=== PATIENT | female | born 1960 | race Hispanic/Latino ===

== ENCOUNTER 2016-08-04 07:20 | Emergency (ER) | payer MEDICARE ==
--- NOTE | 2016-08-04 11:33 | Emergency Department Report ---
HPI - General Chief Complaint: Skin/Abscess/Foreign Body Time Seen by Provider: 08/04/16 10:52 - HPI HPI: 56-year-old female presents today with multiple abscesses of her abdomen x1 week. Patient denies history of similar symptoms. Positive for purulent drainage without bleeding. Rates her pain as a 6 out of 10 constant pain. Denies fever, chills, nausea, vomiting, chest pain, shortness of breath, abdominal pain. ED Past Medical Hx - Past Medical History Previous Medical History?: Yes Hx Hypertension: Yes Hx Liver Disease: Yes (cirrhosis) Hx Arthritis: Yes Hx Seizures: Yes Hx Psychiatric Treatment: No Hx COPD: Yes Additional medical history: TBI 1985. OBESITY - Surgical History Past Surgical History?: Yes Additional Surgical History: left knee and left wrist surgery; brain 1985 - Social History Smoking Status: Never Smoker Substance Use Type: Prescribed, Other - Medications Home Medications: Home Medications Medication Instructions Recorded Confirmed Last Taken Type ALPRAZolam [Xanax TAB] 1 mg PO TID PRN 10/22/15 10/22/15 10/19/15 History Acetaminophen [Tylenol] 500 mg PO Q6HR PRN #20 tablet 10/22/15 Unknown Rx Aspirin [Aspirin BABY CHEW TAB] 81 mg PO QDAY 10/22/15 10/22/15 10/22/15 History Atenolol [Tenormin] 25 mg PO DAILY 10/22/15 10/22/15 10/22/15 History Bumetanide [Bumex] 1 mg PO DAILY 10/22/15 10/22/15 10/22/15 History Divalproex ER [DepaKOTE ER] 500 mg PO TID 10/22/15 10/22/15 10/22/15 History Famotidine [Pepcid] 20 mg PO BID #28 tablet 10/22/15 Unknown Rx Oxycodone HCl/Acetaminophen 1 each PO Q6HR PRN 10/22/15 10/22/15 10/20/15 History [Percocet 10/325 mg] carBAMazepine [TEGretol] 200 mg PO QAM 10/22/15 10/22/15 10/22/15 History Ibuprofen [Motrin] 800 mg PO Q8HR PRN #30 tablet 10/27/15 Unknown Rx Cephalexin [Keflex] 500 mg PO QID #20 cap 08/04/16 Unknown Rx Sulfamethoxazole/Trimethoprim 1 each PO BID #10 tablet 08/04/16 Unknown Rx [Bactrim DS TAB] traMADol [Ultram 50 MG tab] 50 mg PO Q6HR PRN #14 tablet 08/04/16 Unknown Rx ED Review of Systems ROS: Stated complaint: ABCESS ON ABD Other details as noted in HPI Constitutional: denies: chills, fever, malaise Eyes: denies: eye pain ENT: denies: ear pain, throat pain, congestion Respiratory: denies: cough, shortness of breath, wheezing Cardiovascular: denies: chest pain, palpitations Endocrine: no symptoms reported Gastrointestinal: denies: abdominal pain, nausea, vomiting Skin: lesions Neurological: denies: headache, weakness Physical Exam - Physical Exam Vital Signs: Vital Signs 08/04/16 07:25 Temperature 98 F Pulse Rate 82 Respiratory 20 Rate Blood Pressure 190/99 O2 Sat by Pulse 99 Oximetry Physical Exam: GENERAL: The patient is well-developed and well-nourished. Morbidly obese. Patient is in NAD. HEAD: Normocephalic. Atraumatic. CHEST/LUNGS: Clear to auscultation throughout. HEART/CARDIOVASCULAR: Regular rate and rhythm. No murmurs, rubs or gallops. ABDOMEN: Abdomen is soft, nontender. No guarding or rebound tenderness. EXTREMITIES: Peripheral pulses intact. Capillary refill less than 2 seconds. SKIN: Multiple abscesses noted of abdominal skin fold. 1. 1.5 cm in diameter indurated, nonfluctant abscess noted over the right abdomen 2. 3.5 cm in diameter, open, draining abscess noted over the mid abdomen 3. 1 cm in diameter, indurated, nonfluctuant abscess noted over the left abdomen ED Course Vital Signs 08/04/16 07:25 Temperature 98 F Pulse Rate 82 Respiratory 20 Rate Blood Pressure 190/99 O2 Sat by Pulse 99 Oximetry ED Medical Decision Making - Lab Data Vital Signs 08/04/16 08/04/16 08/04/16 07:25 11:47 12:22 Temperature 98 F Pulse Rate 82 66 82 Respiratory 20 18 Rate Blood Pressure 190/99 179/111 Blood Pressure 179/111 [Right] O2 Sat by Pulse 99 Oximetry 08/04/16 12:56 Temperature Pulse Rate 65 Respiratory 18 Rate Blood Pressure Blood Pressure 181/93 [Right] O2 Sat by Pulse Oximetry - Medical Decision Making 56-year-old female presents today with multiple abscesses of her abdominal fold. Her draining abscesses were cleaned with Betadine and dressed. Patient was given clonidine to lower her blood pressure and is recommended to follow up with her primary care provider for reconsideration of blood pressure medication. Explained to patient that uncontrolled hypertension may lead to heart attack, stroke and . Patient expressed understanding. Patient is in no acute distress at this time. She will be discharged home and is encouraged to follow up with a primary care provider. She will be sent home on Tramadol, Keflex and Bactrim and is encouraged to return to the emergency room for any worsening symptoms. Critical care attestation.: If time is entered above; I have spent that time in minutes in the direct care of this critically ill patient, excluding procedure time. ED Disposition Clinical Impression: Abscess Disposition: DISCHARGED TO HOME OR SELFCARE Is pt being admited?: No Does the pt Need Aspirin: No Condition: Stable Instructions: Abscess (ED) Additional Instructions: Follow-up with primary care provider. Return to the emergency department if symptoms worsen. Prescriptions: Sulfamethoxazole/Trimethoprim [Bactrim DS TAB] 1 each PO BID #10 tablet Cephalexin [Keflex] 500 mg PO QID #20 cap traMADol [Ultram 50 MG tab] 50 mg PO Q6HR PRN #14 tablet PRN Reason: Pain Referrals: AYLA WHARTON MD [Primary Care Provider] - 3-5 Days [facility] [Outside] - 3-5 Days Forms: Work/School Release Form(ED) Time of Disposition: 12:56
[2016-08-04] MEDS ORDERED: CATAPRES PO ONE (12:15)
[2016-08-04 12:56] VITALS: BP 181/93
== END 2016-08-04 13:04 | disposition home or self-care (01) ==
LOC: ED 07:20
DX: L02.211 Cutaneous abscess of abdominal wall (principal); Z79.82 Long term (current) use of aspirin; I10 Essential (primary) hypertension; M19.90 Unspecified osteoarthritis, unspecified site; R56.9 Unspecified convulsions; J44.9 Chronic obstructive pulmonary disease, unspecified; E66.9 Obesity, unspecified; K74.60 Unspecified cirrhosis of liver
CPT/HCPCS: 99283

== ENCOUNTER 2017-04-09 13:20 | Emergency (ER) | payer MEDICARE ==
[2017-04-09 15:06] LABS: Anion Gap 20 mmol/L; BUN/Creatinine Ratio 33.33; Blood Urea Nitrogen 20 mg/dL (7-17); Calcium 8.6 mg/dL (8.4-10.2); Carbon Dioxide 27 mmol/L (22-30); Chloride 101.9 mmol/L (98-107); Glucose 113 mg/dL (65-100); Sodium 145 mmol/L (137-145)
[2017-04-09 15:52] LABS: Basophils % (Auto) 0.6 % (0.0-1.8); Eosinophils % (Auto) 1.8 % (0.0-4.3); Hematocrit 34.7 % (30.3-42.9); Hemoglobin 11.3 gm/dl (10.1-14.3); Mean Corpuscular HGB Conc 33 % (30-34); Mean Corpuscular Hemoglobin 29 pg (28-32); Mean Corpuscular Volume 90 fl (79-97); Platelet Count 207 K/mm3 (140-440); Red Blood Count 3.86 M/mm3 (3.65-5.03); Red Cell Distribution Width 12.9 % (13.2-15.2); White Blood Count 4.3 K/mm3 (4.5-11.0)
[2017-04-09] MEDS ORDERED: MORPHINE IV ONE (17:46)
[2017-04-09] MEDS ORDERED: VANCOMYCIN/NS 1 GM/250 ML 1 GM/250 ML BAG IV ONE (17:46)
--- NOTE | 2017-04-09 17:55 | Emergency Department Report ---
HPI - General Chief Complaint: Extremity Injury, Lower Time Seen by Provider: 04/09/17 17:01 - HPI HPI: This is a 56-year-old female presents to the emergency department with complaint of bilateral foot and lower leg pain, swelling and redness that has been going on for the past 5-6 days. She has a history of arthritis, COPD, hypertension, liver cirrhosis. She has not taken anything for her symptoms prior to presentation other than her normal dose of Bumex for the swelling which she says did not provide any relief. She says that her primary care physician is Dr. Joy. No recent travel or sick contacts at home. She is able to ambulate. She denies any chest pain, shortness of breath, fever. ED Past Medical Hx - Past Medical History Hx Hypertension: Yes Hx Liver Disease: Yes (cirrhosis) Hx Arthritis: Yes Hx Seizures: Yes Hx Psychiatric Treatment: No Hx COPD: Yes Additional medical history: TBI 1985. OBESITY - Surgical History Additional Surgical History: left knee and left wrist surgery; brain 1985 - Social History Smoking Status: Never Smoker Substance Use Type: None - Medications Home Medications: Home Medications Medication Instructions Recorded Confirmed Last Taken Type ALPRAZolam [Xanax TAB] 1 mg PO TID PRN 10/22/15 10/22/15 10/19/15 History Acetaminophen [Tylenol] 500 mg PO Q6HR PRN #20 tablet 10/22/15 Unknown Rx Aspirin [Aspirin BABY CHEW TAB] 81 mg PO QDAY 10/22/15 10/22/15 10/22/15 History Atenolol [Tenormin] 25 mg PO DAILY 10/22/15 10/22/15 10/22/15 History Bumetanide [Bumex] 1 mg PO DAILY 10/22/15 10/22/15 10/22/15 History Divalproex ER [DepaKOTE ER] 500 mg PO TID 10/22/15 10/22/15 10/22/15 History Famotidine [Pepcid] 20 mg PO BID #28 tablet 10/22/15 Unknown Rx Oxycodone HCl/Acetaminophen 1 each PO Q6HR PRN 10/22/15 10/22/15 10/20/15 History [Percocet 10/325 mg] carBAMazepine [TEGretol] 200 mg PO QAM 10/22/15 10/22/1516 History Ibuprofen [Motrin] 800 mg PO Q8HR PRN #30 tablet 10/27/15 Unknown Rx Cephalexin [Keflex] 500 mg PO QID #20 cap 08/04/16 Unknown Rx Sulfamethoxazole/Trimethoprim 1 each PO BID #14 tablet 04/09/17 Unknown Rx [Bactrim DS TAB] traMADol [Ultram 50 MG tab] 50 mg PO Q6HR PRN #10 tablet 04/09/17 Unknown Rx ED Review of Systems ROS: Stated complaint: FEET PAINS Other details as noted in HPI Comment: All other systems reviewed and negative Constitutional: denies: chills, fever Eyes: denies: eye pain, eye discharge, vision change ENT: denies: ear pain, throat pain Respiratory: denies: cough, shortness of breath, wheezing Cardiovascular: denies: chest pain, palpitations Gastrointestinal: denies: abdominal pain, nausea, diarrhea Genitourinary: denies: urgency, dysuria, discharge Musculoskeletal: arthralgia, myalgia Skin: change in color. denies: pruritus Neurological: denies: headache, weakness, paresthesias Physical Exam - Physical Exam Vital Signs: Vital Signs 04/09/17 04/09/17 04/09/17 14:19 15:55 16:01 Temperature 97.6 F Pulse Rate 89 76 Respiratory 18 11 L Rate Blood Pressure 173/93 146/74 O2 Sat by Pulse 100 86 89 Oximetry 04/09/17 04/09/17 04/09/17 16:15 16:30 16:47 Temperature Pulse Rate 73 72 Respiratory 11 L 14 Rate Blood Pressure 146/74 146/74 146/74 O2 Sat by Pulse 70 L Oximetry Physical Exam: GENERAL: The patient is well-developed well-nourished. HENT: Normocephalic. Atraumatic. Patient has moist mucous membranes. EYES: Extraocular motions are intact. Pupils equal reactive to light bilaterally. NECK: Supple. Trachea is midline. CHEST/LUNGS: Clear to auscultation. There is no respiratory distress noted. HEART/CARDIOVASCULAR: Regular. There is no tachycardia. There is no gallop rub or murmur. ABDOMEN: Abdomen is soft, nontender. Patient has normal bowel sounds. There is no abdominal distention. SKIN: There is some erythema and warmth to the bilateral lower extremities around the distal tib-fib and the dorsum of the feet, but worse on the right than left. There is no fluctuance, bleeding, weeping or drainage. NEURO: The patient is awake, alert, and oriented. The patient is cooperative. The patient has no focal neurologic deficits. The patient has normal speech and gait. MUSCULOSKELETAL: Mild tenderness to palpation to the feet and ankles. No obvious deformities other than a probable cellulitis. There is no limitation range of motion. Cap refill less than 2 seconds. Pedal pulses intact. ED Course Vital Signs 04/09/17 04/09/17 04/09/17 14:19 15:55 16:01 Temperature 97.6 F Pulse Rate 89 76 Respiratory 18 11 L Rate Blood Pressure 173/93 146/74 O2 Sat by Pulse 100 86 89 Oximetry 04/09/17 04/09/17 04/09/17 16:15 16:30 16:47 Temperature Pulse Rate 73 72 Respiratory 11 L 14 Rate Blood Pressure 146/74 146/74 146/74 O2 Sat by Pulse 70 L Oximetry ED Medical Decision Making - Lab Data Result diagrams: 04/09/17 15:20 04/09/17 14:36 - Radiology Data Radiology results: image reviewed interpreted by me: X-ray of the bilateral feet does not show any fracture, dislocation or signs of osteomyelitis. - Medical Decision Making 56-year-old female presents with a few days of some pain towards the lower legs and feet as well as some redness. Vital signs stable including being afebrile. Labs are unremarkable including no leukocytosis. X-rays were done of the feet that did not show any signs of osteomyelitis. She was given some pain medication and antibiotics. She was seen ambulatory and bearing weight on these extremities multiple times throughout her ED stay. Since the cellulitis is not circumferential, she is not a diabetic, she does not have a fever or leukocytosis or any abnormal labs or vitals, we will attempt to treat her in the outpatient setting with antibiotics. I spoke to her in detail about any worsening of the cellulitis or signs of lymphangitis, development of fever, that she would need to return to the emergency department immediately for IV antibiotics and possible admission. In the meantime, she was set up to return tomorrow for a outpatient venous Doppler to make sure that the pain and swelling is not due to DVT. - Differential Diagnosis cellulitis, venous stasis, DVT Critical Care Time: No Critical care attestation.: If time is entered above; I have spent that time in minutes in the direct care of this critically ill patient, excluding procedure time. ED Disposition Clinical Impression: Leg pain, bilateral, Bilateral cellulitis of lower leg Disposition: DC- TO HOME OR SELFCARE Is pt being admited?: No Condition: Stable Instructions: Cellulitis (ED) Additional Instructions: Please follow up with a primary care physician in the next few days. Return to the emergency Department with any worsening of your symptoms or any acute distress. Take the antibiotics as prescribed. You have been prescribed a medication that is sedating and therefore should not be taken prior to driving, working, and responsible for children and in no way should be mixed with alcohol of any quantity. I have given you in order so that you can return tomorrow for an outpatient ultrasound/venous Doppler of the legs to make sure that there is no blood clot as the source of her discomfort and/or swelling. If positive, U will be redirected to the emergency department. Prescriptions: Sulfamethoxazole/Trimethoprim [Bactrim DS TAB] 1 each PO BID #14 tablet traMADol [Ultram 50 MG tab] 50 mg PO Q6HR PRN #10 tablet PRN Reason: Pain Referrals: PRIMARY CAREMD [Primary Care Provider] - 3-5 Days FARHAT HATCH MD [Staff Physician] - 3-5 Days [facility] [Outside] - 3-5 Days [facility] [Outside] - 3-5 Days [facility] [Outside] - 3-5 Days Time of Disposition: 20:41
[2017-04-09 20:51] VITALS: BP 132/68
--- NOTE | 2017-04-10 09:31 | XRay Report ---
Right and left foot: History: Pain infection. Findings: No fracture periosteal reaction or lytic lesion. Arthritic changes at first tarsometatarsal joint metatarsophalangeal joint and interphalangeal joint great toe right and left foot. More pronounced in the right foot. Mild arthritic changes at the interphalangeal joint second third fourth and fifth toes. Unfused bilateral accessory navicular bone or sesamoid in posterior tibial tendon. Impression: No acute changes. Findings as detailed above.
== END 2017-04-09 21:28 | disposition home or self-care (01) ==
LOC: ED 13:20
DX: L03.116 Cellulitis of left lower limb (principal); L03.115 Cellulitis of right lower limb; J44.9 Chronic obstructive pulmonary disease, unspecified
CPT/HCPCS: 36415; 73630; 80048; 82140; 82550; 83880; 84484; 85025; 96365; 96375; 99284; J2270

== ENCOUNTER 2017-04-11 13:47 | Emergency (ER) | payer MEDICARE ==
[2017-04-11] MEDS ORDERED: D50W (25GM) Syringe IV ONE (14:21)
== END 2017-04-11 15:09 | disposition home or self-care (01) ==
LOC: ED 13:47
DX: M79.606 Pain in leg, unspecified (principal); Z53.21 Procedure and treatment not carried out due to patient leaving prior to being seen by health care provider

== ENCOUNTER 2017-04-11 14:00 | Outpatient (CLI) | payer MEDICARE | END 2017-04-11 14:01 | disposition home or self-care (01) | LOC: VAS 14:00 | PROVIDERS: ATTEND Emergency Medicine | DX: M79.661 Pain in right lower leg (principal); M79.662 Pain in left lower leg; M79.89 Other specified soft tissue disorders; Z79.899 Other long term (current) drug therapy | CPT/HCPCS: 82962; 93970 ==

== ENCOUNTER 2017-05-03 13:59 | Emergency (ER) | payer MEDICARE ==
[2017-05-03 14:36] VITALS: BP 151/74
--- NOTE | 2017-05-03 15:06 | Emergency Department Report ---
Chief Complaint: Extremity Injury, Lower Stated Complaint: BILATERAL KNEE PAIN Time Seen by Provider: 05/03/17 15:06 - HPI History of Present Illness: Patient reports that she has bilateral lower leg pain 2 months. She says she was seen here in March and they did an ultrasound and rule out that she had blood clots in her leg. She says she fell 5 days ago and she is having pain she states she has chronic swelling to her legs and she is on a water pill but they're not helping. She says she got checked 1-2 months ago for blood clots but did not have any. She denies any shortness of breath or chest pain. She has a history of arthritis, COPD, hypertension, cirrhosis of the liver, seizure disorder and total brain injury in 1985, morbid obesity. She had surgery to her left knee and left wrist in the past she had brain surgery in 1985. Patient said her pain is 10 on the 10 to her legs. Patient had Doppler ultrasound bilateral lower extremity 04/11/2017 at this hospital and she had no DVT. She had left foot x-ray and 04/09/2017 and no acute findings. - ROS Review of Systems: All systems are negative unless stated in HPI above - Exam Vital Signs: Vital Signs 05/03/17 14:32 Temperature 97.6 F Pulse Rate 66 Respiratory 18 Rate Blood Pressure 151/74 O2 Sat by Pulse 100 Oximetry Physical Exam: Gen.: This is a 56-year-old female that looks disheveled but nontoxic in appearance. Extremity: 2 pulses in all extremities, no clubbing or cyanosis but she has bilateral lower extremity swelling. Both legs are tender to palpate without any erythema. MSE screening note: Focused history and physical exam performed. Due to findings the following was ordered: ED Medical Decision Making - Medical Decision Making MDM: Patient screened by provider in triage area. Appropriate protocol initiated and patient to be seen in main ED by ED Disposition for MSE Condition: Stable Referrals: PRIMARY CARE, [Primary Care Provider] - 3-5 Days
[2017-05-03 16:08] LABS: Basophils % (Auto) 0.3 % (0.0-1.8); Eosinophils % (Auto) 2.5 % (0.0-4.3); Hematocrit 37.1 % (30.3-42.9); Hemoglobin 12.6 gm/dl (10.1-14.3); Mean Corpuscular HGB Conc 34 % (30-34); Mean Corpuscular Hemoglobin 31 pg (28-32); Mean Corpuscular Volume 90 fl (79-97); Platelet Count 235 K/mm3 (140-440); Red Blood Count 4.13 M/mm3 (3.65-5.03); Red Cell Distribution Width 12.9 % (13.2-15.2); White Blood Count 5.8 K/mm3 (4.5-11.0)
[2017-05-03 16:15] LABS: Alanine Aminotransferase 15 units/L (7-56); Albumin 4.1 g/dL (3.9-5); Albumin/Globulin Ratio 1.3 %; Alkaline Phosphatase 76 units/L (35-129); Anion Gap 19 mmol/L; BUN/Creatinine Ratio 31; Blood Urea Nitrogen 22 mg/dL (7-17); Calcium 8.8 mg/dL (8.4-10.2); Carbon Dioxide 29 mmol/L (22-30); Chloride 98.8 mmol/L (98-107); Glucose 108 mg/dL (65-100); Sodium 143 mmol/L (137-145); Total Protein 7.2 g/dL (6.3-8.2)
--- NOTE | 2017-05-04 09:02 | XRay Report ---
BILATERAL FEET, 3 VIEWS History: Bilateral foot pain after fall. Findings: There is normal bone mineralization. Mild degenerative changes are noted bilaterally. No fracture, malalignment, bony erosions or soft tissue abnormalities appreciated. Bilateral accessory navicular bones measuring up to 1 cm are noted. Impression: No acute injury identified. Degenerative changes.
--- NOTE | 2017-05-04 09:05 | XRay Report ---
Right tibia-fibula 2 views. History: Trauma with pain. Findings: There are no fractures or other acute findings. There is evidence of osteoarthritis of the knee joint. Impression: No acute findings.
== END 2017-05-04 02:38 | disposition left against medical advice (07) ==
LOC: ED 13:59
DX: M25.561 Pain in right knee (principal); M25.562 Pain in left knee; Z53.21 Procedure and treatment not carried out due to patient leaving prior to being seen by health care provider
CPT/HCPCS: 36415; 80053; 83880; 85025

== ENCOUNTER 2018-04-03 19:25 | Inpatient (IN) | payer MEDICARE ==
[2018-04-03 20:57] LABS: Hematocrit 36.7 % (30.3-42.9); Hemoglobin 12.6 gm/dl (10.1-14.3); Mean Corpuscular HGB Conc 34 % (30-34); Mean Corpuscular Hemoglobin 31 pg (28-32); Mean Corpuscular Volume 90 fl (79-97); Platelet Count 240 K/mm3 (140-440); Red Blood Count 4.09 M/mm3 (3.65-5.03); Red Cell Distribution Width 12.9 % (13.2-15.2)
[2018-04-03 21:11] LABS: BUN/Creatinine Ratio 20; Blood Urea Nitrogen 14 mg/dL (7-17); Calcium 8.6 mg/dL (8.4-10.2); Hemolysis Index 1
[2018-04-04] MEDS ORDERED: CLEOCIN 600 MG/50 mL 600 MG/50 ML BAG IV ONE (01:08)
[2018-04-04] MEDS ORDERED: NORCO 5/325 PO ONE (01:08)
[2018-04-04] MEDS ORDERED: DIFLUCAN PO ONE (01:08)
[2018-04-04 01:30] LABS: Alanine Aminotransferase 17 units/L (7-56); Albumin 3.9 g/dL (3.9-5)
[2018-04-04 01:31] LABS: Bilirubin,Direct < 0.2 mg/dL (0-0.2)
--- NOTE | 2018-04-04 02:11 | Emergency Department Report ---
- General Chief complaint: Wound/Laceration Stated complaint: SKIN INFECTION Time Seen by Provider: 04/04/18 00:58 Source: patient Mode of arrival: Ambulatory Limitations: No Limitations - History of Present Illness Initial comments: 57 yo female with a past medical history traumatic brain injury, COPD, arthritis , hypertension, cirrhosis, and seizures presents to the hospital complaining of a scattered infection for several weeks. Symptoms are progressive worsened. She has not seen a physician for treatment of this. Patient is a very poor historian apparently took Xanax prior to my evaluation. She also complains of sore throat. - Related Data Home Medications Medication Instructions Recorded Confirmed Last Taken ALPRAZolam [Xanax TAB] 1 mg PO TID PRN 10/22/15 10/22/15 10/19/15 Aspirin [Aspirin BABY CHEW TAB] 81 mg PO QDAY 10/22/15 10/22/15 10/22/15 Atenolol [Tenormin] 25 mg PO DAILY 10/22/15 10/22/15 10/22/15 Bumetanide [Bumex] 1 mg PO DAILY 10/22/15 10/22/15 10/22/15 Divalproex ER [DepaKOTE ER] 500 mg PO TID 10/22/15 10/22/15 10/22/15 Oxycodone HCl/Acetaminophen 1 each PO Q6HR PRN 10/22/15 10/22/15 10/20/15 [Percocet 10/325 mg] carBAMazepine [TEGretol] 200 mg PO QAM 10/22/15 10/22/15 10/22/15 Previous Rx's Medication Instructions Recorded Last Taken Type Acetaminophen [Tylenol] 500 mg PO Q6HR PRN #20 tablet 10/22/15 Unknown Rx Famotidine [Pepcid] 20 mg PO BID #28 tablet 10/22/15 Unknown Rx Ibuprofen [Motrin] 800 mg PO Q8HR PRN #30 tablet 10/27/15 Unknown Rx cephALEXin [Keflex] 500 mg PO QID #20 cap 08/04/16 Unknown Rx Sulfamethoxazole/Trimethoprim 1 each PO BID #14 tablet 04/09/17 Unknown Rx [Bactrim DS TAB] traMADol [Ultram 50 MG tab] 50 mg PO Q6HR PRN #10 tablet 04/09/17 Unknown Rx Allergies Allergy/AdvReac Type Severity Reaction Status Date / Time No Known Allergies Allergy Verified 11/01/15 11:59 Abscess Boil HPI - HPI Chief Complaint: Wound/Laceration Stated Complaint: SKIN INFECTION Time Seen by Provider: 04/04/18 00:58 Home Medications: Home Medications Medication Instructions Recorded Confirmed Last Taken ALPRAZolam [Xanax TAB] 1 mg PO TID PRN 10/22/15 10/22/15 10/19/15 Aspirin [Aspirin BABY CHEW TAB] 81 mg PO QDAY 10/22/15 10/22/15 10/22/15 Atenolol [Tenormin] 25 mg PO DAILY 10/22/15 10/22/15 10/22/15 Bumetanide [Bumex] 1 mg PO DAILY 10/22/15 10/22/15 10/22/15 Divalproex ER [DepaKOTE ER] 500 mg PO TID 10/22/15 10/22/15 10/22/15 Oxycodone HCl/Acetaminophen 1 each PO Q6HR PRN 10/22/15 10/22/15 10/20/15 [Percocet 10/325 mg] carBAMazepine [TEGretol] 200 mg PO QAM 10/22/15 10/22/15 10/22/15 Previous Rx's Medication Instructions Recorded Last Taken Type Acetaminophen [Tylenol] 500 mg PO Q6HR PRN #20 tablet 10/22/15 Unknown Rx Famotidine [Pepcid] 20 mg PO BID #28 tablet 10/22/15 Unknown Rx Ibuprofen [Motrin] 800 mg PO Q8HR PRN #30 tablet 10/27/15 Unknown Rx cephALEXin [Keflex] 500 mg PO QID #20 cap 08/04/16 Unknown Rx Sulfamethoxazole/Trimethoprim 1 each PO BID #14 tablet 04/09/17 Unknown Rx [Bactrim DS TAB] traMADol [Ultram 50 MG tab] 50 mg PO Q6HR PRN #10 tablet 04/09/17 Unknown Rx Allergies/Adverse Reactions: Allergies Allergy/AdvReac Type Severity Reaction Status Date / Time No Known Allergies Allergy Verified 11/01/15 11:59 ED Review of Systems ROS: Stated complaint: SKIN INFECTION Other details as noted in HPI Comment: All other systems reviewed and negative ED Past Medical Hx - Past Medical History Hx Hypertension: Yes Hx Liver Disease: Yes (cirrhosis) Hx Arthritis: Yes Hx Seizures: Yes Hx Psychiatric Treatment: No Hx COPD: Yes Additional medical history: TBI 1985. OBESITY - Surgical History Additional Surgical History: left knee and left wrist surgery; brain 1985 - Social History Smoking Status: Never Smoker Substance Use Type: None - Medications Home Medications: Home Medications Medication Instructions Recorded Confirmed Last Taken Type ALPRAZolam [Xanax TAB] 1 mg PO TID PRN 10/22/15 10/22/15 10/19/15 History Acetaminophen [Tylenol] 500 mg PO Q6HR PRN #20 tablet 10/22/15 Unknown Rx Aspirin [Aspirin BABY CHEW TAB] 81 mg PO QDAY 10/22/15 10/22/15 10/22/15 History Atenolol [Tenormin] 25 mg PO DAILY 10/22/15 10/22/15 10/22/15 History Bumetanide [Bumex] 1 mg PO DAILY 10/22/15 10/22/15 10/22/15 History Divalproex ER [DepaKOTE ER] 500 mg PO TID 10/22/15 10/22/15 10/22/15 History Famotidine [Pepcid] 20 mg PO BID #28 tablet 10/22/15 Unknown Rx Oxycodone HCl/Acetaminophen 1 each PO Q6HR PRN 10/22/15 10/22/15 10/20/15 History [Percocet 10/325 mg] carBAMazepine [TEGretol] 200 mg PO QAM 10/22/15 10/22/15 10/22/15 History Ibuprofen [Motrin] 800 mg PO Q8HR PRN #30 tablet 10/27/15 Unknown Rx cephALEXin [Keflex] 500 mg PO QID #20 cap 08/04/16 Unknown Rx Sulfamethoxazole/Trimethoprim 1 each PO BID #14 tablet 04/09/17 Unknown Rx [Bactrim DS TAB] traMADol [Ultram 50 MG tab] 50 mg PO Q6HR PRN #10 tablet 04/09/17 Unknown Rx ED Physical Exam - General Limitations: No Limitations - Other Other exam information: General: No limitations, patient is alert in no acute distress Head exam: Atraumatic, normocephalic Eyes exam: Normal appearance ENT: Moist mucous membrane, normal oropharynx Neck exam: Normal inspection, full range of motion, no meningismus nontender Respiratory exam: Clear to auscultation bilateral, no wheezes, rales, crackles Cardiovascular: Normal rate and rhythm, normal heart sounds Abdomen: Soft, nondistended, and nontender, with normal bowel sounds, no rebound, or guarding, lower abd erythema Extremity: Full range of motion normal inspection no deformity Back: Normal Inspection, full range of motion, no tenderness Neurologic:drowsy, oriented x3, cranial nerves intact, no motor or sensory deficit Psychiatric: normal affect, normal mood Skin: Significant erythema and malodorous discharge to be lower abdomen, inguinal, and vaginal area ED Course Vital Signs 04/03/18 04/03/18 04/04/18 19:36 20:04 00:39 Temperature 99.3 F 99.3 F 98.9 F Pulse Rate 108 H 107 H 102 H Respiratory 18 18 22 Rate Blood Pressure 156/108 156/108 Blood Pressure 154/89 [Left] O2 Sat by Pulse 97 97 96 Oximetry ED Medical Decision Making - Lab Data Result diagrams: 04/03/18 20:38 04/03/18 20:38 Lab Results 04/03/18 04/03/18 Range/Units 20:38 20:38 WBC 8.0 (4.5-11.0) K/mm3 RBC 4.09 (3.65-5.03) M/mm3 Hgb 12.6 (10.1-14.3) gm/dl Hct 36.7 (30.3-42.9) % MCV 90 (79-97) fl MCH 31 (28-32) pg MCHC 34 (30-34) % RDW 12.9 L (13.2-15.2) % Plt Count 240 (140-440) K/mm3 Sodium 139 (137-145) mmol/L Potassium 3.8 (3.6-5.0) mmol/L Chloride 99.4 (98-107) mmol/L Carbon Dioxide 26 (22-30) mmol/L Anion Gap 17 mmol/L BUN 14 (7-17) mg/dL Creatinine 0.7 (0.7-1.2) mg/dL Estimated GFR > 60 ml/min BUN/Creatinine Ratio 20 % Glucose 117 H (65-100) mg/dL Calcium 8.6 (8.4-10.2) mg/dL Total Bilirubin 0.40 (0.1-1.2) mg/dL Direct Bilirubin < 0.2 (0-0.2) mg/dL Indirect Bilirubin 0.2 mg/dL AST 15 (5-40) units/L ALT 17 (7-56) units/L Alkaline Phosphatase 68 (35-129) units/L Total Protein 7.3 (6.3-8.2) g/dL Albumin 3.9 (3.9-5) g/dL Albumin/Globulin Ratio 1.1 % - Medical Decision Making Patient has a significant cellulitis and likely fungal infection. Patient treated with clindamycin and by mouth Diflucan. Patient is not a diabetic. No signs of sepsis or septic shock. Will be admitted to the hospital for further treatment - Differential Diagnosis cellulitis, tinea infection, fungal infection Critical Care Time: No Critical care attestation.: If time is entered above; I have spent that time in minutes in the direct care of this critically ill patient, excluding procedure time. ED Disposition Clinical Impression: Cellulitis, Tinea cruris Disposition: 09 OP ADMIT IP TO THIS HOSP Is pt being admited?: Yes Condition: Stable Time of Disposition: 02:15 (Dr Toro/hospitalist)
[2018-04-04] MEDS ORDERED: ZOFRAN IV PRN (02:59)
[2018-04-04] MEDS ORDERED: MOTRIN PO PRN (03:00)
[2018-04-04] MEDS ORDERED: ZOSYN/NS 3.375GM/50ML 3.375 GM/50 ML BAG IV SCH (06:00)
[2018-04-04] MEDS: ZOSYN/NS 4.5GM/100ML 4.5 GM/100 ML VIAL IV SCH ×2 (06:53→14:51)
--- NOTE | 2018-04-04 08:25 | Progress Note ---
Assessment and Plan Assessment and plan: Admitted this morning by Dr. Toro Patient is a 57 yo woman with a history of morbid obesity, bmi 51.1, traumatic brain injury, COPD, arthritis, hypertension, cirrhosis, and seizures disorder who presented with many complaints including sore throat (Oral pharynx clear), abdominal cellulits and purple right toes -Complicated skin infection with Panniculitis with sepsis, poa (extensive): treat with IV abx, consult ID -PVD, right foot suspected, foot warm but reduced dorsal pedis arterial pulse: consult Vascular and get arterial doppler, treat with asa/statin, she doesn't want heparin, she will re-consider if Vascular says so. -?mental disorder vs sequelae of TBI: consulted Mental health -DVT prophylaxis: she is refusing sq heparin, advise given and she will re- consider History Interval history: Patient was seen and examined. Follow-up on current diagnosis of skin cellulitis. Overnight uneventful. Patient denies any chest pain, shortness breath, nausea/vomiting or severe headaches. Imaging, nursing note, chart, labs and old chart reviewed. Discussed with patient. Hospitalist Physical - Physical exam Narrative exam: GEN: WDWN, NAD, Awake, Alert, Orientated, extreme obesity bmi 51 HEENT: NCAT, EOMI, PERRL, Oral pharynx clear, no erythema, edema or pus seen NECK: supple, no adenopathy, no thyromegaly, no JVD CVS/HEART: RRR, normal S1S2, pulses present bilaterally, dorsal pulses present bilateral but less on the right CHEST/LUNGS: CTA B, Symmetrical chest expansion, good air entry bilaterally GI/Abdomen: soft, NTND, good bowel sounds, no guarding or rebound /Bladder: no suprapubic tenderness, no CVA or paraspinal tenderness EXT/Skin: lower abd skin cellulitis under pannus, cross midline into bilateral groin area MSK: FROM x 4 Neuro: CN 2-12 grossly intact, no new focal deficits Psych: anxious - Constitutional Vitals: Temp Pulse Resp BP Pulse Ox 98.0 F 101 H 20 154/88 96 04/04/18 05:16 04/04/18 06:58 04/04/18 06:58 04/04/18 06:58 04/04/18 06:58 Results - Labs CBC & Chem 7: 04/03/18 20:38 04/03/18 20:38 Labs: Laboratory Last Values WBC 8.0 K/mm3 (4.5-11.0) 04/03/18 20:38 RBC 4.09 M/mm3 (3.65-5.03) 04/03/18 20:38 Hgb 12.6 gm/dl (10.1-14.3) 04/03/18 20:38 Hct 36.7 % (30.3-42.9) 04/03/18 20:38 MCV 90 fl (79-97) 04/03/18 20:38 MCH 31 pg (28-32) 04/03/18 20:38 MCHC 34 % (30-34) 04/03/18 20:38 RDW 12.9 % (13.2-15.2) L 04/03/18 20:38 Plt Count 240 K/mm3 (140-440) 04/03/18 20:38 Sodium 139 mmol/L (137-145) 04/03/18 20:38 Potassium 3.8 mmol/L (3.6-5.0) 04/03/18 20:38 Chloride 99.4 mmol/L (98-107) 04/03/18 20:38 Carbon Dioxide 26 mmol/L (22-30) 04/03/18 20:38 Anion Gap 17 mmol/L 04/03/18 20:38 BUN 14 mg/dL (7-17) 04/03/18 20:38 Creatinine 0.7 mg/dL (0.7-1.2) 04/03/18 20:38 Estimated GFR > 60 ml/min 04/03/18 20:38 BUN/Creatinine Ratio 20 % 04/03/18 20:38 Glucose 117 mg/dL (65-100) H 04/03/18 20:38 Calcium 8.6 mg/dL (8.4-10.2) 04/03/18 20:38 Total Bilirubin 0.40 mg/dL (0.1-1.2) 04/03/18 20:38 Direct Bilirubin < 0.2 mg/dL (0-0.2) 04/03/18 20:38 Indirect Bilirubin 0.2 mg/dL 04/03/18 20:38 AST 15 units/L (5-40) 04/03/18 20:38 ALT 17 units/L (7-56) 04/03/18 20:38 Alkaline Phosphatase 68 units/L (35-129) 04/03/18 20:38 Total Protein 7.3 g/dL (6.3-8.2) 04/03/18 20:38 Albumin 3.9 g/dL (3.9-5) 04/03/18 20:38 Albumin/Globulin Ratio 1.1 % 04/03/18 20:38
--- NOTE | 2018-04-04 09:05 | History and Physical Report ---
CHIEF COMPLAINT: Skin excoriation and bruising. HISTORY OF PRESENT ILLNESS: The patient is a 57-year-old female who complains of possible skin infection with rashes in the groin area and lower abdominal area extending to the vaginal area. The patient is a poor historian and cannot remember when the skin lesion started and so, it has been there for some time and causing some pain. There is no history of fever or chills. No history of nausea or vomiting, and the patient presented to the Emergency Room. PAST MEDICAL HISTORY: Pertinent for traumatic brain injury, COPD, arthritis, hypertension, cirrhosis of the liver, seizure disorder, the patient has past history of obesity. PAST SURGICAL HISTORY: Pertinent for left knee surgery, left wrist surgery, and brain surgery. FAMILY HISTORY: Noncontributory. SOCIAL HISTORY: The patient does not smoke, does not drink alcohol, and does not use illicit drugs. MEDICATIONS: The patient is on Xanax 1 mg by mouth 3 times daily, aspirin 81 mg by mouth daily, Tenormin 25 mg by mouth daily, Bumex 1 mg by mouth daily, Depakote 500 mg by mouth 3 times daily, Percocet 10/325 mg 1 by mouth every 6 hours as needed for pain, Tegretol 200 mg by mouth every morning. ALLERGIES: There are no known drug allergies. REVIEW OF SYSTEMS: CONSTITUTIONAL: There is no fever, no chills, no diaphoresis. HEENT: There is no headache or sore throat. CARDIOVASCULAR SYSTEM: There is no chest pain or orthopnea. RESPIRATORY SYSTEM: There is no shortness of breath or cough. GASTROINTESTINAL SYSTEM: There is no nausea, vomiting, abdominal pain, diarrhea or constipation. NEUROLOGICAL SYSTEM: There is no numbness, no dizziness, no altered mental status. MUSCULOSKELETAL SYSTEM: There is no joint pain or swelling. DERMATOLOGICAL SYSTEM: Skin lesion noted. No itching. GENITOURINARY SYSTEM: There is no dysuria, hematuria, or flank pain. Rest of system review is normal. PHYSICAL EXAMINATION: GENERAL: At the time of exam, the patient was found to be alert, oriented to person, with some light confusion, but not in acute distress. VITAL SIGNS: Shows temperature of 99.3 degrees Fahrenheit, pulse of 108, respiration 18, blood pressure 156/108, which later came down to 154/89, O2 sat of 97% on room air. HEENT: Showed pupils to be equal, round, reactive to light and accommodation. Extraocular muscles are intact. NECK: Supple with no JVD or carotid bruit. CARDIOVASCULAR SYSTEM: Showed normal first and second heart sounds with no gallops or murmurs. RESPIRATORY SYSTEM: Showed good air entry on both sides of the lung, with no abnormal breath sounds. GASTROINTESTINAL SYSTEM: Show abdomen to be full, soft, and nontender with no organomegaly or rigidity. NEUROLOGIC: Shows no focal deficits. MUSCULOSKELETAL SYSTEM: Show no joint swelling or tenderness. DERMATOLOGICAL SYSTEM: Show extensive macular rash in the lower abdominal area and groin area extending to the vaginal area with some skin excoriation. GENITOURINARY SYSTEM: Show no costovertebral angle tenderness. PERTINENT LABORATORY AND IMAGING STUDIES: Patient's lab test shows unremarkable CBC and unremarkable chemistry. DIAGNOSIS: 1. Cellulitis in the groin area. 2. Fungal infection in the groin area. PLAN OF ACTION: 1. This patient will be admitted to medical/surgical floor. 2. The patient will have wound care nurse consult. 3. The patient will be on intravenous Zosyn 3.375 g every 8 hours and will also be on fluconazole 150 mg by mouth daily. 4. The patient will be on Tylenol 650 mg by mouth every 4 hours for fever and headache and will be on intravenous Zofran 4 mg every 8 hours for nausea and vomiting. 5. The patient will be on her home medication as shown in the medication reconciliation session and will be on fluconazole 150 mg by mouth daily. JOB# [id number] OCN/NTS MTDD
[2018-04-04] MEDS: TENORMIN PO SCH (09:22)
[2018-04-04] MEDS: BACTRIM DS PO SCH (09:22)
[2018-04-04] MEDS: PEPCID PO SCH ×2 (09:22→23:57)
[2018-04-04] MEDS: BUMEX PO SCH (09:22)
[2018-04-04] MEDS: BABY ASPIRIN PO SCH (09:23)
[2018-04-04] MEDS: HEPARIN SUB-Q SCH ×2 (09:23→23:57)
[2018-04-04] MEDS: XANAX PO PRN ×2 (11:24→23:57)
[2018-04-04] MEDS: ULTRAM PO PRN (11:24)
[2018-04-04] MEDS: MORPHINE IV PRN ×2 (15:15→23:57)
--- NOTE | 2018-04-04 18:12 | Consultation ---
History of Present Illness - Reason for Consult Consult date: 04/04/18 Evaluate for PVD Requesting physician: ALEC DAVIS - History of Present Illness This pt is a 57 yo WF that was admitted on 03/04/18 via the [facility] due to a groin fungal infection with cellulitis. She was noted to have skin color changes and decreased temp to her feet. With concerns of possible underlying PAD , an arterial duplex was ordered and a vascular surgery consult has been placed. Past History Past Medical History: arthritis, COPD, hypertension, seizures, other (traumatic brain injury, obesity, cirrhosis) Past Surgical History: Other (left knee surgery, left wrist surgery, brain surgery) Social history: denies: smoking, alcohol abuse, prescription drug abuse Family history: no significant family history (none listed) Medications and Allergies Allergies Allergy/AdvReac Type Severity Reaction Status Date / Time No Known Allergies Allergy Verified 11/01/15 11:59 Home Medications Medication Instructions Recorded Confirmed Last Taken Type ALPRAZolam [Xanax TAB] 1 mg PO TID PRN 10/22/15 10/22/15 10/19/15 History Acetaminophen [Tylenol] 500 mg PO Q6HR PRN #20 tablet 10/22/15 Unknown Rx Aspirin [Aspirin BABY CHEW TAB] 81 mg PO QDAY 10/22/15 10/22/15 10/22/15 History Atenolol [Tenormin] 25 mg PO DAILY 10/22/15 10/22/15 10/22/15 History Bumetanide [Bumex] 1 mg PO DAILY 10/22/15 10/22/15 10/22/15 History Divalproex ER [DepaKOTE ER] 500 mg PO TID 10/22/15 10/22/15 10/22/15 History Famotidine [Pepcid] 20 mg PO BID #28 tablet 10/22/15 Unknown Rx Oxycodone HCl/Acetaminophen 1 each PO Q6HR PRN 10/22/15 10/22/15 10/20/15 History [Percocet 10/325 mg] carBAMazepine [TEGretol] 200 mg PO QAM 10/22/15 10/22/15 10/22/15 History Ibuprofen [Motrin] 800 mg PO Q8HR PRN #30 tablet 10/27/15 Unknown Rx cephALEXin [Keflex] 500 mg PO QID #20 cap 08/04/16 Unknown Rx Sulfamethoxazole/Trimethoprim 1 each PO BID #14 tablet 04/09/17 Unknown Rx [Bactrim DS TAB] traMADol [Ultram 50 MG tab] 50 mg PO Q6HR PRN #10 tablet 04/09/17 Unknown Rx Active Meds: Active Medications Alprazolam (Xanax) 1 mg PO TID PRN PRN Reason: Anxiety Last Admin: 04/04/18 11:24 Dose: 1 mg Aspirin (Baby Aspirin) 81 mg PO QDAY [facility] Last Admin: 04/04/18 09:23 Dose: 81 mg Atenolol (Tenormin) 25 mg PO DAILY [facility] Last Admin: 04/04/18 09:22 Dose: 25 mg Bumetanide (Bumex) 1 mg PO DAILY [facility] Last Admin: 04/04/18 09:22 Dose: 1 mg Carbamazepine (Tegretol) 200 mg PO QAM [facility] Last Admin: 04/04/18 09:23 Dose: 200 mg Divalproex Sodium (Depakote Er) 500 mg PO TID [facility] Last Admin: 04/04/18 15:42 Dose: 500 mg Famotidine (Pepcid) 20 mg PO BID [facility] Last Admin: 04/04/18 09:22 Dose: 20 mg Fluconazole (Diflucan) 150 mg PO DAILY [facility] Heparin Sodium (Porcine) (Heparin) 5,000 unit SUB-Q Q12HR [facility] Last Admin: 04/04/18 09:23 Dose: Not Given Piperacillin Sod/Tazobactam Sod (Zosyn/Ns 4.5gm/100ml) 4.5 gm in 100 mls @ 200 mls/hr IV Q8HR [facility]; Protocol Last Admin: 04/04/18 14:51 Dose: 200 mls/hr Morphine Sulfate (Morphine) 2 mg IV Q4H PRN PRN Reason: Pain, Moderate (4-6) Last Admin: 04/04/18 15:15 Dose: 2 mg Ondansetron HCl (Zofran) 4 mg IV Q8H PRN PRN Reason: Nausea And Vomiting Tramadol HCl (Ultram) 50 mg PO Q6HR PRN PRN Reason: Pain Last Admin: 04/04/18 11:24 Dose: 50 mg Trimethoprim/Sulfamethoxazole (Bactrim Ds) 1 each PO BID [facility] Last Admin: 04/04/18 09:22 Dose: 1 each Review of Systems All systems: negative Exam - Constitutional Vitals: Temp Pulse Resp BP Pulse Ox 99.2 F 86 20 132/67 96 04/04/18 08:47 04/04/18 08:47 04/04/18 08:47 04/04/18 08:47 04/04/18 08:47 General appearance: Present: obese - EENT Eyes: Present: EOM intact ENT: hearing intact - Respiratory Respiratory effort: normal - Extremities Extremities: pulses intact (easily palpable DP bilat), abnormal (appearence of groin fungal infections with surrounding erythema, her feet were slightly cool and milldly pale) - Psychiatric Psychiatric: no appropriate mood/affect, no intact judgment & insight, cooperative - Neurologic Neurologic: moves all extremities Results - Labs CBC & Chem 7: 04/05/18 04:51 04/05/18 04:51 Labs: Abnormal lab results 04/03/18 04/03/18 Range/Units 20:38 20:38 RDW 12.9 L (13.2-15.2) % Glucose 117 H (65-100) mg/dL Assessment and Plan Pt examined and arterial duplex reviewed. Pt appears to have adequate arterial supply to lower extremities. No arterial intervention required at this time. - Patient Problems (1) Cellulitis Current Visit: Yes Status: Acute (2) Tinea cruris Current Visit: Yes Status: Acute (3) H/O traumatic brain injury Current Visit: Yes Status: Acute
--- NOTE | 2018-04-04 23:07 | Event Note ---
Date: 04/04/18 Received consultation. Pt to be fully seen tomorrow. Extensive abdominal wall cellulitis. Add vanco, continue zosyn and fluconazole for now. Check CRP.
[2018-04-04] MEDS ORDERED: VANCOMYCIN VIAL 1,000 MG in NACL 0.9% 100 ML IV SCH (23:45)
[2018-04-05] MEDS: VANCOMYCIN 2,000 MG in NACL 0.9% 500 ML 500 ML IV SCH ×2 (00:30→12:46)
[2018-04-05] MEDS: ZOSYN/NS 4.5GM/100ML 4.5 GM/100 ML VIAL IV SCH ×2 (00:30→06:09)
[2018-04-05] MEDS: ULTRAM PO PRN (01:22)
[2018-04-05] MEDS ORDERED: ATIVAN IV ONE ×2 (02:56→05:45)
[2018-04-05] MEDS: MORPHINE IV PRN ×3 (03:15→16:24)
[2018-04-05 05:42] LABS: Hematocrit 32.7 % (30.3-42.9); Hemoglobin 11.1 gm/dl (10.1-14.3); Mean Corpuscular HGB Conc 34 % (30-34); Mean Corpuscular Hemoglobin 31 pg (28-32); Mean Corpuscular Volume 90 fl (79-97); Platelet Count 216 K/mm3 (140-440); Red Blood Count 3.63 M/mm3 (3.65-5.03); Red Cell Distribution Width 12.7 % (13.2-15.2)
[2018-04-05 05:58] LABS: BUN/Creatinine Ratio 14; Blood Urea Nitrogen 11 mg/dL (7-17); Calcium 7.7 mg/dL (8.4-10.2); Hemolysis Index 2
--- NOTE | 2018-04-05 08:38 | Vascular Lab Report ---
LOWER EXTREMITY ARTERIAL DUPLEX: REASON FOR EXAM: Peripheral arterial disease. COMMENTS ON THE RIGHT: Triphasic waveforms are seen proximally. Triphasic waveforms are seen distally. No significant velocity gradients are identified. No significant plaque is identified. Findings are consistent with normal perfusion. Findings are consistent with the ability to heal distal wounds. COMMENTS ON THE LEFT: Triphasic waveforms are seen proximally. Triphasic waveforms are seen distally. No significant velocity gradients are identified. No significant plaque is identified. Findings are consistent with normal perfusion. Findings are consistent with the ability to heal distal wounds. IMPRESSION: RIGHT: Essentially normal arterial flow. LEFT:Essentially normal arterial flow.
[2018-04-05] MEDS: BABY ASPIRIN PO SCH (09:52)
[2018-04-05] MEDS: BUMEX PO SCH (09:57)
[2018-04-05] MEDS: HEPARIN SUB-Q SCH (09:57)
[2018-04-05] MEDS: PEPCID PO SCH (09:58)
[2018-04-05] MEDS: TENORMIN PO SCH (09:58)
[2018-04-05] MEDS ORDERED: DIFLUCAN PO SCH (10:00)
[2018-04-05] MEDS: XANAX PO PRN ×2 (12:00→18:51)
[2018-04-05] MEDS: BACTRIM DS PO SCH (12:01)
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
--- NOTE | 2018-04-05 13:13 | Consultation ---
History of Present Illness - Reason for Consult Consult date: 04/05/18 severe panniculitis Requesting physician: ALEC DAVIS - History of Present Illness 57 y/o female with history of cocaine/marihuana abuse, COPD, hypertension, cirrhosis of the liver, seizure disorder, total brain injury in 1985, morbid obesity, seizures; admitted on 04/03/2019 due to a week history of worsening lower abdominal wall erythema, edema and tenderness. Patient reports that she was putting some powder without improvement. History is limited that patient is very sleepy and confused at times. Denies fevers or chills. She also was complaining of discoloration of her toes. In the ED, initial temperature 99.3, heart rate 108, respiration 18, O2 sat 97, blood pressure 156/108. White cell count 8. Hemoglobin 12.6. Platelets 240. Creatinine 0.7. Microbiology: none Current Antimicrobials: clinda Previous Antimicrobials: Medications and Allergies Allergies Allergy/AdvReac Type Severity Reaction Status Date / Time No Known Allergies Allergy Verified 11/01/15 11:59 Home Medications Medication Instructions Recorded Confirmed Last Taken Type ALPRAZolam [Xanax TAB] 1 mg PO TID PRN 10/22/15 10/22/15 10/19/15 History Acetaminophen [Tylenol] 500 mg PO Q6HR PRN #20 tablet 10/22/15 Unknown Rx Aspirin [Aspirin BABY CHEW TAB] 81 mg PO QDAY 10/22/15 10/22/15 10/22/15 History Atenolol [Tenormin] 25 mg PO DAILY 10/22/15 10/22/15 10/22/15 History Bumetanide [Bumex] 1 mg PO DAILY 10/22/15 10/22/15 10/22/15 History Divalproex ER [DepaKOTE ER] 500 mg PO TID 10/22/15 10/22/15 10/22/15 History Famotidine [Pepcid] 20 mg PO BID #28 tablet 10/22/15 Unknown Rx Oxycodone HCl/Acetaminophen 1 each PO Q6HR PRN 10/22/15 10/22/15 10/20/15 History [Percocet 10/325 mg] carBAMazepine [TEGretol] 200 mg PO QAM 10/22/15 10/22/15 10/22/15 History Ibuprofen [Motrin] 800 mg PO Q8HR PRN #30 tablet 10/27/15 Unknown Rx cephALEXin [Keflex] 500 mg PO QID #20 cap 08/04/16 Unknown Rx Sulfamethoxazole/Trimethoprim 1 each PO BID #14 tablet 04/09/17 Unknown Rx [Bactrim DS TAB] traMADol [Ultram 50 MG tab] 50 mg PO Q6HR PRN #10 tablet 04/09/17 Unknown Rx Active Meds: Active Medications Alprazolam (Xanax) 1 mg PO TID PRN PRN Reason: Anxiety Last Admin: 04/05/18 12:00 Dose: 1 mg Aspirin (Baby Aspirin) 81 mg PO QDAY [facility] Last Admin: 04/05/18 09:52 Dose: 81 mg Atenolol (Tenormin) 25 mg PO DAILY [facility] Last Admin: 04/05/18 09:58 Dose: 25 mg Bumetanide (Bumex) 1 mg PO DAILY [facility] Last Admin: 04/05/18 09:57 Dose: 1 mg Carbamazepine (Tegretol) 200 mg PO QAM [facility] Last Admin: 04/05/18 09:58 Dose: 200 mg Divalproex Sodium (Depakote Er) 500 mg PO TID [facility] Last Admin: 04/05/18 09:52 Dose: 500 mg Famotidine (Pepcid) 20 mg PO BID [facility] Last Admin: 04/05/18 09:58 Dose: 20 mg Fluconazole (Diflucan) 150 mg PO DAILY [facility] Last Admin: 04/05/18 09:57 Dose: 150 mg Heparin Sodium (Porcine) (Heparin) 5,000 unit SUB-Q Q12HR [facility] Last Admin: 04/05/18 09:57 Dose: 5,000 unit Piperacillin Sod/Tazobactam Sod (Zosyn/Ns 4.5gm/100ml) 4.5 gm in 100 mls @ 200 mls/hr IV Q8HR [facility]; Protocol Last Admin: 04/05/18 06:09 Dose: 200 mls/hr Vancomycin HCl 2,000 mg/ (Sodium Chloride) 540 mls @ 250 mls/hr IV Q12H [facility] Last Admin: 04/05/18 12:46 Dose: 250 mls/hr Morphine Sulfate (Morphine) 2 mg IV Q4H PRN PRN Reason: Pain, Moderate (4-6) Last Admin: 04/05/18 09:52 Dose: 2 mg Ondansetron HCl (Zofran) 4 mg IV Q8H PRN PRN Reason: Nausea And Vomiting Tramadol HCl (Ultram) 50 mg PO Q6HR PRN PRN Reason: Pain Last Admin: 04/05/18 01:22 Dose: 50 mg Review of Systems All systems: negative (Limited due to altered mental status) Physical Examination - Physical Exam Narrative exam: General appearance: Somnolent in NAD, conversant Eyes: anicteric sclerae, moist conjunctivae; no lid-lag; PERRLA HENT: Atraumatic; oropharynx limited Neck: Trachea midline; supple, no thyromegaly or lymphadenopathy Lungs: CTA, with normal respiratory effort and no intercostal retractions CV: RRR Abdomen: Soft, non-tender; bilateral lower abdominal wall, pubic, groin and upper thighs with marked erythema, edema, some areas of the skin sloughing and bilateral groin Extremities: Bilateral ankle edema Skin: As above Psych: Appropriate affect, alert and oriented to person, place and time. Neuro: alert and oriented x 3. Moving all extermities Lines: No CVL / PICC - Constitutional Vitals: Vital Signs Temp Pulse Resp BP Pulse Ox 98.4 F 68 20 108/75 96 04/05/18 06:04 04/05/18 06:04 04/05/18 06:04 04/05/18 06:04 04/05/18 06:04 Temperature -Last 24 Hours Temperature 98.4 F Temperature 98.2 F Results - Labs CBC & Chem 7: 04/05/18 04:51 04/05/18 04:51 Labs: Abnormal lab results 04/05/18 04/05/18 04/05/18 Range/Units 00:33 04:51 04:51 WBC 4.4 L (4.5-11.0) K/mm3 RBC 3.63 L (3.65-5.03) M/mm3 RDW 12.7 L (13.2-15.2) % Glucose 123 H (65-100) mg/dL Calcium 7.7 L (8.4-10.2) mg/dL C-Reactive Protein 11.90 H (0.00-1.30) mg/dL Assessment and Plan Assessment: 1) Extensive cellulitis of the bilateral lower abdominal wall, mons, growing, upper thighs: Likely due to Strep on top of Candidal intertrigo. CRP=11.5 2) Acute encephalopthy: ? 3) History of cocaine/marihuana abuse 4) COPD 5) Hypertension 6) Cirrhosis of the liver 7) Seizure disorder 8) History of total brain injury in 1985 9) Morbid obesity 10) toes discoloration: art US normal flow Plan: -clindamycin stopped -stop zosyn -start unasyn -started on vanco -urine drug screen -consider neuro / psych eval -appreciate wound care Thank you for your consultation, will follow up with you. Rosetta Ovalles MD Infectious Diseases Specialist [facility] M [phone] O [phone]
[2018-04-05] MEDS ORDERED: UNASYN/NS 3 GM/100 ML 3 GM/100 ML BAG IV SCH (14:00)
[2018-04-05 14:15] LABS: Lipase 18 units/L (13-60)
[2018-04-05 14:28] LABS: Hepatitis B Core IgM Non-Reactive (NonReactive); Hepatitis B Surface Antigen Non-Reactive (Negative); Hepatitis C Virus Antibody Non-Reactive (NonReactive)
[2018-04-05] MEDS: UNASYN/NS 3 GM/100 ML 3 GM/100 ML BAG IV SCH (16:16)
--- NOTE | 2018-04-05 16:43 | Progress Note ---
Assessment and Plan Assessment and plan: Patient is a 57 yo woman with a history of morbid obesity, bmi 51.1, traumatic brain injury, COPD, arthritis, hypertension, cirrhosis, and seizures disorder who presented with many complaints including sore throat (Oral pharynx clear), abdominal cellulits and purple right toes lower extremity arterial duplex; essentially normal arterial flow -Complicated skin infection with Panniculitis with sepsis, poa (extensive): treat with IV abx, ID input appreciated -PVD, right foot suspected, foot warm but reduced dorsal pedis arterial pulse: Vascular consult pending, though arterial duplex showed normally essential arterial flow -Expressive aphasia, decreased cognitive skills, sequelae of TBI: Case discussed with her [id number], she is at her baseline -DVT prophylaxis: she is refusing sq heparin, advise given and she will re- consider History Interval history: Continues to have erythema and warmth of her lower abdomen Review of systems Constitutional: No fevers, no malaise, no joint pains CVS: No chest pain, no orthopnea, no dyspnea on exertion, no pedal edema GI: No abdominal pain, no diarrhea, no vomiting, no constipation Respiratory: No shortness of breath, no wheezing, no coughing Hospitalist Physical - Physical exam Narrative exam: General.: Appears well, no distress, nontoxic HEENT: Moist mucous membranes, extraocular muscles intact, no lymphadenopathy Neck: supple Cardiac: S1-S2 heard Lungs: clear to auscultation bilaterally Abdomen: soft , nontender, nondistended, bowel sounds positive Extremities: no edema clubbing or cyanosis Skin: Erythema, warmth or edema of pannus Neurologic: Expressive aphasia Psych: appropriate behavior, appropriate mood, corporative, judgment intact - Constitutional Vitals: Temp Pulse Resp BP Pulse Ox 97.7 F 60 15 103/59 97 04/05/18 13:31 04/05/18 13:31 04/05/18 13:31 04/05/18 13:31 04/05/18 13:31 Results - Labs CBC & Chem 7: 04/05/18 04:51 04/05/18 04:51 Labs: Laboratory Last Values WBC 4.4 K/mm3 (4.5-11.0) L 04/05/18 04:51 RBC 3.63 M/mm3 (3.65-5.03) L 04/05/18 04:51 Hgb 11.1 gm/dl (10.1-14.3) 04/05/18 04:51 Hct 32.7 % (30.3-42.9) 04/05/18 04:51 MCV 90 fl (79-97) 04/05/18 04:51 MCH 31 pg (28-32) 04/05/18 04:51 MCHC 34 % (30-34) 04/05/18 04:51 RDW 12.7 % (13.2-15.2) L 04/05/18 04:51 Plt Count 216 K/mm3 (140-440) 04/05/18 04:51 Sodium 141 mmol/L (137-145) 04/05/18 04:51 Potassium 3.6 mmol/L (3.6-5.0) 04/05/18 04:51 Chloride 101.4 mmol/L (98-107) 04/05/18 04:51 Carbon Dioxide 27 mmol/L (22-30) 04/05/18 04:51 Anion Gap 16 mmol/L 04/05/18 04:51 BUN 11 mg/dL (7-17) 04/05/18 04:51 Creatinine 0.8 mg/dL (0.7-1.2) 04/05/18 04:51 Estimated GFR > 60 ml/min 04/05/18 04:51 BUN/Creatinine Ratio 14 % 04/05/18 04:51 Glucose 123 mg/dL (65-100) H 04/05/18 04:51 Calcium 7.7 mg/dL (8.4-10.2) L 04/05/18 04:51 Total Bilirubin 0.40 mg/dL (0.1-1.2) 04/03/18 20:38 Direct Bilirubin < 0.2 mg/dL (0-0.2) 04/03/18 20:38 Indirect Bilirubin 0.2 mg/dL 04/03/18 20:38 AST 15 units/L (5-40) 04/03/18 20:38 ALT 17 units/L (7-56) 04/03/18 20:38 Alkaline Phosphatase 68 units/L (35-129) 04/03/18 20:38 C-Reactive Protein 11.90 mg/dL (0.00-1.30) H 04/05/18 00:33 Total Protein 7.3 g/dL (6.3-8.2) 04/03/18 20:38 Albumin 3.9 g/dL (3.9-5) 04/03/18 20:38 Albumin/Globulin Ratio 1.1 % 04/03/18 20:38 Amylase 31 units/L (27-131) 04/05/18 10:48 Lipase 18 units/L (13-60) 04/05/18 10:48 Hep Bs Antigen Non-reactive (Negative) 04/05/18 13:39 Hep B Core IgM Ab Non-reactive (NonReactive) 04/05/18 13:39 Hepatitis C Antibody Non-reactive (NonReactive) 04/05/18 13:39
[2018-04-06] MEDS: MORPHINE IV PRN ×4 (00:24→22:44)
[2018-04-06] MEDS: XANAX PO PRN ×4 (00:24→22:37)
[2018-04-06] MEDS: HEPARIN SUB-Q SCH ×3 (00:24→21:04)
[2018-04-06] MEDS: PEPCID PO SCH ×3 (00:24→21:04)
[2018-04-06] MEDS: ULTRAM PO PRN ×2 (00:25→13:35)
[2018-04-06] MEDS: VANCOMYCIN 2,000 MG in NACL 0.9% 500 ML 500 ML IV SCH ×3 (00:46→23:05)
[2018-04-06] MEDS: UNASYN/NS 3 GM/100 ML 3 GM/100 ML BAG IV SCH ×5 (00:46→23:05)
[2018-04-06 10:32] LABS: Amphetamine Screen,Urine PRESUMPTIVE NEGATIVE; Cannabinoid Screen,Urine PRESUMPTIVE NEGATIVE; Methadone Screen,Urine PRESUMPTIVE NEGATIVE; Opiate Screen,Urine PRESUMPTIVE NEGATIVE
[2018-04-06 10:55] LABS: Benzodiazepines Screen,Urine PRESUMPTIVE POSITIVE; Cocaine Screen,Urine PRESUMPTIVE POSITIVE
[2018-04-06] MEDS: DIFLUCAN PO SCH (11:04)
[2018-04-06] MEDS: BABY ASPIRIN PO SCH (11:04)
[2018-04-06] MEDS: BUMEX PO SCH (11:04)
[2018-04-06] MEDS: TENORMIN PO SCH (11:04)
--- NOTE | 2018-04-06 11:19 | Progress Note ---
Assessment and Plan Assessment: 1) Extensive cellulitis of the bilateral lower abdominal wall, mons, growing, upper thighs: Likely due to Strep on top of Candidal intertrigo. CRP=11.5 2) Acute encephalopthy - Psychiatric consult today- patient stated that she has a history of Bipolar/Anxiety. 3) History of cocaine/marihuana abuse - UDS positive for Cocaine 4) COPD 5) Hypertension 6) Cirrhosis of the liver 7) Seizure disorder 8) History of total brain injury in 1985 9) Morbid obesity 10) toes discoloration: art US normal flow Plan: -continue unasyn D2 -continue vanco, D2 -contnue flucanazole , D3 Please Call Dr. Rivera with questions, we will be rounding on patients on 04/08. [facility] M: [phone] O:[phone] Subjective Interval history: patient was saitting up in bed. Patient stated that she was in pain, but she had difficulty telling me where. Microbiology: none Current Antimicrobials: clinda Previous Antimicrobials: Objective - Exam Narrative Exam: General appearance: Alert in NAD, conversant Eyes: anicteric sclerae, moist conjunctivae; no lid-lag; PERRLA HENT: Atraumatic; oropharynx limited Neck: Trachea midline; supple, no thyromegaly or lymphadenopathy Lungs: CTA, with normal respiratory effort and no intercostal retractions CV: RRR Abdomen: Soft, non-tender; bilateral lower abdominal wall, pubic, groin and upper thighs with marked erythema, edema, some areas of the skin sloughing and bilateral groin Extremities: Bilateral ankle edema Skin: As above Psych: affect inappropriate, rambling sentences.. Neuro: alert and oriented x 3. Moving all extermities Lines: No CVL / PICC - Constitutional Vitals: Vital Signs Temp Pulse Resp BP Pulse Ox 98.8 F 77 20 170/89 96 04/06/18 06:15 04/06/18 06:15 04/06/18 06:17 04/06/18 06:15 04/06/18 06:15 Temperature -Last 24 Hours Temperature 98.8 F Temperature 98.7 F Temperature 98.6 F Temperature 97.7 F - Labs CBC & Chem 7: 04/05/18 04:51 04/05/18 04:51
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
--- NOTE | 2018-04-06 21:58 | Progress Note ---
Assessment and Plan Assessment and plan: Patient is a 57 yo woman with a history of morbid obesity, bmi 51.1, traumatic brain injury, COPD, arthritis, hypertension, cirrhosis, and seizures disorder who presented with many complaints including sore throat (Oral pharynx clear), abdominal cellulits and purple right toes lower extremity arterial duplex; essentially normal arterial flow -Complicated skin infection with Panniculitis with sepsis, poa (extensive): treat with IV abx, ID input appreciated -PVD, right foot suspected, foot warm but reduced dorsal pedis arterial pulse: Vascular consult pending, though arterial duplex showed normally essential arterial flow -Expressive aphasia, decreased cognitive skills, sequelae of TBI: Case discussed with her [id number], she is at her baseline -DVT prophylaxis: she is refusing sq heparin, advise given and she will re- consider History Interval history: Continues to have erythema and warmth of her lower abdomen Review of systems Constitutional: No fevers, no malaise, no joint pains CVS: No chest pain, no orthopnea, no dyspnea on exertion, no pedal edema GI: No abdominal pain, no diarrhea, no vomiting, no constipation Respiratory: No shortness of breath, no wheezing, no coughing Hospitalist Physical - Physical exam Narrative exam: General.: Appears well, no distress, nontoxic HEENT: Moist mucous membranes, extraocular muscles intact, no lymphadenopathy Neck: supple Cardiac: S1-S2 heard Lungs: clear to auscultation bilaterally Abdomen: soft , nontender, nondistended, bowel sounds positive Extremities: no edema clubbing or cyanosis Skin: Erythema, warmth or edema of pannus Neurologic: Expressive aphasia Psych: appropriate behavior, appropriate mood, corporative, judgment intact - Constitutional Vitals: Temp Pulse Resp BP Pulse Ox 97.5 F L 67 22 147/93 99 04/06/18 16:22 04/06/18 16:22 04/06/18 16:22 04/06/18 16:22 04/06/18 16:22 General appearance: Present: obese Results - Labs CBC & Chem 7: 04/05/18 04:51 04/05/18 04:51 Labs: Laboratory Last Values WBC 4.4 K/mm3 (4.5-11.0) L 04/05/18 04:51 RBC 3.63 M/mm3 (3.65-5.03) L 04/05/18 04:51 Hgb 11.1 gm/dl (10.1-14.3) 04/05/18 04:51 Hct 32.7 % (30.3-42.9) 04/05/18 04:51 MCV 90 fl (79-97) 04/05/18 04:51 MCH 31 pg (28-32) 04/05/18 04:51 MCHC 34 % (30-34) 04/05/18 04:51 RDW 12.7 % (13.2-15.2) L 04/05/18 04:51 Plt Count 216 K/mm3 (140-440) 04/05/18 04:51 Sodium 141 mmol/L (137-145) 04/05/18 04:51 Potassium 3.6 mmol/L (3.6-5.0) 04/05/18 04:51 Chloride 101.4 mmol/L (98-107) 04/05/18 04:51 Carbon Dioxide 27 mmol/L (22-30) 04/05/18 04:51 Anion Gap 16 mmol/L 04/05/18 04:51 BUN 11 mg/dL (7-17) 04/05/18 04:51 Creatinine 0.8 mg/dL (0.7-1.2) 04/05/18 04:51 Estimated GFR > 60 ml/min 04/05/18 04:51 BUN/Creatinine Ratio 14 % 04/05/18 04:51 Glucose 123 mg/dL (65-100) H 04/05/18 04:51 Calcium 7.7 mg/dL (8.4-10.2) L 04/05/18 04:51 Total Bilirubin 0.40 mg/dL (0.1-1.2) 04/03/18 20:38 Direct Bilirubin < 0.2 mg/dL (0-0.2) 04/03/18 20:38 Indirect Bilirubin 0.2 mg/dL 04/03/18 20:38 AST 15 units/L (5-40) 04/03/18 20:38 ALT 17 units/L (7-56) 04/03/18 20:38 Alkaline Phosphatase 68 units/L (35-129) 04/03/18 20:38 C-Reactive Protein 11.90 mg/dL (0.00-1.30) H 04/05/18 00:33 Total Protein 7.3 g/dL (6.3-8.2) 04/03/18 20:38 Albumin 3.9 g/dL (3.9-5) 04/03/18 20:38 Albumin/Globulin Ratio 1.1 % 04/03/18 20:38 Amylase 31 units/L (27-131) 04/05/18 10:48 Lipase 18 units/L (13-60) 04/05/18 10:48 Vancomycin Trough 18.9 ug/mL (5.0-20.0) 04/06/18 14:03 Urine Opiates Screen Presumptive negative 04/05/18 10:33 Urine Methadone Screen Presumptive negative 04/05/18 10:33 Ur Barbiturates Screen Presumptive negative 04/05/18 10:33 Valproic Acid 72.5 ug/mL (50-100) 04/06/18 06:46 Carbamazepine 4.0 ug/mL (4-12) 04/06/18 06:46 Ur Phencyclidine Scrn Presumptive negative 04/05/18 10:33 Ur Amphetamines Screen Presumptive negative 04/05/18 10:33 U Benzodiazepines Scrn Presumptive positive 04/05/18 10:33 Urine Cocaine Screen Presumptive positive 04/05/18 10:33 U Marijuana (THC) Screen Presumptive negative 04/05/18 10:33 Drugs of Abuse Note Disclamer 04/05/18 10:33 Hep Bs Antigen Non-reactive (Negative) 04/05/18 13:39 Hep B Core IgM Ab Non-reactive (NonReactive) 04/05/18 13:39 Hepatitis C Antibody Non-reactive (NonReactive) 04/05/18 13:39
[2018-04-07] MEDS: ULTRAM PO PRN (00:37)
[2018-04-07] MEDS: MORPHINE IV PRN ×3 (03:41→18:13)
[2018-04-07] MEDS ORDERED: HALDOL IM ONE (03:52)
[2018-04-07] MEDS: UNASYN/NS 3 GM/100 ML 3 GM/100 ML BAG IV SCH ×4 (05:08→23:33)
[2018-04-07] MEDS: XANAX PO PRN ×2 (08:45→18:15)
[2018-04-07] MEDS: BABY ASPIRIN PO SCH (10:09)
[2018-04-07] MEDS: BUMEX PO SCH (10:09)
[2018-04-07] MEDS: PEPCID PO SCH ×2 (10:09→22:55)
[2018-04-07] MEDS: DIFLUCAN PO SCH (10:10)
[2018-04-07] MEDS: HEPARIN SUB-Q SCH ×2 (10:10→22:58)
[2018-04-07] MEDS: TENORMIN PO SCH (10:10)
--- NOTE | 2018-04-07 11:52 | Progress Note ---
Subjective - Reason for Consult Consult date: 04/07/18 Reason for consult: Psychiatry Follow-up - Chief Complaint Chief complaint: "How are doing" Patient is a 57 yo female with a past medical history traumatic brain injury, COPD, arthritis, hypertension, cirrhosis, and seizures presents to the hospital complaining of a scattered infection for several weeks. Today the patient is calm and cooperative during the assessment. She acknowledged having seizures in the past. She stated that she would like a referral for a psychiatrist. She denies SI/HI's and AVH's. She denies any side effects of her medications. Mental Status Exam - Vital signs Last Vital Signs Temp 97.7 F 04/07/18 06:33 Pulse 66 04/07/18 06:33 Resp 20 04/07/18 06:33 BP 157/81 04/07/18 10:10 Pulse Ox 97 04/07/18 06:33 - Exam Narrative exam: MSE: Appearance: calm, cooperative Behavior: regular eye contact Speech: regular rate and tone Mood: "okay" Affect: congruent to mood Thought Process: circumstantial Thought Content: denies SI/HI's and AVH's Motor Activity: ambulatory Cognition: A/O x 3 Insight: fair Judgment: fair Assessment and Plan Impression: Hx of Bipolar/Anxiety DO per the patient. Today the patient is calm and cooperative during the assessment. Recommendation/Plan: Continue home medications Depakote 500 mg PO TID, Tegretol 200 mg PO daily, and Xanax 1 mg PO TID. The patient can follow up with her neurologist who manage her medications. Also, the patient can follow up with [facility] for outpatient psy services. Psy sign off.
[2018-04-07] MEDS: VANCOMYCIN 2,000 MG in NACL 0.9% 500 ML 500 ML IV SCH (12:26)
--- NOTE | 2018-04-07 17:25 | Progress Note ---
Assessment and Plan Assessment and plan: Patient is a 57 yo woman with a history of morbid obesity, bmi 51.1, traumatic brain injury, COPD, arthritis, hypertension, cirrhosis, and seizures disorder who presented with many complaints including sore throat (Oral pharynx clear), abdominal cellulits and purple right toes lower extremity arterial duplex; essentially normal arterial flow -Complicated skin infection with Panniculitis with sepsis, poa (extensive): treat with IV abx, ID input appreciated -PVD, right foot suspected, foot warm but reduced dorsal pedis arterial pulse: Vascular consult pending, though arterial duplex showed normally essential arterial flow -Expressive aphasia, decreased cognitive skills, sequelae of TBI: Case discussed with her [id number], she is at her baseline -DVT prophylaxis: she is refusing sq heparin, advise given and she will re- consider History Interval history: Continues to have erythema and warmth of her lower abdomen Review of systems Constitutional: No fevers, no malaise, no joint pains CVS: No chest pain, no orthopnea, no dyspnea on exertion, no pedal edema GI: No abdominal pain, no diarrhea, no vomiting, no constipation Respiratory: No shortness of breath, no wheezing, no coughing Hospitalist Physical - Physical exam Narrative exam: General.: Appears well, no distress, nontoxic HEENT: Moist mucous membranes, extraocular muscles intact, no lymphadenopathy Neck: supple Cardiac: S1-S2 heard Lungs: clear to auscultation bilaterally Abdomen: soft , nontender, nondistended, bowel sounds positive Extremities: no edema clubbing or cyanosis Skin: Erythema, warmth or edema of pannus Neurologic: Expressive aphasia Psych: appropriate behavior, appropriate mood, corporative, judgment intact - Constitutional Vitals: Temp Pulse Resp BP Pulse Ox 97.7 F 66 20 157/81 97 04/07/18 06:33 04/07/18 06:33 04/07/18 06:33 04/07/18 10:10 04/07/18 06:33 General appearance: Present: obese Results - Labs CBC & Chem 7: 04/05/18 04:51 04/08/18 09:35 Labs: Laboratory Last Values WBC 4.4 K/mm3 (4.5-11.0) L 04/05/18 04:51 RBC 3.63 M/mm3 (3.65-5.03) L 04/05/18 04:51 Hgb 11.1 gm/dl (10.1-14.3) 04/05/18 04:51 Hct 32.7 % (30.3-42.9) 04/05/18 04:51 MCV 90 fl (79-97) 04/05/18 04:51 MCH 31 pg (28-32) 04/05/18 04:51 MCHC 34 % (30-34) 04/05/18 04:51 RDW 12.7 % (13.2-15.2) L 04/05/18 04:51 Plt Count 216 K/mm3 (140-440) 04/05/18 04:51 Sodium 141 mmol/L (137-145) 04/05/18 04:51 Potassium 3.6 mmol/L (3.6-5.0) 04/05/18 04:51 Chloride 101.4 mmol/L (98-107) 04/05/18 04:51 Carbon Dioxide 27 mmol/L (22-30) 04/05/18 04:51 Anion Gap 16 mmol/L 04/05/18 04:51 BUN 11 mg/dL (7-17) 04/05/18 04:51 Creatinine 0.8 mg/dL (0.7-1.2) 04/05/18 04:51 Estimated GFR > 60 ml/min 04/05/18 04:51 BUN/Creatinine Ratio 14 % 04/05/18 04:51 Glucose 123 mg/dL (65-100) H 04/05/18 04:51 Calcium 7.7 mg/dL (8.4-10.2) L 04/05/18 04:51 Total Bilirubin 0.40 mg/dL (0.1-1.2) 04/03/18 20:38 Direct Bilirubin < 0.2 mg/dL (0-0.2) 04/03/18 20:38 Indirect Bilirubin 0.2 mg/dL 04/03/18 20:38 AST 15 units/L (5-40) 04/03/18 20:38 ALT 17 units/L (7-56) 04/03/18 20:38 Alkaline Phosphatase 68 units/L (35-129) 04/03/18 20:38 C-Reactive Protein 11.90 mg/dL (0.00-1.30) H 04/05/18 00:33 Total Protein 7.3 g/dL (6.3-8.2) 04/03/18 20:38 Albumin 3.9 g/dL (3.9-5) 04/03/18 20:38 Albumin/Globulin Ratio 1.1 % 04/03/18 20:38 Amylase 31 units/L (27-131) 04/05/18 10:48 Lipase 18 units/L (13-60) 04/05/18 10:48 Vancomycin Trough 18.9 ug/mL (5.0-20.0) 04/06/18 14:03 Urine Opiates Screen Presumptive negative 04/05/18 10:33 Urine Methadone Screen Presumptive negative 04/05/18 10:33 Ur Barbiturates Screen Presumptive negative 04/05/18 10:33 Valproic Acid 72.5 ug/mL (50-100) 04/06/18 06:46 Carbamazepine 4.0 ug/mL (4-12) 04/06/18 06:46 Ur Phencyclidine Scrn Presumptive negative 04/05/18 10:33 Ur Amphetamines Screen Presumptive negative 04/05/18 10:33 U Benzodiazepines Scrn Presumptive positive 04/05/18 10:33 Urine Cocaine Screen Presumptive positive 04/05/18 10:33 U Marijuana (THC) Screen Presumptive negative 04/05/18 10:33 Drugs of Abuse Note Disclamer 04/05/18 10:33 Hep Bs Antigen Non-reactive (Negative) 04/05/18 13:39 Hep B Core IgM Ab Non-reactive (NonReactive) 04/05/18 13:39 Hepatitis C Antibody Non-reactive (NonReactive) 04/05/18 13:39
[2018-04-08] MEDS: VANCOMYCIN 2,000 MG in NACL 0.9% 500 ML 500 ML IV SCH ×2 (00:20→13:58)
[2018-04-08] MEDS: MORPHINE IV PRN ×2 (02:34→11:10)
[2018-04-08] MEDS: XANAX PO PRN ×2 (06:30→13:57)
[2018-04-08] MEDS: UNASYN/NS 3 GM/100 ML 3 GM/100 ML BAG IV SCH ×2 (06:30→13:58)
[2018-04-08 07:44] LABS: Hepatitis A Antibody IgM NonReactive (NonReactive)
[2018-04-08] MEDS: BABY ASPIRIN PO SCH (10:30)
[2018-04-08] MEDS: TENORMIN PO SCH (10:30)
[2018-04-08] MEDS: PEPCID PO SCH (10:30)
[2018-04-08] MEDS: HEPARIN SUB-Q SCH (10:30)
[2018-04-08] MEDS: BUMEX PO SCH (10:30)
[2018-04-08] MEDS: DIFLUCAN PO SCH (10:30)
--- NOTE | 2018-04-08 10:53 | Progress Note ---
Assessment and Plan Assessment: 1) Extensive cellulitis of the bilateral lower abdominal wall, mons, growing, upper thighs: Likely due to Strep on top of Candidal intertrigo. CRP=11.5 2) Acute encephalopthy - Psychiatric consult today- patient stated that she has a history of Bipolar/Anxiety. 3) History of cocaine/marihuana abuse - UDS positive for Cocaine 4) COPD 5) Hypertension 6) Cirrhosis of the liver 7) Seizure disorder 8) History of total brain injury in 1985 9) Morbid obesity 10) toes discoloration: art US normal flow Plan: -continue unasyn D2 -continue vanco, D2 -contnue flucanazole , D3 - upon discharge, doxycycline 100 mg by mouth twice a day and Keflex 500 mg by mouth 3 times a day total 10 days, ending 04/18/19. Nystatin cream to groin bilaterally. ID clinic follow-up on April 28, 2019. ID is signing off. [facility] [employer] [facility] M: [id number] O:[phone] Subjective Date of service: 04/08/18 Interval history: Patient was sitting up in bed screaming. I entered the room with her primary nurse and she became pleasant. She sated that she wnated to go home. Microbiology: none Current Antimicrobials: clinda Previous Antimicrobials: Objective - Exam Narrative Exam: General appearance: Alert in NAD, conversant Eyes: anicteric sclerae, moist conjunctivae; no lid-lag; PERRLA HENT: Atraumatic; oropharynx limited Neck: Trachea midline; supple, no thyromegaly or lymphadenopathy Lungs: CTA, with normal respiratory effort and no intercostal retractions CV: RRR Abdomen: Soft, non-tender; bilateral lower abdominal wall, pubic, groin and upper thighs with marked erythema, edema, some areas of the skin sloughing and bilateral groin Extremities: Bilateral ankle edema Skin: As above Psych: affect inappropriate, rambling sentences.. Neuro: alert and oriented x 3. Moving all extermities Lines: No CVL / PICC - Constitutional Vitals: Vital Signs Temp Pulse Resp BP Pulse Ox 98.0 F 82 18 116/50 94 04/08/18 04:35 04/08/18 04:35 04/08/18 04:35 04/08/18 04:35 04/08/18 04:35 Temperature -Last 24 Hours Temperature 98.0 F Temperature 97.3 F Temperature 98.7 F - Labs CBC & Chem 7: 04/05/18 04:51 04/08/18 09:35
[2018-04-08 11:17] VITALS: BP 126/74
--- NOTE | 2018-04-08 12:49 | Discharge Summary ---
Providers - Providers Date of Admission: 04/04/18 03:50 Attending physician: LY SNELL MD 04/04/18 06:00 Consult to Wound/ET Nurse [CONS] Routine Reason For Exam: wound eval 04/04/18 11:03 Consult to Mental Health [CONS] Urgent Reason For Exam: psych Place consult to:: airport maintenance chief provider relations consultant Notified:: awaiting call back Comment:: fax to [phone] Consult to Physician [CONS] Routine Comment: Consulting Provider: SEAN OSBORNE Physician Instructions: Reason For Exam: Evaluate for right PVD 04/04/18 11:05 Consult to Physician [CONS] Routine Comment: Consulting Provider: ELIU PEREZ Physician Instructions: Reason For Exam: severe panniculitis Primary care physician: [employer]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 She received IV antibiotics, along with ID consultation. She is being discharged in a course of oral antibiotics. The patient at baseline has expressive aphasia and decreased cognitive skills which is sequela of traumatic brain injury. She remained at her cognitive baseline. Diagnoses -Complicated skin infection with Panniculitis with sepsis, poa (extensive): -PVD, right foot suspected -Expressive aphasia, decreased cognitive skills, sequelae of TBI: -DVT prophylaxis Disposition: [id number]/TX-06 HOME UNDER HOME [facility] Time spent for discharge: 33 minutes Core Measure Documentation - Palliative Care Palliative Care/ Comfort Measures: Not Applicable - Core Measures Any of the following diagnoses?: none Exam - Physical Exam Narrative exam: General.: Appears well, no distress, nontoxic HEENT: Moist mucous membranes, extraocular muscles intact, no lymphadenopathy Neck: supple Cardiac: S1-S2 heard Lungs: clear to auscultation bilaterally Abdomen: soft , nontender, nondistended, bowel sounds positive Extremities: no edema clubbing or cyanosis Skin: Erythema of pannus Neurologic: Expressive aphasia Psych: calm and cooperative - Constitutional Vitals: Temp Pulse Resp BP Pulse Ox 98.0 F 90 16 126/74 94 04/08/18 04:35 04/08/18 10:30 04/08/18 11:10 04/08/18 10:30 04/08/18 04:35 Plan Follow up with: PRIMARY CARE, [Primary Care Provider] - 3-5 Days Prescriptions: Cephalexin [Keflex] 500 mg PO 3XW 10 Days #30 capsule Doxycycline [Vibramycin CAP] 100 mg PO Q12HR 10 Days #20 capsule Nystatin Cream [Mycostatin Cream] 1 applic TP BID #1 tube Oxycodone HCl/Acetaminophen [Percocet 10/325 mg] 1 each PO Q6HR PRN #14 tablet PRN Reason: Pain
--- NOTE | 2018-04-08 22:57 | Consultation ---
HISTORY OF PRESENT ILLNESS: This is a 57-year-old white female who I ordinarily take care of on an outpatient basis, although I have seen her for multiple admissions to [facility]. I received a call fromJayna RN who consulted me to provide recommendations regarding the patient's medical management with her medications. 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 As a result of this, she has an expressive aphasia, although she does understand words very well. She simply cannot form syllables or pronounce nouns, but has reasonable understanding of what she is told. She has had a prior medical history of having seizures, a prior medical history of having frequent wound infections due to MRSA and problems with obesity and complications related to such as osteoarthritis and periodic attacks of falls. She presents to the Emergency Room at [facility] sometimes under very confusing circumstances, since she is aphasic and cannot actually communicate very well what is going on to make complicated situation more extreme. 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 In the past, she has had swelling in her legs related to peripheral venous thrombosis, also infections. This admission is probably precipitated by recurrent MRSA infection of her right upper thigh, right lower inguinal area. The lady that lives with her is actually in the room and I spoke with her. The patient lives with her and she provides most of the patient's care. She states that the patient has not been active in about very much, does not maintain very good care of her skin, probably got some degree of pressure of her upper leg and lower abdomen due to lack of proper skin care. PHYSICAL EXAMINATION: At this point that she is alert. Her aphasia has not changed. She has equal polisher sand. She is able to stand and walk about. very superficial infection of the right lower extremity along the mid thigh area. She has several excoriations, evidence of a slight cellulitis also over the lower abdominal area. This is more of friction dermatitis related to skin/integument pressure. The patient does not have any tremors or asterixis. She has no seizure activity. Motor tone is symmetrical in the upper extremities. Aphasia is not changed from before, which is a pure expressive aphasia, but not receptive. She follows all commands well understand who I am. She can pronounce my name relatively well, but she has trouble with great many forms of communication based on the severe degree of aphasia. IMPRESSION: 1. Cellulitis with skin infection, likely from MRSA, which is a recurrent problem. 2. Seizure disorder. 3. Obesity. 4. Prior history of thrombophlebitis, right and left legs. 5. Severe osteoarthritis of legs. 6. Seizure disorder. PLAN: I went over the medications with Jayna. I did explain to the patient that she needs to cooperate with the hospitalist as far as taking the heparin and this was explained to her and she seemed to feel somewhat better after that point of discussion. JOB# [id number] JUANITO/MORIAH
== END 2018-04-08 15:20 | disposition home health service (06) | DRG 871 ==
LOC: ED 19:25 → 2B-ACE 04-04 03:50 → 3A 04-04 04:37
PROVIDERS: ADMIT Internal Medicine; ATTEND Internal Medicine
DX: A41.9 Sepsis, unspecified organism (principal); G93.40 Encephalopathy, unspecified; Z68.43 Body mass index [BMI] 50.0-59.9, adult; L03.314 Cellulitis of groin; R47.01 Aphasia; I73.9 Peripheral vascular disease, unspecified; E66.01 Morbid (severe) obesity due to excess calories; G40.909 Epilepsy, unspecified, not intractable, without status epilepticus; F31.9 Bipolar disorder, unspecified; F41.9 Anxiety disorder, unspecified; M79.3 Panniculitis, unspecified; F14.10 Cocaine abuse, uncomplicated; K74.60 Unspecified cirrhosis of liver; B35.6 Tinea cruris; X58.XXXS Exposure to other specified factors, sequela; J44.9 Chronic obstructive pulmonary disease, unspecified; Z79.899 Other long term (current) drug therapy; Z79.82 Long term (current) use of aspirin; Z79.84 Long term (current) use of oral hypoglycemic drugs; Z71.3 Dietary counseling and surveillance; S06.890S Other specified intracranial injury without loss of consciousness, sequela
CPT/HCPCS: 36415; 80048; 80074; 80156; 80164; 80202; 80307; 82150; 82565; 83690; 85027; 86140; 93925; 96365; J0295; J1630; J1644; J2060; J2270; J2405; J2543; J3370; J7040

== ENCOUNTER 2018-04-14 03:20 | Emergency (ER) | payer SELFPAY ==
--- NOTE | 2018-04-11 22:47 | Emergency Department Report ---
HPI - General Chief Complaint: Wound/Laceration Time Seen by Provider: 04/11/18 22:34 - HPI HPI: Room 2 The patient is a 57-year-old female presenting with a chief complaint right groin rash. The patient is a poor historian and appears to be under the influence of multiple substances. Eventually the patient admits to a rash along the right lower abdomen. The patient has several prescribed medications including Ultram, Percocet and Xanax. There is some question as to whether a bystander in the waiting room witnessed the patient taking multiple pills prior to coming back to a room. Patient denies this. Location: Abdomen Duration: Unknown Quality: [See above] Severity: [See above] Modifying factors: [see above] Context: [see above] Mode of transportation: [not driving] ED Past Medical Hx - Past Medical History Hx Hypertension: Yes Hx Liver Disease: Yes (cirrhosis) Hx Arthritis: Yes Hx Seizures: Yes Hx Psychiatric Treatment: Yes (drug abuse) Hx COPD: Yes Additional medical history: TBI 1985. OBESITY - Surgical History Additional Surgical History: left knee and left wrist surgery; brain 1985 - Family History Family history: no significant - Social History Smoking Status: Unknown if ever smoked Substance Use Type: None - Medications Home Medications: Home Medications Medication Instructions Recorded Confirmed Last Taken Type ALPRAZolam [Xanax TAB] 1 mg PO TID PRN 10/22/15 04/15/18 04/02/18 History Aspirin [Aspirin BABY CHEW TAB] 81 mg PO QDAY 10/22/15 04/15/18 04/02/18 History Atenolol [Tenormin] 25 mg PO DAILY 10/22/15 04/15/18 04/02/18 History Divalproex ER [Depakote ER] 500 mg PO TID 10/22/15 04/15/18 04/02/18 History carBAMazepine [TEGretol] 200 mg PO QAM 10/22/15 04/15/18 04/02/18 History traMADol [Ultram 50 MG tab] 50 mg PO Q6HR PRN #10 tablet 04/09/17 04/15/1804/02 Rx Nystatin Cream [Mycostatin Cream] 1 applic TP BID #1 tube 04/08/18 04/15/18 Unknown Rx Nystatin Oint [Mycostatin Oint] 1 applicatio TP BID #1 tube 04/12/18 Unknown Rx Bumetanide [Bumex 1 mg tab] 1 mg PO DAILY 04/15/18 04/15/18 Unknown History Zolpidem [Ambien] 10 mg PO QHS 04/15/18 04/15/18 Unknown History ED Review of Systems ROS: Stated complaint: BLOOD CLOTS Other details as noted in HPI Comment: Unobtainable due to pts medical conditions Physical Exam - Physical Exam Vital Signs: Vital Signs 04/11/18 04/11/18 04/11/18 13:45 21:46 22:00 Temperature 97.9 F Pulse Rate 103 H 101 H 75 Respiratory 18 14 17 Rate Blood Pressure 152/110 123/59 O2 Sat by Pulse 97 84 Oximetry 04/11/18 22:15 Temperature Pulse Rate 73 Respiratory 16 Rate Blood Pressure 93/47 O2 Sat by Pulse 83 L Oximetry Physical Exam: GENERAL: The patient is well-developed well-nourished female sitting on stretcher appearing slow to respond and intoxicated. [] HEENT: Normocephalic. Atraumatic. Extraocular motions are intact. Patient has moist mucous membranes. NECK: Supple. Trachea midline CHEST/LUNGS: Clear to auscultation. There is no respiratory distress noted. HEART/CARDIOVASCULAR: Regular. There is no tachycardia. There is no gallop rub or murmur. ABDOMEN: Abdomen is soft, nontender. Patient has normal bowel sounds. There is no abdominal distention. SKIN: There is a rash in the right groin consistent with intertriginous candidiasis. Patient will not allow further examination of the remainder of the abdomen. There is no edema. There is no diaphoresis. NEURO: The patient is lethargic and appears to be under the influence of sedating substances. The patient is not cooperative with exam. The patient has normal speech MUSCULOSKELETAL: There is no evidence of acute injury. ED Course Vital Signs 04/11/18 04/11/18 04/11/18 13:45 21:46 22:00 Temperature 97.9 F Pulse Rate 103 H 101 H 75 Respiratory 18 14 17 Rate Blood Pressure 152/110 123/59 O2 Sat by Pulse 97 84 Oximetry 04/11/18 22:15 Temperature Pulse Rate 73 Respiratory 16 Rate Blood Pressure 93/47 O2 Sat by Pulse 83 L Oximetry - Reevaluation(s) Reevaluation #1: 04/12/18 05:59 Patient more alert at this time. Patient seems to perseverate on how someone stole her medications. I informed the patient that I will treat her intertriginous candidiasis will have mental health customer sales consultant, to evaluate her for her substance abuse and behavior ED Medical Decision Making - Lab Data Result diagrams: 04/11/18 22:51 04/11/18 22:51 Laboratory Tests 04/11/18 04/11/18 04/11/18 22:51 22:51 22:51 WBC 5.1 RBC 3.76 Hgb 11.3 Hct 34.1 MCV 91 MCH 30 MCHC 33 RDW 13.1 L Plt Count 248 Lymph % (Auto) Not Reportable [place] % (Auto) Not Reportable Eos % (Auto) Not Reportable Baso % (Auto) Not Reportable Lymph # Not Reportable [place] # Not Reportable Eos # Not Reportable Baso # Not Reportable Add Manual Diff Complete Total Counted 100 Seg Neuts % (Manual) 56.0 Band Neutrophils % 0 Lymphocytes % (Manual) 30.0 Reactive Lymphs % (Man) 0 Monocytes % (Manual) 12.0 H Eosinophils % (Manual) 2.0 Basophils % (Manual) 0 Metamyelocytes % 0 Myelocytes % 0 Promyelocytes % 0 Blast Cells % 0 Nucleated RBC % Not Reportable Seg Neutrophils # Not Reportable Seg Neutrophils # Man 2.9 Band Neutrophils # 0.0 Lymphocytes # (Manual) 1.5 Abs React Lymphs (Man) 0.0 Monocytes # (Manual) 0.6 Eosinophils # (Manual) 0.1 Basophils # (Manual) 0.0 Metamyelocytes # 0.0 Myelocytes # 0.0 Promyelocytes # 0.0 Blast Cells # 0.0 WBC Morphology Not Reportable Hypersegmented Neuts Not Reportable Hyposegmented Neuts Not Reportable Hypogranular Neuts Not Reportable Smudge Cells Not Reportable Toxic Granulation Not Reportable Toxic Vacuolation Not Reportable Dohle Bodies Not Reportable Pelger-Huet Anomaly Not Reportable Rebecca Rods Not Reportable Platelet Estimate Consistent w auto Clumped Platelets Not Reportable Plt Clumps, EDTA Not Reportable Large Platelets Not Reportable Giant Platelets Not Reportable Platelet Satelliting Not Reportable Plt Morphology Comment Not Reportable RBC Morphology Normal Dimorphic RBCs Not Reportable Polychromasia Not Reportable Hypochromasia Not Reportable Poikilocytosis Not Reportable Anisocytosis Not Reportable Microcytosis Not Reportable Macrocytosis Not Reportable Spherocytes Not Reportable Pappenheimer Bodies Not Reportable Sickle Cells Not Reportable Target Cells Not Reportable Tear Drop Cells Not Reportable Ovalocytes Not Reportable Helmet Cells Not Reportable [place] Bodies Not Reportable Beatty Rings Not Reportable [place] Cells Not Reportable Bite Cells Not Reportable Crenated Cell Not Reportable Elliptocytes Not Reportable Acanthocytes (Spur) Not Reportable Rouleaux Not Reportable Hemoglobin C Crystals Not Reportable Schistocytes Not Reportable Malaria parasites Not Reportable Kamlesh Bodies Not Reportable Hem Pathologist Commnt No Sodium 136 L Potassium 3.4 L Chloride 96.9 L Carbon Dioxide 25 Anion Gap 18 BUN 17 Creatinine 0.9 Estimated GFR > 60 BUN/Creatinine Ratio 19 Glucose 93 Calcium 8.6 Total Bilirubin 0.40 AST 19 ALT 17 Alkaline Phosphatase 62 Total Protein 7.1 Albumin 3.7 L Albumin/Globulin Ratio 1.1 Salicylates < 0.3 L Urine Opiates Screen Urine Methadone Screen Acetaminophen Ur Barbiturates Screen Ur Phencyclidine Scrn Ur Amphetamines Screen U Benzodiazepines Scrn Urine Cocaine Screen U Marijuana (THC) Screen Drugs of Abuse Note Plasma/Serum Alcohol 04/11/18 04/11/18 04/12/18 22:51 22:51 02:17 WBC RBC Hgb Hct MCV MCH MCHC RDW Plt Count Lymph % (Auto) [place] % (Auto) Eos % (Auto) Baso % (Auto) Lymph # [place] # Eos # Baso # Add Manual Diff Total Counted Seg Neuts % (Manual) Band Neutrophils % Lymphocytes % (Manual) Reactive Lymphs % (Man) Monocytes % (Manual) Eosinophils % (Manual) Basophils % (Manual) Metamyelocytes % Myelocytes % Promyelocytes % Blast Cells % Nucleated RBC % Seg Neutrophils # Seg Neutrophils # Man Band Neutrophils # Lymphocytes # (Manual) Abs React Lymphs (Man) Monocytes # (Manual) Eosinophils # (Manual) Basophils # (Manual) Metamyelocytes # Myelocytes # Promyelocytes # Blast Cells # WBC Morphology Hypersegmented Neuts Hyposegmented Neuts Hypogranular Neuts Smudge Cells Toxic Granulation Toxic Vacuolation Dohle Bodies Pelger-Huet Anomaly Rebecca Rods Platelet Estimate Clumped Platelets Plt Clumps, EDTA Large Platelets Giant Platelets Platelet Satelliting Plt Morphology Comment RBC Morphology Dimorphic RBCs Polychromasia Hypochromasia Poikilocytosis Anisocytosis Microcytosis Macrocytosis Spherocytes Pappenheimer Bodies Sickle Cells Target Cells Tear Drop Cells Ovalocytes Helmet Cells [place] Bodies Beatty Rings Lucinda Cells Bite Cells Crenated Cell Elliptocytes Acanthocytes (Spur) Rouleaux Hemoglobin C Crystals Schistocytes Malaria parasites Kamlesh Bodies Hem Pathologist Commnt Sodium Potassium Chloride Carbon Dioxide Anion Gap BUN Creatinine Estimated GFR BUN/Creatinine Ratio Glucose Calcium Total Bilirubin AST ALT Alkaline Phosphatase Total Protein Albumin Albumin/Globulin Ratio Salicylates Urine Opiates Screen Presumptive negative Urine Methadone Screen Presumptive negative Acetaminophen < 5.0 L Ur Barbiturates Screen Presumptive negative Ur Phencyclidine Scrn Presumptive negative Ur Amphetamines Screen Presumptive negative U Benzodiazepines Scrn Presumptive positive Urine Cocaine Screen Presumptive positive U Marijuana (THC) Screen Presumptive negative Drugs of Abuse Note Disclamer Plasma/Serum Alcohol < 0.01 04/12/18 04:17 WBC RBC Hgb Hct MCV MCH MCHC RDW Plt Count Lymph % (Auto) [place] % (Auto) Eos % (Auto) Baso % (Auto) Lymph # [place] # Eos # Baso # Add Manual Diff Total Counted Seg Neuts % (Manual) Band Neutrophils % Lymphocytes % (Manual) Reactive Lymphs % (Man) Monocytes % (Manual) Eosinophils % (Manual) Basophils % (Manual) Metamyelocytes % Myelocytes % Promyelocytes % Blast Cells % Nucleated RBC % Seg Neutrophils # Seg Neutrophils # Man Band Neutrophils # Lymphocytes # (Manual) Abs React Lymphs (Man) Monocytes # (Manual) Eosinophils # (Manual) Basophils # (Manual) Metamyelocytes # Myelocytes # Promyelocytes # Blast Cells # WBC Morphology Hypersegmented Neuts Hyposegmented Neuts Hypogranular Neuts Smudge Cells Toxic Granulation Toxic Vacuolation Dohle Bodies Pelger-Huet Anomaly Rebecca Rods Platelet Estimate Clumped Platelets Plt Clumps, EDTA Large Platelets Giant Platelets Platelet Satelliting Plt Morphology Comment RBC Morphology Dimorphic RBCs Polychromasia Hypochromasia Poikilocytosis Anisocytosis Microcytosis Macrocytosis Spherocytes Pappenheimer Bodies Sickle Cells Target Cells Tear Drop Cells Ovalocytes Helmet Cells [place] Bodies Beatty Rings Lucinda Cells Bite Cells Crenated Cell Elliptocytes Acanthocytes (Spur) Rouleaux Hemoglobin C Crystals Schistocytes Malaria parasites Kamlesh Bodies Hem Pathologist Commnt Sodium Potassium Chloride Carbon Dioxide Anion Gap BUN Creatinine Estimated GFR BUN/Creatinine Ratio Glucose Calcium Total Bilirubin AST ALT Alkaline Phosphatase Total Protein Albumin Albumin/Globulin Ratio Salicylates Urine Opiates Screen Urine Methadone Screen Acetaminophen < 5.0 L Ur Barbiturates Screen Ur Phencyclidine Scrn Ur Amphetamines Screen U Benzodiazepines Scrn Urine Cocaine Screen U Marijuana (THC) Screen Drugs of Abuse Note Plasma/Serum Alcohol - EKG Data -: EKG Interpreted by Me EKG shows normal: sinus rhythm Rate: normal - EKG Data When compared to previous EKG there are: previous EKG unavailable Interpretation: other (no ischemic changes seen) - Differential Diagnosis substance abuse, intertriginous candidiasis Critical care attestation.: If time is entered above; I have spent that time in minutes in the direct care of this critically ill patient, excluding procedure time. ED Disposition Clinical Impression: Intertriginous candidiasis, Cocaine abuse, Polysubstance abuse Disposition: [id number]/TX-65 PSY HOSP/PSY UNIT Is pt being admited?: No Does the pt Need Aspirin: No Condition: Fair Additional Instructions: Return to the emergency department immediately should you develop worsening symptoms, fever, inability to tolerate food or liquid or any other concerns. Prescriptions: Nystatin Oint [Mycostatin Oint] 1 applicatio TP BID #1 tube Referrals: PRIMARY CARE, [Referring] - 3-5 Days Time of Disposition: 06:04 (awaiting darling)
[2018-04-11 23:12] LABS: Hematocrit 34.1 % (30.3-42.9); Hemoglobin 11.3 gm/dl (10.1-14.3); Mean Corpuscular HGB Conc 33 % (30-34); Mean Corpuscular Hemoglobin 30 pg (28-32); Mean Corpuscular Volume 91 fl (79-97); Platelet Count 248 K/mm3 (140-440); Red Blood Count 3.76 M/mm3 (3.65-5.03); Red Cell Distribution Width 13.1 % (13.2-15.2)
[2018-04-11 23:37] LABS: Alanine Aminotransferase 17 units/L (7-56); Albumin 3.7 g/dL (3.9-5); BUN/Creatinine Ratio 19; Blood Urea Nitrogen 17 mg/dL (7-17); Calcium 8.6 mg/dL (8.4-10.2); Hemolysis Index 9
--- NOTE | 2018-04-12 00:33 | Cat Scan Report ---
FINAL REPORT EXAM: CT HEAD/BRAIN WO CON HISTORY: altered mental status COMPARISON: CT of the head from October 2015. TECHNIQUE: Contiguous axial images were obtained. FINDINGS: No acute intracranial hemorrhage or midline shift. Remote surgical changes of left frontal, parietal and temporal craniectomy. Volume loss involving the posterior margin left frontal lobe, majority left temporal lobe and anterior margin of the left parietal lobe which may relate to sequelae of prior trauma or ischemia. Mild ex vacuo dilatation of the left lateral ventricle. Basal cisterns are patent. Remainder of queen-white differentiation maintained. Mild hyperostosis frontalis. Ocular globes are unremarkable. Mild mucosal thickening the right maxillary sinus. Mastoid air cells are clear. IMPRESSION: No gross acute intracranial abnormality. Remote surgical changes of left frontal, parietal and temporal craniectomy. Large area of volume loss involving the left cerebral hemisphere likely relating to sequelae of prior left MCA infarct.
[2018-04-12 00:34] LABS: Basophils % (Manual) 0 % (0.0-1.8); Platelet Estimate Consistent w Auto; RBC Morphology Normal; Total Cells Counted 100
[2018-04-12 02:35] LABS: Amphetamine Screen,Urine PRESUMPTIVE NEGATIVE; Cannabinoid Screen,Urine PRESUMPTIVE NEGATIVE; Methadone Screen,Urine PRESUMPTIVE NEGATIVE; Opiate Screen,Urine PRESUMPTIVE NEGATIVE
[2018-04-12 03:00] LABS: Benzodiazepines Screen,Urine PRESUMPTIVE POSITIVE; Cocaine Screen,Urine PRESUMPTIVE POSITIVE
--- NOTE | 2018-04-12 15:06 | Consultation ---
History of Present Illness - Reason for Consult Consult date: 04/12/18 Reason for consult: Mental Health Evaluation Requesting physician: RONDA DELACRUZ - Chief Complaint Chief complaint: "I need to go" - History of Present Psychiatric Illness 57-year-old female presenting with a chief complaint right groin rash. This patient is known to me. Today the patient is cooperative, but disorganized during the assessment. She could not answer question logically. She had to be redirected several times to keep her on topic. She rambles about why she came to the ER. The patient is positive for cocaine. The patient isn't a good historian at this time. The patient is seen by Dr. Zuniga a neurologist. No gestures of SI/HI's. Medications and Allergies Allergies Allergy/AdvReac Type Severity Reaction Status Date / Time No Known Allergies Allergy Verified 11/01/15 11:59 Home Medications Medication Instructions Recorded Confirmed Last Taken Type ALPRAZolam [Xanax TAB] 1 mg PO TID PRN 10/22/15 04/06/18 04/02/18 History Acetaminophen [Acetaminophen TAB] 500 mg PO Q6HR PRN #20 tablet 10/22/1504/02/18 Rx Aspirin [Aspirin BABY CHEW TAB] 81 mg PO QDAY 10/22/15 04/06/18 04/02/18 History Atenolol [Tenormin] 25 mg PO DAILY 10/22/15 04/06/18 04/02/18 History Bumetanide [Bumex 1 mg tab] 1 mg PO DAILY 10/22/15 04/06/18 04/02/18 History Divalproex ER [Depakote ER] 500 mg PO TID 10/22/15 04/06/18 04/02/18 History Famotidine [Pepcid] 20 mg PO BID #28 tablet 10/22/15 04/06/18 04/02/18 Rx carBAMazepine [TEGretol] 200 mg PO QAM 10/22/15 04/06/18 04/02/18 History Ibuprofen [Motrin 800 MG tab] 800 mg PO Q8HR PRN #30 tablet 10/27/15 04/06/18 Rx cephALEXin [Keflex] 500 mg PO QID #20 cap 08/04/16 04/06/18 04/02/18 Rx traMADol [Ultram 50 MG tab] 50 mg PO Q6HR PRN #10 tablet 04/09/17 04/06/1804/02 Rx Cephalexin [Keflex] 500 mg PO 3XW 10 Days #30 capsule 04/08/18 Unknown Rx Doxycycline [Vibramycin CAP] 100 mg PO Q12HR 10 Days #20 capsule 04/08/18 Unknown Rx Nystatin Cream [Mycostatin Cream] 1 applic TP BID #1 tube 04/08/18 Unknown Rx Oxycodone HCl/Acetaminophen 1 each PO Q6HR PRN #14 tablet 04/08/18 Unknown Rx [Percocet 10/325 mg] Nystatin Oint [Mycostatin Oint] 1 applicatio TP BID #1 tube 04/12/18 Unknown Rx Active Meds: Active Medications Alprazolam (Xanax) 1 mg PO TID [place] Carbamazepine (Tegretol) 200 mg PO DAILY [place] Past psychiatric history - Past Medical History Past Medical History: hypertension, seizures, other (Hx of TBI) Past Surgical History: No surgical history - past Psychiatric treatment and history psychiatric treatment history: The patient is seen outpatient for psy services. Denies a fam psy hx. - Social History Social history: other (Reside with friends) Mental Status Exam - Vital signs Last Vital Signs Temp 98.6 F 04/12/18 11:10 Pulse 97 H 04/12/18 13:22 Resp 16 04/12/18 13:22 BP 147/88 04/12/18 13:22 Pulse Ox 96 04/12/18 13:22 - Exam Narrative exam: MSE: Appearance: cooperative Behavior: poor eye contact Speech: regular rate and tone, rambles intermittently Mood: dysphoric Affect: congruent to mood Thought Process: disorganized Thought Content: no gestures of SI/HI's Motor Activity: ambulatory Cognition: A/O x 3 Insight: poor Judgment: poor Results Result Diagrams: 04/11/18 22:51 04/11/18 22:51 Abnormal lab results 04/11/18 04/11/18 04/11/18 Range/Units 22:51 22:51 22:51 RDW 13.1 L (13.2-15.2) % Monocytes % (Manual) 12.0 H (0.0-7.3) % Sodium 136 L (137-145) mmol/L Potassium 3.4 L (3.6-5.0) mmol/L Chloride 96.9 L (98-107) mmol/L Albumin 3.7 L (3.9-5) g/dL Salicylates < 0.3 L (2.8-20.0) mg/dL Acetaminophen (10.0-30.0) ug/mL 04/11/18 04/12/18 Range/Units 22:51 04:17 RDW (13.2-15.2) % Monocytes % (Manual) (0.0-7.3) % Sodium (137-145) mmol/L Potassium (3.6-5.0) mmol/L Chloride (98-107) mmol/L Albumin (3.9-5) g/dL Salicylates (2.8-20.0) mg/dL Acetaminophen < 5.0 L < 5.0 L (10.0-30.0) ug/mL All other labs normal. Assessment and Plan Assessment and plan: Impression: Unspecified Psychosis. Hx of Bipolar/Anxiety DO per the patient. Substance Use DO (cocaine). Today the patient is cooperative, but disorganized during the assessment. The patient isn't at her baseline. DDx: R/O Substance Induced Psychosis Recommendation/Plan: Initiate 2013 and reassess the patient in 24 hours. Start home medications Tegretol 200 mg PO daily, Depakote 500 mg PO TID, and Xanax 1 mg PO TID. Will reassess patient in 24 hours to determine if an antipsychotic is indicated.
[2018-04-12] MEDS: XANAX PO SCH ×2 (16:00→22:37)
[2018-04-12 16:41] LABS: Lipase 13 units/L (13-60)
[2018-04-13 03:33] LABS: Bilirubin,Urine NEG (Negative); Blood,Urine SM (Negative); Color,Urine Yellow (Yellow); Mucus,Urine FEW /HPF; Protein,Urine <15 mg/dL mg/dL (Negative); Urobilinogen,Urine < 2.0 mg/dL (<2.0)
[2018-04-13 03:35] LABS: HCG Qualitative,Urine Negative (Negative)
[2018-04-13] MEDS: XANAX PO SCH ×3 (08:30→21:00)
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
--- NOTE | 2018-04-13 16:12 | Cat Scan Report ---
FINAL REPORT EXAM: CT CERVICAL SPINE WO CON HISTORY: fall injury TECHNIQUE: Spiral CT scanning of the cervical spine, with axial images and multiplanar reformations. PRIORS: None. FINDINGS: Mild rightward rotation of C1 relative to C2 may be positional versus rotatory subluxation. Multilevel degenerative disc disease and spondylosis, most pronounced in the lower cervical spine. No acute compression deformity or gross malalignment of cervical vertebral bodies. No acute fracture identified. No acute, osseous central spinal canal encroachment. Paraspinal soft tissues grossly unremarkable. IMPRESSION: 1. No acute compression deformity or apparent fracture in the cervical spine. 2. Degenerative spondylosis.
--- NOTE | 2018-04-13 16:15 | Cat Scan Report ---
FINAL REPORT EXAM: CT LUMBAR SPINE WO CON HISTORY: fall injury TECHNIQUE: Spiral CT scanning of the lumbar spine, with axial and multiplanar reformations. PRIORS: None. FINDINGS: Mild dextroconvex curvature may be positional versus soft tissue spasm. Multilevel degenerative disc disease and spondylosis. Degenerative change also in the SI joints, left greater than right. No acute compression deformity or gross malalignment of lumbar vertebral bodies. No acute fracture identified. No acute, osseous central spinal canal encroachment. Paraspinal soft tissues grossly unremarkable. IMPRESSION: 1. No acute compression deformity or apparent fracture in the lumbar spine. 2. Degenerative spondylosis.
--- NOTE | 2018-04-13 16:20 | Cat Scan Report ---
FINAL REPORT EXAM: CT THORACIC SPINE WO CON HISTORY: fall injury TECHNIQUE: Spiral CT scanning of the thoracic spine with multiplanar reformations. PRIORS: None. FINDINGS: Multilevel degenerative disc disease and spondylosis. No acute compression deformity or gross malalignment of thoracic vertebral bodies. No acute fracture identified. No acute, osseous central spinal canal encroachment. Paraspinal soft tissues grossly unremarkable. IMPRESSION: 1. No acute compression deformity or apparent fracture in the thoracic spine. 2. Degenerative spondylosis.
[~2018-04-14 03:20] MED LIST: GEODON IM ONE; NACL 0.9% 1000 ML 1,000 ML IV ONE; TORADOL IM ONE; TYLENOL PO ONE
--- NOTE | 2018-04-14 14:07 | Progress Note ---
Subjective - Reason for Consult Consult date: 04/14/18 Reason for consult: Psychiatry Follow-up - Chief Complaint Chief complaint: "I don't know what's going on" Patient is a 57-year-old female presenting with a chief complaint right groin rash. This patient is known to me. Today the patient is calm, but still disorganized during the assessment. Her answers to questions isn't logical. She had to redirected several times to keep her on topic. She denies SI/HI's and AVH 's. No indications of side effects of her medications. Mental Status Exam - Vital signs Last Vital Signs Temp 97.7 F 04/13/18 20:36 Pulse 94 H 04/13/18 20:36 Resp 17 04/14/18 08:48 BP 123/77 04/13/18 20:36 Pulse Ox 98 04/13/18 20:36 - Exam Narrative exam: MSE: Appearance: calm Behavior: regular eye contact Speech: regular rate and tone Mood: "okay" Affect: congruent to mood Thought Process: disorganized Thought Content: denies SI/HI's and AVH's Motor Activity: ambulatory Cognition: A/O x 3 Insight: poor Judgment: poor Assessment and Plan Impression: Unspecified Psychosis. Hx of Bipolar/Anxiety DO per the patient. Substance Use DO (cocaine). Today the patient is cooperative, but disorganized during the assessment. The patient isn't at her baseline. DDx: R/O Substance Induced Psychosis Recommendation/Plan: Continue 2012. Continue home medications Tegretol 200 mg PO daily, Depakote 500 mg PO TID, Xanax 1 mg PO TID, and start Zyprexa 2.5 mg PO HS for psychosis. Discussed possible metabolic side effects of Zyprexa with the patient.
[2018-04-14] MEDS ORDERED: GEODON IM ONE (17:09)
[2018-04-14] MEDS ORDERED: WATER FOR INJ (PF) ONE (17:09)
[2018-04-15] MEDS ORDERED: GEODON IM ONE ×2 (04:29→04:30)
[2018-04-15] MEDS: XANAX PO PRN ×2 (11:10→19:03)
[2018-04-15] MEDS: BABY ASPIRIN PO SCH (11:10)
[2018-04-15] MEDS: BUMEX PO SCH (12:35)
--- NOTE | 2018-04-15 13:06 | Progress Note ---
Subjective - Reason for Consult Consult date: 04/15/18 Reason for consult: Psychiatry Follow-up - Chief Complaint Chief complaint: "Smith" Patient is a 57-year-old female presenting with a chief complaint right groin rash. This patient is known to me. Today the patient is calm and cooperative during the assessment. She stated that she is feeling better and would like to be discharged soon. She stated that she may need assistance with housing. She is more lucid today than previous interviews. She denies SI/HI's and AVH's. She denies any side effects of her medications. Mental Status Exam - Vital signs Last Vital Signs Temp 98 F 04/15/18 09:02 Pulse 93 H 04/15/18 09:02 Resp 20 04/15/18 09:02 BP 139/61 04/15/18 09:02 Pulse Ox 99 04/15/18 09:02 - Exam Narrative exam: MSE: Appearance: calm, cooperative Behavior: regular eye contact Speech: regular rate and tone Mood: "okay" Affect: congruent to mood Thought Process: circumstantial Thought Content: denies SI/HI's and AVH's Motor Activity: ambulatory Cognition: A/O x 3 Insight: variable Judgment: variable Assessment and Plan Impression: Unspecified Psychosis. Hx of Bipolar/Anxiety DO per the patient. Substance Use DO (cocaine). Today the patient is calm and cooperative during the assessment. DDx: R/O Substance Induced Psychosis Recommendation/Plan: Reevaluate 2013 in 24 hours to determine proper dispo. Continue home medications Tegretol 200 mg PO daily, Depakote 500 mg PO TID, Xanax 1 mg PO TID, and start Zyprexa 2.5 mg PO HS for psychosis. Discussed possible metabolic side effects of Zyprexa with the patient.
[2018-04-15] MEDS ORDERED: TYLENOL ONE (22:06)
[2018-04-15] MEDS ORDERED: TYLENOL PO ONE (22:12)
[2018-04-16] MEDS: XANAX PO PRN ×3 (03:53→19:55)
[2018-04-16] MEDS: BABY ASPIRIN PO SCH (09:58)
[2018-04-16] MEDS: BUMEX PO SCH (10:15)
--- NOTE | 2018-04-16 16:53 | Progress Note ---
Subjective - Reason for Consult Consult date: 04/16/18 Reason for consult: Psychiatric Follow-up Evaluation - Chief Complaint Chief complaint: "I'm alright" Patient is a 57-year-old female presenting with a chief complaint right groin rash. This patient is known to me. Today the patient is calm and cooperative during the assessment. Answers to questions are appropriate. She reports improvement with mood and thought process. She reports good sleep and appetite. She denies SI/HI's, A/VH's, and delusions. Mental Status Exam - Vital signs Last Vital Signs Temp 98.3 F 04/16/18 09:00 Pulse 95 H 04/16/18 09:00 Resp 18 04/16/18 09:00 BP 154/80 04/16/18 09:00 Pulse Ox 99 04/15/18 21:07 - Exam Narrative exam: Mental Status Exam: Appearance: Hospital gown Attitude/Behavior: Cooperative Eye Contact: Intermittent Sensorium: Distracted Orientation: Alert and oriented x 3 ( person, place, time) Speech: Regular rate and tone Mood: "alright" Affect: Congruent to mood Thought Process: Circumstantial Thought Content: Impoverished; patient denies delusions Motor Activity: Ambulatory Perception: Patient denies A/V/T hallucinations Suicidal Ideations: Patient denies. "No" Homicidal Ideations: Patient denies. " No" Insight: Variable Judgment: Variable Assessment and Plan Impression: Unspecified Psychosis. Hx of Bipolar/Anxiety DO per the patient. Substance Use DO (cocaine). Today the patient is calm and cooperative during the assessment. She denies SI/HI's, A/VH's, and delusions. DDx: R/O Substance Induced Psychosis Recommendation/Plan: 1. Continue 2012. Patient has been accepted to [facility] by Dr. Spence. 2. Continue home medications Tegretol 200 mg PO daily, Depakote 500 mg PO TID, Xanax 1 mg PO TID, and start Zyprexa 2.5 mg PO HS for psychosis. Discussed possible metabolic side effects of Zyprexa with the patient.
[2018-04-16 20:53] VITALS: BP 153/107
== END 2018-04-16 20:53 ==
LOC: ED 03:20
DX: B37.2 Candidiasis of skin and nail (principal); F14.10 Cocaine abuse, uncomplicated; F23 Brief psychotic disorder; F31.9 Bipolar disorder, unspecified; F41.9 Anxiety disorder, unspecified; I10 Essential (primary) hypertension; M19.90 Unspecified osteoarthritis, unspecified site; J44.9 Chronic obstructive pulmonary disease, unspecified; Z79.899 Other long term (current) drug therapy
CPT/HCPCS: 36415; 70450; 80053; 80156; 80164; 80307; 81001; 81025; 82150; 83690; 85007; 85025; 87086; 93005; 93010; 96372; 99285; G0480; J3486; J7030; 80320

== ENCOUNTER 2018-05-02 19:45 | Emergency (ER) | payer SELFPAY ==
--- NOTE | 2018-05-03 01:43 | XRay Report ---
FINAL REPORT PROCEDURE: XR FOOT 2V RT TECHNIQUE: RIGHT foot radiographs, AP, lateral, and oblique views. CPT 96601 HISTORY: fall COMPARISON: No prior studies are available for comparison. FINDINGS: Fracture (s) and/or Dislocation(s): There is a questionable fracture of the base of the 2nd proximal phalanx. Evaluation is limited due to positioning. Clinical correlation suggested. Additional views may be helpful. Remainder of the bony structures are unremarkable.. Alignment: Normal . Joint space(s): Normal . Soft tissues: There is soft tissue swelling of the forefoot.. Bone mineralization: Normal . Foreign bodies: None . Calcaneal spurring: None . IMPRESSION: There is a questionable fracture of the base of the 2nd proximal phalanx. Evaluation is limited due to positioning. Clinical correlation suggested. Additional views may be helpful. Remainder of the bony structures are unremarkable.. There is no joint dislocation. There is soft tissue swelling of the forefoot.. .
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
[2018-05-03 02:54] VITALS: BP 171/75
== END 2018-05-03 02:53 | disposition home or self-care (01) ==
LOC: ED 19:45
DX: M79.671 Pain in right foot (principal); I10 Essential (primary) hypertension; K74.60 Unspecified cirrhosis of liver; M19.90 Unspecified osteoarthritis, unspecified site; J44.9 Chronic obstructive pulmonary disease, unspecified; E66.9 Obesity, unspecified
CPT/HCPCS: 99283

== ENCOUNTER 2019-03-06 17:02 | Emergency (ER) | payer MEDICAID, MEDICARE ==
--- NOTE | 2019-03-06 17:36 | Event Note ---
ED Screening Note Date of service: 03/06/19 Time: 17:36 ED Screening Note: 58 y/o female c/o rash. This initial assessment/diagnostic orders/clinical plan/treatment(s) is/are subject to change based on patients health status, clinical progression and re- assessment by fellow clinical providers in the ED. Further treatment and workup at subsequent clinical providers discretion. Patient/guardian urged not to elope from the ED as their condition may be serious if not clinically assessed and m anaged. Initial orders include:
[2019-03-06] MEDS ORDERED: ULTRAM PO ONE (19:25)
[2019-03-06] MEDS ORDERED: DIFLUCAN PO ONE (19:25)
--- NOTE | 2019-03-06 19:33 | Emergency Department Report ---
ED Rash HPI - HPI Chief Complaint: Skin Rash Stated Complaint: RASH Time Seen by Provider: 03/06/19 17:35 Duration: 5 Days Location: Chest, Abdomen Suspected Cause: Unknown (yeast ) Rash Symptoms: Yes Itching, No Facial Swelling, No Tongue/Oral Swelling, No Breathing Difficulties, No Choking Sensation, No Wheezing/Dyspnea, No Peeling, No Blistering, No Fever, No Lightheaded, No Malaise, No Myalgias Severity: moderate Other History: itching burning erythema no weeping no drainage no fever dx with emiliano by pcp not take nystatin powder. ED Review of Systems ROS: Stated complaint: RASH Other details as noted in HPI Constitutional: denies: chills, fever Eyes: denies: eye pain, eye discharge, vision change ENT: denies: ear pain, throat pain Respiratory: denies: cough, shortness of breath, wheezing Cardiovascular: denies: chest pain, palpitations Endocrine: no symptoms reported Gastrointestinal: as per HPI Genitourinary: denies: urgency, dysuria, discharge Musculoskeletal: denies: back pain, joint swelling, arthralgia Skin: rash, pruritus, other (emiliano chest wall abd perineal area ) Neurological: denies: headache, weakness, paresthesias Psychiatric: denies: anxiety, depression Hematological/Lymphatic: as per HPI ED Past Medical Hx - Past Medical History Hx Hypertension: Yes Hx Liver Disease: Yes (cirrhosis) Hx Arthritis: Yes Hx Seizures: Yes Hx Psychiatric Treatment: Yes (drug abuse) Hx COPD: Yes Additional medical history: TBI 1985. OBESITY - Surgical History Additional Surgical History: left knee and left wrist surgery; brain 1985 - Social History Smoking Status: Unknown if ever smoked Substance Use Type: None - Medications Home Medications: Home Medications Medication Instructions Recorded Confirmed Last Taken Type ALPRAZolam [Xanax TAB] 1 mg PO TID PRN 10/22/15 04/15/18 04/02/18 History Aspirin [Aspirin BABY CHEW TAB] 81 mg PO QDAY 10/22/15 04/15/18 04/02/18 History Atenolol [Tenormin] 25 mg PO DAILY 10/22/15 04/15/18 04/02/18 History Divalproex ER [Depakote ER] 500 mg PO TID 10/22/15 04/15/18 04/02/18 History carBAMazepine [TEGretol] 200 mg PO QAM 10/22/15 04/15/18 04/02/18 History traMADol [Ultram 50 MG tab] 50 mg PO Q6HR PRN #10 tablet 04/09/17 04/15/18 04/02/18 Rx Nystatin Cream [Mycostatin Cream] 1 applic TP BID #1 tube 04/08/18 04/15/18 Unknown Rx Nystatin Oint [Mycostatin Oint] 1 applicatio TP BID #1 tube 04/12/18 Unknown Rx Bumetanide [Bumex 1 mg tab] 1 mg PO DAILY 04/15/18 04/15/18 Unknown History Zolpidem [Ambien] 10 mg PO QHS 04/15/18 04/15/18 Unknown History Meloxicam 15 mg PO DAILY #7 tablet 05/03/18 Unknown Rx Acetaminophen [Acetaminophen TAB] 1,000 mg PO Q6HR PRN #30 tablet 03/06/19 Unknown Rx Ketoconazole [Xolegel 2%] 1 applicatio TP TID #1 tube 03/06/19 Unknown Rx diphenhydrAMINE [Benadryl CAP] 25 mg PO Q6HR PRN #30 capsule 03/06/19 Unknown Rx Rash Exam - Exam General: Vital signs noted. No distress. Alert and acting appropriately. HEENT: No Periorbital Edema, No Conjuctival Injection, No Chemosis, No Perioral Edema, No Tongue Edema, No Uvular Edema, No Compromised Airway, No Drooling Lungs: Yes Good Air Exchange (Normal Breath Sounds), No Wheezes, No Ronchi, No Stridor, No Cough, No Labored Respirations, No Retractions, No Use of Accessory Muscles, No Other Abnormal Lung Sounds Heart: Yes Regular, No Murmur Skin: Yes Urticarial Rash, Yes Erythema, No Maculopapular Rash, No Morbilliform rash, No Bulla(e), No Excoriations, No Weeping, No Tenderness, No Edema, No Encrustations Other: Positive: Abdomen Normal, Neurologic Normal, Musculoskeletal Normal ED Course Vital Signs 03/06/19 17:26 Temperature 98.4 F Pulse Rate 87 Respiratory 16 Rate Blood Pressure 127/80 O2 Sat by Pulse 99 Oximetry ED Medical Decision Making - Medical Decision Making this is cadidal dermatitis, plan ketoconazole oint, benadyl, tyelnol follow up with pcp in 2-3 days. Critical care attestation.: If time is entered above; I have spent that time in minutes in the direct care of this critically ill patient, excluding procedure time. ED Disposition Clinical Impression: Candidal dermatitis Disposition: TO HOME OR SELFCARE Is pt being admited?: No Does the pt Need Aspirin: No Condition: Stable Instructions: Contact Dermatitis (ED) Prescriptions: Acetaminophen [Acetaminophen TAB] 1,000 mg PO Q6HR PRN #30 tablet PRN Reason: Pain , Severe (7-10) diphenhydrAMINE [Benadryl CAP] 25 mg PO Q6HR PRN #30 capsule PRN Reason: Itching Ketoconazole [Xolegel 2%] 1 applicatio TP TID #1 tube Referrals: AYLA WHARTON MD [Primary Care Provider] - 3-5 Days Forms: Work/School Release Form(ED) Time of Disposition: 19:33
[2019-03-06 20:00] VITALS: BP 152/85
== END 2019-03-06 20:39 | disposition home or self-care (01) ==
LOC: ED 17:02
DX: B37.2 Candidiasis of skin and nail (principal); I10 Essential (primary) hypertension; M19.90 Unspecified osteoarthritis, unspecified site; J44.9 Chronic obstructive pulmonary disease, unspecified; E66.9 Obesity, unspecified; Z98.890 Other specified postprocedural states; Z79.899 Other long term (current) drug therapy; Z87.19 Personal history of other diseases of the digestive system

== ENCOUNTER 2019-03-06 22:10 | Emergency (ER) | payer MEDICARE, MEDICAID ==
[2019-03-06 23:49] VITALS: BP 152/83
--- NOTE | 2019-03-07 02:26 | Emergency Department Report ---
ED General Adult HPI - General Chief complaint: Seizure Stated complaint: PAIN Time Seen by Provider: 03/07/19 02:04 Source: patient Mode of arrival: Ambulatory Limitations: No Limitations - History of Present Illness Initial comments: 58-year-old female with a past medical history of cirrhosis, arthritis, COPD and hypertension as well as prior history of drug abuse presents after re-presenting to the ER with the complaint that she is going to have a seizure. Patient was discharged earlier today with the diagnosis of dermatitis that is present under her right breast. Patient does not have a ride home and reread of sustaining that she is going to have a seizure as well as a stroke. is able to ambulate with her cane has no evidence of focal weakness. Patient while here in the ER is speaking clearly but then when discussing her stroke begins to adjust her speech. Patient has had no recent falls. Severity scale (0 -10): 10 - Related Data Home Medications Medication Instructions Recorded Confirmed Last Taken ALPRAZolam [Xanax TAB] 1 mg PO TID PRN 10/22/15 04/15/18 04/02/18 Aspirin [Aspirin BABY CHEW TAB] 81 mg PO QDAY 10/22/15 04/15/18 04/02/18 Atenolol [Tenormin] 25 mg PO DAILY 10/22/15 04/15/18 04/02/18 Divalproex ER [Depakote ER] 500 mg PO TID 10/22/15 04/15/18 04/02/18 carBAMazepine [TEGretol] 200 mg PO QAM 10/22/15 04/15/18 04/02/18 Bumetanide [Bumex 1 mg tab] 1 mg PO DAILY 04/15/18 04/15/18 Unknown Zolpidem [Ambien] 10 mg PO QHS 04/15/18 04/15/18 Unknown Previous Rx's Medication Instructions Recorded Last Taken Type traMADol [Ultram 50 MG tab] 50 mg PO Q6HR PRN #10 tablet 04/09/17 04/02/18 Rx Nystatin Cream [Mycostatin Cream] 1 applic TP BID #1 tube 04/08/18 Unknown Rx Nystatin Oint [Mycostatin Oint] 1 applicatio TP BID #1 tube 04/12/18 Unknown Rx Meloxicam 15 mg PO DAILY #7 tablet 05/03/18 Unknown Rx Acetaminophen [Acetaminophen TAB] 1,000 mg PO Q6HR PRN #30 tablet 03/06/19 Unknown Rx Ketoconazole [Xolegel 2%] 1 applicatio TP TID #1 tube 03/06/19 Unknown Rx diphenhydrAMINE [Benadryl CAP] 25 mg PO Q6HR PRN #30 capsule 03/06/19 Unknown Rx Allergies Allergy/AdvReac Type Severity Reaction Status Date / Time No Known Allergies Allergy Verified 11/01/15 11:59 ED Review of Systems ROS: Stated complaint: PAIN Other details as noted in HPI Constitutional: denies: chills, fever Eyes: denies: eye pain, eye discharge, vision change ENT: denies: ear pain, throat pain Respiratory: denies: cough, shortness of breath, wheezing Cardiovascular: denies: chest pain, palpitations Endocrine: no symptoms reported Gastrointestinal: denies: abdominal pain, nausea, diarrhea Genitourinary: denies: urgency, dysuria, discharge Musculoskeletal: denies: back pain, joint swelling, arthralgia Skin: denies: rash, lesions Neurological: denies: headache, weakness, paresthesias Psychiatric: denies: anxiety, depression Hematological/Lymphatic: denies: easy bleeding, easy bruising ED Past Medical Hx - Past Medical History Hx Hypertension: Yes Hx Liver Disease: Yes (cirrhosis) Hx Arthritis: Yes Hx Seizures: Yes Hx Psychiatric Treatment: Yes (drug abuse) Hx COPD: Yes Additional medical history: TBI 1985. OBESITY - Surgical History Additional Surgical History: left knee and left wrist surgery; brain 1985 - Social History Smoking Status: Current Every Day Smoker - Medications Home Medications: Home Medications Medication Instructions Recorded Confirmed Last Taken Type ALPRAZolam [Xanax TAB] 1 mg PO TID PRN 10/22/15 04/15/18 04/02/18 History Aspirin [Aspirin BABY CHEW TAB] 81 mg PO QDAY 10/22/15 04/15/18 04/02/18 History Atenolol [Tenormin] 25 mg PO DAILY 10/22/15 04/15/18 04/02/18 History Divalproex ER [Depakote ER] 500 mg PO TID 10/22/15 04/15/18 04/02/18 History carBAMazepine [TEGretol] 200 mg PO QAM 10/22/15 04/15/18 04/02/18 History traMADol [Ultram 50 MG tab] 50 mg PO Q6HR PRN #10 tablet 04/09/17 04/15/18 04/02/18 Rx Nystatin Cream [Mycostatin Cream] 1 applic TP BID #1 tube 04/08/18 04/15/18 Unknown Rx Nystatin Oint [Mycostatin Oint] 1 applicatio TP BID #1 tube 04/12/18 Unknown Rx Bumetanide [Bumex 1 mg tab] 1 mg PO DAILY 04/15/18 04/15/18 Unknown History Zolpidem [Ambien] 10 mg PO QHS 04/15/18 04/15/18 Unknown History Meloxicam 15 mg PO DAILY #7 tablet 05/03/18 Unknown Rx Acetaminophen [Acetaminophen TAB] 1,000 mg PO Q6HR PRN #30 tablet 03/06/19 Unknown Rx Ketoconazole [Xolegel 2%] 1 applicatio TP TID #1 tube 03/06/19 Unknown Rx diphenhydrAMINE [Benadryl CAP] 25 mg PO Q6HR PRN #30 capsule 03/06/19 Unknown Rx ED Physical Exam - General Limitations: No Limitations General appearance: alert, in no apparent distress, other (disheveled;) - Head Head exam: Present: atraumatic, normocephalic - Eye Eye exam: Present: normal appearance - ENT ENT exam: Present: mucous membranes moist - Neck Neck exam: Present: normal inspection - Respiratory Respiratory exam: Present: normal lung sounds bilaterally. Absent: respiratory distress - Cardiovascular Cardiovascular Exam: Present: regular rate, normal rhythm. Absent: systolic murmur, diastolic murmur, rubs, gallop - GI/Abdominal GI/Abdominal exam: Present: soft, normal bowel sounds - Extremities Exam Extremities exam: Present: normal inspection - Back Exam Back exam: Present: normal inspection - Neurological Exam Neurological exam: Present: alert, oriented X3 - Psychiatric Psychiatric exam: Present: normal affect, normal mood - Skin Skin exam: Present: warm, dry, intact, erythema (present under right breast ). Absent: rash ED Course Vital Signs 03/06/19 23:27 Temperature 97.7 F Pulse Rate 86 Respiratory 18 Rate Blood Pressure 152/83 [Right] O2 Sat by Pulse 98 Oximetry ED Medical Decision Making - Medical Decision Making Khang has a normal neurologic exam and is moving her upper and lower extremities without difficulty and is yelling clearly in the emergency department. Patient to be discharged as it appears to be a component of malingering here. Critical care attestation.: If time is entered above; I have spent that time in minutes in the direct care of this critically ill patient, excluding procedure time. ED Disposition Clinical Impression: Dermatitis, Malingering Disposition: DC-01 TO HOME OR SELFCARE Is pt being admited?: No Condition: Stable Instructions: Contact Dermatitis (ED) Referrals: MICAH MEYERS MD [Staff Physician] - 3-5 Days Time of Disposition: 02:28 Print Language: ROMANSH
== END 2019-03-07 03:19 | disposition home or self-care (01) ==
LOC: ED 22:10
DX: L30.9 Dermatitis, unspecified (principal); R56.9 Unspecified convulsions; I10 Essential (primary) hypertension; M19.90 Unspecified osteoarthritis, unspecified site; J44.9 Chronic obstructive pulmonary disease, unspecified; F17.200 Nicotine dependence, unspecified, uncomplicated; Z76.5 Malingerer [conscious simulation]; Z79.899 Other long term (current) drug therapy; Z98.890 Other specified postprocedural states; Z87.19 Personal history of other diseases of the digestive system
CPT/HCPCS: 99281

== ENCOUNTER 2021-03-08 23:48 | Inpatient (IN) | payer MEDICARE ==
[2021-03-08] MEDS ORDERED: dexAMETHasone 20 MG/5 ML VIAL IV ONE (23:59)
[2021-03-09] MEDS ORDERED: ALBUTEROL 2.5 MG/3 ML NEBU IH ONE
--- NOTE | 2021-03-09 00:08 | Emergency Department Report ---
HPI - General Time Seen by Provider: 03/08/21 23:57 - HPI HPI: Room 1 The patient is a 60-year-old female present with chief complaint of possible sepsis. History is obtained from EMS as the patient appears confused and when asked what made her come to the emergency department patient replies "I do not know." Per EMS the patient reportedly had URI symptoms for the past "few days" and today began complaining of shortness of breath. EMS arrived on scene to find the patient hypoxic to approximately 50% on room air. Patient was placed on nonrebreather by EMS and upon arrival was satting approximately 88%. Upon arrival to the ED the patient was placed on BiPAP with inline nebs. ED Past Medical Hx - Past Medical History Hx Hypertension: Yes Hx Liver Disease: Yes (cirrhosis) Hx Arthritis: Yes Hx Seizures: Yes Hx Psychiatric Treatment: Yes (drug abuse) Hx COPD: Yes Additional medical history: TBI 1985. OBESITY - Surgical History Additional Surgical History: left knee and left wrist surgery; brain 1985 - Family History Family history: no significant - Social History Smoking Status: Unknown if ever smoked Substance Use Type: None - Medications Home Medications: Home Medications Medication Instructions Recorded Confirmed Last Taken Type ALPRAZolam [Xanax TAB] 1 mg PO TID PRN 10/22/15 04/15/18 04/02/18 History Aspirin [Aspirin BABY CHEW TAB] 81 mg PO QDAY 10/22/15 04/15/18 04/02/18 History Divalproex ER [Depakote ER] 500 mg PO TID 10/22/15 04/15/18 04/02/18 History atenoloL [Tenormin] 25 mg PO DAILY 10/22/15 04/15/18 04/02/18 History carBAMazepine [TEGretol] 200 mg PO QAM 10/22/15 04/15/18 04/02/18 History traMADoL [Ultram 50 MG tab] 50 mg PO Q6HR PRN #10 tablet 04/09/17 04/15/18 04/02/18 Rx Nystatin Cream [Mycostatin Cream] 1 applic TP BID #1 tube 04/08/18 04/15/18 Unknown Rx Nystatin Oint [Mycostatin Oint] 1 applicatio TP BID #1 tube 04/12/18 Unknown Rx Bumetanide [Bumex 1 mg tab] 1 mg PO DAILY 04/15/18 04/15/18 Unknown History Zolpidem (Nf) [Ambien] 10 mg PO QHS 04/15/18 04/15/18 Unknown History Meloxicam 15 mg PO DAILY #7 tablet 05/03/18 Unknown Rx Acetaminophen [Acetaminophen TAB] 1,000 mg PO Q6HR PRN #30 tablet 03/06/19 Unknown Rx Ketoconazole [Xolegel 2%] 1 applicatio TP TID #1 tube 03/06/19 Unknown Rx diphenhydrAMINE [Benadryl CAP] 25 mg PO Q6HR PRN #30 capsule 03/06/19 Unknown Rx ED Review of Systems ROS: Stated complaint: MARYSOL Other details as noted in HPI Comment: Unobtainable due to pts medical conditions (Confused) Physical Exam - Physical Exam Physical Exam: GENERAL: The patient is well-developed well-nourished female lying on stretcher not appearing to be in acute distress. [] HEENT: Normocephalic. Atraumatic. Extraocular motions are intact. Patient has moist mucous membranes. NECK: Supple. Trachea midline CHEST/LUNGS: Rhonchi and diffuse wheezing HEART/CARDIOVASCULAR: Regular. There is no tachycardia. There is no gallop rub or murmur. ABDOMEN: Abdomen is soft, nontender. Patient has normal bowel sounds. There is no abdominal distention. SKIN: There is no rash. There is no edema. There is no diaphoresis. NEURO: The patient is awake and alert but appears slightly confused. The patient is cooperative. The patient has no focal neurologic deficits. The patient has normal speech. Moves all extremities MUSCULOSKELETAL: There is no evidence of acute injury. ED Medical Decision Making - Lab Data Result diagrams: 03/09/21 00:26 03/09/21 00:26 Laboratory Tests 03/09/21 03/09/21 03/09/21 00:26 00:26 00:26 WBC 2.9 L RBC 3.84 Hgb 12.2 Hct 35.9 MCV 94 MCH 32 MCHC 34 RDW 13.3 Plt Count 151 Lymph % (Auto) 15.9 [place] % (Auto) 9.5 H Eos % (Auto) 0.0 Baso % (Auto) 0.1 Lymph # (Auto) 0.5 L [place] # (Auto) 0.3 Eos # (Auto) 0.0 Baso # (Auto) 0.0 Seg Neutrophils % 74.5 H Seg Neutrophils # 2.2 Sodium 142 Potassium 4.1 Chloride 101.6 Carbon Dioxide 27 Anion Gap 18 BUN 13 Creatinine 0.6 Estimated GFR > 60 BUN/Creatinine Ratio 22 Glucose 135 H Lactic Acid 1.60 Calcium 7.3 L Total Bilirubin 0.40 AST 79 H ALT 62 H Alkaline Phosphatase 79 Total Protein 6.6 Albumin 3.4 L Albumin/Globulin Ratio 1.1 Valproic Acid 03/09/21 00:26 WBC RBC Hgb Hct MCV MCH MCHC RDW Plt Count Lymph % (Auto) [place] % (Auto) Eos % (Auto) Baso % (Auto) Lymph # (Auto) [place] # (Auto) Eos # (Auto) Baso # (Auto) Seg Neutrophils % Seg Neutrophils # Sodium Potassium Chloride Carbon Dioxide Anion Gap BUN Creatinine Estimated GFR BUN/Creatinine Ratio Glucose Lactic Acid Calcium Total Bilirubin AST ALT Alkaline Phosphatase Total Protein Albumin Albumin/Globulin Ratio Valproic Acid 9.7 L - EKG Data -: EKG Interpreted by Me EKG shows normal: sinus rhythm Rate: tachycardia (136 bpm) - EKG Data When compared to previous EKG there are: previous EKG unavailable Interpretation: other (No ischemic changes seen) - Radiology Data Radiology results: report reviewed (Chest x-ray), image reviewed (Chest x-ray) interpreted by me: Chest [id number] patchy infiltrates concerning for Covid pneumonia [facility] [address] [place] [address] XRay Report Signed Patient: YULIANA ELLIS MR#: [id number] : 1960 Acct:[id number] Age/Sex: 60 / F ADM Date: 03/08/21 Loc: ED Attending Dr: Ordering Physician: RONDA DELACRUZ MD Date of Service: 03/08/21 Procedure(s): XR chest 1V ap Accession Number(s): [id number] cc: RONDA DELACRUZ MD Fluoro Time In Minutes: CHEST 1 VIEW INDICATION / CLINICAL INFORMATION: Hypoxia, fever. FINDINGS: SUPPORT DEVICES: None. HEART / MEDIASTINUM: No significant abnormality. LUNGS / PLEURA: Severe bilateral airspace pneumonia. Signer Name: Gus Miller MD Signed: 03/09/2021 12:50 AM Workstation Name: [id number] Transcribed By: BC Dictated By: Gus Miller MD Electronically Authenticated By: Gus Miller MD Signed Date/Time: 03/09/2149 DD/ TD/TT: Print Cancel - Differential Diagnosis COVID-19, COPD exacerbation, pneumonia, bronchitis Critical care attestation.: If time is entered above; I have spent that time in minutes in the direct care of this critically ill patient, excluding procedure time. ED Disposition Clinical Impression: Suspected COVID-19 virus infection, Bilateral pneumonia, Hypoxia Disposition: ADMITTED INPATIENT Is pt being admited?: Yes Does the pt Need Aspirin: Yes Condition: Fair Time of Disposition: 01:19 (Hospitalist paged (Dr Jo))
[2021-03-09] MEDS ORDERED: cefTRIAXone/NS 1 GM/50 ML 1 GM/50 ML BAG IV ONE (00:41)
[2021-03-09] MEDS ORDERED: AZITHROMYCIN/NS 500 MG/250 ML 500 MG/250 ML BAG IV ONE (00:41)
[2021-03-09 00:47] LABS: Basophils % (Auto) 0.1 % (0.0-1.8); Hematocrit 35.9 % (30.3-42.9); Hemoglobin 12.2 gm/dl (10.1-14.3); Lymphocytes # (Auto) 0.5 K/mm3 (1.2-5.4); Lymphocytes % (Auto) 15.9 % (13.4-35.0); Mean Corpuscular HGB Conc 34 % (30-34); Mean Corpuscular Volume 94 fl (79-97); Monocytes # (Auto) 0.3 K/mm3 (0.0-0.8); Monocytes % (Auto) 9.5 % (0.0-7.3); Platelet Count 151 K/mm3 (140-440); Red Blood Count 3.84 M/mm3 (3.65-5.03); Red Cell Distribution Width 13.3 % (13.2-15.2)
--- NOTE | 2021-03-09 00:54 | XRay Report ---
CHEST 1 VIEW INDICATION / CLINICAL INFORMATION: Hypoxia, fever. FINDINGS: SUPPORT DEVICES: None. HEART / MEDIASTINUM: No significant abnormality. LUNGS / PLEURA: Severe bilateral airspace pneumonia. Signer Name: Gus Miller MD Signed: 03/09/2021 12:50 AM Workstation Name: [id number]
[2021-03-09] MEDS ORDERED: ACETAMINOPHEN 500 MG TAB PO ONE (01:07)
[2021-03-09] MEDS ORDERED: SODIUM CHLORIDE 0.9% 1000 ML 1,000 ML IV ONE ×3 (01:07)
[2021-03-09 01:09] LABS: Alanine Aminotransferase 62 units/L (7-56); Albumin 3.4 g/dL (3.9-5); Blood Urea Nitrogen 13 mg/dL (7-17); Calcium 7.3 mg/dL (8.4-10.2); Hemolysis Index 8
[2021-03-09 01:16] LABS: BUN/Creatinine Ratio 22
[2021-03-09] MEDS ORDERED: ONDANSETRON 4 MG/2 ML INJ IV PRN (02:28)
[2021-03-09] MEDS ORDERED: ALBUTEROL 2.5 MG/3 ML NEBU IH PRN (02:28)
[2021-03-09] MEDS ORDERED: MAGNESIUM HYDROXIDE (MOM) ORAL LIQD UDC PO PRN (02:28)
[2021-03-09] MEDS ORDERED: ACETAMINOPHEN 325 MG TAB PO PRN (02:28)
--- NOTE | 2021-03-09 02:47 | History and Physical Report ---
History of Present Illness Date of examination: 03/09/21 Date of admission: 03/09/21 01:30 Chief complaint: Altered Mental Status History of present illness: 60-year-old female brought into the emergency room by EMS for evaluation of shortness of breath. Symptoms were said to have been ongoing for the past few days. Oxygen saturation was about 50% on room air upon arrival of EMS. She was subsequently placed on nonrebreather with improvement of oxygen saturation to about 88%. She was subsequently placed on BiPAP upon arrival in the emergency room. She was initially confused upon arrival in the emergency room but became more responsive upon placement on BiPAP. Work-up in the emergency room today, labs were significant for elevated liver enzymes with AST of 79 ALT 62. Chest x-ray reveals severe bilateral airspace pneumonia. Past History Past Medical History: arthritis, COPD, hypertension, liver disease, seizures, other (TBI 1985, obesity, drug abuse) Past Surgical History: Other (left knee and left wrist surgery; brain 1985) Social history: no significant social history Family history: no significant family history Medications and Allergies Allergies Allergy/AdvReac Type Severity Reaction Status Date / Time No Known Allergies Allergy Verified 11/01/15 11:59 Home Medications Medication Instructions Recorded Confirmed Last Taken Type ALPRAZolam [Xanax TAB] 1 mg PO TID PRN 10/22/15 04/15/18 04/02/18 History Aspirin [Aspirin BABY CHEW TAB] 81 mg PO QDAY 10/22/15 04/15/18 04/02/18 History Divalproex ER [Depakote ER] 500 mg PO TID 10/22/15 04/15/18 04/02/18 History atenoloL [Tenormin] 25 mg PO DAILY 10/22/15 04/15/18 04/02/18 History carBAMazepine [TEGretol] 200 mg PO QAM 10/22/15 04/15/18 04/02/18 History traMADoL [Ultram 50 MG tab] 50 mg PO Q6HR PRN #10 tablet 04/09/17 04/15/18 04/02/18 Rx Nystatin Cream [Mycostatin Cream] 1 applic TP BID #1 tube 04/08/18 04/15/18 Unknown Rx Nystatin Oint [Mycostatin Oint] 1 applicatio TP BID #1 tube 09/25/18 Unknown Rx Bumetanide [Bumex 1 mg tab] 1 mg PO DAILY 04/15/18 04/15/18 Unknown History Zolpidem (Nf) [Ambien] 10 mg PO QHS 04/15/18 04/15/18 Unknown History Meloxicam 15 mg PO DAILY #7 tablet 05/03/18 Unknown Rx Acetaminophen [Acetaminophen TAB] 1,000 mg PO Q6HR PRN #30 tablet 03/06/19 Unknown Rx Ketoconazole [Xolegel 2%] 1 applicatio TP TID #1 tube 03/06/19 Unknown Rx diphenhydrAMINE [Benadryl CAP] 25 mg PO Q6HR PRN #30 capsule 03/06/19 Unknown Rx Active Meds: Active Medications Acetaminophen (Acetaminophen 325 Mg Tab) 650 mg PO Q4H PRN PRN Reason: Pain MILD(1-3)/Fever >100.5/DOMINGUEZ Albuterol (Albuterol 2.5 Mg/3 Ml Nebu) 2.5 mg IH Q4HRT PRN PRN Reason: Shortness Of Breath Dexamethasone (Dexamethasone 4 Mg/Ml Vial) 6 mg IV Q24HR CAMERON Enoxaparin Sodium (Enoxaparin 40 Mg/0.4 Ml Inj) 40 mg SUB-Q QDAY@2200 CAMERON; Protocol Sodium Chloride (Nacl 0.9% 1000 Ml) 1,000 mls @ 75 mls/hr IV DIRECT CAMERON Ceftriaxone Sodium (Rocephin/Ns 2 Gm/100 Ml) 2 gm in 100 mls @ 200 mls/hr IV Q24H CAMERON; Protocol Azithromycin (Zithromax/Ns) 500 mg in 250 mls @ 250 mls/hr IV Q24H CAMERON; Protocol Magnesium Hydroxide (Magnesium Hydroxide (Mom) Oral Liqd Udc) 30 ml PO Q4H PRN PRN Reason: Constipation Morphine Sulfate (Morphine 2 Mg/1 Ml Inj) 2 mg IV Q4H PRN PRN Reason: Pain, Moderate (4-6) Morphine Sulfate (Morphine 4 Mg/1 Ml Inj) 4 mg IV Q4H PRN PRN Reason: Pain , Severe (7-10) Ondansetron HCl (Ondansetron 4 Mg/2 Ml Inj) 4 mg IV Q8H PRN PRN Reason: Nausea And Vomiting Sodium Chloride (Sodium Chloride 0.9% 10 Ml Flush Syringe) 10 ml IV BID CAMERON Sodium Chloride (Sodium Chloride 0.9% 10 Ml Flush Syringe) 10 ml IV PRN PRN PRN Reason: LINE FLUSH Review of Systems ROS unobtainable: due to mental status Exam - Constitutional Vitals: Temp Pulse Resp BP Pulse Ox 101.3 F H 107 H 24 120/52 92 03/09/21 00:10 03/09/21 02:00 03/09/21 02:00 03/09/21 02:00 03/09/21 02:00 General appearance: Present: mild distress, well-nourished, obese, other (On BiPAP) - EENT Eyes: Present: PERRL, EOM intact. Absent: scleral icterus ENT: hearing intact, clear oral mucosa, dentition normal - Neck Neck: Present: supple, normal ROM - Respiratory Respiratory effort: labored Respiratory: bilateral: rales - Cardiovascular Rhythm: regular Heart Sounds: Present: S1 & S2. Absent: gallop, systolic murmur, diastolic murmur, rub, click - Extremities Extremities: no ischemia, pulses intact, pulses symmetrical, No edema, normal temperature, normal color, Full ROM Peripheral Pulses: within normal limits - Abdominal General gastrointestinal: Present: soft, non-tender, non-distended, normal bowel sounds. Absent: mass - Integumentary Integumentary: Present: clear, warm, dry. Absent: rash - Musculoskeletal Musculoskeletal: strength equal bilaterally - Psychiatric Psychiatric: cooperative - Neurologic Neurologic: CNII-XII intact, no focal deficits, moves all extremities, other (Appears mildly confused) Results - Labs CBC & Chem 7: 03/09/21 00:26 03/09/21 00:26 Labs: Abnormal lab results 03/09/21 03/09/21 03/09/21 Range/Units 00:26 00:26 00:26 WBC 2.9 L (4.5-11.0) K/mm3 [place] % (Auto) 9.5 H (0.0-7.3) % Lymph # (Auto) 0.5 L (1.2-5.4) K/mm3 Seg Neutrophils % 74.5 H (40.0-70.0) % Glucose 135 H (65-100) mg/dL Calcium 7.3 L (8.4-10.2) mg/dL AST 79 H (5-40) units/L ALT 62 H (7-56) units/L Albumin 3.4 L (3.9-5) g/dL Valproic Acid 9.7 L (50-100) ug/mL Assessment and Plan - Patient Problems (1) Bilateral pneumonia Current Visit: Yes Status: Acute Plan to address problem: Patient placed on empiric IV antibiotics. We will await culture results. (2) Hypoxia Current Visit: Yes Status: Acute Plan to address problem: Possibly secondary to the underlying pneumonia. We will keep O2 saturation greater or equal to 94%. Patient currently on BiPAP. Consult placed to contestant coordinator for evaluation. (3) Suspected COVID-19 virus infection Current Visit: Yes Status: Acute Plan to address problem: We will await COVID-19 testing. Patient placed on IV steroid. We will request infectious disease evaluation and recommendation. (4) DVT prophylaxis Current Visit: Yes Status: Acute Plan to address problem: Patient placed on subcutaneous Lovenox. (5) Full code status Current Visit: Yes Status: Acute Plan to address problem: Patient is full code.
[2021-03-09] MEDS ORDERED: IPRATROPIUM 0.02% NEBU 2.5 ML IH ONE ×2 (03:06)
[2021-03-09 05:19] LABS: Bacteria,Urine 2+ /HPF (Negative); Bilirubin,Urine NEG (Negative); Blood,Urine NEG (Negative); Color,Urine Amber (Yellow); Mucus,Urine FEW /HPF
[2021-03-09] MEDS: SODIUM CHLORIDE 0.9% 1000 ML 1,000 ML IV SCH (06:03)
[2021-03-09] MEDS ORDERED: dexAMETHasone 4 MG/ML VIAL IV SCH (10:00)
[2021-03-09] MEDS: cefTRIAXone/NS 2 GM/100 ML 2 GM/100 ML BAG IV SCH (10:59)
[2021-03-09] MEDS: AZITHROMYCIN/NS 500 MG/250 ML 500 MG/250 ML BAG IV SCH (11:00)
[2021-03-09] MEDS ORDERED: ALPRAZolam 1 MG TAB PO PRN (14:05)
--- NOTE | 2021-03-09 14:08 | Consultation ---
History of Present Illness Consult date: 03/09/21 Requesting physician: BOB CAT Reason for consult: pneumonia, other (COVID-19 infection) History of present illness: PULMONARY/CCM CONSULT NOTE (Full dictation # [id number]) Please see dictated notes for full details Past History Past Medical History: arthritis, COPD, hypertension, liver disease, seizures, other (TBI 1985, obesity, drug abuse) Past Surgical History: Other (left knee and left wrist surgery; brain 1985) Social history: no significant social history Family history: no significant family history Medications and Allergies Allergies Allergy/AdvReac Type Severity Reaction Status Date / Time No Known Allergies Allergy Verified 11/01/15 11:59 Home Medications Medication Instructions Recorded Confirmed Last Taken Type ALPRAZolam [Xanax TAB] 1 mg PO TID PRN 10/22/15 04/15/18 04/02/18 History Aspirin [Aspirin BABY CHEW TAB] 81 mg PO QDAY 10/22/15 04/15/18 04/02/18 History Divalproex ER [Depakote ER] 500 mg PO TID 10/22/15 03/09/21 04/02/18 History atenoloL [Tenormin] 25 mg PO DAILY 10/22/15 04/15/18 04/02/18 History carBAMazepine [TEGretol] 200 mg PO QAM 10/22/15 03/09/21 04/02/18 History traMADoL [Ultram 50 MG tab] 50 mg PO Q6HR PRN #10 tablet 04/09/17 04/15/18 04/02/18 Rx Nystatin Cream [Mycostatin Cream] 1 applic TP BID #1 tube 04/08/18 04/15/18 U nknown Rx Nystatin Oint [Mycostatin Oint] 1 applicatio TP BID #1 tube 04/12/18 Unknown Rx Bumetanide [Bumex 1 mg tab] 1 mg PO DAILY 04/15/18 04/15/18 Unknown History Zolpidem (Nf) [Ambien] 10 mg PO QHS 04/15/18 04/15/18 Unknown History Meloxicam 15 mg PO DAILY #7 tablet 05/03/18 Unknown Rx Acetaminophen [Acetaminophen TAB] 1,000 mg PO Q6HR PRN #30 tablet 03/06/19 Unknown Rx Ketoconazole [Xolegel 2%] 1 applicatio TP TID #1 tube 03/06/19 Unknown Rx diphenhydrAMINE [Benadryl CAP] 25 mg PO Q6HR PRN #30 capsule 03/06/19 Unknown Rx Active Meds: Active Medications Acetaminophen (Acetaminophen 325 Mg Tab) 650 mg PO Q4H PRN PRN Reason: Pain MILD(1-3)/Fever >100.5/DOMINGUEZ Albuterol (Albuterol 2.5 Mg/3 Ml Nebu) 2.5 mg IH Q4HRT PRN PRN Reason: Shortness Of Breath Carbamazepine (Carbamazepine 200 Mg Tab) 200 mg PO BID CAMERNO Dexamethasone (Dexamethasone 4 Mg/Ml Vial) 6 mg IV Q24HR CAMERON Last Admin: 03/09/21 10:59 Dose: 6 mg Documented by: Enoxaparin Sodium (Enoxaparin 40 Mg/0.4 Ml Inj) 40 mg SUB-Q QDAY@2200 CAMERON; Protocol Sodium Chloride (Nacl 0.9% 1000 Ml) 1,000 mls @ 75 mls/hr IV DIRECT CAMERON Last Admin: 03/09/21 06:03 Dose: 75 mls/hr Documented by: Ceftriaxone Sodium (Rocephin/Ns 2 Gm/100 Ml) 2 gm in 100 mls @ 200 mls/hr IV Q24HR CAMERON; Protocol Last Admin: 03/09/21 10:59 Dose: 200 mls/hr Documented by: Azithromycin (Zithromax/Ns) 500 mg in 250 mls @ 250 mls/hr IV Q24HR CAMERON; Protocol Last Admin: 03/09/21 11:00 Dose: 250 mls/hr Documented by: Levetiracetam 1,000 mg/ (Dextrose) 110 mls @ 400 mls/hr IV Q12HR CAMERON Magnesium Hydroxide (Magnesium Hydroxide (Mom) Oral Liqd Udc) 30 ml PO Q4H PRN PRN Reason: Constipation Morphine Sulfate (Morphine 2 Mg/1 Ml Inj) 2 mg IV Q4H PRN PRN Reason: Pain, Moderate (4-6) Morphine Sulfate (Morphine 4 Mg/1 Ml Inj) 4 mg IV Q4H PRN PRN Reason: Pain , Severe (7-10) Ondansetron HCl (Ondansetron 4 Mg/2 Ml Inj) 4 mg IV Q8H PRN PRN Reason: Nausea And Vomiting Sodium Chloride (Sodium Chloride 0.9% 10 Ml Flush Syringe) 10 ml IV BID CAMERON Last Admin: 03/09/21 11:00 Dose: 10 ml Documented by: Sodium Chloride (Sodium Chloride 0.9% 10 Ml Flush Syringe) 10 ml IV PRN PRN PRN Reason: LINE FLUSH Physical Examination Vital signs: Vital Signs Temp Pulse Resp BP Pulse Ox 101.3 F H 125 H 35 H 145/85 98 03/09/21 00:10 03/09/21 00:10 03/09/21 00:10 03/09/21 00:10 03/09/21 00:10 Results - Laboratory Findings CBC and BMP: 03/09/21 00:26 03/09/21 00:26 Abnormal lab findings: Abnormal Labs 03/09/21 03/09/21 03/09/21 00:26 00:26 00:26 WBC 2.9 L [place] % (Auto) 9.5 H Lymph # (Auto) 0.5 L Seg Neutrophils % 74.5 H Glucose 135 H Calcium 7.3 L AST 79 H ALT 62 H Albumin 3.4 L Valproic Acid 9.7 L Coronavirus (PCR) 03/09/21 Unknown WBC [place] % (Auto) Lymph # (Auto) Seg Neutrophils % Glucose Calcium AST ALT Albumin Valproic Acid Coronavirus (PCR) Positive A
--- NOTE | 2021-03-09 14:13 | Event Note ---
Date: 03/09/21 Patient seen around 8 AM and reevaluated Patient seizure medication changed to Keppra and Tegretol Depakote discontinued Patient on BiPAP Patient very anxious IV Ativan as needed x1 followed by Sandrita which is her home medication Labs in a.m. Floor Polisher consult appreciated Neurology consult to be requested
--- NOTE | 2021-03-09 14:23 | Consultation ---
History of Present Illness Consult date: 03/09/21 Reason for Consult: change in seizure medications History of present illness: Altered Mental Status History of present illness: 60-year-old female brought into the emergency room by EMS for evaluation of shortness of breath. Symptoms were said to have been ongoing for the past few days. Oxygen saturation was about 50% on room air upon arrival of EMS. She was subsequently placed on nonrebreather with improvement of oxygen saturation to about 88%. She was subsequently placed on BiPAP upon arrival in the emergency room. She was initially confused upon arrival in the emergency room but became more responsive upon placement on BiPAP. Work-up in the emergency room today, labs were significant for elevated liver enzymes with AST of 79 ALT 62. Chest x-ray reveals severe bilateral airspace pneumonia. for some reason ? elevated LVT pt. depakote been stopped and she is placed on Keppra !!!! according to pt. she is with hx of seizure but her last seizure been > 20 ys ago she sees her neurologist take tegretol 200 mg Qd and depakote 500 mg bid In ER her WBCS is 2.9 Past History Past Medical History: arthritis, COPD, hypertension, liver disease, seizures, other (TBI 1985, obesity, drug abuse) Past Surgical History: Other (left knee and left wrist surgery; brain 1985) Social history: no significant social history Family history: no significant family history Medications and Allergies Allergies Allergy/AdvReac Type Severity Reaction Status Date / Time No Known Allergies Allergy Verified 11/01/15 11:59 Home Medications Medication Instructions Recorded Confirmed Last Taken Type ALPRAZolam [Xanax TAB] 1 mg PO TID PRN 10/22/15 04/15/18 04/02/18 History Aspirin [Aspirin BABY CHEW TAB] 81 mg PO QDAY 10/22/15 04/15/18 04/02/18 History Divalproex ER [Depakote ER] 500 mg PO TID 10/22/15 04/15/18 04/02/18 History atenoloL [Tenormin] 25 mg PO DAILY 10/22/15 04/15/18 04/02/18 History carBAMazepine [TEGretol] 200 mg PO QAM 10/22/15 04/15/18 04/02/18 History traMADoL [Ultram 50 MG tab] 50 mg PO Q6HR PRN #10 tablet 04/09/17 04/15/18 04/02/18 Rx Nystatin Cream [Mycostatin Cream] 1 applic TP BID #1 tube 04/08/18 04/15/18 Unknown Rx Nystatin Oint [Mycostatin Oint] 1 applicatio TP BID #1 tube 04/12/18 Unknown Rx Bumetanide [Bumex 1 mg tab] 1 mg PO DAILY 04/15/18 04/15/18 Unknown History Zolpidem (Nf) [Ambien] 10 mg PO QHS 04/15/18 04/15/18 Unknown History Meloxicam 15 mg PO DAILY #7 tablet 05/03/18 Unknown Rx Acetaminophen [Acetaminophen TAB] 1,000 mg PO Q6HR PRN #30 tablet 03/06/19 Unknown Rx Ketoconazole [Xolegel 2%] 1 applicatio TP TID #1 tube 03/06/19 Unknown Rx diphenhydrAMINE [Benadryl CAP] 25 mg PO Q6HR PRN #30 capsule 03/06/19 Unknown Rx Active Meds: Active Medications Acetaminophen (Acetaminophen 325 Mg Tab) 650 mg PO Q4H PRN PRN Reason: Pain MILD(1-3)/Fever >100.5/DOMINGUEZ Albuterol (Albuterol 2.5 Mg/3 Ml Nebu) 2.5 mg IH Q4HRT PRN PRN Reason: Shortness Of Breath Dexamethasone (Dexamethasone 4 Mg/Ml Vial) 6 mg IV Q24HR [facility] Enoxaparin Sodium (Enoxaparin 40 Mg/0.4 Ml Inj) 40 mg SUB-Q QDAY@2200 [facility]; Protocol Sodium Chloride (Nacl 0.9% 1000 Ml) 1,000 mls @ 75 mls/hr IV DIRECT [facility] Ceftriaxone Sodium (Rocephin/Ns 2 Gm/100 Ml) 2 gm in 100 mls @ 200 mls/hr IV Q24H [facility]; Protocol Azithromycin (Zithromax/Ns) 500 mg in 250 mls @ 250 mls/hr IV Q24H [facility]; Protocol Magnesium Hydroxide (Magnesium Hydroxide (Mom) Oral Liqd Udc) 30 ml PO Q4H PRN PRN Reason: Constipation Morphine Sulfate (Morphine 2 Mg/1 Ml Inj) 2 mg IV Q4H PRN PRN Reason: Pain, Moderate (4-6) Morphine Sulfate (Morphine 4 Mg/1 Ml Inj) 4 mg IV Q4H PRN PRN Reason: Pain , Severe (7-10) Ondansetron HCl (Ondansetron 4 Mg/2 Ml Inj) 4 mg IV Q8H PRN PRN Reason: Nausea And Vomiting Sodium Chloride (Sodium Chloride 0.9% 10 Ml Flush Syringe) 10 ml IV BID [facility] Sodium Chloride (Sodium Chloride 0.9% 10 Ml Flush Syringe) 10 ml IV PRN PRN PRN Reason: LINE FLUSH Review of Systems ROS unobtainable: due to mental status Past History Past Medical History: arthritis, COPD, hypertension, liver disease, seizures, other (TBI 1985, obesity, drug abuse) Past Surgical History: Other (left knee and left wrist surgery; brain 1985) Social history: no significant social history Family history: no significant family history Medications and Allergies Allergies Allergy/AdvReac Type Severity Reaction Status Date / Time No Known Allergies Allergy Verified 11/01/15 11:59 Home Medications Medication Instructions Recorded Confirmed Last Taken Type ALPRAZolam [Xanax TAB] 1 mg PO TID PRN 10/22/15 04/15/18 04/02/18 History Aspirin [Aspirin BABY CHEW TAB] 81 mg PO QDAY 10/22/15 04/15/18 04/02/18 History Divalproex ER [Depakote ER] 500 mg PO TID 10/22/15 03/09/21 04/02/18 History atenoloL [Tenormin] 25 mg PO DAILY 10/22/15 04/15/18 04/02/18 History carBAMazepine [TEGretol] 200 mg PO QAM 10/22/15 03/09/21 04/02/18 History traMADoL [Ultram 50 MG tab] 50 mg PO Q6HR PRN #10 tablet 04/09/17 04/15/18 Rx Nystatin Cream [Mycostatin Cream] 1 applic TP BID #1 tube 04/08/18 04/15/18 Unknown Rx Nystatin Oint [Mycostatin Oint] 1 applicatio TP BID #1 tube 04/12/18 Unknown Rx Bumetanide [Bumex 1 mg tab] 1 mg PO DAILY 04/15/18 04/15/18 Unknown History Zolpidem (Nf) [Ambien] 10 mg PO QHS 04/15/18 04/15/18 Unknown History Meloxicam 15 mg PO DAILY #7 tablet 05/03/18 Unknown Rx Acetaminophen [Acetaminophen TAB] 1,000 mg PO Q6HR PRN #30 tablet 03/06/19 Unknown Rx Ketoconazole [Xolegel 2%] 1 applicatio TP TID #1 tube 03/06/19 Unknown Rx diphenhydrAMINE [Benadryl CAP] 25 mg PO Q6HR PRN #30 capsule 03/06/19 Unknown Rx Active Meds: Active Medications Acetaminophen (Acetaminophen 500 Mg Tab) 1,000 mg PO Q6HR PRN PRN Reason: Pain , Severe (7-10) Albuterol (Albuterol 2.5 Mg/3 Ml Nebu) 2.5 mg IH Q4HRT PRN PRN Reason: Shortness Of Breath Alprazolam (Alprazolam 1 Mg Tab) 1 mg PO TID PRN PRN Reason: Anxiety Aspirin (Aspirin 81 Mg Tab Chew) 81 mg PO QDAY [facility] Atenolol (Atenolol 25 Mg Tab) 25 mg PO DAILY [facility] Bumetanide (Bumetanide 1 Mg Tab) 1 mg PO DAILY [facility] Carbamazepine (Carbamazepine 200 Mg Tab) 200 mg PO BID [facility] Dexamethasone (Dexamethasone 4 Mg/Ml Vial) 6 mg IV Q24HR [facility] Last Admin: 03/09/21 10:59 Dose: 6 mg Documented by: Diphenhydramine HCl (Diphenhydramine 25 Mg Cap) 25 mg PO Q6HR PRN PRN Reason: Itching Enoxaparin Sodium (Enoxaparin 40 Mg/0.4 Ml Inj) 40 mg SUB-Q QDAY@2200 CAMERON; Protocol Sodium Chloride (Nacl 0.9% 1000 Ml) 1,000 mls @ 75 mls/hr IV DIRECT CAMER[facility] Last Admin: 03/09/21 06:03 Dose: 75 mls/hr Documented by: Ceftriaxone Sodium (Rocephin/Ns 2 Gm/100 Ml) 2 gm in 100 mls @ 200 mls/hr IV Q24HR [facility]; Protocol Last Admin: 03/09/21 10:59 Dose: 200 mls/hr Documented by: Azithromycin (Zithromax/Ns) 500 mg in 250 mls @ 250 mls/hr IV Q24HR [facility]; Protocol Last Admin: 03/09/21 11:00 Dose: 250 mls/hr Documented by: Levetiracetam 1,000 mg/ (Dextrose) 110 mls @ 400 mls/hr IV Q12HR [facility] Magnesium Hydroxide (Magnesium Hydroxide (Mom) Oral Liqd Udc) 30 ml PO Q4H PRN PRN Reason: Constipation Morphine Sulfate (Morphine 2 Mg/1 Ml Inj) 2 mg IV Q4H PRN PRN Reason: Pain, Moderate (4-6) Morphine Sulfate (Morphine 4 Mg/1 Ml Inj) 4 mg IV Q4H PRN PRN Reason: Pain , Severe (7-10) Nystatin (Nystatin Oint 15 Gm) 1 applic TP BID [facility] Ondansetron HCl (Ondansetron 4 Mg/2 Ml Inj) 4 mg IV Q8H PRN PRN Reason: Nausea And Vomiting Sodium Chloride (Sodium Chloride 0.9% 10 Ml Flush Syringe) 10 ml IV BID [facility] Last Admin: 03/09/21 11:00 Dose: 10 ml Documented by: Sodium Chloride (Sodium Chloride 0.9% 10 Ml Flush Syringe) 10 ml IV PRN PRN PRN Reason: LINE FLUSH Physical Examination - Vital Signs Vital Signs: Vital Signs Temp Pulse Resp BP Pulse Ox 101.3 F H 125 H 35 H 145/85 98 03/09/21 00:10 03/09/21 00:10 03/09/21 00:10 03/09/21 00:10 03/09/21 00:10 - Constitutional General appearance: uncomfortable, other (on CPAP) - EENT EENT: Present: PERRL, mucous membranes moist - Respiratory Respiratory: Present: chest non-tender, lungs clear, crackles, rhonchi - Cardiovascular Cardiovascular: Present: regular rate, normal S1, normal S2 Extremities: Present: no peripheral edema bilatateraly - Gastrointestinal Gastrointestinal: Present: normoactive bowel sounds - Integumentary Integumentary: Present: normal - Neurologic Cranial nerve examination: PERRL, EOMI Speech examination: intact Sensorimotor examination: intact Detailed motor examination: grossly full strength in Results - Laboratory Findings CBC and BMP: 03/09/21 00:26 03/09/21 00:26 Abnormal Lab Findings: Abnormal Labs 03/09/21 03/09/21 03/09/21 00:26 00:26 00:26 WBC 2.9 L Cowley % (Auto) 9.5 H Lymph # (Auto) 0.5 L Seg Neutrophils % 74.5 H Glucose 135 H Calcium 7.3 L AST 79 H ALT 62 H Albumin 3.4 L Valproic Acid 9.7 L Coronavirus (PCR) 03/09/21 Unknown WBC Cowley % (Auto) Lymph # (Auto) Seg Neutrophils % Glucose Calcium AST ALT Albumin Valproic Acid Coronavirus (PCR) Positive A Assessment and Plan Assessment and Plan 60-year-old female brought into the emergency room by EMS for evaluation of shortness of breath. Symptoms were said to have been ongoing for the past few days. - Oxygen saturation was about 50% on room air upon arrival of EMS. She was subsequently placed on nonrebreather with improvement of oxygen saturation to about 88%. - She was subsequently placed on BiPAP upon arrival in the emergency room. -She was initially confused upon arrival in the emergency room but became more responsive upon placement on BiPAP. for some reason ? elevated LVT pt. depakote been stopped and she is placed on Keppra !!!! according to pt. she is with hx of seizure but her last seizure been > 20 ys ago she sees her neurologist take tegretol 200 mg Qd and depakote 500 mg bid In ER her WBCS is 2.9 # Hx of seizure -last seizure is >20 ys ago as per pt. -it is limited hx due to confusion and been on CPAP -she is followed by her neurologist -low wbs and elevated liver enzymes is mild # Bilateral pneumonia # Hx of seizure -Patient placed on empiric IV antibiotics. We will await culture results. # Hypoxia -Possibly secondary to the underlying pneumonia. We will keep O2 saturation greater or equal to 94%. Patient currently on BiPAP. Consult placed to book canvasser for evaluation. # Suspected COVID-19 virus infection -We will await COVID-19 testing.-- is positive Patient placed on IV steroid. We will request infectious disease evaluation and recommendation. # DVT prophylaxis -Patient placed on subcutaneous Lovenox. # Full code status -Patient is full code. PLAN 1- Go back to depakote 500 mg tid if needed can be reduced to bid-- valp. level is 9.7 2- Stop tegretol due to side effect of low wbs and she is taking only one tablet daily 3- No indication for adding keppra in pt. with no seizure for over 20 ys 4- Seizure precaution 5- EEG am 6- MRI brain with gd if possible 7- maintain Xanax as per her home rx due to underlying anxiety +++ follow up with her neurologist on D/C will follow PRN
[2021-03-09] MEDS ORDERED: carBAMazepine 200 MG TAB PO SCH (15:00)
[2021-03-09] MEDS ORDERED: ACETAMINOPHEN 500 MG TAB PO PRN (15:00)
[2021-03-09] MEDS ORDERED: diphenhydrAMINE 25 MG CAP PO PRN (15:00)
[2021-03-09] MEDS ORDERED: levETIRAcetam 1,000 MG in DEXTROSE 5% IN WATER 100 ML IV SCH (15:00)
[2021-03-09] MEDS: NYSTATIN OINT 15 GM TP SCH ×2 (15:32→23:05)
[2021-03-09] MEDS: BUMETANIDE 1 MG TAB PO SCH (15:32)
[2021-03-09] MEDS: atenoloL 25 MG TAB PO SCH (15:32)
[2021-03-09] MEDS: ASPIRIN 81 MG TAB CHEW PO SCH (15:32)
[2021-03-09] MEDS ORDERED: LORazepam 2 MG/ML VIAL IV PRN (16:09)
[2021-03-09 17:17] LABS: Alanine Aminotransferase 54 units/L (7-56); Albumin 3.2 g/dL (3.9-5); Blood Urea Nitrogen 13 mg/dL (7-17); Calcium 7.5 mg/dL (8.4-10.2); Hemolysis Index 33
[2021-03-09 17:20] LABS: BUN/Creatinine Ratio 22
--- NOTE | 2021-03-09 17:22 | Event Note ---
Date: 03/09/21 Patient found with mask pulled off and desaturating appears somewhat delirious / confused O2 sat's in mid 90's with patient calm and mask on A&P: - explained she ia at risk of if she pulls mask off - discontinue Ativan re: respiratory depression and paradoxical delirium issues - begin Precedex drip - continue to watch closely hemodynamically
--- NOTE | 2021-03-09 17:23 | Electrocardiograph Report ---
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
[2021-03-09] MEDS ORDERED: REMDESIVIR 200 MG in SODIUM CHLORIDE 0.9% 250ML 250 ML IV ONE (18:00)
[2021-03-09] MEDS: VALPROATE SODIUM 500 MG in SODIUM CHLORIDE 0.9% 100 ML IV SCH (19:12)
[2021-03-09] MEDS: ZINC SULFATE 220 MG CAP PO SCH (21:16)
[2021-03-09] MEDS: ASCORBIC ACID 500 MG TAB PO SCH (21:16)
[2021-03-09] MEDS: ENOXAPARIN 40 MG/0.4 ML INJ SUB-Q SCH (21:18)
[2021-03-09] MEDS: methylPREDNISolone Sod Succinate 125 MG/2 ML INJ IV SCH (21:18)
[2021-03-09] MEDS: SODIUM CHLORIDE 0.9% 50 ML IVPB IV SCH (23:04)
--- NOTE | 2021-03-09 23:18 | Consultation ---
DATE OF CONSULTATION: 03/09/2021 PULMONARY CRITICAL CARE CONSULTATION NOTE DATE OF CONSULTATION: 03/09/2021 CONSULTING PHYSICIAN: Dr. Dmitri Jo. REASON FOR CONSULTATION: Acute hypoxemic respiratory failure, pneumonia, person under investigation for COVID-19 infection. CHIEF COMPLAINT AND HISTORY OF PRESENT ILLNESS: As follows: The patient is a now 60-year-old morbidly obese female brought into the emergency room due to shortness of breath, has been going on for the past few days according to the patient. EMS found her with O2 sats of 50%. She was placed on a nonrebreather. O2 sats came up to 88%. Upon arrival in the emergency room, she was initially unresponsive, then more alert with bilevel positive airway ventilation therapy. X-ray revealed bilateral airspace disease. She essentially was with an acute respiratory distress syndrome. We were asked to assist with management. When I stopped by to see her, she was resting in bed, more alert, admitted a history of seizures. When asked about a history of tobacco use or abuse, she denies. She also denies new-onset leg pain or swelling either unilaterally or bilaterally or any suggestion of pulmonary emboli. This really is as much of the history of presentation as I have. PAST MEDICAL HISTORY: Arthritis, chronic obstructive lung disease, hypertension, liver disease, history of seizures, history of a traumatic brain injury in 1985, she is morbidly obese, and a history of drug abuse. PAST SURGICAL HISTORY: She has had left knee and left wrist surgery and she had brain surgery in 1985. MEDICATIONS: She was on at the time I stopped by to see her according to the medication administration record included the following: Tylenol 1 gram p.o. q. 6 hours p.r.n. severe pain, albuterol 2.5 mg inhaled q. 4 hours p.r.n. shortness of breath, Xanax 1 mg p.o. t.i.d. p.r.n. anxiety, aspirin 81 mg p.o. daily, atenolol 25 mg p.o. daily, Zithromax 500 mg IV daily, Bumex 1 mg p.o. daily, Rocephin 2 grams IV daily, Decadron 6 mg IV q. 24 hours, Benadryl 25 mg p.o. q. 6 hours p.r.n. itching, Lovenox 40 mg subq daily, Ativan 2 mg IV q. 8 hours p.r.n. agitation, morphine sulfate 2 mg IV q. 4 hours p.r.n. moderate pain and 4 mg IV q. 4 hours p.r.n. severe pain, Mycostatin topical cream apply to affected area b.i.d. scheduled, Zofran 4 mg IV q. 4 hours p.r.n. nausea and vomiting, and Depakote 500 mg IV q. 8 hours. She also had Keppra hanging when I saw her, she had received an 1 gram IV dose. ALLERGIES: No known drug allergies. DIET: Morbidly obese. She denies acute weight loss or gain in the preceding few weeks to months. FAMILY AND SOCIAL HISTORY: Lives in the community. Denies alcohol, tobacco, or illicit drug use or abuse despite her history. Family history is otherwise, noncontributory. REVIEW OF SYSTEMS: Difficult to obtain secondary to her medical and mental condition; however, since she has been here, no gross hematochezia or melena, no gross hematuria or dysuria, no hematemesis, no hemoptysis, no witnessed seizures. She denies heat or cold intolerance. Denies any history of diabetes. Denies polydipsia or polyuria. Complete 13-system review of systems was obtained as best as I could. The patient being on a continuous noninvasive ventilation during my evaluation. Pertinent positives and/or negatives as in body of history above, otherwise they are noncontributory. PHYSICAL EXAMINATION: VITAL SIGNS: At presentation, she was febrile, temperature 101.3 degrees Fahrenheit, pulse of 125, respiratory rate of 35, blood pressure of 145/85, O2 sats were 98%, inspired oxygen concentration was not recorded. When I stopped by to see her, O2 sats were barely 95% that was on noninvasive ventilation, BiPAP full face mask, IPAP 20, EPAP 12, 100% FiO2, and I think the backup rate was about 15. GENERAL: She is a morbidly obese female. Normocephalic, atraumatic with mild to moderately increased respiratory effort at rest at the time of my evaluation. HEAD, EYES, EARS, NOSE, AND THROAT: Anicteric. No conjunctival erythema. Oropharynx was moist. She had the BiPAP full face mask on. No gross jugular venous distention. No thyromegaly. She does have a large neck circumference. Grossly, there were no palpable lymph nodes in the supraclavicular or submandibular lymph node chains. LUNGS: Auscultation of the lung shah revealed diminished bilateral breath sounds, bibasilar inspiratory rales. No wheezing. HEART: Sounds 1 and 2 are heard at the time of my evaluation, regular rate and rhythm without overt rubs or murmurs. ABDOMEN: Soft, full, protuberant. Bowel sounds are positive, nontender, no palpable hepatosplenomegaly. EXTREMITIES: Without overt digital clubbing or cyanosis, no pedal edema. Pedal pulses are 2+ bilaterally. NEUROLOGIC: Pupils are equal, round, about 4 mm, reactive to light. Extraocular muscle movements are intact. She moves all 4 extremities spontaneously. SKIN: Normal turgor in the areas I examined without overt cellulitis or rash. Please see the wound care nurses' and registered nurses' notes for full description of her skin. PSYCHIATRIC: Mood was normal. She appeared a little confused. Affect was somewhat anxious. It is unclear if she has an intact judgment and insight or if she is giving me history that is not accurate. LABORATORY DATA: From my review are as follows: White cell count 2900, hemoglobin 12.2, hematocrit 35.9, platelet count 151. Serum sodium 142, potassium 4.1, chloride 102, bicarbonate 27, BUN 13, creatinine 0.6, glucose was 135. Lactic acid level within normal limits. AST 79, ALT 62, albumin was 3.4. Urinalysis showed small leukocyte esterase, negative nitrites, 6 white cells per high power field, 2+ bacteria. Depakote level was low at 9.7. Coronavirus PCR has come back positive. Two sets of blood cultures are no growth to date. Chest x-ray shows borderline cardiomegaly, some elevation of the right hemidiaphragm, bilateral pulmonary infiltrates with some perihilar predominance. I cannot rule out small bilateral pleural effusions. No pneumothorax. Compared with a chest x-ray from 2016, the infiltrates are new. ASSESSMENT: 1. Acute hypoxemic respiratory failure. 2. Acute respiratory distress syndrome. 3. COVID-19 infection. 4. Bilateral pneumonia. 5. Morbid obesity. 6. History of chronic obstructive pulmonary disease. 7. Hypertension. 8. Chronic liver disease. 9. History of seizures. 10. Arthritis. 11. Leukopenia. PLAN: I do agree with current interventions, empiric community-acquired pneumonia therapy, and I agree with systemic steroids. We will increase it to weight-based dosing with Solu-Medrol considering her significant hypoxemia and some new data that is coming out, suggesting some improved outcomes with weight-based Solu-Medrol. Oxygen will be weaned to keep sats greater than or equal to about 92%. Aspiration precautions will be maintained. I have increased the rate to about 20 to try and match spontaneous rate. Bilateral lower extremity Dopplers will be ordered as a screen for venous thromboembolic disease. I will also be ordering D-dimer levels, ferritin, and other labs for COVID evaluation. I will be ordering a procalcitonin and a CRP level also to guide clinical decision making. Serum creatinine is appropriate. The liver disease is still within range of beginning remdesivir therapy and that will be started. Infectious disease consultation will be of benefit. She will be placed on GI prophylaxis. She is on DVT prophylaxis. Flu and pneumonia vaccination will be addressed per protocol. Hopefully, she shows improvement. Thank you very much for the consult. We will follow along and make further recommendations as picture progresses/becomes clearer. Of note, she is receiving her anti-seizure medications. She is critically ill on life-sustaining interventions including the continuous noninvasive ventilation at very high risk of from cardiopulmonary system decompensation. At this time, we spent about 35-40 minutes of critical care time without overlap and excluding any procedural time that may be necessary. TID: [id number] RECEIPT: [id number] JAYSON/LANNY
[2021-03-10] MEDS: VALPROATE SODIUM 500 MG in SODIUM CHLORIDE 0.9% 100 ML IV SCH ×3 (00:36→15:43)
[2021-03-10] MEDS: SODIUM CHLORIDE 0.9% 1000 ML 1,000 ML IV SCH (01:08)
[2021-03-10 05:38] LABS: Basophils % (Auto) 0.1 % (0.0-1.8); Hematocrit 36.3 % (30.3-42.9); Hemoglobin 12.2 gm/dl (10.1-14.3); Lymphocytes # (Auto) 0.5 K/mm3 (1.2-5.4); Lymphocytes % (Auto) 15.7 % (13.4-35.0); Mean Corpuscular HGB Conc 34 % (30-34); Mean Corpuscular Volume 94 fl (79-97); Monocytes # (Auto) 0.2 K/mm3 (0.0-0.8); Monocytes % (Auto) 5.2 % (0.0-7.3); Platelet Count 147 K/mm3 (140-440); Red Blood Count 3.85 M/mm3 (3.65-5.03); Red Cell Distribution Width 13.2 % (13.2-15.2)
[2021-03-10 05:55] LABS: INR 1.01 (0.87-1.13)
[2021-03-10 05:56] LABS: Alanine Aminotransferase 50 units/L (7-56); Albumin 3.3 g/dL (3.9-5); Blood Urea Nitrogen 14 mg/dL (7-17); Calcium 7.5 mg/dL (8.4-10.2); Hemolysis Index 7
[2021-03-10 06:20] LABS: BUN/Creatinine Ratio 28
[2021-03-10] MEDS: methylPREDNISolone Sod Succinate 125 MG/2 ML INJ IV SCH ×3 (06:24→21:01)
[2021-03-10] MEDS: cefTRIAXone/NS 2 GM/100 ML 2 GM/100 ML BAG IV SCH (09:07)
[2021-03-10] MEDS: BUMETANIDE 1 MG TAB PO SCH (09:07)
[2021-03-10] MEDS: ASPIRIN 81 MG TAB CHEW PO SCH (09:07)
[2021-03-10] MEDS: ZINC SULFATE 220 MG CAP PO SCH ×2 (09:08→21:01)
[2021-03-10] MEDS: atenoloL 25 MG TAB PO SCH (09:08)
[2021-03-10] MEDS: ASCORBIC ACID 500 MG TAB PO SCH ×2 (09:08→21:01)
[2021-03-10] MEDS: AZITHROMYCIN/NS 500 MG/250 ML 500 MG/250 ML BAG IV SCH (09:08)
[2021-03-10] MEDS: NYSTATIN OINT 15 GM TP SCH ×2 (09:10→21:02)
--- NOTE | 2021-03-10 10:59 | Consultation ---
History of Present Illness - Reason for Consult Consult date: 03/10/21 COVID-19 Requesting physician: NIA ESPINOSA - History of Present Illness The patient is a 60-year-old female with COPD, hypertension, seizure disorder, arthritis was admitted to the hospital with shortness of breath and change in mental status. Upon evaluation by EMS, she was noted to be saturating 50% on room air and was placed on BiPAP. Additional evaluation here revealed a fever of 101.3 F on admission, labs showed leukopenia, mild transaminitis. She also tested positive for COVID-19. Chest x-ray revealed severe bilateral airspace pneumonia. Review of Systems: reviewed in the chart, unable to obtain, minimize risk of transmission Past History Past Medical History: arthritis, COPD, hypertension, liver disease, seizures, other (TBI 1985, obesity, drug abuse) Past Surgical History: Other (left knee and left wrist surgery; brain 1985) Social history: no significant social history Family history: no significant family history Medications and Allergies Allergies Allergy/AdvReac Type Severity Reaction Status Date / Time No Known Allergies Allergy Verified 11/01/15 11:59 Home Medications Medication Instructions Recorded Confirmed Last Taken Type ALPRAZolam [Xanax TAB] 1 mg PO TID PRN 10/22/15 04/15/18 04/02/18 History Aspirin [Aspirin BABY CHEW TAB] 81 mg PO QDAY 10/22/15 04/15/18 04/02/18 History Divalproex ER [Depakote ER] 500 mg PO TID 10/22/15 03/09/21 04/02/18 History atenoloL [Tenormin] 25 mg PO DAILY 10/22/15 04/15/18 04/02/18 History carBAMazepine [TEGretol] 200 mg PO QAM 10/22/15 03/09/21 04/02/18 History traMADoL [Ultram 50 MG tab] 50 mg PO Q6HR PRN #10 tablet 04/09/17 04/15/18 04/02/18 Rx Nystatin Cream [Mycostatin Cream] 1 applic TP BID #1 tube 04/08/18 04/15/18 Unknown Rx Nystatin Oint [Mycostatin Oint] 1 applicatio TP BID #1 tube 04/12/18 Unknown Rx Bumetanide [Bumex 1 mg tab] 1 mg PO DAILY 04/15/18 04/15/18 Unknown History Zolpidem (Nf) [Ambien] 10 mg PO QHS 04/15/18 04/15/18 Unknown History Meloxicam 15 mg PO DAILY #7 tablet 05/03/18 Unknown Rx Acetaminophen [Acetaminophen TAB] 1,000 mg PO Q6HR PRN #30 tablet 03/06/19 Unknown Rx Ketoconazole [Xolegel 2%] 1 applicatio TP TID #1 tube 03/06/19 Unknown Rx diphenhydrAMINE [Benadryl CAP] 25 mg PO Q6HR PRN #30 capsule 03/06/19 Unknown Rx Active Meds: Active Medications Acetaminophen (Acetaminophen 500 Mg Tab) 1,000 mg PO Q6HR PRN PRN Reason: Pain , Severe (7-10) Albuterol (Albuterol 2.5 Mg/3 Ml Nebu) 2.5 mg IH Q4HRT PRN PRN Reason: Shortness Of Breath Alprazolam (Alprazolam 1 Mg Tab) 1 mg PO TID PRN PRN Reason: Anxiety Ascorbic Acid (Ascorbic Acid 500 Mg Tab) 500 mg PO BID [facility] Last Admin: 03/10/21 09:08 Dose: Not Given Documented by: Aspirin (Aspirin 81 Mg Tab Chew) 81 mg PO QDAY [facility] Last Admin: 03/10/21 09:07 Dose: Not Given Documented by: Atenolol (Atenolol 25 Mg Tab) 25 mg PO DAILY [facility] Last Admin: 03/10/21 09:08 Dose: Not Given Documented by: Bumetanide (Bumetanide 1 Mg Tab) 1 mg PO DAILY [facility] Last Admin: 03/10/21 09:07 Dose: Not Given Documented by: Diphenhydramine HCl (Diphenhydramine 25 Mg Cap) 25 mg PO Q6HR PRN PRN Reason: Itching Enoxaparin Sodium (Enoxaparin 40 Mg/0.4 Ml Inj) 40 mg SUB-Q QDAY@2200 [facility]; Protocol Last Admin: 03/09/21 21:18 Dose: 40 mg Documented by: Sodium Chloride (Nacl 0.9% 1000 Ml) 1,000 mls @ 75 mls/hr IV DIRECT [facility] Last Admin: 03/10/21 01:08 Dose: 75 mls/hr Documented by: Ceftriaxone Sodium (Rocephin/Ns 2 Gm/100 Ml) 2 gm in 100 mls @ 200 mls/hr IV Q24HR [facility]; Protocol Last Admin: 03/10/21 09:07 Dose: 200 mls/hr Documented by: Azithromycin (Zithromax/Ns) 500 mg in 250 mls @ 250 mls/hr IV Q24HR [facility]; Protocol Last Admin: 03/10/21 09:08 Dose: 250 mls/hr Documented by: Valproate Sodium 500 mg/ (Sodium Chloride) 105 mls @ 100 mls/hr IV Q8H [facility] Last Admin: 03/10/21 09:07 Dose: 100 mls/hr Documented by: REMDESIVIR 100 mg/ Sodium (Chloride) 250 mls @ 500 mls/hr IV Q24HR@2100 [facility] Stop: 03/13/21 21:29 Dexmedetomidine HCl 400 mcg/ (Sodium Chloride) 100 mls @ 8.373 mls/hr IV TITRATE [facility]; Protocol Last Admin: 03/10/21 10:01 Dose: 0.7 mcg/kg/hr, 29.307 mls/hr Documented by: Magnesium Hydroxide (Magnesium Hydroxide (Mom) Oral Liqd Udc) 30 ml PO Q4H PRN PRN Reason: Constipation Methylprednisolone Sodium Succinate (Methylprednisolone Sod Succinate 125 Mg/2 Ml Inj) 110 mg IV Q8HR [facility] Last Admin: 03/10/21 06:24 Dose: 110 mg Documented by: Morphine Sulfate (Morphine 2 Mg/1 Ml Inj) 2 mg IV Q4H PRN PRN Reason: Pain, Moderate (4-6) Morphine Sulfate (Morphine 4 Mg/1 Ml Inj) 4 mg IV Q4H PRN PRN Reason: Pain , Severe (7-10) Nystatin (Nystatin Oint 15 Gm) 1 applic TP BID [facility] Last Admin: 03/10/21 09:10 Dose: 1 applic Documented by: Ondansetron HCl (Ondansetron 4 Mg/2 Ml Inj) 4 mg IV Q8H PRN PRN Reason: Nausea And Vomiting Sodium Chloride (Sodium Chloride 0.9% 10 Ml Flush Syringe) 10 ml IV BID [facility] Last Admin: 03/10/21 09:08 Dose: 10 ml Documented by: Sodium Chloride (Sodium Chloride 0.9% 10 Ml Flush Syringe) 10 ml IV PRN PRN PRN Reason: LINE FLUSH Sodium Chloride (Sodium Chloride 0.9% 50 Ml Ivpb) 50 ml IV Q24HR@2100 [facility] Stop: 03/13/21 21:01 Last Admin: 03/09/21 23:04 Dose: 50 ml Documented by: Zinc Sulfate (Zinc Sulfate 220 Mg Cap) 220 mg PO BID [facility] Last Admin: 03/10/21 09:08 Dose: Not Given Documented by: Physical Examination - Physical Exam Narrative exam: Physical Exam (reviewed in chart to minimize risk of transmission) Constitutional: deferred Head, Ears, Nose: deferred Eyes: deferred Neck: deferred Oral: deferred Cardiovascular: deferred Respiratory: deferred GI: deferred Musculoskeletal: deferred Skin: deferred Hem/Lymphatic: deferred Psych: deferred Neurological: deferred - Constitutional Vitals: Vital Signs Temp Pulse Resp BP Pulse Ox 98.2 F 73 42 H 178/93 86 03/10/21 07:39 03/10/21 08:50 03/10/21 08:50 03/10/21 08:50 03/10/21 08:50 Temperature -Last 24 Hours Temperature 98.2 F Temperature 99.8 F Temperature 99.1 F Temperature 99.1 F Results - Labs CBC & Chem 7: 03/10/21 05:02 03/10/21 05:02 Labs: Abnormal lab results 03/09/21 03/09/21 03/10/21 Range/Units 16:44 Unknown 05:02 WBC 3.5 L (4.5-11.0) K/mm3 Lymph # (Auto) 0.5 L (1.2-5.4) K/mm3 Seg Neutrophils % 79.0 H (40.0-70.0) % POC ABG pO2 (83-108) mmHg ABG Oxyhemoglobin (94-98) ABG Chloride (98-107) mmol/L ABG Glucose (65-95) mg/dL Carboxyhemoglobin (0.5-1.5) Sodium (137-145) mmol/L Creatinine (0.6-1.2) mg/dL Glucose 127 H (65-100) mg/dL POC Glucose (70-105) mg/dL Calcium 7.5 L (8.4-10.2) mg/dL AST 87 H (5-40) units/L Total Protein (6.3-8.2) g/dL Albumin 3.2 L (3.9-5) g/dL Arterial Blood Glucose (65-95) mg/dL Arterial Blood Ionized Calcium (4.6-5.3) mg/dL Coronavirus (PCR) Positive A (Negative) 03/10/21 03/10/21 03/10/21 Range/Units 05:02 05:29 08:57 WBC (4.5-11.0) K/mm3 Lymph # (Auto) (1.2-5.4) K/mm3 Seg Neutrophils % (40.0-70.0) % POC ABG pO2 52.1 L (83-108) mmHg ABG Oxyhemoglobin 84.3 L (94-98) ABG Chloride 110.0 H (98-107) mmol/L ABG Glucose 176 H (65-95) mg/dL Carboxyhemoglobin 0.3 L (0.5-1.5) Sodium 146 H (137-145) mmol/L Creatinine 0.5 L (0.6-1.2) mg/dL Glucose 170 H (65-100) mg/dL POC Glucose 171 H (70-105) mg/dL Calcium 7.5 L (8.4-10.2) mg/dL AST 81 H (5-40) units/L Total Protein 5.7 L (6.3-8.2) g/dL Albumin 3.3 L (3.9-5) g/dL Arterial Blood Glucose 176 H (65-95) mg/dL Arterial Blood Ionized Calcium 4.0 L (4.6-5.3) mg/dL Coronavirus (PCR) (Negative) - Imaging and Cardiology Chest x-ray: report reviewed, image reviewed (severe b/l pneumonia) Assessment and Plan Cultures: SARS CoV2 PCR: Positive 03/09/2021 blood culture: No growth A/P: 60-year-old female with COPD, hypertension, seizure disorder, arthritis: #Bilateral pneumonia: Secondary to COVID-19. Severe disease #Acute hypoxic respiratory failure: Secondary to above. On BiPAP. #Transaminitis: Likely secondary to COVID-19 #Leukopenia: Likely related to viral illness Recs: -Continue steroids -Continue remdesivir -Stat labs ordered, if CRP is greater than 7.5, order Actemra -Procalcitonin ordered, continue empiric antibiotics for now -Prophylactic anticoagulation based on d-dimer per hospital protocol -trend ferritin, LDH, d-dimer, CRP every 2-3 days for risk stratification and to assess disease progression Evonne Montoya MD, FACP [facility] ([facility] O: [phone] F: [phone]
[2021-03-10] MEDS ORDERED: DEXTROSE 50% IN WATER (25GM) 50 ML SYRINGE IV PRN (11:29)
--- NOTE | 2021-03-10 12:19 | Progress Note ---
Assessment and Plan Acute hypoxemic respiratory failure ARDS COVID-19 infection Pneumonia Morbid obesity COPD HTN Chronic liver disease Seizure disorder ArthritisLeukopenia - encouraged awake proning or laying on side if unable to prone and O2 sats up to 89% - continue accuchecks with glycemic control per SSI (While critically ill target blood glucose of 140-180 mg/dL; avoid hypoglycemia) - continue to wean supplemental oxygen for target O2 sat's > 92% acutely - aspiration precautions - continue bronchodilators with pulmonary hygiene per RT - avoid nephrotoxins, renally dose all medications - Avoid benzodiazepine's, reduce the possibility of delirium - complete AB's per ID rec's - prn analgesia per pain score - Maintenance of sleep-wake cycle, avoid delirium - G.I. & VTE prophylaxis - PT/OT/ROM exercises - continue mobility protocols for pressure ulcer prophylaxis - Monitor hemodynamics closely - continue other care per attending / other consultants - discharge planning ongoing concurrently COVID SPECIFIC INTERVENTIONS - Remdesivir as per ID/Pulmonary developed protocols (ordered) - continue systemic steroids for severe COVID-19 infection (Solumedrol) - follow repeat COVID tests results - zinc and vitamin C supplementation - Monitor inflammatory markers per facility protocol - ferritin, Ddimer, CRP - therapeutic anticoagulation per system Protocol based on d-dimer and clinical considerations (VTE prophylaxis) - Continue contact and airborne isolation .... Re-evaluate in am & prn CONDITION: CRITICAL PROGNOSIS: GUARDED CODE STATUS: FULL CODE The high probability of a clinically significant, sudden or life-threatening deterioration of the [respiratory, cardiovascular & neurologic] system(s) required my full and direct attention, intervention and personal management. The aggregate critical care time was [33] minutes without overlap. Time includes spent on; [x] Data Review and interpretation [x] Patient assessment and monitoring of vital signs [x] Documentation [x] Medication orders and management Subjective Date of service: 03/10/21 Principal diagnosis: Ac hypoxemic resp failure; COVID-19 infxn; PNA; Morbid obesity; Seizures Interval history: Patient is seen today for: Acute hypoxemic respiratory failure; ARDS; COVID-19 infection; Pneumonia; Morbid obesity; Seizure disorder Seen and examined at bedside; 24hour events reviewed; nursing and respiratory care staff consulted; no adverse overnight events reported to me; resting peacefully in bed; remains on continuous BIPAP at 100% FiO2 and with O2 sat's only in the 80's; no N/V/F/C; tolerating a little better on Precedex drip; afebrile Objective Vital Signs - 12hr 03/10/21 03/10/21 03/10/21 00:54 01:00 01:38 Temperature Pulse Rate 73 74 Pulse Rate [ From Monitor] Pulse Rate [ 89 None] Respiratory 40 H 31 H 36 H Rate Blood Pressure 159/93 159/93 O2 Sat by Pulse 95 89 87 Oximetry 03/10/21 03/10/21 03/10/21 02:00 03:00 04:00 Temperature 99.8 F H Pulse Rate 90 90 77 Pulse Rate [ From Monitor] Pulse Rate [ 89 None] Respiratory 30 H 39 H 36 H Rate Blood Pressure 172/92 168/93 179/95 O2 Sat by Pulse 78 L 87 88 Oximetry 03/10/21 03/10/21 03/10/21 04:27 05:00 06:00 Temperature Pulse Rate 77 91 H 82 Pulse Rate [ From Monitor] Pulse Rate [ None] Respiratory 41 H 26 H 40 H Rate Blood Pressure 145/91 164/89 171/91 O2 Sat by Pulse 90 82 L 84 Oximetry 03/10/21 03/10/21 03/10/21 07:00 07:39 08:00 Temperature 98.2 F Pulse Rate 86 78 Pulse Rate [ 87 From Monitor] Pulse Rate [ None] Respiratory 41 H 44 H Rate Blood Pressure 179/93 176/92 O2 Sat by Pulse 85 85 Oximetry 03/10/21 03/10/21 03/10/21 08:50 09:00 10:00 Temperature Pulse Rate 73 88 87 Pulse Rate [ From Monitor] Pulse Rate [ None] Respiratory 42 H 43 H 45 H Rate Blood Pressure 178/93 176/95 162/99 O2 Sat by Pulse 86 84 81 L Oximetry 03/10/21 03/10/21 11:00 12:08 Temperature 97.9 F Pulse Rate 63 Pulse Rate [ From Monitor] Pulse Rate [ None] Respiratory 41 H Rate Blood Pressure 134/98 O2 Sat by Pulse 79 L Oximetry Constitutional: appears uncomfortable, other (middle aged morbidly obese female with mildly increased respiratory effort at rest) Eyes: non-icteric ENT: oropharynx moist Neck: supple, no lymphadenopathy, no JVD, other (large circumference) Effort: mildly labored Ascultation: Bilateral: diminished breath sounds, rhonchi Percussion: Bilateral: not dull Cardiovascular: regular rate and rhythm Gastrointestinal: normoactive bowel sounds, soft, non-tender, non-distended (significantly protuberant) Integumentary: normal Extremities: no cyanosis, no edema, pink and warm, pulses normal Neurologic: normal mental status, non-focal exam, pupils equal and round, motor strength normal and Psychiatric: mood appropriate, other (inappropriately flat affect) CBC and BMP: 03/10/21 05:02 03/11/21 06:56 ABG, PT/INR, D-dimer: ABG ABG pH 7.393 (7.320-7.450) 03/10/21 08:57 POC ABG pCO2 46.0 mmHg (32.0-48.0) 03/10/21 08:57 POC ABG pO2 52.1 mmHg (83-108) L 03/10/21 08:57 POC ABG HCO3 27.4 03/10/21 08:57 ABG O2 Saturation 84.8 (0-100) 03/10/21 08:57 PT/INR, D-dimer PT 13.8 Sec. (12.2-14.9) 03/10/21 05:02 INR 1.01 (0.87-1.13) 03/10/21 05:02 D-Dimer 451.32 ng/mlDDU (0-234) H 03/10/21 10:19 Abnormal lab findings: Abnormal Labs 03/09/21 03/09/21 03/09/21 00:26 00:26 00:26 WBC 2.9 L Weber % (Auto) 9.5 H Lymph # (Auto) 0.5 L Seg Neutrophils % 74.5 H D-Dimer POC ABG pO2 ABG Oxyhemoglobin ABG Chloride ABG Glucose Carboxyhemoglobin Sodium Creatinine Glucose 135 H POC Glucose Calcium 7.3 L Ferritin AST 79 H ALT 62 H Lactate Dehydrogenase C-Reactive Protein Total Protein Albumin 3.4 L Arterial Blood Glucose Arterial Blood Ionized Calcium Valproic Acid 9.7 L Coronavirus (PCR) 03/09/21 03/09/21 03/10/21 16:44 Unknown 05:02 WBC 3.5 L Weber % (Auto) Lymph # (Auto) 0.5 L Seg Neutrophils % 79.0 H D-Dimer POC ABG pO2 ABG Oxyhemoglobin ABG Chloride ABG Glucose Carboxyhemoglobin Sodium Creatinine Glucose 127 H POC Glucose Calcium 7.5 L Ferritin AST 87 H ALT Lactate Dehydrogenase C-Reactive Protein Total Protein Albumin 3.2 L Arterial Blood Glucose Arterial Blood Ionized Calcium Valproic Acid Coronavirus (PCR) Positive A 03/10/21 03/10/21 03/10/21 05:02 05:29 08:57 WBC Weber % (Auto) Lymph # (Auto) Seg Neutrophils % D-Dimer POC ABG pO2 52.1 L ABG Oxyhemoglobin 84.3 L ABG Chloride 110.0 H ABG Glucose 176 H Carboxyhemoglobin 0.3 L Sodium 146 H Creatinine 0.5 L Glucose 170 H POC Glucose 171 H Calcium 7.5 L Ferritin AST 81 H ALT Lactate Dehydrogenase C-Reactive Protein Total Protein 5.7 L Albumin 3.3 L Arterial Blood Glucose 176 H Arterial Blood Ionized Calcium 4.0 L Valproic Acid Coronavirus (PCR) 03/10/21 03/10/21 03/10/21 10:19 10:19 10:19 WBC Weber % (Auto) Lymph # (Auto) Seg Neutrophils % D-Dimer 451.32 H POC ABG pO2 ABG Oxyhemoglobin ABG Chloride ABG Glucose Carboxyhemoglobin Sodium Creatinine Glucose POC Glucose Calcium Ferritin 1795.0 H AST ALT Lactate Dehydrogenase 1033 H C-Reactive Protein Total Protein Albumin Arterial Blood Glucose Arterial Blood Ionized Calcium Valproic Acid Coronavirus (PCR) 03/10/21 03/10/21 10:19 11:31 WBC Weber % (Auto) Lymph # (Auto) Seg Neutrophils % D-Dimer POC ABG pO2 ABG Oxyhemoglobin ABG Chloride ABG Glucose Carboxyhemoglobin Sodium Creatinine Glucose POC Glucose 163 H Calcium Ferritin AST ALT Lactate Dehydrogenase C-Reactive Protein 8.10 H Total Protein Albumin Arterial Blood Glucose Arterial Blood Ionized Calcium Valproic Acid Coronavirus (PCR) Chest x-ray: other (none today) Allied health notes reviewed: nursing
[2021-03-10] MEDS: INSULIN REGULAR, HUMAN 100 UNITS/1 ML SUB-Q SCH ×2 (12:22→18:04)
[2021-03-10] MEDS ORDERED: TOCILIZUMAB 810 MG in SODIUM CHLORIDE 0.9% 100 ML IV ONE (14:00)
[2021-03-10 19:14] LABS: C-Reactive Protein 8.4 mg/dL (0.00-1.30)
[2021-03-10] MEDS: ENOXAPARIN 40 MG/0.4 ML INJ SUB-Q SCH (21:01)
[2021-03-10] MEDS: REMDESIVIR 100 MG in SODIUM CHLORIDE 0.9% 250ML 250 ML IV SCH (22:55)
--- NOTE | 2021-03-10 23:48 | Progress Note ---
Assessment and Plan Assessment and Plan - Patient Problems (1) Bilateral pneumonia Current Visit: Yes Status: Acute Plan to address problem: Patient placed on empiric IV antibiotics. We will await culture results. Patient is Covid positive Continue IV antibiotics for now (2) Acute respiratory failure with hypoxia Current Visit: Yes Status: Acute Plan to address problem: Possibly secondary to the underlying pneumonia. We will keep O2 saturation greater or equal to 94%. Patient currently on BiPAP. Consult placed to water resource consultant for evaluation. Patient may need intubation if she cannot continue on BiPAP (3) Suspected COVID-19 virus infection Current Visit: Yes Status: Acute Plan to address problem: COVID-19 positive IV steroids (4) seizure disorder Neurology consult and input appreciated Continue seizure medications in the form of Depakote Last seizure was 20 years ago Continue Depakote but discontinue Tegretol and IV Keppra Depakote may be reduced to twice a day (5) DVT prophylaxis Current Visit: Yes Status: Acute Plan to address problem: Patient placed on subcutaneous Lovenox. Critical care statement The high probability OF a clinically significant sudden or life-threatening deterioration of the cardiorespiratory system and endocrine system required my full and direct attention, intervention and postoperative management. The aggregate critical care time was 30 minutes. The time is in addition to time spent performing reported procedures but includes the followin: Data review and interpretation 2: Patient assessment and monitoring of vital signs 3: Documentation 4:: Medication orders and management Subjective Date of service: 03/10/21 Principal diagnosis: Ac hypoxemic resp failure; COVID-19 infxn; PNA; Morbid obesity; Seizures Interval history: 60-year-old female brought into the emergency room by EMS for evaluation of shortness of breath. Symptoms were said to have been ongoing for the past few days. Oxygen saturation was about 50% on room air upon arrival of EMS. She was subsequently placed on nonrebreather with improvement of oxygen saturation to about 88%. She was subsequently placed on BiPAP upon arrival in the emergency room. She was initially confused upon arrival in the emergency room but became more responsive upon placement on BiPAP. Work-up in the emergency room today, labs were significant for elevated liver enzymes with AST of 79 ALT 62. Chest x-ray reveals severe bilateral airspace pneumonia. 03/10/2021 Patient is Covid positive And acute respiratory failure with hypoxia Neurology and cap maker consult appreciated ID consult appreciated mainly Seizure medication changed Objective - Constitutional Vitals: Vital Signs - 12hr 03/10/21 03/10/21 03/10/21 12:00 12:08 13:00 Temperature 97.9 F Pulse Rate 69 87 Pulse Rate [ 65 From Monitor] Respiratory 47 H 41 H Rate Blood Pressure 171/94 172/90 O2 Sat by Pulse 84 82 L Oximetry 03/10/21 03/10/21 03/10/21 14:00 15:00 16:00 Temperature Pulse Rate 68 76 94 H Pulse Rate [ 60 From Monitor] Respiratory 35 H 36 H 34 H Rate Blood Pressure 169/100 146/77 159/93 O2 Sat by Pulse 86 87 85 Oximetry 03/10/21 03/10/21 03/10/21 17:00 18:00 19:00 Temperature 97.9 F Pulse Rate 57 L 89 75 Pulse Rate [ From Monitor] Respiratory 39 H 24 37 H Rate Blood Pressure 161/79 171/97 170/107 O2 Sat by Pulse 95 76 L 88 Oximetry 03/10/21 03/10/21 03/10/21 19:47 20:00 21:00 Temperature 97.4 F L Pulse Rate 88 80 Pulse Rate [ 111 H From Monitor] Respiratory 42 H 40 H Rate Blood Pressure 181/107 183/94 O2 Sat by Pulse 92 92 Oximetry General appearance: Present: no acute distress, well-nourished - EENT Eyes: PERRL, EOM intact ENT: hearing intact, clear oral mucosa Ears: bilateral: normal - Neck Neck: supple, normal ROM - Respiratory Respiratory effort: normal Respiratory: bilateral: CTA - Breasts Breasts: normal - Cardiovascular Heart rate: 78 Rhythm: regular Heart Sounds: Present: S1 & S2. Absent: gallop, rub Extremities: pulses intact, No edema, normal color, Full ROM - Gastrointestinal General gastrointestinal: Present: soft, non-tender, non-distended, normal bowel sounds - Genitourinary Female genitourinary: normal - Integumentary Integumentary: clear, warm, dry - Musculoskeletal Musculoskeletal: 1, strength equal bilaterally - Neurologic Neurologic: moves all extremities - Psychiatric Psychiatric: memory intact, appropriate mood/affect, intact judgment & insight - Labs CBC & Chem 7: 03/10/21 05:02 03/10/21 05:02 Labs: Abnormal lab results 03/10/21 03/10/21 03/10/21 Range/Units 05:02 05:02 05:29 WBC 3.5 L (4.5-11.0) K/mm3 Lymph # (Auto) 0.5 L (1.2-5.4) K/mm3 Seg Neutrophils % 79.0 H (40.0-70.0) % D-Dimer (0-234) ng/mlDDU POC ABG pO2 (83-108) mmHg ABG Oxyhemoglobin (94-98) ABG Chloride (98-107) mmol/L ABG Glucose (65-95) mg/dL Carboxyhemoglobin (0.5-1.5) Sodium 146 H (137-145) mmol/L Creatinine 0.5 L (0.6-1.2) mg/dL Glucose 170 H (65-100) mg/dL POC Glucose 171 H (70-105) mg/dL Calcium 7.5 L (8.4-10.2) mg/dL Ferritin (10.0-200.0) ng/mL AST 81 H (5-40) units/L Lactate Dehydrogenase (91-180) units/L C-Reactive Protein (0.00-1.30) mg/dL Total Protein 5.7 L (6.3-8.2) g/dL Albumin 3.3 L (3.9-5) g/dL Arterial Blood Glucose (65-95) mg/dL Arterial Blood Ionized Calcium (4.6-5.3) mg/dL 03/10/21 03/10/21 03/10/21 Range/Units 08:57 10:19 10:19 WBC (4.5-11.0) K/mm3 Lymph # (Auto) (1.2-5.4) K/mm3 Seg Neutrophils % (40.0-70.0) % D-Dimer 451.32 H (0-234) ng/mlDDU POC ABG pO2 52.1 L (83-108) mmHg ABG Oxyhemoglobin 84.3 L (94-98) ABG Chloride 110.0 H (98-107) mmol/L ABG Glucose 176 H (65-95) mg/dL Carboxyhemoglobin 0.3 L (0.5-1.5) Sodium (137-145) mmol/L Creatinine (0.6-1.2) mg/dL Glucose (65-100) mg/dL POC Glucose (70-105) mg/dL Calcium (8.4-10.2) mg/dL Ferritin 1795.0 H (10.0-200.0) ng/mL AST (5-40) units/L Lactate Dehydrogenase (91-180) units/L C-Reactive Protein (0.00-1.30) mg/dL Total Protein (6.3-8.2) g/dL Albumin (3.9-5) g/dL Arterial Blood Glucose 176 H (65-95) mg/dL Arterial Blood Ionized Calcium 4.0 L (4.6-5.3) mg/dL 03/10/21 03/10/21 03/10/21 Range/Units 10:19 10:19 11:31 WBC (4.5-11.0) K/mm3 Lymph # (Auto) (1.2-5.4) K/mm3 Seg Neutrophils % (40.0-70.0) % D-Dimer (0-234) ng/mlDDU POC ABG pO2 (83-108) mmHg ABG Oxyhemoglobin (94-98) ABG Chloride (98-107) mmol/L ABG Glucose (65-95) mg/dL Carboxyhemoglobin (0.5-1.5) Sodium (137-145) mmol/L Creatinine (0.6-1.2) mg/dL Glucose (65-100) mg/dL POC Glucose 163 H (70-105) mg/dL Calcium (8.4-10.2) mg/dL Ferritin (10.0-200.0) ng/mL AST (5-40) units/L Lactate Dehydrogenase 1033 H (91-180) units/L C-Reactive Protein 8.10 H (0.00-1.30) mg/dL Total Protein (6.3-8.2) g/dL Albumin (3.9-5) g/dL Arterial Blood Glucose (65-95) mg/dL Arterial Blood Ionized Calcium (4.6-5.3) mg/dL 03/10/21 03/10/21 03/10/21 Range/Units 13:48 17:58 18:13 WBC (4.5-11.0) K/mm3 Lymph # (Auto) (1.2-5.4) K/mm3 Seg Neutrophils % (40.0-70.0) % D-Dimer 1054.48 H (0-234) ng/mlDDU POC ABG pO2 43.6 L (83-108) mmHg ABG Oxyhemoglobin 77.3 L (94-98) ABG Chloride 110.0 H (98-107) mmol/L ABG Glucose 174 H (65-95) mg/dL Carboxyhemoglobin 0.2 L (0.5-1.5) Sodium (137-145) mmol/L Creatinine (0.6-1.2) mg/dL Glucose (65-100) mg/dL POC Glucose 152 H (70-105) mg/dL Calcium (8.4-10.2) mg/dL Ferritin (10.0-200.0) ng/mL AST (5-40) units/L Lactate Dehydrogenase (91-180) units/L C-Reactive Protein (0.00-1.30) mg/dL Total Protein (6.3-8.2) g/dL Albumin (3.9-5) g/dL Arterial Blood Glucose 174 H (65-95) mg/dL Arterial Blood Ionized Calcium 4.1 L (4.6-5.3) mg/dL 03/10/21 03/10/21 03/10/21 Range/Units 18:13 18:13 23:15 WBC (4.5-11.0) K/mm3 Lymph # (Auto) (1.2-5.4) K/mm3 Seg Neutrophils % (40.0-70.0) % D-Dimer (0-234) ng/mlDDU POC ABG pO2 (83-108) mmHg ABG Oxyhemoglobin (94-98) ABG Chloride (98-107) mmol/L ABG Glucose (65-95) mg/dL Carboxyhemoglobin (0.5-1.5) Sodium (137-145) mmol/L Creatinine (0.6-1.2) mg/dL Glucose (65-100) mg/dL POC Glucose 152 H (70-105) mg/dL Calcium (8.4-10.2) mg/dL Ferritin 1717.0 H (10.0-200.0) ng/mL AST (5-40) units/L Lactate Dehydrogenase 1242 H (91-180) units/L C-Reactive Protein 8.40 H (0.00-1.30) mg/dL Total Protein (6.3-8.2) g/dL Albumin (3.9-5) g/dL Arterial Blood Glucose (65-95) mg/dL Arterial Blood Ionized Calcium (4.6-5.3) mg/dL
[2021-03-11] MEDS ORDERED: cloNIDine 0.1 MG TAB PO PRN (04:56)
[2021-03-11 08:30] LABS: Alanine Aminotransferase 39 units/L (7-56); Albumin 3.5 g/dL (3.9-5); Blood Urea Nitrogen 27 mg/dL (7-17); Calcium 7.8 mg/dL (8.4-10.2); Hemolysis Index 12
[2021-03-11 08:31] LABS: BUN/Creatinine Ratio 45
[2021-03-11] MEDS: NYSTATIN OINT 15 GM TP SCH ×2 (10:06→22:15)
[2021-03-11] MEDS: ASPIRIN 81 MG TAB CHEW PO SCH (10:23)
[2021-03-11] MEDS: ZINC SULFATE 220 MG CAP PO SCH ×2 (10:24→22:10)
[2021-03-11] MEDS: ASCORBIC ACID 500 MG TAB PO SCH ×2 (10:24→22:10)
[2021-03-11] MEDS: atenoloL 25 MG TAB PO SCH (10:24)
[2021-03-11] MEDS: INSULIN REGULAR, HUMAN 100 UNITS/1 ML SUB-Q SCH ×3 (12:03→23:25)
[2021-03-11] MEDS: cefTRIAXone/NS 2 GM/100 ML 2 GM/100 ML BAG IV SCH (12:14)
[2021-03-11] MEDS: AZITHROMYCIN/NS 500 MG/250 ML 500 MG/250 ML BAG IV SCH (12:15)
--- NOTE | 2021-03-11 12:16 | Progress Note ---
Assessment and Plan Acute hypoxemic respiratory failure ARDS COVID-19 infection Pneumonia Morbid obesity COPD HTN Chronic liver disease Seizure disorder ArthritisLeukopenia - repeat CXR in am - FiO2 reduced to 90% - again encouraged awake proning or laying on side if unable to prone and O2 sats up to 89% - continue to wean supplemental oxygen for target O2 sat's > 92% acutely - continue care as below otherwise; - continue accuchecks with glycemic control per SSI (While critically ill target blood glucose of 140-180 mg/dL; avoid hypoglycemia) - aspiration precautions - continue bronchodilators with pulmonary hygiene per RT - avoid nephrotoxins, renally dose all medications - Avoid benzodiazepine's, reduce the possibility of delirium - complete AB's per ID rec's - prn analgesia per pain score - Maintenance of sleep-wake cycle, avoid delirium - G.I. & VTE prophylaxis - PT/OT/ROM exercises - continue mobility protocols for pressure ulcer prophylaxis - Monitor hemodynamics closely - continue other care per attending / other consultants - discharge planning ongoing concurrently COVID SPECIFIC INTERVENTIONS - Remdesivir as per ID/Pulmonary developed protocols (ordered) - continue systemic steroids for severe COVID-19 infection (Solumedrol) - follow repeat COVID tests results - zinc and vitamin C supplementation - Monitor inflammatory markers per facility protocol - ferritin, Ddimer, CRP - therapeutic anticoagulation per system Protocol based on d-dimer and clinical considerations (VTE prophylaxis) - Continue contact and airborne isolation .... Re-evaluate in am & prn CONDITION: CRITICAL PROGNOSIS: GUARDED CODE STATUS: FULL CODE The high probability of a clinically significant, sudden or life-threatening deterioration of the [respiratory, cardiovascular & neurologic] system(s) required my full and direct attention, intervention and personal management. The aggregate critical care time was [35] minutes without overlap. Time includes spent on; [x] Data Review and interpretation [x] Patient assessment and monitoring of vital signs [x] Documentation [x] Medication orders and management Subjective Date of service: 03/11/21 Principal diagnosis: Ac hypoxemic resp failure; COVID-19 infxn; PNA; Morbid obesity; Seizures Interval history: Patient is seen today for: Acute hypoxemic respiratory failure; ARDS; COVID-19 infection; Pneumonia; Morbid obesity; Seizure disorder Seen and examined at bedside; 24hour events reviewed; nursing and respiratory care staff consulted; no adverse overnight events reported to me; resting peacefully in bed; remains on continuous BIPAP at 100% FiO2 but room to wean; denies acute chest pains or palpitations; no emesis or overt aspiration; no high grade fevers Objective Vital Signs - 12hr 03/11/21 03/11/21 03/11/21 01:00 02:00 03:00 Temperature Pulse Rate 68 64 Pulse Rate [ From Monitor] Respiratory 38 H 40 H Rate Blood Pressure 185/95 165/102 183/96 O2 Sat by Pulse 93 95 96 Oximetry 03/11/21 03/11/21 03/11/21 03:33 04:00 04:47 Temperature 98.4 F Pulse Rate 88 73 Pulse Rate [ 111 H From Monitor] Respiratory 34 H 28 H Rate Blood Pressure 183/107 183/124 O2 Sat by Pulse 96 98 Oximetry 03/11/21 03/11/21 03/11/21 05:00 06:00 07:00 Temperature Pulse Rate 73 91 H 91 H Pulse Rate [ From Monitor] Respiratory 28 H 30 H 26 H Rate Blood Pressure 186/101 178/108 190/108 O2 Sat by Pulse 99 77 L Oximetry 03/11/21 03/11/21 03/11/21 08:00 09:00 10:00 Temperature 98.4 F Pulse Rate 91 H 92 H 85 Pulse Rate [ From Monitor] Respiratory 25 H 22 34 H Rate Blood Pressure 191/100 178/107 182/93 O2 Sat by Pulse 100 100 Oximetry 03/11/21 11:00 Temperature Pulse Rate 91 H Pulse Rate [ From Monitor] Respiratory 25 H Rate Blood Pressure 166/86 O2 Sat by Pulse 100 Oximetry Constitutional: appears uncomfortable (less so), other (middle aged morbidly obese female with mildly increased respiratory effort at rest) Eyes: non-icteric ENT: oropharynx moist Neck: supple, no lymphadenopathy, no JVD, other (large circumference) Effort: mildly labored Ascultation: Bilateral: diminished breath sounds, rhonchi Percussion: Bilateral: not dull Cardiovascular: regular rate and rhythm Gastrointestinal: normoactive bowel sounds, soft, non-tender, non-distended (significantly protuberant) Integumentary: normal Extremities: no cyanosis, no edema, pink and warm, pulses normal Neurologic: normal mental status, non-focal exam, pupils equal and round, motor strength normal and Psychiatric: mood appropriate, affect normal, other (inappropriately flat affect) CBC and BMP: 03/12/21 04:46 03/12/21 04:46 ABG, PT/INR, D-dimer: ABG ABG pH 7.389 (7.320-7.450) 03/10/21 13:48 POC ABG pCO2 44.0 mmHg (32.0-48.0) 03/10/21 13:48 POC ABG pO2 43.6 mmHg (83-108) L 03/10/21 13:48 POC ABG HCO3 26.0 03/10/21 13:48 ABG O2 Saturation 77.7 (0-100) 03/10/21 13:48 PT/INR, D-dimer PT 13.8 Sec. (12.2-14.9) 03/10/21 05:02 INR 1.01 (0.87-1.13) 03/10/21 05:02 D-Dimer 1054.48 ng/mlDDU (0-234) H 03/10/21 18:13 Abnormal lab findings: Abnormal Labs 03/09/21 03/09/21 03/09/21 00:26 00:26 00:26 WBC 2.9 L Oliver % (Auto) 9.5 H Lymph # (Auto) 0.5 L Seg Neutrophils % 74.5 H D-Dimer POC ABG pO2 ABG Oxyhemoglobin ABG Chloride ABG Glucose Carboxyhemoglobin Sodium Chloride BUN Creatinine Glucose 135 H POC Glucose Calcium 7.3 L Ferritin AST 79 H ALT 62 H Lactate Dehydrogenase C-Reactive Protein Total Protein Albumin 3.4 L Arterial Blood Glucose Arterial Blood Ionized Calcium Valproic Acid 9.7 L Coronavirus (PCR) 03/09/21 03/09/21 03/10/21 16:44 Unknown 05:02 WBC 3.5 L Oliver % (Auto) Lymph # (Auto) 0.5 L Seg Neutrophils % 79.0 H D-Dimer POC ABG pO2 ABG Oxyhemoglobin ABG Chloride ABG Glucose Carboxyhemoglobin Sodium Chloride BUN Creatinine Glucose 127 H POC Glucose Calcium 7.5 L Ferritin AST 87 H ALT Lactate Dehydrogenase C-Reactive Protein Total Protein Albumin 3.2 L Arterial Blood Glucose Arterial Blood Ionized Calcium Valproic Acid Coronavirus (PCR) Positive A 03/10/21 03/10/21 03/10/21 05:02 05:29 08:57 WBC Oliver % (Auto) Lymph # (Auto) Seg Neutrophils % D-Dimer POC ABG pO2 52.1 L ABG Oxyhemoglobin 84.3 L ABG Chloride 110.0 H ABG Glucose 176 H Carboxyhemoglobin 0.3 L Sodium 146 H Chloride BUN Creatinine 0.5 L Glucose 170 H POC Glucose 171 H Calcium 7.5 L Ferritin AST 81 H ALT Lactate Dehydrogenase C-Reactive Protein Total Protein 5.7 L Albumin 3.3 L Arterial Blood Glucose 176 H Arterial Blood Ionized Calcium 4.0 L Valproic Acid Coronavirus (PCR) 03/10/21 03/10/21 03/10/21 10:19 10:19 10:19 WBC Oliver % (Auto) Lymph # (Auto) Seg Neutrophils % D-Dimer 451.32 H POC ABG pO2 ABG Oxyhemoglobin ABG Chloride ABG Glucose Carboxyhemoglobin Sodium Chloride BUN Creatinine Glucose POC Glucose Calcium Ferritin 1795.0 H AST ALT Lactate Dehydrogenase 1033 H C-Reactive Protein Total Protein Albumin Arterial Blood Glucose Arterial Blood Ionized Calcium Valproic Acid Coronavirus (PCR) 03/10/21 03/10/21 03/10/21 10:19 11:31 13:48 WBC Oliver % (Auto) Lymph # (Auto) Seg Neutrophils % D-Dimer POC ABG pO2 43.6 L ABG Oxyhemoglobin 77.3 L ABG Chloride 110.0 H ABG Glucose 174 H Carboxyhemoglobin 0.2 L Sodium Chloride BUN Creatinine Glucose POC Glucose 163 H Calcium Ferritin AST ALT Lactate Dehydrogenase C-Reactive Protein 8.10 H Total Protein Albumin Arterial Blood Glucose 174 H Arterial Blood Ionized Calcium 4.1 L Valproic Acid Coronavirus (PCR) 03/10/21 03/10/21 03/10/21 17:58 18:13 18:13 WBC Oliver % (Auto) Lymph # (Auto) Seg Neutrophils % D-Dimer 1054.48 H POC ABG pO2 ABG Oxyhemoglobin ABG Chloride ABG Glucose Carboxyhemoglobin Sodium Chloride BUN Creatinine Glucose POC Glucose 152 H Calcium Ferritin 1717.0 H AST ALT Lactate Dehydrogenase C-Reactive Protein Total Protein Albumin Arterial Blood Glucose Arterial Blood Ionized Calcium Valproic Acid Coronavirus (PCR) 03/10/21 03/10/21 03/11/21 18:13 23:15 05:35 WBC Oliver % (Auto) Lymph # (Auto) Seg Neutrophils % D-Dimer POC ABG pO2 ABG Oxyhemoglobin ABG Chloride ABG Glucose Carboxyhemoglobin Sodium Chloride BUN Creatinine Glucose POC Glucose 152 H 134 H Calcium Ferritin AST ALT Lactate Dehydrogenase 1242 H C-Reactive Protein 8.40 H Total Protein Albumin Arterial Blood Glucose Arterial Blood Ionized Calcium Valproic Acid Coronavirus (PCR) 03/11/21 03/11/21 06:56 11:41 WBC Oliver % (Auto) Lymph # (Auto) Seg Neutrophils % D-Dimer POC ABG pO2 ABG Oxyhemoglobin ABG Chloride ABG Glucose Carboxyhemoglobin Sodium 151 H Chloride 110.7 H BUN 27 H Creatinine Glucose 153 H POC Glucose 115 H Calcium 7.8 L Ferritin AST 53 H ALT Lactate Dehydrogenase C-Reactive Protein 6.60 H Total Protein 6.2 L Albumin 3.5 L Arterial Blood Glucose Arterial Blood Ionized Calcium Valproic Acid Coronavirus (PCR) Chest x-ray: other (none today) Allied health notes reviewed: nursing
--- NOTE | 2021-03-11 13:59 | Progress Note ---
Assessment and Plan Cultures: SARS CoV2 PCR: Positive 03/09/2021 blood culture: No growth A/P: 60-year-old female with COPD, hypertension, seizure disorder, arthritis: #Bilateral pneumonia: Secondary to COVID-19. Severe disease #Acute hypoxic respiratory failure: Secondary to above. On BiPAP. #Transaminitis: Likely secondary to COVID-19 #Leukopenia: Likely related to viral illness Recs: -Continue steroids, dosing per pulmonary -Continue remdesivir -Status post Actemra 03/10/2021 -Procalcitonin low, antibiotics discontinued -Prophylactic anticoagulation based on d-dimer per hospital protocol -trend ferritin, LDH, d-dimer, CRP every 2-3 days for risk stratification and to assess disease progression -guarded prognosis Evonne Montoya MD, FACP [facility] O: [phone] F: [phone] Subjective Date of service: 03/11/21 Principal diagnosis: Ac hypoxemic resp failure; COVID-19 infxn; PNA; Morbid obesity; Seizures Interval history: Afebrile. Remains on BiPAP. Received Actemra. Objective - Exam Narrative Exam: Physical Exam (reviewed in chart to minimize risk of transmission) Constitutional: deferred Head, Ears, Nose: deferred Eyes: deferred Neck: deferred Oral: deferred Cardiovascular: deferred Respiratory: deferred GI: deferred Musculoskeletal: deferred Skin: deferred Hem/Lymphatic: deferred Psych: deferred Neurological: deferred - Constitutional Vitals: Vital Signs Temp Pulse Resp BP Pulse Ox 98.4 F 91 H 25 H 166/86 100 03/11/21 08:00 03/11/21 11:00 03/11/21 11:00 03/11/21 11:00 03/11/21 11:00 Temperature -Last 24 Hours Temperature 98.4 F Temperature 98.4 F Temperature 97.8 F Temperature 97.4 F Temperature 97.9 F - Labs CBC & Chem 7: 03/10/21 05:02 03/11/21 06:56 Labs: Abnormal lab results 03/10/21 03/10/21 03/10/21 Range/Units 17:58 18:13 18:13 D-Dimer 1054.48 H (0-234) ng/mlDDU Sodium (137-145) mmol/L Chloride (98-107) mmol/L BUN (7-17) mg/dL Glucose (65-100) mg/dL POC Glucose 152 H (70-105) mg/dL Calcium (8.4-10.2) mg/dL Ferritin 1717.0 H (10.0-200.0) ng/mL AST (5-40) units/L Lactate Dehydrogenase (91-180) units/L C-Reactive Protein (0.00-1.30) mg/dL Total Protein (6.3-8.2) g/dL Albumin (3.9-5) g/dL 03/10/21 03/10/21 03/11/21 Range/Units 18:13 23:15 05:35 D-Dimer (0-234) ng/mlDDU Sodium (137-145) mmol/L Chloride (98-107) mmol/L BUN (7-17) mg/dL Glucose (65-100) mg/dL POC Glucose 152 H 134 H (70-105) mg/dL Calcium (8.4-10.2) mg/dL Ferritin (10.0-200.0) ng/mL AST (5-40) units/L Lactate Dehydrogenase 1242 H (91-180) units/L C-Reactive Protein 8.40 H (0.00-1.30) mg/dL Total Protein (6.3-8.2) g/dL Albumin (3.9-5) g/dL 03/11/21 03/11/21 Range/Units 06:56 11:41 D-Dimer (0-234) ng/mlDDU Sodium 151 H (137-145) mmol/L Chloride 110.7 H (98-107) mmol/L BUN 27 H (7-17) mg/dL Glucose 153 H (65-100) mg/dL POC Glucose 115 H (70-105) mg/dL Calcium 7.8 L (8.4-10.2) mg/dL Ferritin (10.0-200.0) ng/mL AST 53 H (5-40) units/L Lactate Dehydrogenase (91-180) units/L C-Reactive Protein 6.60 H (0.00-1.30) mg/dL Total Protein 6.2 L (6.3-8.2) g/dL Albumin 3.5 L (3.9-5) g/dL
[2021-03-11] MEDS: methylPREDNISolone Sod Succinate 125 MG/2 ML INJ IV SCH ×2 (14:58→22:11)
[2021-03-11] MEDS ORDERED: fentaNYL 100 MCG/2 ML INJ IV ONE (15:00)
--- NOTE | 2021-03-11 15:53 | Progress Note ---
<CORY MARTINEZ Cheko - Last Filed: 03/11/21 19:26> Assessment and Plan Assessment and plan: 60-year-old female brought into the emergency room by EMS for evaluation of shortness of breath. Symptoms were said to have been ongoing for the past few days. Oxygen saturation was about 50% on room air upon arrival of EMS. She was subsequently placed on nonrebreather with improvement of oxygen saturation to about 88%. She was subsequently placed on BiPAP upon arrival in the emergency room. She was initially confused upon arrival in the emergency room but became more responsive upon placement on BiPAP. Work-up in the emergency room today, labs were significant for elevated liver enzymes with AST of 79 ALT 62. Chest x-ray reveals severe bilateral airspace pneumonia. (1) Bilateral pneumonia Current Visit: Yes Status: Acute Plan to address problem: Patient placed on empiric IV antibiotics. We will await culture results. Patient is Covid positive Continue IV antibiotics for now (2) Acute respiratory failure with hypoxia Current Visit: Yes Status: Acute Plan to address problem: Possibly secondary to the underlying pneumonia. We will keep O2 saturation greater or equal to 94%. Patient currently on BiPAP. Consult placed to powder core tester for evaluation. Patient may need intubation if she cannot continue on BiPAP (3) Suspected COVID-19 virus infection Current Visit: Yes Status: Acute Plan to address problem: COVID-19 positive IV steroids (4) seizure disorder Neurology consult and input appreciated Continue seizure medications in the form of Depakote Last seizure was 20 years ago Continue Depakote but discontinue Tegretol and IV Keppra Depakote may be reduced to twice a day (5) DVT prophylaxis Current Visit: Yes Status: Acute Plan to address problem: Patient placed on subcutaneous Lovenox. Systems review NEURO sz disorder CV hx htn RESP acute hypoxic resp failure with covid pna ARDS COVID19 pna COPD GI #Transaminitis: Likely secondary to COVID-19 strict I/O follow electrolytes trend cr HEME- VTE ID-covid19 pneumonia #Bilateral pneumonia: Secondary to COVID-19. Severe disease #Acute hypoxic respiratory failure: Secondary to above. On BiPAP. #Leukopenia: Likely related to viral illness ID following -Continue steroids, dosing per pulmonary -Continue remdesivir -Status post Actemra 03/10/2021 -trend ferritin, LDH, d-dimer, CRP every 2-3 days for risk stratification and to assess disease progression ENDO - obesity HPI 03/10/2021 Patient is Covid positive And acute respiratory failure with hypoxia Neurology and area field person consult appreciated ID consult appreciated mainly Seizure medication changed 03-11 no acute events overnight The high probability of a clinically significant, sudden or life threatening deterioration of the [all] system(s) required my full and direct attention, intervention and personal management. The aggregate critical care time was [60] minutes. This time is in addition to time spent performing reported procedures but includes the following: [x] Data Review and interpretation [x] Patient assessment and monitoring of vital signs [x] Documentation [x] Medication orders and management Disposition Plan: icu Total Time Spent with Patient (Minutes): 60 History Interval history: no acute events overnight Hospitalist Physical - Constitutional Vitals: Temp Pulse Resp BP Pulse Ox 98.4 F 98 H 29 H 179/89 100 03/11/21 08:00 03/11/21 15:13 03/11/21 15:03 03/11/21 15:13 03/11/21 15:03 General appearance: Present: no acute distress, well-nourished - EENT Eyes: Present: PERRL ENT: clear oral mucosa - Neck Neck: Present: supple, normal ROM - Respiratory Respiratory effort: normal - Cardiovascular Rhythm: regular Heart Sounds: Present: S1 & S2 - Abdominal General gastrointestinal: soft - Integumentary Integumentary: Present: clear, warm - Psychiatric Psychiatric: appropriate mood/affect, other - Allied Health Allied health notes reviewed: nursing, RT, case management Results - Labs CBC & Chem 7: 03/10/21 05:02 03/11/21 06:56 Labs: Laboratory Last Values WBC 3.5 K/mm3 (4.5-11.0) L 03/10/21 05:02 RBC 3.85 M/mm3 (3.65-5.03) 03/10/21 05:02 Hgb 12.2 gm/dl (10.1-14.3) 03/10/21 05:02 Hct 36.3 % (30.3-42.9) 03/10/21 05:02 MCV 94 fl (79-97) 03/10/21 05:02 MCH 32 pg (28-32) 03/10/21 05:02 MCHC 34 % (30-34) 03/10/21 05:02 RDW 13.2 % (13.2-15.2) 03/10/21 05:02 Plt Count 147 K/mm3 (140-440) 03/10/21 05:02 Lymph % (Auto) 15.7 % (13.4-35.0) 03/10/21 05:02 [place] % (Auto) 5.2 % (0.0-7.3) 03/10/21 05:02 Eos % (Auto) 0.0 % (0.0-4.3) 03/10/21 05:02 Baso % (Auto) 0.1 % (0.0-1.8) 03/10/21 05:02 Lymph # (Auto) 0.5 K/mm3 (1.2-5.4) L 03/10/21 05:02 [place] # (Auto) 0.2 K/mm3 (0.0-0.8) 03/10/21 05:02 Eos # (Auto) 0.0 K/mm3 (0.0-0.4) 03/10/21 05:02 Baso # (Auto) 0.0 K/mm3 (0.0-0.1) 03/10/21 05:02 Seg Neutrophils % 79.0 % (40.0-70.0) H 03/10/21 05:02 Seg Neutrophils # 2.8 K/mm3 (1.8-7.7) 03/10/21 05:02 PT 13.8 Sec. (12.2-14.9) 03/10/21 05:02 INR 1.01 (0.87-1.13) 03/10/21 05:02 D-Dimer 1054.48 ng/mlDDU (0-234) H 03/10/21 18:13 ABG pH 7.389 (7.320-7.450) 03/10/21 13:48 POC ABG pCO2 44.0 mmHg (32.0-48.0) 03/10/21 13:48 POC ABG pO2 43.6 mmHg (83-108) L 03/10/21 13:48 POC ABG HCO3 26.0 03/10/21 13:48 ABG O2 Saturation 77.7 (0-100) 03/10/21 13:48 POC ABG Base Excess 0.7 03/10/21 13:48 ABG Hemoglobin 12.6 (12.0-17.5) 03/10/21 13:48 ABG Oxyhemoglobin 77.3 (94-98) L 03/10/21 13:48 ABG Methemoglobin 0.3 (0.0-1.5) 03/10/21 13:48 ABG Sodium 144.1 mmol/L (136.0-145.0) 03/10/21 13:48 ABG Potassium 3.6 mmol/L (3.40-4.50) 03/10/21 13:48 ABG Chloride 110.0 mmol/L (98-107) H 03/10/21 13:48 ABG Glucose 174 mg/dL (65-95) H 03/10/21 13:48 Carboxyhemoglobin 0.2 (0.5-1.5) L 03/10/21 13:48 FiO2 % 100.0 03/10/21 13:48 Sodium 151 mmol/L (137-145) H 03/11/21 06:56 Potassium 4.6 mmol/L (3.6-5.0) 03/11/21 06:56 Chloride 110.7 mmol/L (98-107) H 03/11/21 06:56 Carbon Dioxide 29 mmol/L (22-30) 03/11/21 06:56 Anion Gap 16 mmol/L 03/11/21 06:56 BUN 27 mg/dL (7-17) H 03/11/21 06:56 Creatinine 0.6 mg/dL (0.6-1.2) 03/11/21 06:56 Estimated GFR > 60 ml/min 03/11/21 06:56 BUN/Creatinine Ratio 45 % 03/11/21 06:56 Glucose 153 mg/dL (65-100) H 03/11/21 06:56 POC Glucose 115 mg/dL (70-105) H 03/11/21 11:41 Lactic Acid 1.30 mmol/L (0.7-2.0) 03/10/21 10:19 Calcium 7.8 mg/dL (8.4-10.2) L 03/11/21 06:56 Ferritin 1717.0 ng/mL (10.0-200.0) H 03/10/21 18:13 Total Bilirubin 0.30 mg/dL (0.1-1.2) 03/11/21 06:56 AST 53 units/L (5-40) H 03/11/21 06:56 ALT 39 units/L (7-56) 03/11/21 06:56 Alkaline Phosphatase 112 units/L (35-129) 03/11/21 06:56 Lactate Dehydrogenase 1242 units/L (91-180) H 03/10/21 18:13 C-Reactive Protein 6.60 mg/dL (0.00-1.30) H 03/11/21 06:56 Total Protein 6.2 g/dL (6.3-8.2) L 03/11/21 06:56 Albumin 3.5 g/dL (3.9-5) L 03/11/21 06:56 Albumin/Globulin Ratio 1.3 % 03/11/21 06:56 Procalcitonin < 0.05 ng/mL (<0.15) 03/10/21 10:19 Arterial Blood Glucose 174 mg/dL (65-95) H 03/10/21 13:48 Arterial Blood Ionized Calcium 4.1 mg/dL (4.6-5.3) L 03/10/21 13:48 Urine Color Cherelle (Yellow) 03/09/21 04:48 Urine Turbidity Clear (Clear) 03/09/21 04:48 Urine pH 5.0 (5.0-7.0) 03/09/21 04:48 Ur Specific [place] 1.020 (1.003-1.030) 03/09/21 04:48 Urine Protein 100 mg/dl mg/dL (Negative) 03/09/21 04:48 Urine Glucose (UA) Neg mg/dL (Negative) 03/09/21 04:48 Urine Ketones Tr mg/dL (Negative) 03/09/21 04:48 Urine Blood Neg (Negative) 03/09/21 04:48 Urine Nitrite Neg (Negative) 03/09/21 04:48 Urine Bilirubin Neg (Negative) 03/09/21 04:48 Urine Urobilinogen 4.0 mg/dL (<2.0) 03/09/21 04:48 Ur Leukocyte Esterase Sm (Negative) 03/09/21 04:48 Urine WBC (Auto) 6.0 /HPF (0.0-6.0) 03/09/21 04:48 Urine RBC (Auto) 5.0 /HPF (0.0-6.0) 03/09/21 04:48 U Epithel Cells (Auto) 2.0 /HPF (0-13.0) 03/09/21 04:48 Urine Bacteria (Auto) 2+ /HPF (Negative) 03/09/21 04:48 Urine Mucus Few /HPF 03/09/21 04:48 Valproic Acid 9.7 ug/mL (50-100) L 03/09/21 00:26 Coronavirus (PCR) Positive (Negative) A 03/09/21 Unknown Microbiology: Microbiology 03/09/21 00:26 Peripheral/Venous Blood Culture - Preliminary NO GROWTH AFTER 48 HOURS 03/09/21 00:20 Peripheral/Venous Blood Culture - Preliminary NO GROWTH AFTER 48 HOURS Thacker/IV: Voiding Method External Female Catheter Active Medications - Current Medications Current Medications: Generic Name Dose Route Start Last Admin Trade Name Freq PRN Reason Stop Dose Admin Acetaminophen 1,000 mg 03/09/21 15:00 Acetaminophen 500 Mg Tab PO Q6HR PRN Pain , Severe (7-10) Albuterol 2.5 mg 03/09/21 02:28 Albuterol 2.5 Mg/3 Ml Nebu IH Q4HRT PRN Shortness Of Breath Alprazolam 1 mg 03/09/21 14:05 Alprazolam 1 Mg Tab PO TID PRN Anxiety Ascorbic Acid 500 mg 03/09/21 22:00 03/11/21 10:24 Ascorbic Acid 500 Mg Tab PO Not Given BID [facility] Aspirin 81 mg 03/09/21 15:00 03/11/21 10:23 Aspirin 81 Mg Tab Chew PO Not Given QDAY [facility] Atenolol 25 mg 03/09/21 15:00 03/11/21 10:24 Atenolol 25 Mg Tab PO Not Given DAILY [facility] Clonidine HCl 0.1 mg 03/11/21 04:56 Clonidine 0.1 Mg Tab PO Q4H PRN systolic bp greater than 160 Dextrose 50 ml 03/10/21 11:29 Dextrose 50% In Water (25gm) 50 Ml Syringe IV Q30MIN PRN Hypoglycemia Protocol Diphenhydramine HCl 25 mg 03/09/21 15:00 Diphenhydramine 25 Mg Cap PO Q6HR PRN Itching Enoxaparin Sodium 40 mg 03/09/21 22:00 03/10/21 21:01 Enoxaparin 40 Mg/0.4 Ml Inj SUB-Q 40 mg QDAY@2200 [facility] Administration Protocol Hydralazine HCl 10 mg 03/11/21 08:32 Hydralazine 20 Mg/1 Ml Inj IV Q4HR PRN Hypertension Valproate Sodium 500 mg/ 105 mls @ 100 mls/hr 03/09/21 16:00 03/10/21 15:43 Sodium Chloride IV 100 mls/hr Q8H [facility] Administration REMDESIVIR 100 mg/ Sodium 250 mls @ 500 mls/hr 03/10/21 21:00 03/10/21 22:55 Chloride IV 03/13/21 21:29 500 mls/hr Q24HR@2100 [facility] Administration Dexmedetomidine HCl 400 mcg/ 104 mls @ 8.46 mls/hr 03/11/21 14:00 Sodium Chloride IV TITRATE [facility] Protocol 0.2 MCG/KG/HR Propofol 1,000 mg in 100 mls @ 4.881 mls/hr 03/11/21 15:00 Diprivan 10 Mg/Ml IV TITR [facility] Protocol 5 MCG/KG/MIN Insulin Human Regular 0 units 03/10/21 12:00 03/11/21 12:03 Insulin Regular, Human 100 Units/1 Ml SUB-Q Not Given Q6H [facility] Protocol Labetalol HCl 10 mg 03/11/21 08:32 03/11/21 15:13 Labetalol 20 Mg/4 Ml Inj IV 10 mg Q6HR PRN Administration Hypertension Magnesium Hydroxide 30 ml 03/09/21 02:28 Magnesium Hydroxide (Mom) Oral Liqd Udc PO Q4H PRN Constipation Methylprednisolone Sodium Succinate 110 mg 03/09/21 22:00 03/11/21 14:58 Methylprednisolone Sod Succinate 125 Mg/2 Ml Inj IV 110 mg Q8HR [facility] Administration Morphine Sulfate 2 mg 03/09/21 02:28 Morphine 2 Mg/1 Ml Inj IV Q4H PRN Pain, Moderate (4-6) Morphine Sulfate 4 mg 03/09/21 02:28 Morphine 4 Mg/1 Ml Inj IV Q4H PRN Pain , Severe (7-10) Nystatin 1 applic 03/09/21 15:00 03/11/21 10:06 Nystatin Oint 15 Gm TP 1 applic BID [facility] Administration Ondansetron HCl 4 mg 03/09/21 02:28 Ondansetron 4 Mg/2 Ml Inj IV Q8H PRN Nausea And Vomiting Sodium Chloride 10 ml 03/09/21 10:00 03/11/21 10:05 Sodium Chloride 0.9% 10 Ml Flush Syringe IV 10 ml BID [facility] Administration Sodium Chloride 10 ml 03/09/21 02:28 Sodium Chloride 0.9% 10 Ml Flush Syringe IV PRN PRN LINE FLUSH Sodium Chloride 50 ml 03/09/21 21:00 03/09/21 23:04 Sodium Chloride 0.9% 50 Ml Ivpb IV 03/13/21 21:01 50 ml Q24HR@2100 [facility] Administration Zinc Sulfate 220 mg 03/09/21 22:00 03/11/21 10:24 Zinc Sulfate 220 Mg Cap PO Not Given BID [facility] Nutrition/Malnutrition Assess - Attestation Statement I have reviewed and agreed w/ Malnutrition eval & tx plan: Yes <TETO HATCH - Last Filed: 03/12/21 07:41> Assessment and Plan Assessment and plan: I saw and evaluated the patient. Discussed with the nurse practitioner and agree with their findings and plan as documented in this note. Hospitalist Physical - Constitutional Vitals: Temp Pulse Resp BP Pulse Ox 98.1 F 97 H 25 H 168/86 99 03/12/21 03:46 03/12/21 06:00 03/12/21 06:00 03/12/21 06:00 03/12/21 06:00 Results - Labs CBC & Chem 7: 03/12/21 04:46 03/12/21 04:46 Labs: Laboratory Last Values WBC 6.6 K/mm3 (4.5-11.0) 03/12/21 04:46 RBC 4.15 M/mm3 (3.65-5.03) 03/12/21 04:46 Hgb 12.9 gm/dl (10.1-14.3) 03/12/21 04:46 Hct 39.2 % (30.3-42.9) 03/12/21 04:46 MCV 95 fl (79-97) 03/12/21 04:46 MCH 31 pg (28-32) 03/12/21 04:46 MCHC 33 % (30-34) 03/12/21 04:46 RDW 13.4 % (13.2-15.2) 03/12/21 04:46 Plt Count 147 K/mm3 (140-440) 03/10/21 05:02 Lymph % (Auto) 15.7 % (13.4-35.0) 03/10/21 05:02 [place] % (Auto) 5.2 % (0.0-7.3) 03/10/21 05:02 Eos % (Auto) 0.0 % (0.0-4.3) 03/10/21 05:02 Baso % (Auto) 0.1 % (0.0-1.8) 03/10/21 05:02 Lymph # (Auto) 0.5 K/mm3 (1.2-5.4) L 03/10/21 05:02 [place] # (Auto) 0.2 K/mm3 (0.0-0.8) 03/10/21 05:02 Eos # (Auto) 0.0 K/mm3 (0.0-0.4) 03/10/21 05:02 Baso # (Auto) 0.0 K/mm3 (0.0-0.1) 03/10/21 05:02 Seg Neutrophils % 79.0 % (40.0-70.0) H 03/10/21 05:02 Seg Neutrophils # 2.8 K/mm3 (1.8-7.7) 03/10/21 05:02 PT 13.8 Sec. (12.2-14.9) 03/10/21 05:02 INR 1.01 (0.87-1.13) 03/10/21 05:02 D-Dimer 1054.48 ng/mlDDU (0-234) H 03/10/21 18:13 ABG pH 7.389 (7.320-7.450) 03/10/21 13:48 POC ABG pCO2 44.0 mmHg (32.0-48.0) 03/10/21 13:48 POC ABG pO2 43.6 mmHg (83-108) L 03/10/21 13:48 POC ABG HCO3 26.0 03/10/21 13:48 ABG O2 Saturation 77.7 (0-100) 03/10/21 13:48 POC ABG Base Excess 0.7 03/10/21 13:48 ABG Hemoglobin 12.6 (12.0-17.5) 03/10/21 13:48 ABG Oxyhemoglobin 77.3 (94-98) L 03/10/21 13:48 ABG Methemoglobin 0.3 (0.0-1.5) 03/10/21 13:48 ABG Sodium 144.1 mmol/L (136.0-145.0) 03/10/21 13:48 ABG Potassium 3.6 mmol/L (3.40-4.50) 03/10/21 13:48 ABG Chloride 110.0 mmol/L (98-107) H 03/10/21 13:48 ABG Glucose 174 mg/dL (65-95) H 03/10/21 13:48 Carboxyhemoglobin 0.2 (0.5-1.5) L 03/10/21 13:48 FiO2 % 100.0 03/10/21 13:48 Sodium 147 mmol/L (137-145) H 03/12/21 04:46 Potassium 5.6 mmol/L (3.6-5.0) H D 03/12/21 04:46 Chloride 114.3 mmol/L (98-107) H 03/12/21 04:46 Carbon Dioxide 20 mmol/L (22-30) L D 03/12/21 04:46 Anion Gap 18 mmol/L 03/12/21 04:46 BUN 33 mg/dL (7-17) H 03/12/21 04:46 Creatinine 0.9 mg/dL (0.6-1.2) 03/12/21 04:46 Estimated GFR > 60 ml/min 03/12/21 04:46 BUN/Creatinine Ratio 37 % 03/12/21 04:46 Glucose 166 mg/dL (65-100) H 03/12/21 04:46 POC Glucose 161 mg/dL (70-105) H 03/12/21 05:03 Lactic Acid 1.30 mmol/L (0.7-2.0) 03/10/21 10:19 Calcium 7.9 mg/dL (8.4-10.2) L 03/12/21 04:46 Ferritin 1717.0 ng/mL (10.0-200.0) H 03/10/21 18:13 Total Bilirubin 0.40 mg/dL (0.1-1.2) 03/12/21 04:46 AST 66 units/L (5-40) H 03/12/21 04:46 ALT 31 units/L (7-56) 03/12/21 04:46 Alkaline Phosphatase 104 units/L (35-129) 03/12/21 04:46 Lactate Dehydrogenase 1242 units/L (91-180) H 03/10/21 18:13 C-Reactive Protein 6.60 mg/dL (0.00-1.30) H 03/11/21 06:56 Total Protein 5.8 g/dL (6.3-8.2) L 03/12/21 04:46 Albumin 2.5 g/dL (3.9-5) L 03/12/21 04:46 Albumin/Globulin Ratio 0.8 % 03/12/21 04:46 Procalcitonin < 0.05 ng/mL (<0.15) 03/10/21 10:19 Arterial Blood Glucose 174 mg/dL (65-95) H 03/10/21 13:48 Arterial Blood Ionized Calcium 4.1 mg/dL (4.6-5.3) L 03/10/21 13:48 Urine Color [place]here[place] (Yellow) 03/09/21 04:48 Urine Turbidity Clear (Clear) 03/09/21 04:48 Urine pH 5.0 (5.0-7.0) 03/09/21 04:48 Ur Specific [place] 1.020 (1.003-1.030) 03/09/21 04:48 Urine Protein 100 mg/dl mg/dL (Negative) 03/09/21 04:48 Urine Glucose (UA) Neg mg/dL (Negative) 03/09/21 04:48 Urine Ketones Tr mg/dL (Negative) 03/09/21 04:48 Urine Blood Neg (Negative) 03/09/21 04:48 Urine Nitrite Neg (Negative) 03/09/21 04:48 Urine Bilirubin Neg (Negative) 03/09/21 04:48 Urine Urobilinogen 4.0 mg/dL (<2.0) 03/09/21 04:48 Ur Leukocyte Esterase Sm (Negative) 03/09/21 04:48 Urine WBC (Auto) 6.0 /HPF (0.0-6.0) 03/09/21 04:48 Urine RBC (Auto) 5.0 /HPF (0.0-6.0) 03/09/21 04:48 U Epithel Cells (Auto) 2.0 /HPF (0-13.0) 03/09/21 04:48 Urine Bacteria (Auto) 2+ /HPF (Negative) 03/09/21 04:48 Urine Mucus Few /HPF 03/09/21 04:48 Valproic Acid 9.7 ug/mL (50-100) L 03/09/21 00:26 Coronavirus (PCR) Positive (Negative) A 03/09/21 Unknown Microbiology: Microbiology 03/09/21 00:20 Peripheral/Venous Blood Culture - Preliminary NO GROWTH AFTER 72 HOURS 03/09/21 00:26 Peripheral/Venous Blood Culture - Preliminary NO GROWTH AFTER 72 HOURS Thacker/IV: Voiding Method External Female Catheter Active Medications - Current Medications Current Medications: Generic Name Dose Route Start Last Admin Trade Name Freq PRN Reason Stop Dose Admin Acetaminophen 1,000 mg 03/09/21 15:00 Acetaminophen 500 Mg Tab PO Q6HR PRN Pain , Severe (7-10) Albuterol 2.5 mg 03/09/21 02:28 Albuterol 2.5 Mg/3 Ml Nebu IH Q4HRT PRN Shortness Of Breath Alprazolam 1 mg 03/09/21 14:05 Alprazolam 1 Mg Tab PO TID PRN Anxiety Ascorbic Acid 500 mg 03/09/21 22:00 03/11/21 22:10 Ascorbic Acid 500 Mg Tab PO 500 mg BID [facility] Administration Aspirin 81 mg 03/09/21 15:00 03/11/21 10:23 Aspirin 81 Mg Tab Chew PO Not Given QDAY [facility] Atenolol 25 mg 03/09/21 15:00 03/11/21 10:24 Atenolol 25 Mg Tab PO Not Given DAILY [facility] Clonidine HCl 0.1 mg 03/11/21 04:56 Clonidine 0.1 Mg Tab PO Q4H PRN systolic bp greater than 160 Dextrose 50 ml 03/10/21 11:29 Dextrose 50% In Water (25gm) 50 Ml Syringe IV Q30MIN PRN Hypoglycemia Protocol Diphenhydramine HCl 25 mg 03/09/21 15:00 Diphenhydramine 25 Mg Cap PO Q6HR PRN Itching Enoxaparin Sodium 40 mg 03/09/21 22:00 03/11/21 22:14 Enoxaparin 40 Mg/0.4 Ml Inj SUB-Q 40 mg QDAY@2200 [facility] Administration Protocol Hydralazine HCl 10 mg 03/11/21 08:32 03/12/21 05:53 Hydralazine 20 Mg/1 Ml Inj IV 10 mg Q4HR PRN Administration Hypertension Valproate Sodium 500 mg/ 105 mls @ 100 mls/hr 03/09/21 16:00 03/12/21 00:41 Sodium Chloride IV 100 mls/hr Q8H [facility] Administration REMDESIVIR 100 mg/ Sodium 250 mls @ 500 mls/hr 03/10/21 21:00 03/11/21 22:13 Chloride IV 03/13/21 21:29 500 mls/hr Q24HR@2100 [facility] Administration Dexmedetomidine HCl 400 mcg/ 104 mls @ 8.46 mls/hr 03/11/21 14:00 03/12/21 04:19 Sodium Chloride IV 0.4 mcg/kg/hr TITRATE [facility] 16.921 mls/hr Administration Protocol 0.2 MCG/KG/HR Propofol 1,000 mg in 100 mls @ 4.881 mls/hr 03/11/21 15:00 Diprivan 10 Mg/Ml IV TITR [facility] Protocol 5 MCG/KG/MIN Insulin Human Regular 0 units 03/10/21 12:00 03/12/21 05:43 Insulin Regular, Human 100 Units/1 Ml SUB-Q Not Given Q6H [facility] Protocol Labetalol HCl 10 mg 03/11/21 08:32 03/12/21 04:16 Labetalol 20 Mg/4 Ml Inj IV 10 mg Q6HR PRN Administration Hypertension Magnesium Hydroxide 30 ml 03/09/21 02:28 Magnesium Hydroxide (Mom) Oral Liqd Udc PO Q4H PRN Constipation Methylprednisolone Sodium Succinate 110 mg 03/09/21 22:00 03/12/21 05:53 Methylprednisolone Sod Succinate 125 Mg/2 Ml Inj IV 110 mg Q8HR [facility] Administration Morphine Sulfate 2 mg 03/09/21 02:28 Morphine 2 Mg/1 Ml Inj IV Q4H PRN Pain, Moderate (4-6) Morphine Sulfate 4 mg 03/09/21 02:28 03/12/21 04:15 Morphine 4 Mg/1 Ml Inj IV 4 mg Q4H PRN Administration Pain , Severe (7-10) Nystatin 1 applic 03/09/21 15:00 03/11/21 22:15 Nystatin Oint 15 Gm TP 1 applic BID [facility] Administration Ondansetron HCl 4 mg 03/09/21 02:28 Ondansetron 4 Mg/2 Ml Inj IV Q8H PRN Nausea And Vomiting Sodium Chloride 10 ml 03/09/21 10:00 03/11/21 22:15 Sodium Chloride 0.9% 10 Ml Flush Syringe IV 10 ml BID [facility] Administration Sodium Chloride 10 ml 03/09/21 02:28 Sodium Chloride 0.9% 10 Ml Flush Syringe IV PRN PRN LINE FLUSH Sodium Chloride 50 ml 03/09/21 21:00 03/11/21 22:14 Sodium Chloride 0.9% 50 Ml Ivpb IV 03/13/21 21:01 50 ml Q24HR@2100 [facility] Administration Zinc Sulfate 220 mg 03/09/21 22:00 03/11/21 22:10 Zinc Sulfate 220 Mg Cap PO 220 mg BID [facility] Administration
[2021-03-11] MEDS: VALPROATE SODIUM 500 MG in SODIUM CHLORIDE 0.9% 100 ML IV SCH (18:13)
[2021-03-11] MEDS: MORPHINE 4 MG/1 ML INJ IV PRN (22:12)
[2021-03-11] MEDS: REMDESIVIR 100 MG in SODIUM CHLORIDE 0.9% 250ML 250 ML IV SCH (22:13)
[2021-03-11] MEDS: SODIUM CHLORIDE 0.9% 50 ML IVPB IV SCH (22:14)
[2021-03-11] MEDS: ENOXAPARIN 40 MG/0.4 ML INJ SUB-Q SCH (22:14)
[2021-03-11] MEDS: hydrALAZINE 20 MG/1 ML INJ IV PRN (22:14)
[2021-03-12] MEDS: VALPROATE SODIUM 500 MG in SODIUM CHLORIDE 0.9% 100 ML IV SCH ×5 (00:39→16:12)
[2021-03-12] MEDS: MORPHINE 4 MG/1 ML INJ IV PRN (04:15)
[2021-03-12] MEDS: INSULIN REGULAR, HUMAN 100 UNITS/1 ML SUB-Q SCH ×3 (05:43→18:46)
[2021-03-12 05:48] LABS: Hematocrit 39.2 % (30.3-42.9); Hemoglobin 12.9 gm/dl (10.1-14.3); Mean Corpuscular HGB Conc 33 % (30-34); Mean Corpuscular Volume 95 fl (79-97); Red Blood Count 4.15 M/mm3 (3.65-5.03); Red Cell Distribution Width 13.4 % (13.2-15.2)
[2021-03-12] MEDS: methylPREDNISolone Sod Succinate 125 MG/2 ML INJ IV SCH ×2 (05:53→16:09)
[2021-03-12] MEDS: hydrALAZINE 20 MG/1 ML INJ IV PRN ×2 (05:53→12:47)
[2021-03-12 06:19] LABS: Alanine Aminotransferase 31 units/L (7-56); Albumin 2.5 g/dL (3.9-5); BUN/Creatinine Ratio 37; Blood Urea Nitrogen 33 mg/dL (7-17); Calcium 7.9 mg/dL (8.4-10.2); Hemolysis Index 305
--- NOTE | 2021-03-12 06:41 | XRay Report ---
CHEST 1 VIEW INDICATION / CLINICAL INFORMATION: sob. Dyspnea FINDINGS: SUPPORT DEVICES: None. HEART / MEDIASTINUM: No significant abnormality. LUNGS / PLEURA: Severe bilateral airspace pneumonia which is minimally improved from 03/09/2021 Signer Name: Gus Miller MD Signed: 03/12/2021 6:37 AM Workstation Name: [id number]
[2021-03-12] MEDS ORDERED: SODIUM POLYSTYRENE 15 GM/60 ML ORAL LIQD PO ONE (09:06)
[2021-03-12] MEDS ORDERED: CALCIUM GLUCONATE 2,000 MG in SODIUM CHLORIDE 0.9% 100 ML IV ONE (09:30)
[2021-03-12] MEDS: ASPIRIN 81 MG TAB CHEW PO SCH (09:32)
[2021-03-12] MEDS: ZINC SULFATE 220 MG CAP PO SCH (09:32)
[2021-03-12] MEDS: ASCORBIC ACID 500 MG TAB PO SCH (09:33)
[2021-03-12] MEDS: atenoloL 25 MG TAB PO SCH (09:33)
[2021-03-12] MEDS: NYSTATIN OINT 15 GM TP SCH (09:40)
--- NOTE | 2021-03-12 11:54 | Progress Note ---
Assessment and Plan Acute hypoxemic respiratory failure ARDS COVID-19 infection Pneumonia Morbid obesity COPD HTN Chronic liver disease Seizure disorder ArthritisLeukopenia - FiO2 reduced to 70% - attempt to give breaks on vapotherm during the day - again encouraged awake proning or laying on side if unable to prone and O2 sats up to 89% - continue to wean supplemental oxygen for target O2 sat's > 92% acutely - continue care as below otherwise; - continue accuchecks with glycemic control per SSI (While critically ill target blood glucose of 140-180 mg/dL; avoid hypoglycemia) - aspiration precautions - continue bronchodilators with pulmonary hygiene per RT - avoid nephrotoxins, renally dose all medications - Avoid benzodiazepine's, reduce the possibility of delirium - complete AB's per ID rec's - continue AED's for sizure disorder - prn analgesia per pain score - Maintenance of sleep-wake cycle, avoid delirium - G.I. & VTE prophylaxis - PT/OT/ROM exercises - continue mobility protocols for pressure ulcer prophylaxis - Monitor hemodynamics closely - continue other care per attending / other consultants - discharge planning ongoing concurrently COVID SPECIFIC INTERVENTIONS - Remdesivir as per ID/Pulmonary developed protocols (ordered) - continue systemic steroids for severe COVID-19 infection (Solumedrol) - follow repeat COVID tests results - zinc and vitamin C supplementation - Monitor inflammatory markers per facility protocol - ferritin, Ddimer, CRP - therapeutic anticoagulation per system Protocol based on d-dimer and clinical considerations (VTE prophylaxis) - Continue contact and airborne isolation .... Re-evaluate in am & prn CONDITION: CRITICAL PROGNOSIS: GUARDED CODE STATUS: FULL CODE The high probability of a clinically significant, sudden or life-threatening deterioration of the [respiratory, cardiovascular & neurologic] system(s) required my full and direct attention, intervention and personal management. The aggregate critical care time was [33] minutes without overlap. Time includes spent on; [x] Data Review and interpretation [x] Patient assessment and monitoring of vital signs [x] Documentation [x] Medication orders and management Subjective Date of service: 03/12/21 Principal diagnosis: Ac hypoxemic resp failure; COVID-19 infxn; PNA; Morbid obesity; Seizures Interval history: Patient is seen today for: Acute hypoxemic respiratory failure; ARDS; COVID-19 infection; Pneumonia; Morbid obesity; Seizure disorder Seen and examined at bedside; 24hour events reviewed; nursing and respiratory care staff consulted; no adverse overnight events reported to me; resting peacefully in bed; remains on continuous BIPAP with FiO2 at 80% but room to wean; calm; No N/V/F/C; denies chest pains Objective Vital Signs - 12hr 03/12/21 03/12/21 03/12/21 00:00 00:25 00:52 Temperature 99.0 F Pulse Rate 93 H 98 H Pulse Rate [ 92 H From Monitor] Respiratory 25 H 34 H 26 H Rate Blood Pressure 177/85 177/85 O2 Sat by Pulse 97 96 98 Oximetry 03/12/21 03/12/21 03/12/21 01:00 02:00 02:25 Temperature Pulse Rate 93 H 96 H 93 H Pulse Rate [ From Monitor] Respiratory 26 H 26 H 34 H Rate Blood Pressure 175/95 150/88 O2 Sat by Pulse 98 97 96 Oximetry 03/12/21 03/12/21 03/12/21 03:00 03:46 03:51 Temperature 98.1 F Pulse Rate 97 H 93 H Pulse Rate [ From Monitor] Respiratory 22 Rate Blood Pressure 165/94 O2 Sat by Pulse 97 Oximetry 03/12/21 03/12/21 03/12/21 04:00 04:15 04:16 Temperature Pulse Rate 95 H 96 H Pulse Rate [ From Monitor] Respiratory 22 24 Rate Blood Pressure 165/92 165/78 O2 Sat by Pulse 96 Oximetry 03/12/21 03/12/21 03/12/21 04:45 05:00 05:30 Temperature Pulse Rate 97 H 97 H Pulse Rate [ From Monitor] Respiratory 22 27 H Rate Blood Pressure 178/97 O2 Sat by Pulse 97 Oximetry 03/12/21 03/12/21 03/12/21 05:33 05:53 06:00 Temperature Pulse Rate 96 H 97 H 97 H Pulse Rate [ From Monitor] Respiratory 21 25 H Rate Blood Pressure 178/72 175/91 168/86 O2 Sat by Pulse 96 99 Oximetry 03/12/21 03/12/21 07:52 09:33 Temperature Pulse Rate 72 96 H Pulse Rate [ From Monitor] Respiratory 21 Rate Blood Pressure 148/82 160/91 O2 Sat by Pulse 99 Oximetry Constitutional: no acute distress, other (middle aged morbidly obese female with mildly increased respiratory effort at rest) Eyes: non-icteric ENT: oropharynx moist Neck: supple, no lymphadenopathy, no JVD, other (large circumference) Effort: mildly labored Ascultation: Bilateral: diminished breath sounds, rhonchi Percussion: Bilateral: not dull Cardiovascular: regular rate and rhythm Gastrointestinal: normoactive bowel sounds, soft, non-tender, non-distended (significantly protuberant) Integumentary: normal Extremities: no cyanosis, no edema, pink and warm, pulses normal Neurologic: normal mental status, non-focal exam, pupils equal and round, motor strength normal and Psychiatric: mood appropriate, affect normal, other (inappropriately flat affect) CBC and BMP: 03/12/21 04:46 03/12/21 04:46 ABG, PT/INR, D-dimer: ABG ABG pH 7.389 (7.320-7.450) 03/10/21 13:48 POC ABG pCO2 44.0 mmHg (32.0-48.0) 03/10/21 13:48 POC ABG pO2 43.6 mmHg (83-108) L 03/10/21 13:48 POC ABG HCO3 26.0 03/10/21 13:48 ABG O2 Saturation 77.7 (0-100) 03/10/21 13:48 PT/INR, D-dimer PT 13.8 Sec. (12.2-14.9) 03/10/21 05:02 INR 1.01 (0.87-1.13) 03/10/21 05:02 D-Dimer 1054.48 ng/mlDDU (0-234) H 03/10/21 18:13 Abnormal lab findings: Abnormal Labs 03/09/21 03/09/21 03/09/21 00:26 00:26 00:26 WBC 2.9 L [place] % (Auto) 9.5 H Lymph # (Auto) 0.5 L Seg Neutrophils % 74.5 H D-Dimer POC ABG pO2 ABG Oxyhemoglobin ABG Chloride ABG Glucose Carboxyhemoglobin Sodium Potassium Chloride Carbon Dioxide BUN Creatinine Glucose 135 H POC Glucose Calcium 7.3 L Ferritin AST 79 H ALT 62 H Lactate Dehydrogenase C-Reactive Protein Total Protein Albumin 3.4 L Arterial Blood Glucose Arterial Blood Ionized Calcium Valproic Acid 9.7 L Coronavirus (PCR) 03/09/21 03/09/21 03/10/21 16:44 Unknown 05:02 WBC 3.5 L [place] % (Auto) Lymph # (Auto) 0.5 L Seg Neutrophils % 79.0 H D-Dimer POC ABG pO2 ABG Oxyhemoglobin ABG Chloride ABG Glucose Carboxyhemoglobin Sodium Potassium Chloride Carbon Dioxide BUN Creatinine Glucose 127 H POC Glucose Calcium 7.5 L Ferritin AST 87 H ALT Lactate Dehydrogenase C-Reactive Protein Total Protein Albumin 3.2 L Arterial Blood Glucose Arterial Blood Ionized Calcium Valproic Acid Coronavirus (PCR) Positive A 03/10/21 03/10/21 03/10/21 05:02 05:29 08:57 WBC [place] % (Auto) Lymph # (Auto) Seg Neutrophils % D-Dimer POC ABG pO2 52.1 L ABG Oxyhemoglobin 84.3 L ABG Chloride 110.0 H ABG Glucose 176 H Carboxyhemoglobin 0.3 L Sodium 146 H Potassium Chloride Carbon Dioxide BUN Creatinine 0.5 L Glucose 170 H POC Glucose 171 H Calcium 7.5 L Ferritin AST 81 H ALT Lactate Dehydrogenase C-Reactive Protein Total Protein 5.7 L Albumin 3.3 L Arterial Blood Glucose 176 H Arterial Blood Ionized Calcium 4.0 L Valproic Acid Coronavirus (PCR) 03/10/21 03/10/21 03/10/21 10:19 10:19 10:19 WBC [place] % (Auto) Lymph # (Auto) Seg Neutrophils % D-Dimer 451.32 H POC ABG pO2 ABG Oxyhemoglobin ABG Chloride ABG Glucose Carboxyhemoglobin Sodium Potassium Chloride Carbon Dioxide BUN Creatinine Glucose POC Glucose Calcium Ferritin 1795.0 H AST ALT Lactate Dehydrogenase 1033 H C-Reactive Protein Total Protein Albumin Arterial Blood Glucose Arterial Blood Ionized Calcium Valproic Acid Coronavirus (PCR) 03/10/21 03/10/21 03/10/21 10:19 11:31 13:48 WBC [place] % (Auto) Lymph # (Auto) Seg Neutrophils % D-Dimer POC ABG pO2 43.6 L ABG Oxyhemoglobin 77.3 L ABG Chloride 110.0 H ABG Glucose 174 H Carboxyhemoglobin 0.2 L Sodium Potassium Chloride Carbon Dioxide BUN Creatinine Glucose POC Glucose 163 H Calcium Ferritin AST ALT Lactate Dehydrogenase C-Reactive Protein 8.10 H Total Protein Albumin Arterial Blood Glucose 174 H Arterial Blood Ionized Calcium 4.1 L Valproic Acid Coronavirus (PCR) 03/10/21 03/10/21 03/10/21 17:58 18:13 18:13 WBC [place] % (Auto) Lymph # (Auto) Seg Neutrophils % D-Dimer 1054.48 H POC ABG pO2 ABG Oxyhemoglobin ABG Chloride ABG Glucose Carboxyhemoglobin Sodium Potassium Chloride Carbon Dioxide BUN Creatinine Glucose POC Glucose 152 H Calcium Ferritin 1717.0 H AST ALT Lactate Dehydrogenase C-Reactive Protein Total Protein Albumin Arterial Blood Glucose Arterial Blood Ionized Calcium Valproic Acid Coronavirus (PCR) 03/10/21 03/10/21 03/11/21 18:13 23:15 05:35 WBC [place] % (Auto) Lymph # (Auto) Seg Neutrophils % D-Dimer POC ABG pO2 ABG Oxyhemoglobin ABG Chloride ABG Glucose Carboxyhemoglobin Sodium Potassium Chloride Carbon Dioxide BUN Creatinine Glucose POC Glucose 152 H 134 H Calcium Ferritin AST ALT Lactate Dehydrogenase 1242 H C-Reactive Protein 8.40 H Total Protein Albumin Arterial Blood Glucose Arterial Blood Ionized Calcium Valproic Acid Coronavirus (PCR) 03/11/21 03/11/21 03/11/21 06:56 11:41 23:24 WBC [place] % (Auto) Lymph # (Auto) Seg Neutrophils % D-Dimer POC ABG pO2 ABG Oxyhemoglobin ABG Chloride ABG Glucose Carboxyhemoglobin Sodium 151 H Potassium Chloride 110.7 H Carbon Dioxide BUN 27 H Creatinine Glucose 153 H POC Glucose 115 H 141 H Calcium 7.8 L Ferritin AST 53 H ALT Lactate Dehydrogenase C-Reactive Protein 6.60 H Total Protein 6.2 L Albumin 3.5 L Arterial Blood Glucose Arterial Blood Ionized Calcium Valproic Acid Coronavirus (PCR) 03/12/21 03/12/21 04:46 05:03 WBC [place] % (Auto) Lymph # (Auto) Seg Neutrophils % D-Dimer POC ABG pO2 ABG Oxyhemoglobin ABG Chloride ABG Glucose Carboxyhemoglobin Sodium 147 H Potassium 5.6 H D Chloride 114.3 H Carbon Dioxide 20 L D BUN 33 H Creatinine Glucose 166 H POC Glucose 161 H Calcium 7.9 L Ferritin AST 66 H ALT Lactate Dehydrogenase C-Reactive Protein Total Protein 5.8 L Albumin 2.5 L Arterial Blood Glucose Arterial Blood Ionized Calcium Valproic Acid Coronavirus (PCR) Chest x-ray: image reviewed (slightly improved infiltrates) Allied health notes reviewed: nursing
--- NOTE | 2021-03-12 12:50 | Progress Note ---
Assessment and Plan Cultures: SARS CoV2 PCR: Positive 03/09/2021 blood culture: No growth A/P: 60-year-old female with COPD, hypertension, seizure disorder, arthritis: #Bilateral pneumonia: Secondary to COVID-19. Severe disease #Acute hypoxic respiratory failure: Secondary to above. On BiPAP. #Transaminitis: Likely secondary to COVID-19 #Leukopenia: Likely related to viral illness #morbid obesity Recs: -Continue steroids, dosing per pulmonary -Continue remdesivir x 5 days -Status post Actemra 03/10/2021 -Prophylactic anticoagulation based on d-dimer per hospital protocol -trend ferritin, LDH, d-dimer, CRP every 2-3 days for risk stratification and to assess disease progression -poor prognosis Evonne Montoya MD, FACP [facility], [place], [facility] O: [phone] F: [phone] Subjective Date of service: 03/12/21 Principal diagnosis: Ac hypoxemic resp failure; COVID-19 infxn; PNA; Morbid obesity; Seizures Interval history: Afebrile. Remains on BiPAP Objective - Exam Narrative Exam: Physical Exam (reviewed in chart to minimize risk of transmission) Constitutional: deferred Head, Ears, Nose: deferred Eyes: deferred Neck: deferred Oral: deferred Cardiovascular: deferred Respiratory: deferred GI: deferred Musculoskeletal: deferred Skin: deferred Hem/Lymphatic: deferred Psych: deferred Neurological: deferred - Constitutional Vitals: Vital Signs Temp Pulse Resp BP Pulse Ox 98.1 F 94 H 23 180/83 98 03/12/21 03:46 03/12/21 12:47 03/12/21 12:29 03/12/21 12:47 03/12/21 12:29 Temperature -Last 24 Hours Temperature 98.1 F Temperature 99.0 F Temperature 99.1 F Temperature 98.3 F - Labs CBC & Chem 7: 03/12/21 04:46 03/12/21 04:46 Labs: Abnormal lab results 03/11/21 03/12/21 03/12/21 Range/Units 23:24 04:46 05:03 Sodium 147 H (137-145) mmol/L Potassium 5.6 H D (3.6-5.0) mmol/L Chloride 114.3 H (98-107) mmol/L Carbon Dioxide 20 L D (22-30) mmol/L BUN 33 H (7-17) mg/dL Glucose 166 H (65-100) mg/dL POC Glucose 141 H 161 H (70-105) mg/dL Calcium 7.9 L (8.4-10.2) mg/dL AST 66 H (5-40) units/L Total Protein 5.8 L (6.3-8.2) g/dL Albumin 2.5 L (3.9-5) g/dL 03/12/21 Range/Units 12:10 Sodium (137-145) mmol/L Potassium (3.6-5.0) mmol/L Chloride (98-107) mmol/L Carbon Dioxide (22-30) mmol/L BUN (7-17) mg/dL Glucose (65-100) mg/dL POC Glucose 166 H (70-105) mg/dL Calcium (8.4-10.2) mg/dL AST (5-40) units/L Total Protein (6.3-8.2) g/dL Albumin (3.9-5) g/dL
[2021-03-12] MEDS ORDERED: SODIUM POLYSTYRENE 15 GM/60 ML ORAL LIQD PR ONE (14:00)
[2021-03-12 14:03] LABS: Platelet Count 31 K/mm3 (140-440)
[2021-03-12] MEDS ORDERED: SODIUM CHLORIDE 0.9% 1000 ML 1,000 ML ONE (15:02)
--- NOTE | 2021-03-12 15:44 | Procedure Note ---
Date of procedure: 03/12/21 Pre-op diagnosis: acute hypoxic resp distress, covid pna Post-op diagnosis: same Procedure: [place] left radial janeen inserted using sterile technique. Ulnar pulse palpable. Johnathan test completed. Area prepped with chlorhexidine and the site was infiltrated with 1ml 1% lidocaine. Arterial line was placed using ultrasound; catheter advanced without difficulty. Line was sutured, biopatch placed and tegaderm dressing applied. Arm board placed. Arterial waveform observed on bedside monitor. Line flushed and zeroed. RN at bedside. Pt tolerated procedure well. critical care time 60min critical care time not included in daily CCT Anesthesia: local Surgeon: NIA ESPINOSA [employer] Foreman: CORY MARTINEZ Estimated blood loss: minimal Condition: critical Disposition: ICU
--- NOTE | 2021-03-12 15:51 | Procedure Note ---
Date of procedure: 03/12/21 Pre-op diagnosis: covid pna, acute hypoxic respiratory distress Post-op diagnosis: same Procedure: 2 MD consent for central venous catheter - pt in acute respiratory failure and needs vascular access Dr De La Torre and Dr Forte aware. Unable to place PICC and midline placed yesterday is infiltrated L IJ central venous catheter placed, over the wire without difficulty. Sterile technique utilized. Area prepped with chlorhexidine/ full body drape utilized. Line was sutured, biopatch placed and tegaderm dressing applied. Chest xray to confirm placement. No pneumothorax. RN called to bedside. Pt tolerated procedure well. VS remained stable throughout procedure. critical care time: 60 minutes (time spent placing line not included in daily critical care time) Surgeon: NIA ESPINOSA Escort Vehicle Driver: CORY MARTINEZ Estimated blood loss: minimal Condition: critical Disposition: ICU
--- NOTE | 2021-03-12 16:13 | XRay Report ---
CHEST - 1 VIEW INDICATION: line placement COMPARISON: Earlier today FINDINGS: SUPPORT DEVICES: New left IJ CVL with tip in the SVC. HEART: Stable cardiomediastinal silhouette. LUNGS/PLEURA: Persistent mild patchy multifocal airspace disease with no pneumothorax or pleural eff usion. ADDITIONAL FINDINGS: None. IMPRESSION: New left IJ CVL in satisfactory position. No complication. Unchanged pulmonary findings. Signer Name: Scott Gonsalves MD Signed: 03/12/2021 4:09 PM Workstation Name: [id number]
--- NOTE | 2021-03-12 19:25 | Progress Note ---
<NIA ESPINOSAAna María - Last Filed: 03/12/21 19:29> Assessment and Plan Assessment and plan: 60-year-old female with seizure disorder, COPD, HTN and TBI admitted for covid 19 pui with acute hypoxic resp failure. Neuro: Seizure disorder, h/x TBI -Last seizure was 20 years ago -Continue Depakote but discontinue Tegretol and IV Keppra -Depakote may be reduced to twice a day -Neurology following CV: HTN -Prn IV hydral and labatalol -SR on monitor -BP monitoring via janeen placed today -May need clonidine patch Resp: Acute respiratory failure with hypoxia, ARDs, COVID PNA, COPD -on continuous bipap -SPo2 monitoring -Pulm hygenie -Prone as tolerated GI: NPO, MO, Transaminitis -D5 IVF -lifestyle and dietary changes needed on dc -BR; sennakot -24 hours +517 -PPI -Trend LFTS : Hyperkalemia -strict I/O -follow electrolytes -trend cr -hyperkalemia treated medically Endo: Hyperglycemia -SSI -BG q4 while npo Heme: elevated d-dimer -Eliquis -SCDs to BLE while in bed -BLE Doppler US pending ID-Covid19 pneumonia, leukopenia (resolved) -ID following -Continue steroids, dosing per pulmonary -Continue remdesivir -Status post Actemra 03/10/2021 -trend ferritin, LDH, d-dimer, CRP every 2-3 days for risk stratification and to assess disease progression -droplet/isolation precautions -Prone as tolerated The high probability of a clinically significant, sudden or life threatening deterioration of the [all] system(s) required my full and direct attention, intervention and personal management. The aggregate critical care time was [60] minutes. This time is in addition to time spent performing reported procedures but includes the following: [x] Data Review and interpretation [x] Patient assessment and monitoring of vital signs [x] Documentation [x] Medication orders and management Disposition Plan: icu Total Time Spent with Patient (Minutes): 60 History Interval history: This is 60-year-old female with seizure disorder and TBI brought into the emergency room by EMS for evaluation of shortness of breath ongoing for the past few days. Oxygen saturation was about 50% on room air upon arrival of EMS. She was subsequently placed on nonrebreather with improvement of oxygen satu ration to about 88%. She was subsequently placed on BiPAP upon arrival in the emergency room. She was initially confused upon arrival in the emergency room but became more responsive upon placement on BiPAP. Work-up in the emergency room showed labs were significant for elevated liver enzymes with AST of 79 ALT 62. Chest x-ray reveals severe bilateral airspace pneumonia. Patient admitted for covid 19 pui with acute hypoxic resp failure. 03/10/2021 Patient is Covid positive And acute respiratory failure with hypoxia Neurology and educational institution president consult appreciated ID consult appreciated mainly Seizure medication changed 03-11 no acute events overnight 03/12: unable to gain IV access, IV placed by PICC team was infiltrated today. CVL and janeen placed today Hospitalist Physical - Constitutional Vitals: Temp Pulse Resp BP Pulse Ox 97.3 F L 97 H 20 170/95 94 03/12/21 12:00 03/12/21 16:00 03/12/21 16:00 03/12/21 16:00 03/12/21 17:42 General appearance: Present: no acute distress, well-nourished - EENT Eyes: Present: PERRL ENT: clear oral mucosa - Neck Neck: Present: normal ROM - Respiratory Respiratory effort: normal Respiratory: bilateral: diminished - Extremities Extremities: no ischemia, pulses intact, pulses symmetrical, No edema, normal temperature, normal color Peripheral Pulses: within normal limits - Abdominal General gastrointestinal: soft, non-tender, non-distended - Integumentary Integumentary: Present: warm, dry - Psychiatric Psychiatric: depressed - Neurologic Neurologic: other - Allied Health Allied health notes reviewed: nursing, RT, social work Results - Labs CBC & Chem 7: 03/12/21 04:46 03/12/21 04:46 Labs: Laboratory Last Values WBC 6.6 K/mm3 (4.5-11.0) 03/12/21 04:46 RBC 4.15 M/mm3 (3.65-5.03) 03/12/21 04:46 Hgb 12.9 gm/dl (10.1-14.3) 03/12/21 04:46 Hct 39.2 % (30.3-42.9) 03/12/21 04:46 MCV 95 fl (79-97) 03/12/21 04:46 MCH 31 pg (28-32) 03/12/21 04:46 MCHC 33 % (30-34) 03/12/21 04:46 RDW 13.4 % (13.2-15.2) 03/12/21 04:46 Plt Count 31 K/mm3 (140-440) L 03/12/21 04:46 Lymph % (Auto) 15.7 % (13.4-35.0) 03/10/21 05:02 Hitchcock % (Auto) 5.2 % (0.0-7.3) 03/10/21 05:02 Eos % (Auto) 0.0 % (0.0-4.3) 03/10/21 05:02 Baso % (Auto) 0.1 % (0.0-1.8) 03/10/21 05:02 Lymph # (Auto) 0.5 K/mm3 (1.2-5.4) L 03/10/21 05:02 Hitchcock # (Auto) 0.2 K/mm3 (0.0-0.8) 03/10/21 05:02 Eos # (Auto) 0.0 K/mm3 (0.0-0.4) 03/10/21 05:02 Baso # (Auto) 0.0 K/mm3 (0.0-0.1) 03/10/21 05:02 Seg Neutrophils % 79.0 % (40.0-70.0) H 03/10/21 05:02 Seg Neutrophils # 2.8 K/mm3 (1.8-7.7) 03/10/21 05:02 PT 13.8 Sec. (12.2-14.9) 03/10/21 05:02 INR 1.01 (0.87-1.13) 03/10/21 05:02 D-Dimer > 15088 ng/mlDDU (0-234) H 03/12/21 16:30 ABG pH 7.389 (7.320-7.450) 03/10/21 13:48 POC ABG pCO2 44.0 mmHg (32.0-48.0) 03/10/21 13:48 POC ABG pO2 43.6 mmHg (83-108) L 03/10/21 13:48 POC ABG HCO3 26.0 03/10/21 13:48 ABG O2 Saturation 77.7 (0-100) 03/10/21 13:48 POC ABG Base Excess 0.7 03/10/21 13:48 ABG Hemoglobin 12.6 (12.0-17.5) 03/10/21 13:48 ABG Oxyhemoglobin 77.3 (94-98) L 03/10/21 13:48 ABG Methemoglobin 0.3 (0.0-1.5) 03/10/21 13:48 ABG Sodium 144.1 mmol/L (136.0-145.0) 03/10/21 13:48 ABG Potassium 3.6 mmol/L (3.40-4.50) 03/10/21 13:48 ABG Chloride 110.0 mmol/L (98-107) H 03/10/21 13:48 ABG Glucose 174 mg/dL (65-95) H 03/10/21 13:48 Carboxyhemoglobin 0.2 (0.5-1.5) L 03/10/21 13:48 FiO2 % 100.0 03/10/21 13:48 Sodium 147 mmol/L (137-145) H 03/12/21 04:46 Potassium 5.6 mmol/L (3.6-5.0) H D 03/12/21 04:46 Chloride 114.3 mmol/L (98-107) H 03/12/21 04:46 Carbon Dioxide 20 mmol/L (22-30) L D 03/12/21 04:46 Anion Gap 18 mmol/L 03/12/21 04:46 BUN 33 mg/dL (7-17) H 03/12/21 04:46 Creatinine 0.9 mg/dL (0.6-1.2) 03/12/21 04:46 Estimated GFR > 60 ml/min 03/12/21 04:46 BUN/Creatinine Ratio 37 % 03/12/21 04:46 Glucose 166 mg/dL (65-100) H 03/12/21 04:46 POC Glucose 159 mg/dL (70-105) H 03/12/21 17:28 Lactic Acid 1.30 mmol/L (0.7-2.0) 03/10/21 10:19 Calcium 7.9 mg/dL (8.4-10.2) L 03/12/21 04:46 Ferritin 1208.0 ng/mL (10.0-200.0) H 03/12/21 16:30 Total Bilirubin 0.40 mg/dL (0.1-1.2) 03/12/21 04:46 AST 66 units/L (5-40) H 03/12/21 04:46 ALT 31 units/L (7-56) 03/12/21 04:46 Alkaline Phosphatase 104 units/L (35-129) 03/12/21 04:46 Lactate Dehydrogenase 1242 units/L (91-180) H 03/10/21 18:13 C-Reactive Protein 6.60 mg/dL (0.00-1.30) H 03/11/21 06:56 Total Protein 5.8 g/dL (6.3-8.2) L 03/12/21 04:46 Albumin 2.5 g/dL (3.9-5) L 03/12/21 04:46 Albumin/Globulin Ratio 0.8 % 03/12/21 04:46 Procalcitonin < 0.05 ng/mL (<0.15) 03/10/21 10:19 Arterial Blood Glucose 174 mg/dL (65-95) H 03/10/21 13:48 Arterial Blood Ionized Calcium 4.1 mg/dL (4.6-5.3) L 03/10/21 13:48 Urine Color Cherelle (Yellow) 03/09/21 04:48 Urine Turbidity Clear (Clear) 03/09/21 04:48 Urine pH 5.0 (5.0-7.0) 03/09/21 04:48 Ur Specific [place] 1.020 (1.003-1.030) 03/09/21 04:48 Urine Protein 100 mg/dl mg/dL (Negative) 03/09/21 04:48 Urine Glucose (UA) Neg mg/dL (Negative) 03/09/21 04:48 Urine Ketones Tr mg/dL (Negative) 03/09/21 04:48 Urine Blood Neg (Negative) 03/09/21 04:48 Urine Nitrite Neg (Negative) 03/09/21 04:48 Urine Bilirubin Neg (Negative) 03/09/21 04:48 Urine Urobilinogen 4.0 mg/dL (<2.0) 03/09/21 04:48 Ur Leukocyte Esterase Sm (Negative) 03/09/21 04:48 Urine WBC (Auto) 6.0 /HPF (0.0-6.0) 03/09/21 04:48 Urine RBC (Auto) 5.0 /HPF (0.0-6.0) 03/09/21 04:48 U Epithel Cells (Auto) 2.0 /HPF (0-13.0) 03/09/21 04:48 Urine Bacteria (Auto) 2+ /HPF (Negative) 03/09/21 04:48 Urine Mucus Few /HPF 03/09/21 04:48 Valproic Acid 9.7 ug/mL (50-100) L 03/09/21 00:26 Coronavirus (PCR) Positive (Negative) A 03/09/21 Unknown Microbiology: Microbiology 03/09/21 00:20 Peripheral/Venous Blood Culture - Preliminary NO GROWTH AFTER 72 HOURS 03/09/21 00:26 Peripheral/Venous Blood Culture - Preliminary NO GROWTH AFTER 72 HOURS Thacker/IV: Voiding Method External Female Catheter Active Medications - Current Medications Current Medications: Generic Name Dose Route Start Last Admin Trade Name Freq PRN Reason Stop Dose Admin Acetaminophen 1,000 mg 03/09/21 15:00 Acetaminophen 500 Mg Tab PO Q6HR PRN Pain , Severe (7-10) Albuterol 2.5 mg 03/09/21 02:28 Albuterol 2.5 Mg/3 Ml Nebu IH Q4HRT PRN Shortness Of Breath Alprazolam 1 mg 03/09/21 14:05 Alprazolam 1 Mg Tab PO TID PRN Anxiety Ascorbic Acid 500 mg 03/09/21 22:00 03/12/21 09:33 Ascorbic Acid 500 Mg Tab PO 500 mg BID CAMERON Administration Aspirin 81 mg 03/09/21 15:00 03/12/21 09:32 Aspirin 81 Mg Tab Chew PO 81 mg QDAY CAMERON Administration Atenolol 25 mg 03/09/21 15:00 03/12/21 09:33 Atenolol 25 Mg Tab PO 25 mg DAILY CAMERON Administration Clonidine HCl 0.1 mg 03/11/21 04:56 Clonidine 0.1 Mg Tab PO Q4H PRN systolic bp greater than 160 Dextrose 50 ml 03/10/21 11:29 Dextrose 50% In Water (25gm) 50 Ml Syringe IV Q30MIN PRN Hypoglycemia Protocol Diphenhydramine HCl 25 mg 03/09/21 15:00 Diphenhydramine 25 Mg Cap PO Q6HR PRN Itching Enoxaparin Sodium 40 mg 03/09/21 22:00 03/11/21 22:14 Enoxaparin 40 Mg/0.4 Ml Inj SUB-Q 40 mg QDAY@2200 [facility] Administration Protocol Hydralazine HCl 10 mg 03/11/21 08:32 03/12/21 12:47 Hydralazine 20 Mg/1 Ml Inj IV 10 mg Q4HR PRN Administration Hypertension Valproate Sodium 500 mg/ 105 mls @ 100 mls/hr 03/09/21 16:00 03/12/21 16:12 Sodium Chloride IV 100 mls/hr Q8H CAMERON Administration REMDESIVIR 100 mg/ Sodium 250 mls @ 500 mls/hr 03/10/21 21:00 03/11/21 22:13 Chloride IV 03/13/21 21:29 500 mls/hr Q24HR@2100 [facility] [place] Administration Dexmedetomidine HCl 400 mcg/ 104 mls @ 8.46 mls/hr 03/11/21 14:00 03/12/21 12:40 Sodium Chloride IV 0.4 mcg/kg/hr TITRATE CAMERON 16.921 mls/hr Administration Protocol 0.2 MCG/KG/HR Insulin Human Regular 0 units 03/10/21 12:00 03/12/21 18:46 Insulin Regular, Human 100 Units/1 Ml SUB-Q Not Given Q6H [facility] [place] Protocol Labetalol HCl 10 mg 03/11/21 08:32 03/12/21 04:16 Labetalol 20 Mg/4 Ml Inj IV 10 mg Q6HR PRN Administration Hypertension Magnesium Hydroxide 30 ml 03/09/21 02:28 Magnesium Hydroxide (Mom) Oral Liqd Udc PO Q4H PRN Constipation Methylprednisolone Sodium Succinate 110 mg 03/09/21 22:00 03/12/21 16:09 Methylprednisolone Sod Succinate 125 Mg/2 Ml Inj IV 110 mg Q8HR [facility] Administration Morphine Sulfate 2 mg 03/09/21 02:28 Morphine 2 Mg/1 Ml Inj IV Q4H PRN Pain, Moderate (4-6) Morphine Sulfate 4 mg 03/09/21 02:28 03/12/21 04:15 Morphine 4 Mg/1 Ml Inj IV 4 mg Q4H PRN Administration Pain , Severe (7-10) Nystatin 1 applic 03/09/21 15:00 03/12/21 09:40 Nystatin Oint 15 Gm TP 1 applic BID CAMERON Administration Ondansetron HCl 4 mg 03/09/21 02:28 Ondansetron 4 Mg/2 Ml Inj IV Q8H PRN Nausea And Vomiting Sodium Chloride 10 ml 03/09/21 10:00 03/12/21 09:41 Sodium Chloride 0.9% 10 Ml Flush Syringe IV 10 ml BID CAMERON Administration Sodium Chloride 10 ml 03/09/21 02:28 Sodium Chloride 0.9% 10 Ml Flush Syringe IV PRN PRN LINE FLUSH Sodium Chloride 50 ml 03/09/21 21:00 03/11/21 22:14 Sodium Chloride 0.9% 50 Ml Ivpb IV 03/13/21 21:01 50 ml Q24HR@2100 [facility] Administration Zinc Sulfate 220 mg 03/09/21 22:00 03/12/21 09:32 Zinc Sulfate 220 Mg Cap PO 220 mg BID CAMERON Administration <TETO HATCH - Last Filed: 03/12/21 20:11> Assessment and Plan Assessment and plan: I saw and evaluated the patient. Discussed with the nurse practitioner and agree with their findings and plan as documented in this note. Hospitalist Physical - Constitutional Vitals: Temp Pulse Resp BP Pulse Ox 97.3 F L 96 H 24 159/97 82 L 03/12/21 12:00 03/12/21 19:00 03/12/21 19:00 03/12/21 19:00 03/12/21 19:00 Results - Labs CBC & Chem 7: 03/12/21 04:46 03/12/21 04:46 Labs: Laboratory Last Values WBC 6.6 K/mm3 (4.5-11.0) 03/12/21 04:46 RBC 4.15 M/mm3 (3.65-5.03) 03/12/21 04:46 Hgb 12.9 gm/dl (10.1-14.3) 03/12/21 04:46 Hct 39.2 % (30.3-42.9) 03/12/21 04:46 MCV 95 fl (79-97) 03/12/21 04:46 MCH 31 pg (28-32) 03/12/21 04:46 MCHC 33 % (30-34) 03/12/21 04:46 RDW 13.4 % (13.2-15.2) 03/12/21 04:46 Plt Count 31 K/mm3 (140-440) L 03/12/21 04:46 Lymph % (Auto) 15.7 % (13.4-35.0) 03/10/21 05:02 Hitchcock % (Auto) 5.2 % (0.0-7.3) 03/10/21 05:02 Eos % (Auto) 0.0 % (0.0-4.3) 03/10/21 05:02 Baso % (Auto) 0.1 % (0.0-1.8) 03/10/21 05:02 Lymph # (Auto) 0.5 K/mm3 (1.2-5.4) L 03/10/21 05:02 Hitchcock # (Auto) 0.2 K/mm3 (0.0-0.8) 03/10/21 05:02 Eos # (Auto) 0.0 K/mm3 (0.0-0.4) 03/10/21 05:02 Baso # (Auto) 0.0 K/mm3 (0.0-0.1) 03/10/21 05:02 Seg Neutrophils % 79.0 % (40.0-70.0) H 03/10/21 05:02 Seg Neutrophils # 2.8 K/mm3 (1.8-7.7) 03/10/21 05:02 PT 13.8 Sec. (12.2-14.9) 03/10/21 05:02 INR 1.01 (0.87-1.13) 03/10/21 05:02 D-Dimer > 83925 ng/mlDDU (0-234) H 03/12/21 16:30 ABG pH 7.389 (7.320-7.450) 03/10/21 13:48 POC ABG pCO2 44.0 mmHg (32.0-48.0) 03/10/21 13:48 POC ABG pO2 43.6 mmHg (83-108) L 03/10/21 13:48 POC ABG HCO3 26.0 03/10/21 13:48 ABG O2 Saturation 77.7 (0-100) 03/10/21 13:48 POC ABG Base Excess 0.7 03/10/21 13:48 ABG Hemoglobin 12.6 (12.0-17.5) 03/10/21 13:48 ABG Oxyhemoglobin 77.3 (94-98) L 03/10/21 13:48 ABG Methemoglobin 0.3 (0.0-1.5) 03/10/21 13:48 ABG Sodium 144.1 mmol/L (136.0-145.0) 03/10/21 13:48 ABG Potassium 3.6 mmol/L (3.40-4.50) 03/10/21 13:48 ABG Chloride 110.0 mmol/L (98-107) H 03/10/21 13:48 ABG Glucose 174 mg/dL (65-95) H 03/10/21 13:48 Carboxyhemoglobin 0.2 (0.5-1.5) L 03/10/21 13:48 FiO2 % 100.0 03/10/21 13:48 Sodium 147 mmol/L (137-145) H 03/12/21 04:46 Potassium 5.6 mmol/L (3.6-5.0) H D 03/12/21 04:46 Chloride 114.3 mmol/L (98-107) H 03/12/21 04:46 Carbon Dioxide 20 mmol/L (22-30) L D 03/12/21 04:46 Anion Gap 18 mmol/L 03/12/21 04:46 BUN 33 mg/dL (7-17) H 03/12/21 04:46 Creatinine 0.9 mg/dL (0.6-1.2) 03/12/21 04:46 Estimated GFR > 60 ml/min 03/12/21 04:46 BUN/Creatinine Ratio 37 % 03/12/21 04:46 Glucose 166 mg/dL (65-100) H 03/12/21 04:46 POC Glucose 159 mg/dL (70-105) H 03/12/21 17:28 Lactic Acid 1.30 mmol/L (0.7-2.0) 03/10/21 10:19 Calcium 7.9 mg/dL (8.4-10.2) L 03/12/21 04:46 Ferritin 1208.0 ng/mL (10.0-200.0) H 03/12/21 16:30 Total Bilirubin 0.40 mg/dL (0.1-1.2) 03/12/21 04:46 AST 66 units/L (5-40) H 03/12/21 04:46 ALT 31 units/L (7-56) 03/12/21 04:46 Alkaline Phosphatase 104 units/L (35-129) 03/12/21 04:46 Lactate Dehydrogenase 1242 units/L (91-180) H 03/10/21 18:13 C-Reactive Protein 6.60 mg/dL (0.00-1.30) H 03/11/21 06:56 Total Protein 5.8 g/dL (6.3-8.2) L 03/12/21 04:46 Albumin 2.5 g/dL (3.9-5) L 03/12/21 04:46 Albumin/Globulin Ratio 0.8 % 03/12/21 04:46 Procalcitonin < 0.05 ng/mL (<0.15) 03/10/21 10:19 Arterial Blood Glucose 174 mg/dL (65-95) H 03/10/21 13:48 Arterial Blood Ionized Calcium 4.1 mg/dL (4.6-5.3) L 03/10/21 13:48 Urine Color Cherelle (Yellow) 03/09/21 04:48 Urine Turbidity Clear (Clear) 03/09/21 04:48 Urine pH 5.0 (5.0-7.0) 03/09/21 04:48 Ur Specific [place] 1.020 (1.003-1.030) 03/09/21 04:48 Urine Protein 100 mg/dl mg/dL (Negative) 03/09/21 04:48 Urine Glucose (UA) Neg mg/dL (Negative) 03/09/21 04:48 Urine Ketones Tr mg/dL (Negative) 03/09/21 04:48 Urine Blood Neg (Negative) 03/09/21 04:48 Urine Nitrite Neg (Negative) 03/09/21 04:48 Urine Bilirubin Neg (Negative) 03/09/21 04:48 Urine Urobilinogen 4.0 mg/dL (<2.0) 03/09/21 04:48 Ur Leukocyte Esterase Sm (Negative) 03/09/21 04:48 Urine WBC (Auto) 6.0 /HPF (0.0-6.0) 03/09/21 04:48 Urine RBC (Auto) 5.0 /HPF (0.0-6.0) 03/09/21 04:48 U Epithel Cells (Auto) 2.0 /HPF (0-13.0) 03/09/21 04:48 Urine Bacteria (Auto) 2+ /HPF (Negative) 03/09/21 04:48 Urine Mucus Few /HPF 03/09/21 04:48 Valproic Acid 9.7 ug/mL (50-100) L 03/09/21 00:26 Coronavirus (PCR) Positive (Negative) A 03/09/21 Unknown Microbiology: Microbiology 03/09/21 00:20 Peripheral/Venous Blood Culture - Preliminary NO GROWTH AFTER 72 HOURS 03/09/21 00:26 Peripheral/Venous Blood Culture - Preliminary NO GROWTH AFTER 72 HOURS Thacker/IV: Voiding Method External Female Catheter Active Medications - Current Medications Current Medications: Generic Name Dose Route Start Last Admin Trade Name Freq PRN Reason Stop Dose Admin Acetaminophen 1,000 mg 03/09/21 15:00 Acetaminophen 500 Mg Tab PO Q6HR PRN Pain , Severe (7-10) Albuterol 2.5 mg 03/09/21 02:28 Albuterol 2.5 Mg/3 Ml Nebu IH Q4HRT PRN Shortness Of Breath Alprazolam 1 mg 03/09/21 14:05 Alprazolam 1 Mg Tab PO TID PRN Anxiety Ascorbic Acid 500 mg 03/09/21 22:00 03/12/21 09:33 Ascorbic Acid 500 Mg Tab PO 500 mg BID CAMERON Administration Aspirin 81 mg 03/09/21 15:00 03/12/21 09:32 Aspirin 81 Mg Tab Chew PO 81 mg QDAY CAMERON Administration Atenolol 25 mg 03/09/21 15:00 03/12/21 09:33 Atenolol 25 Mg Tab PO 25 mg DAILY [facility]ERON Administration Clonidine HCl 0.1 mg 03/11/21 04:56 Clonidine 0.1 Mg Tab PO Q4H PRN systolic bp greater than 160 Dextrose 50 ml 03/10/21 11:29 Dextrose 50% In Water (25gm) 50 Ml Syringe IV Q30MIN PRN Hypoglycemia Protocol Diphenhydramine HCl 25 mg 03/09/21 15:00 Diphenhydramine 25 Mg Cap PO Q6HR PRN Itching Enoxaparin Sodium 40 mg 03/09/21 22:00 03/11/21 22:14 Enoxaparin 40 Mg/0.4 Ml Inj SUB-Q 40 mg QDAY@2200 [facility] [place] Administration Protocol Hydralazine HCl 10 mg 03/11/21 08:32 03/12/21 12:47 Hydralazine 20 Mg/1 Ml Inj IV 10 mg Q4HR PRN Administration Hypertension Valproate Sodium 500 mg/ 105 mls @ 100 mls/hr 03/09/21 16:00 03/12/21 16:12 Sodium Chloride IV 100 mls/hr Q8H CAMERON Administration REMDESIVIR 100 mg/ Sodium 250 mls @ 500 mls/hr 03/10/21 21:00 03/11/21 22:13 Chloride IV 03/13/21 21:29 500 mls/hr Q24HR@2100 [facility] [place] Administration Dexmedetomidine HCl 400 mcg/ 104 mls @ 8.46 mls/hr 03/11/21 14:00 03/12/21 12:40 Sodium Chloride IV 0.4 mcg/kg/hr TITRATE CAMERON 16.921 mls/hr Administration Protocol 0.2 MCG/KG/HR Insulin Human Regular 0 units 03/10/21 12:00 03/12/21 18:46 Insulin Regular, Human 100 Units/1 Ml SUB-Q Not Given Q6H [facility] [place] Protocol Labetalol HCl 10 mg 03/11/21 08:32 03/12/21 04:16 Labetalol 20 Mg/4 Ml Inj IV 10 mg Q6HR PRN Administration Hypertension Magnesium Hydroxide 30 ml 03/09/21 02:28 Magnesium Hydroxide (Mom) Oral Liqd Udc PO Q4H PRN Constipation Methylprednisolone Sodium Succinate 110 mg 03/09/21 22:00 03/12/21 16:09 Methylprednisolone Sod Succinate 125 Mg/2 Ml Inj IV 110 mg Q8HR [facility]ON Administration Morphine Sulfate 2 mg 03/09/21 02:28 Morphine 2 Mg/1 Ml Inj IV Q4H PRN Pain, Moderate (4-6) Morphine Sulfate 4 mg 03/09/21 02:28 03/12/21 04:15 Morphine 4 Mg/1 Ml Inj IV 4 mg Q4H PRN Administration Pain , Severe (7-10) Nystatin 1 applic 03/09/21 15:00 03/12/21 09:40 Nystatin Oint 15 Gm TP 1 applic BID [facility]ERON Administration Ondansetron HCl 4 mg 03/09/21 02:28 Ondansetron 4 Mg/2 Ml Inj IV Q8H PRN Nausea And Vomiting Sodium Chloride 10 ml 03/09/21 10:00 03/12/21 09:41 Sodium Chloride 0.9% 10 Ml Flush Syringe IV 10 ml BID [facility]ERON Administration Sodium Chloride 10 ml 03/09/21 02:28 Sodium Chloride 0.9% 10 Ml Flush Syringe IV PRN PRN LINE FLUSH Sodium Chloride 50 ml 03/09/21 21:00 03/11/21 22:14 Sodium Chloride 0.9% 50 Ml Ivpb IV 03/13/21 21:01 50 ml Q24HR@2100 [facility] Administration Zinc Sulfate 220 mg 03/09/21 22:00 03/12/21 09:32 Zinc Sulfate 220 Mg Cap PO 220 mg BID CAMERON Administration
[2021-03-13] MEDS: methylPREDNISolone Sod Succinate 125 MG/2 ML INJ IV SCH ×5 (01:00→21:36)
[2021-03-13] MEDS: INSULIN REGULAR, HUMAN 100 UNITS/1 ML SUB-Q SCH ×5 (01:45→18:05)
[2021-03-13] MEDS: ASCORBIC ACID 500 MG TAB PO SCH ×3 (01:46→21:37)
[2021-03-13] MEDS: ZINC SULFATE 220 MG CAP PO SCH ×3 (01:46→21:37)
[2021-03-13] MEDS: ENOXAPARIN 40 MG/0.4 ML INJ SUB-Q SCH (02:00)
[2021-03-13] MEDS: VALPROATE SODIUM 500 MG in SODIUM CHLORIDE 0.9% 100 ML IV SCH ×4 (02:01→21:35)
[2021-03-13] MEDS: SODIUM CHLORIDE 0.9% 50 ML IVPB IV SCH ×3 (02:01→21:27)
[2021-03-13] MEDS: hydrALAZINE 20 MG/1 ML INJ IV PRN ×2 (02:05→18:03)
[2021-03-13] MEDS: MORPHINE 2 MG/1 ML INJ IV PRN ×2 (02:38→11:14)
[2021-03-13 05:20] LABS: Hematocrit 39.2 % (30.3-42.9); Hemoglobin 12.8 gm/dl (10.1-14.3); Mean Corpuscular HGB Conc 33 % (30-34); Mean Corpuscular Volume 94 fl (79-97); Red Blood Count 4.19 M/mm3 (3.65-5.03); Red Cell Distribution Width 13.4 % (13.2-15.2)
[2021-03-13 05:27] LABS: Platelet Count 56 K/mm3 (140-440)
[2021-03-13 05:37] LABS: Calcium 8.2 mg/dL (8.4-10.2)
[2021-03-13 05:38] LABS: C-Reactive Protein 1.7 mg/dL (0.00-1.30); Calcium 8.3 mg/dL (8.4-10.2)
[2021-03-13] MEDS: NYSTATIN OINT 15 GM TP SCH ×3 (06:19→21:34)
[2021-03-13] MEDS: REMDESIVIR 100 MG in SODIUM CHLORIDE 0.9% 250ML 250 ML IV SCH ×2 (06:22→21:26)
[2021-03-13] MEDS: atenoloL 25 MG TAB PO SCH (09:48)
[2021-03-13] MEDS: ASPIRIN 81 MG TAB CHEW PO SCH (09:54)
[2021-03-13] MEDS ORDERED: DEXTROSE 5% IN WATER 1,000 ML IV SCH (10:00)
--- NOTE | 2021-03-13 10:55 | Progress Note ---
Assessment and Plan Cultures: SARS CoV2 PCR: Positive 03/09/2021 blood culture: No growth A/P: 60-year-old female with COPD, hypertension, seizure disorder, arthritis: #Bilateral pneumonia: Secondary to COVID-19. Severe disease #Acute hypoxic respiratory failure: Secondary to above. On HFNC/NRB. Was on BIPAP. #Transaminitis: Likely secondary to COVID-19 #Leukopenia: Likely related to viral illness #morbid obesity Recs: -Continue steroids, dosing per pulmonary -Continue remdesivir x 5 days -Status post Actemra 03/10/2021 -Prophylactic anticoagulation based on d-dimer per hospital protocol. D-dimer significantly worse, f/u VTE evaluation -trend ferritin, d-dimer, CRP every 2-3 days -poor prognosis Evonne Montoya MD, FACP [facility] O: [phone] F: [phone] Subjective Date of service: 03/13/21 Principal diagnosis: Ac hypoxemic resp failure; COVID-19 infxn; PNA; Morbid obesity; Seizures Interval history: No fever. On high flow nasal cannula, NRB. Labs show D-dimer greater than 10,0 00, CRP 1.7 Objective - Exam Narrative Exam: Physical Exam (reviewed in chart to minimize risk of transmission) Constitutional: deferred Head, Ears, Nose: deferred Eyes: deferred Neck: deferred Oral: deferred Cardiovascular: deferred Respiratory: deferred GI: deferred Musculoskeletal: deferred Skin: deferred Hem/Lymphatic: deferred Psych: deferred Neurological: deferred - Constitutional Vitals: Vital Signs Temp Pulse Resp BP Pulse Ox 97.6 F 100 H 22 180/90 94 03/13/21 08:01 03/13/21 09:48 03/13/21 08:00 03/13/21 09:48 03/13/21 09:59 Temperature -Last 24 Hours Temperature 97.6 F Temperature 98.1 F Temperature 98.0 F Temperature 97.3 F - Labs CBC & Chem 7: 03/13/21 04:17 03/13/21 04:17 Labs: Abnormal lab results 03/12/21 03/12/21 03/12/21 Range/Units 04:46 12:10 16:30 Plt Count 31 L (140-440) K/mm3 D-Dimer > 26130 H (0-234) ng/mlDDU Sodium (137-145) mmol/L Potassium (3.6-5.0) mmol/L Chloride (98-107) mmol/L BUN (7-17) mg/dL Glucose (65-100) mg/dL POC Glucose 166 H (70-105) mg/dL Calcium (8.4-10.2) mg/dL Ferritin (10.0-200.0) ng/mL Alkaline Phosphatase (35-129) units/L C-Reactive Protein (0.00-1.30) mg/dL Total Protein (6.3-8.2) g/dL Albumin (3.9-5) g/dL 03/12/21 03/12/21 03/12/21 Range/Units 16:30 17:28 23:49 Plt Count (140-440) K/mm3 D-Dimer (0-234) ng/mlDDU Sodium (137-145) mmol/L Potassium (3.6-5.0) mmol/L Chloride (98-107) mmol/L BUN (7-17) mg/dL Glucose (65-100) mg/dL POC Glucose 159 H 174 H (70-105) mg/dL Calcium (8.4-10.2) mg/dL Ferritin 1208.0 H (10.0-200.0) ng/mL Alkaline Phosphatase (35-129) units/L C-Reactive Protein (0.00-1.30) mg/dL Total Protein (6.3-8.2) g/dL Albumin (3.9-5) g/dL 03/13/21 03/13/21 03/13/21 Range/Units 04:17 04:17 04:17 Plt Count 56 L (140-440) K/mm3 D-Dimer (0-234) ng/mlDDU Sodium 157 H D 158 H (137-145) mmol/L Potassium 3.5 L D (3.6-5.0) mmol/L Chloride 119.2 H 120.2 H (98-107) mmol/L BUN 47 H 47 H (7-17) mg/dL Glucose 183 H 184 H (65-100) mg/dL POC Glucose (70-105) mg/dL Calcium 8.3 L 8.2 L (8.4-10.2) mg/dL Ferritin (10.0-200.0) ng/mL Alkaline Phosphatase 136 H (35-129) units/L C-Reactive Protein 1.70 H (0.00-1.30) mg/dL Total Protein 5.3 L (6.3-8.2) g/dL Albumin 3.0 L (3.9-5) g/dL 03/13/21 Range/Units 05:53 Plt Count (140-440) K/mm3 D-Dimer (0-234) ng/mlDDU Sodium (137-145) mmol/L Potassium (3.6-5.0) mmol/L Chloride (98-107) mmol/L BUN (7-17) mg/dL Glucose (65-100) mg/dL POC Glucose 180 H (70-105) mg/dL Calcium (8.4-10.2) mg/dL Ferritin (10.0-200.0) ng/mL Alkaline Phosphatase (35-129) units/L C-Reactive Protein (0.00-1.30) mg/dL Total Protein (6.3-8.2) g/dL Albumin (3.9-5) g/dL
--- NOTE | 2021-03-13 11:32 | Vascular Lab Report ---
DUPLEX DOPPLER LOWER EXTREMITY VEINS, BILATERAL INDICATION / CLINICAL INFORMATION: r/o dvt. Shortness of breath, Covid pneumonia, leg swelling TECHNIQUE: Duplex doppler imaging was performed through the veins of both lower extremities using venous xiomara randy and other maneuvers. COMPARISON: None available. FINDINGS: RIGHT COMMON FEMORAL VEIN: Negative. RIGHT FEMORAL VEIN: Negative. RIGHT POPLITEAL VEIN: Negative. RIGHT CALF VEINS: Negative. LEFT COMMON FEMORAL VEIN: Negative. LEFT FEMORAL VEIN: Negative. LEFT POPLITEAL VEIN: Negative. LEFT CALF VEINS: Negative. ADDITIONAL FINDINGS: None. IMPRESSION: 1. No sonographic evidence for DVT in either lower extremity. Signer Name: Alexander Mcmillan MD Signed: 03/13/2021 11:27 AM Workstation Name: [id number]
--- NOTE | 2021-03-13 14:31 | Progress Note ---
Assessment and Plan Acute hypoxemic respiratory failure ARDS COVID-19 infection Pneumonia Morbid obesity COPD HTN Chronic liver disease Seizure disorder ArthritisLeukopenia - stop Lovenox re: thrombocytopenia - send HIT assay - begin Aritra 2.5 mg SQ daily - awake proning counseled again - continue attempts to give breaks on vapotherm during the day as tolerated - continue to wean supplemental oxygen for target O2 sat's > 92% acutely - continue care as below otherwise; - continue accuchecks with glycemic control per SSI (While critically ill target blood glucose of 140-180 mg/dL; avoid hypoglycemia) - aspiration precautions - continue bronchodilators with pulmonary hygiene per RT - avoid nephrotoxins, renally dose all medications - Avoid benzodiazepine's, reduce the possibility of delirium - complete AB's per ID rec's - continue AED's for sizure disorder - prn analgesia per pain score - Maintenance of sleep-wake cycle, avoid delirium - G.I. & VTE prophylaxis - PT/OT/ROM exercises - continue mobility protocols for pressure ulcer prophylaxis - Monitor hemodynamics closely - continue other care per attending / other consultants - discharge planning ongoing concurrently COVID SPECIFIC INTERVENTIONS - Remdesivir as per ID/Pulmonary developed protocols (ordered) - continue systemic steroids for severe COVID-19 infection (Solumedrol) - follow repeat COVID tests results - zinc and vitamin C supplementation - Monitor inflammatory markers per facility protocol - ferritin, Ddimer, CRP - therapeutic anticoagulation per system Protocol based on d-dimer and clinical considerations (VTE prophylaxis) - Continue contact and airborne isolation .... Re-evaluate in am & prn CONDITION: CRITICAL PROGNOSIS: GUARDED CODE STATUS: FULL CODE The high probability of a clinically significant, sudden or life-threatening deterioration of the [respiratory, cardiovascular & neurologic] system(s) required my full and direct attention, intervention and personal management. The aggregate critical care time was [36] minutes without overlap. Time includes spent on; [x] Data Review and interpretation [x] Patient assessment and monitoring of vital signs [x] Documentation [x] Medication orders and management Subjective Date of service: 03/13/21 Principal diagnosis: Ac hypoxemic resp failure; COVID-19 infxn; PNA; Morbid obesity; Seizures Interval history: Patient is seen today for: Acute hypoxemic respiratory failure; ARDS; COVID-19 infection; Pneumonia; Morbid obesity; Seizure disorder Seen and examined at bedside; 24hour events reviewed; nursing and respiratory care staff consulted; no adverse overnight events reported to me; resting peacefully in bed; on 100% FiO2 but via vapotherm HFNC system and getting a break off BIPAP; denies N/V/F/C Objective Vital Signs - 12hr 03/13/21 03/13/21 03/13/21 02:38 03:00 04:00 Temperature 98.1 F Pulse Rate 106 H 86 Pulse Rate [ From Monitor] Respiratory 27 H 22 19 Rate Respiratory Rate [Leg] Blood Pressure 190/82 190/82 O2 Sat by Pulse 90 95 Oximetry 03/13/21 03/13/21 03/13/21 04:30 05:00 06:00 Temperature Pulse Rate 70 71 Pulse Rate [ From Monitor] Respiratory 19 23 22 Rate Respiratory Rate [Leg] Blood Pressure 190/82 190/82 O2 Sat by Pulse 96 93 94 Oximetry 03/13/21 03/13/21 03/13/21 07:00 08:00 08:01 Temperature 97.6 F Pulse Rate 68 90 Pulse Rate [ 90 From Monitor] Respiratory 19 25 H Rate Respiratory Rate [Leg] Blood Pressure 190/82 190/82 O2 Sat by Pulse 92 92 Oximetry 03/13/21 03/13/21 03/13/21 09:00 09:48 09:59 Temperature Pulse Rate 84 100 H Pulse Rate [ From Monitor] Respiratory 24 Rate Respiratory Rate [Leg] Blood Pressure 190/82 180/90 O2 Sat by Pulse 99 94 Oximetry 03/13/21 03/13/21 03/13/21 10:00 11:00 11:14 Temperature Pulse Rate 94 H 87 Pulse Rate [ From Monitor] Respiratory 24 23 26 H Rate Respiratory 26 H Rate [Leg] Blood Pressure 190/82 190/82 O2 Sat by Pulse 95 97 Oximetry 03/13/21 03/13/21 03/13/21 12:00 12:03 13:00 Temperature 98.1 F Pulse Rate 75 66 Pulse Rate [ 76 From Monitor] Respiratory 25 H 28 H Rate Respiratory Rate [Leg] Blood Pressure 190/82 190/82 O2 Sat by Pulse 97 92 Oximetry Constitutional: no acute distress, other (middle aged morbidly obese female with mildly increased respiratory effort at rest) Eyes: non-icteric ENT: oropharynx moist Neck: supple, no lymphadenopathy, no JVD, other (large circumference) Effort: mildly labored Ascultation: Bilateral: diminished breath sounds, rhonchi Percussion: Bilateral: not dull Cardiovascular: regular rate and rhythm Gastrointestinal: normoactive bowel sounds, soft, non-tender, non-distended (significantly protuberant) Integumentary: normal Extremities: no cyanosis, no edema, pink and warm, pulses normal Neurologic: normal mental status, non-focal exam, pupils equal and round, motor strength normal and Psychiatric: mood appropriate, affect normal, other (inappropriately flat affect) CBC and BMP: 03/14/21 06:30 03/14/21 06:30 ABG, PT/INR, D-dimer: ABG ABG pH 7.389 (7.320-7.450) 03/10/21 13:48 POC ABG pCO2 44.0 mmHg (32.0-48.0) 03/10/21 13:48 POC ABG pO2 43.6 mmHg (83-108) L 03/10/21 13:48 POC ABG HCO3 26.0 03/10/21 13:48 ABG O2 Saturation 77.7 (0-100) 03/10/21 13:48 PT/INR, D-dimer PT 13.8 Sec. (12.2-14.9) 03/10/21 05:02 INR 1.01 (0.87-1.13) 03/10/21 05:02 D-Dimer > 86020 ng/mlDDU (0-234) H 03/12/21 16:30 Abnormal lab findings: Abnormal Labs 03/09/21 03/09/21 03/09/21 00:26 00:26 00:26 WBC 2.[address] % (Auto) 9.5 H Lymph # (Auto) 0.5 L Seg Neutrophils % 74.5 H D-Dimer POC ABG pO2 ABG Oxyhemoglobin ABG Chloride ABG Glucose Carboxyhemoglobin Sodium Potassium Chloride Carbon Dioxide BUN Creatinine Glucose 135 H POC Glucose Calcium 7.3 L Ferritin AST 79 H ALT 62 H Alkaline Phosphatase Lactate Dehydrogenase C-Reactive Protein Total Protein Albumin 3.4 L Arterial Blood Glucose Arterial Blood Ionized Calcium Valproic Acid 9.7 L Coronavirus (PCR) 03/09/21 03/09/21 03/10/21 16:44 Unknown 05:02 WBC 3.[address] % (Auto) Lymph # (Auto) 0.5 L Seg Neutrophils % 79.0 H D-Dimer POC ABG pO2 ABG Oxyhemoglobin ABG Chloride ABG Glucose Carboxyhemoglobin Sodium Potassium Chloride Carbon Dioxide BUN Creatinine Glucose 127 H POC Glucose Calcium 7.5 L Ferritin AST 87 H ALT Alkaline Phosphatase Lactate Dehydrogenase C-Reactive Protein Total Protein Albumin 3.2 L Arterial Blood Glucose Arterial Blood Ionized Calcium Valproic Acid Coronavirus (PCR) Positive A 03/10/21 03/10/21 03/10/21 05:02 05:29 08:[address] % (Auto) Lymph # (Auto) Seg Neutrophils % D-Dimer POC ABG pO2 52.1 L ABG Oxyhemoglobin 84.3 L ABG Chloride 110.0 H ABG Glucose 176 H Carboxyhemoglobin 0.3 L Sodium 146 H Potassium Chloride Carbon Dioxide BUN Creatinine 0.5 L Glucose 170 H POC Glucose 171 H Calcium 7.5 L Ferritin AST 81 H ALT Alkaline Phosphatase Lactate Dehydrogenase C-Reactive Protein Total Protein 5.7 L Albumin 3.3 L Arterial Blood Glucose 176 H Arterial Blood Ionized Calcium 4.0 L Valproic Acid Coronavirus (PCR) 03/10/21 03/10/21 03/10/21 10:19 10:19 10:[address] % (Auto) Lymph # (Auto) Seg Neutrophils % D-Dimer 451.32 H POC ABG pO2 ABG Oxyhemoglobin ABG Chloride ABG Glucose Carboxyhemoglobin Sodium Potassium Chloride Carbon Dioxide BUN Creatinine Glucose POC Glucose Calcium Ferritin 1795.0 H AST ALT Alkaline Phosphatase Lactate Dehydrogenase 1033 H C-Reactive Protein Total Protein Albumin Arterial Blood Glucose Arterial Blood Ionized Calcium Valproic Acid Coronavirus (PCR) 03/10/21 03/10/21 03/10/21 10:19 11:31 13:[address] % (Auto) Lymph # (Auto) Seg Neutrophils % D-Dimer POC ABG pO2 43.6 L ABG Oxyhemoglobin 77.3 L ABG Chloride 110.0 H ABG Glucose 174 H Carboxyhemoglobin 0.2 L Sodium Potassium Chloride Carbon Dioxide BUN Creatinine Glucose POC Glucose 163 H Calcium Ferritin AST ALT Alkaline Phosphatase Lactate Dehydrogenase C-Reactive Protein 8.10 H Total Protein Albumin Arterial Blood Glucose 174 H Arterial Blood Ionized Calcium 4.1 L Valproic Acid Coronavirus (PCR) 03/10/21 03/10/21 03/10/21 17:58 18:13 18:[address] % (Auto) Lymph # (Auto) Seg Neutrophils % D-Dimer 1054.48 H POC ABG pO2 ABG Oxyhemoglobin ABG Chloride ABG Glucose Carboxyhemoglobin Sodium Potassium Chloride Carbon Dioxide BUN Creatinine Glucose POC Glucose 152 H Calcium Ferritin 1717.0 H AST ALT Alkaline Phosphatase Lactate Dehydrogenase C-Reactive Protein Total Protein Albumin Arterial Blood Glucose Arterial Blood Ionized Calcium Valproic Acid Coronavirus (PCR) 03/10/21 03/10/21 03/11/21 18:13 23:15 05:[address] % (Auto) Lymph # (Auto) Seg Neutrophils % D-Dimer POC ABG pO2 ABG Oxyhemoglobin ABG Chloride ABG Glucose Carboxyhemoglobin Sodium Potassium Chloride Carbon Dioxide BUN Creatinine Glucose POC Glucose 152 H 134 H Calcium Ferritin AST ALT Alkaline Phosphatase Lactate Dehydrogenase 1242 H C-Reactive Protein 8.40 H Total Protein Albumin Arterial Blood Glucose Arterial Blood Ionized Calcium Valproic Acid Coronavirus (PCR) 03/11/21 03/11/21 03/11/21 06:56 11:41 23:[address] % (Auto) Lymph # (Auto) Seg Neutrophils % D-Dimer POC ABG pO2 ABG Oxyhemoglobin ABG Chloride ABG Glucose Carboxyhemoglobin Sodium 151 H Potassium Chloride 110.7 H Carbon Dioxide BUN 27 H Creatinine Glucose 153 H POC Glucose 115 H 141 H Calcium 7.8 L Ferritin AST 53 H ALT Alkaline Phosphatase Lactate Dehydrogenase C-Reactive Protein 6.60 H Total Protein 6.2 L Albumin 3.5 L Arterial Blood Glucose Arterial Blood Ionized Calcium Valproic Acid Coronavirus (PCR) 03/12/21 03/12/21 03/12/21 04:46 04:46 05:03 WBC Plt Count [address] % (Auto) Lymph # (Auto) Seg Neutrophils % D-Dimer POC ABG pO2 ABG Oxyhemoglobin ABG Chloride ABG Glucose Carboxyhemoglobin Sodium 147 H Potassium 5.6 H D Chloride 114.3 H Carbon Dioxide 20 L D BUN 33 H Creatinine Glucose 166 H POC Glucose 161 H Calcium 7.9 L Ferritin AST 66 H ALT Alkaline Phosphatase Lactate Dehydrogenase C-Reactive Protein Total Protein 5.8 L Albumin 2.5 L Arterial Blood Glucose Arterial Blood Ionized Calcium Valproic Acid Coronavirus (PCR) 03/12/21 03/12/21 03/12/21 12:10 16:30 16:[address] % (Auto) Lymph # (Auto) Seg Neutrophils % D-Dimer > 20926 H POC ABG pO2 ABG Oxyhemoglobin ABG Chloride ABG Glucose Carboxyhemoglobin Sodium Potassium Chloride Carbon Dioxide BUN Creatinine Glucose POC Glucose 166 H Calcium Ferritin 1208.0 H AST ALT Alkaline Phosphatase Lactate Dehydrogenase C-Reactive Protein Total Protein Albumin Arterial Blood Glucose Arterial Blood Ionized Calcium Valproic Acid Coronavirus (PCR) 03/12/21 03/12/21 03/13/21 17:28 23:49 04:[address] % (Auto) Lymph # (Auto) Seg Neutrophils % D-Dimer POC ABG pO2 ABG Oxyhemoglobin ABG Chloride ABG Glucose Carboxyhemoglobin Sodium 157 H D Potassium 3.5 L D Chloride 119.2 H Carbon Dioxide BUN 47 H Creatinine Glucose 183 H POC Glucose 159 H 174 H Calcium 8.3 L Ferritin AST ALT Alkaline Phosphatase Lactate Dehydrogenase C-Reactive Protein 1.70 H Total Protein Albumin Arterial Blood Glucose Arterial Blood Ionized Calcium Valproic Acid Coronavirus (PCR) 03/13/21 03/13/21 03/13/21 04:17 04:17 05:53 WBC Plt Count [address] % (Auto) Lymph # (Auto) Seg Neutrophils % D-Dimer POC ABG pO2 ABG Oxyhemoglobin ABG Chloride ABG Glucose Carboxyhemoglobin Sodium 158 H Potassium Chloride 120.2 H Carbon Dioxide BUN 47 H Creatinine Glucose 184 H POC Glucose 180 H Calcium 8.2 L Ferritin AST ALT Alkaline Phosphatase 136 H Lactate Dehydrogenase C-Reactive Protein Total Protein 5.3 L Albumin 3.0 L Arterial Blood Glucose Arterial Blood Ionized Calcium Valproic Acid Coronavirus (PCR) 03/13/21 11:[address] % (Auto) Lymph # (Auto) Seg Neutrophils % D-Dimer POC ABG pO2 ABG Oxyhemoglobin ABG Chloride ABG Glucose Carboxyhemoglobin Sodium Potassium Chloride Carbon Dioxide BUN Creatinine Glucose POC Glucose 145 H Calcium Ferritin AST ALT Alkaline Phosphatase Lactate Dehydrogenase C-Reactive Protein Total Protein Albumin Arterial Blood Glucose Arterial Blood Ionized Calcium Valproic Acid Coronavirus (PCR) Prior PFT's, U/S of legs: other (negative dopplers) Allied health notes reviewed: nursing
--- NOTE | 2021-03-13 17:34 | Progress Note ---
<NIA ESPINOSA - Last Filed: 03/13/21 18:08> Assessment and Plan Assessment and plan: 60-year-old female with seizure disorder, COPD, HTN and TBI admitted for covid 19 pui with acute hypoxic resp failure. Neuro: Seizure disorder, h/x TBI -Last seizure was 20 years ago -Continue Depakote but discontinue Tegretol and IV Keppra per neuro -Depakote reduced to twice a day -Neurology following CV: HTN -Prn IV hydral and labatalol -SB on monitor -BP monitoring via janeen -May need clonidine patch Resp: Acute respiratory failure with hypoxia, ARDs, COVID PNA, COPD -on continuous bipap -SPo2 monitoring -Pulm hygenie -Prone as tolerated GI: NPO, MO, Transaminitis -D5 IVF -lifestyle and dietary changes needed on dc -BR; [place] -24 hours +517 -PPI -Trend LFTS : Hypernatremia, hyperchloremia -strict I/O -follow electrolytes -trend cr -MIVF with dextrose Endo: Hyperglycemia -SSI -BG q4 while npo Heme: elevated d-dimer, thrombocytopenia -Arixtra -SCDs to BLE while in bed -BLE Doppler US negative -BLE doppler repeat pending r/t elevated ddimer. ID: Covid19 pneumonia, leukopenia (resolved) -ID following -Continue steroids, dosing per pulmonary -Continue remdesivir -Status post Actemra 03/10/2021 -trend ferritin, LDH, d-dimer, CRP every 2-3 days for risk stratification and to assess disease progression -droplet/isolation precautions -Prone as tolerated The high probability of a clinically significant, sudden or life threatening deterioration of the [all] system(s) required my full and direct attention, intervention and personal management. The aggregate critical care time was [60] minutes. This time is in addition to time spent performing reported procedures but includes the following: [x] Data Review and interpretation [x] Patient assessment and monitoring of vital signs [x] Documentation [x] Medication orders and management Disposition Plan: icu Total Time Spent with Patient (Minutes): 60 History Interval history: This is 60-year-old female with seizure disorder and TBI brought into the emergency room by EMS for evaluation of shortness of breath ongoing for the past few days. Oxygen saturation was about 50% on room air upon arrival of EMS. She was subsequently placed on nonrebreather with improvement of oxygen saturation to about 88%. She was subsequently placed on BiPAP upon arrival in the emergency room. She was initially confused upon arrival in the emergency room but became more responsive upon placement on BiPAP. Work-up in the emergency room showed labs were significant for elevated liver enzymes with AST of 79 ALT 62. Chest x-ray reveals severe bilateral airspace pneumonia. Patient admitted for covid 19 pui with acute hypoxic resp failure. 03/10/2021 Patient is Covid positive And acute respiratory failure with hypoxia Neurology and ware finisher consult appreciated ID consult appreciated mainly Seizure medication changed 03-11 no acute events overnight 03/12: unable to gain IV access, IV placed by PICC team was infiltrated today. CVL and janeen placed today 03/13: thrombocytopenia, weaned to optiflow with nrb during the AM and bipap hs. dimer noted at >[id number] however unable to complete full vte workup-will reorder Doppler and changed to arixtra. Hospitalist Physical - Constitutional Vitals: Temp Pulse Resp BP Pulse Ox 97.6 F 71 30 H 190/82 93 03/13/21 15:14 03/13/21 15:00 03/13/21 15:00 03/13/21 15:00 03/13/21 16:02 General appearance: Present: no acute distress, well-nourished - EENT Eyes: Present: PERRL - Neck Neck: Present: normal ROM - Respiratory Respiratory effort: normal Respiratory: bilateral: diminished - Cardiovascular Rhythm: regular Heart Sounds: Present: S1 & S2. Absent: systolic murmur, diastolic murmur - Extremities Extremities: no ischemia, pulses intact, pulses symmetrical, No edema, normal temperature, normal color Peripheral Pulses: within normal limits - Abdominal General gastrointestinal: soft, non-tender - Integumentary Integumentary: Present: warm, dry - Psychiatric Psychiatric: other (sedated) - Neurologic Neurologic: moves all extremities - Allied Health Allied health notes reviewed: nursing, RT, social work Results - Labs CBC & Chem 7: 03/13/21 04:17 03/13/21 04:17 Labs: Laboratory Last Values WBC 7.9 K/mm3 (4.5-11.0) 03/13/21 04:17 RBC 4.19 M/mm3 (3.65-5.03) 03/13/21 04:17 Hgb 12.8 gm/dl (10.1-14.3) 03/13/21 04:17 Hct 39.2 % (30.3-42.9) 03/13/21 04:17 MCV 94 fl (79-97) 03/13/21 04:17 MCH 31 pg (28-32) 03/13/21 04:17 MCHC 33 % (30-34) 03/13/21 04:17 RDW 13.4 % (13.2-15.2) 03/13/21 04:17 Plt Count 56 K/mm3 (140-440) L 03/13/21 04:17 Lymph % (Auto) 15.7 % (13.4-35.0) 03/10/21 05:02 [place] % (Auto) 5.2 % (0.0-7.3) 03/10/21 05:02 Eos % (Auto) 0.0 % (0.0-4.3) 03/10/21 05:02 Baso % (Auto) 0.1 % (0.0-1.8) 03/10/21 05:02 Lymph # (Auto) 0.5 K/mm3 (1.2-5.4) L 03/10/21 05:02 [place] # (Auto) 0.2 K/mm3 (0.0-0.8) 03/10/21 05:02 Eos # (Auto) 0.0 K/mm3 (0.0-0.4) 03/10/21 05:02 Baso # (Auto) 0.0 K/mm3 (0.0-0.1) 03/10/21 05:02 Seg Neutrophils % 79.0 % (40.0-70.0) H 03/10/21 05:02 Seg Neutrophils # 2.8 K/mm3 (1.8-7.7) 03/10/21 05:02 PT 13.8 Sec. (12.2-14.9) 03/10/21 05:02 INR 1.01 (0.87-1.13) 03/10/21 05:02 D-Dimer > 60100 ng/mlDDU (0-234) H 03/12/21 16:30 ABG pH 7.389 (7.320-7.450) 03/10/21 13:48 POC ABG pCO2 44.0 mmHg (32.0-48.0) 03/10/21 13:48 POC ABG pO2 43.6 mmHg (83-108) L 03/10/21 13:48 POC ABG HCO3 26.0 03/10/21 13:48 ABG O2 Saturation 77.7 (0-100) 03/10/21 13:48 POC ABG Base Excess 0.7 03/10/21 13:48 ABG Hemoglobin 12.6 (12.0-17.5) 03/10/21 13:48 ABG Oxyhemoglobin 77.3 (94-98) L 03/10/21 13:48 ABG Methemoglobin 0.3 (0.0-1.5) 03/10/21 13:48 ABG Sodium 144.1 mmol/L (136.0-145.0) 03/10/21 13:48 ABG Potassium 3.6 mmol/L (3.40-4.50) 03/10/21 13:48 ABG Chloride 110.0 mmol/L (98-107) H 03/10/21 13:48 ABG Glucose 174 mg/dL (65-95) H 03/10/21 13:48 Carboxyhemoglobin 0.2 (0.5-1.5) L 03/10/21 13:48 FiO2 % 100.0 03/10/21 13:48 Sodium 157 mmol/L (137-145) H D 03/13/21 04:17 Sodium 158 mmol/L (137-145) H 03/13/21 04:17 Potassium 3.5 mmol/L (3.6-5.0) L D 03/13/21 04:17 Potassium 3.6 mmol/L (3.6-5.0) 03/13/21 04:17 Chloride 119.2 mmol/L (98-107) H 03/13/21 04:17 Chloride 120.2 mmol/L (98-107) H 03/13/21 04:17 Carbon Dioxide 27 mmol/L (22-30) 03/13/21 04:17 Carbon Dioxide 27 mmol/L (22-30) D 03/13/21 04:17 Anion Gap 14 mmol/L 03/13/21 04:17 Anion Gap 14 mmol/L 03/13/21 04:17 BUN 47 mg/dL (7-17) H 03/13/21 04:17 BUN 47 mg/dL (7-17) H 03/13/21 04:17 Creatinine 1.2 mg/dL (0.6-1.2) 03/13/21 04:17 Creatinine 1.2 mg/dL (0.6-1.2) 03/13/21 04:17 Estimated GFR 46 ml/min 03/13/21 04:17 Estimated GFR 46 ml/min 03/13/21 04:17 BUN/Creatinine Ratio 39 % 03/13/21 04:17 BUN/Creatinine Ratio 39 % 03/13/21 04:17 Glucose 183 mg/dL (65-100) H 03/13/21 04:17 Glucose 184 mg/dL (65-100) H 03/13/21 04:17 POC Glucose 145 mg/dL (70-105) H 03/13/21 11:39 Lactic Acid 1.30 mmol/L (0.7-2.0) 03/10/21 10:19 Calcium 8.2 mg/dL (8.4-10.2) L 03/13/21 04:17 Calcium 8.3 mg/dL (8.4-10.2) L 03/13/21 04:17 Ferritin 1208.0 ng/mL (10.0-200.0) H 03/12/21 16:30 Total Bilirubin 0.50 mg/dL (0.1-1.2) 03/13/21 04:17 AST 37 units/L (5-40) 03/13/21 04:17 ALT 26 units/L (7-56) 03/13/21 04:17 Alkaline Phosphatase 136 units/L (35-129) H 03/13/21 04:17 Lactate Dehydrogenase 1242 units/L (91-180) H 03/10/21 18:13 C-Reactive Protein 1.70 mg/dL (0.00-1.30) H 03/13/21 04:17 Total Protein 5.3 g/dL (6.3-8.2) L 03/13/21 04:17 Albumin 3.0 g/dL (3.9-5) L 03/13/21 04:17 Albumin/Globulin Ratio 1.3 % 03/13/21 04:17 Procalcitonin < 0.05 ng/mL (<0.15) 03/10/21 10:19 Arterial Blood Glucose 174 mg/dL (65-95) H 03/10/21 13:48 Arterial Blood Ionized Calcium 4.1 mg/dL (4.6-5.3) L 03/10/21 13:48 Urine Color Cherelle (Yellow) 03/09/21 04:48 Urine Turbidity Clear (Clear) 03/09/21 04:48 Urine pH 5.0 (5.0-7.0) 03/09/21 04:48 Ur Specific [place] 1.020 (1.003-1.030) 03/09/21 04:48 Urine Protein 100 mg/dl mg/dL (Negative) 03/09/21 04:48 Urine Glucose (UA) Neg mg/dL (Negative) 03/09/21 04:48 Urine Ketones Tr mg/dL (Negative) 03/09/21 04:48 Urine Blood Neg (Negative) 03/09/21 04:48 Urine Nitrite Neg (Negative) 03/09/21 04:48 Urine Bilirubin Neg (Negative) 03/09/21 04:48 Urine Urobilinogen 4.0 mg/dL (<2.0) 03/09/21 04:48 Ur Leukocyte Esterase Sm (Negative) 03/09/21 04:48 Urine WBC (Auto) 6.0 /HPF (0.0-6.0) 03/09/21 04:48 Urine RBC (Auto) 5.0 /HPF (0.0-6.0) 03/09/21 04:48 U Epithel Cells (Auto) 2.0 /HPF (0-13.0) 03/09/21 04:48 Urine Bacteria (Auto) 2+ /HPF (Negative) 03/09/21 04:48 Urine Mucus Few /HPF 03/09/21 04:48 Valproic Acid 9.7 ug/mL (50-100) L 03/09/21 00:26 Coronavirus (PCR) Positive (Negative) A 03/09/21 Unknown Microbiology: Microbiology 03/09/21 00:26 Peripheral/Venous Blood Culture - Preliminary NO GROWTH AFTER 4 DAYS 03/09/21 00:20 Peripheral/Venous Blood Culture - Preliminary NO GROWTH AFTER 4 DAYS Thacker/IV: Voiding Method External Female Catheter Active Medications - Current Medications Current Medications: Generic Name Dose Route Start Last Admin Trade Name Freq PRN Reason Stop Dose Admin Acetaminophen 1,000 mg 03/09/21 15:00 Acetaminophen 500 Mg Tab PO Q6HR PRN Pain , Severe (7-10) Albuterol 2.5 mg 03/09/21 02:28 Albuterol 2.5 Mg/3 Ml Nebu IH Q4HRT PRN Shortness Of Breath Alprazolam 1 mg 03/09/21 14:05 Alprazolam 1 Mg Tab PO TID PRN Anxiety Ascorbic Acid 500 mg 03/09/21 22:00 03/13/21 09:48 Ascorbic Acid 500 Mg Tab PO 500 mg BID CAMERON Administration Aspirin 81 mg 03/09/21 15:00 03/13/21 09:54 Aspirin 81 Mg Tab Chew PO 81 mg QDAY CAMERON Administration Atenolol 25 mg 03/09/21 15:00 03/13/21 09:48 Atenolol 25 Mg Tab PO 25 mg DAILY CAMERON Administration Clonidine HCl 0.1 mg 03/11/21 04:56 Clonidine 0.1 Mg Tab PO Q4H PRN systolic bp greater than 160 Dextrose 50 ml 03/10/21 11:29 Dextrose 50% In Water (25gm) 50 Ml Syringe IV Q30MIN PRN Hypoglycemia Protocol Diphenhydramine HCl 25 mg 03/09/21 15:00 Diphenhydramine 25 Mg Cap PO Q6HR PRN Itching Enoxaparin Sodium 40 mg 03/09/21 22:00 03/13/21 02:00 Enoxaparin 40 Mg/0.4 Ml Inj SUB-Q 40 mg QDAY@2200 CAMERON Administration Protocol Hydralazine HCl 10 mg 03/11/21 08:32 03/13/21 02:05 Hydralazine 20 Mg/1 Ml Inj IV 10 mg Q4HR PRN Administration Hypertension Valproate Sodium 500 mg/ 105 mls @ 100 mls/hr 03/09/21 16:00 03/13/21 16:43 Sodium Chloride IV 100 mls/hr Q8H CAMERON Administration REMDESIVIR 100 mg/ Sodium 250 mls @ 500 mls/hr 03/10/21 21:00 03/13/21 07:00 Chloride IV 03/13/21 21:29 Infused Q24HR@2100 CAMERON Infusion Dexmedetomidine HCl 400 mcg/ 104 mls @ 8.46 mls/hr 03/11/21 14:00 03/13/21 14:30 Sodium Chloride IV 0.4 mcg/kg/hr TITRATE CAMERON 16.921 mls/hr Administration Protocol 0.2 MCG/KG/HR Dextrose 1,000 mls @ 42 mls/hr 03/13/21 10:00 03/13/21 11:15 D5w IV 42 mls/hr DIRECT CAMERON Administration Insulin Human Regular 0 units 03/10/21 12:00 03/13/21 12:39 Insulin Regular, Human 100 Units/1 Ml SUB-Q Not Given Q6H [facility] Protocol Labetalol HCl 10 mg 03/11/21 08:32 03/12/21 04:16 Labetalol 20 Mg/4 Ml Inj IV 10 mg Q6HR PRN Administration Hypertension Magnesium Hydroxide 30 ml 03/09/21 02:28 Magnesium Hydroxide (Mom) Oral Liqd Udc PO Q4H PRN Constipation Methylprednisolone Sodium Succinate 110 mg 03/09/21 22:00 03/13/21 14:30 Methylprednisolone Sod Succinate 125 Mg/2 Ml Inj IV 110 mg Q8HR CAMERON Administration Morphine Sulfate 2 mg 03/09/21 02:28 03/13/21 11:14 Morphine 2 Mg/1 Ml Inj IV 2 mg Q4H PRN Administration Pain, Moderate (4-6) Morphine Sulfate 4 mg 03/09/21 02:28 03/12/21 04:15 Morphine 4 Mg/1 Ml Inj IV 4 mg Q4H PRN Administration Pain , Severe (7-10) Nystatin 1 applic 03/09/21 15:00 03/13/21 14:31 Nystatin Oint 15 Gm TP 1 applic BID CAMERON Administration Ondansetron HCl 4 mg 03/09/21 02:28 Ondansetron 4 Mg/2 Ml Inj IV Q8H PRN Nausea And Vomiting Sodium Chloride 10 ml 03/09/21 10:00 03/13/21 09:49 Sodium Chloride 0.9% 10 Ml Flush Syringe IV 10 ml BID CAMERON Administration Sodium Chloride 10 ml 03/09/21 02:28 Sodium Chloride 0.9% 10 Ml Flush Syringe IV PRN PRN LINE FLUSH Sodium Chloride 50 ml 03/09/21 21:00 03/13/21 11:20 Sodium Chloride 0.9% 50 Ml Ivpb IV 03/13/21 21:01 Not Given Q24HR@2100 CAMERON Zinc Sulfate 220 mg 03/09/21 22:00 03/13/21 09:49 Zinc Sulfate 220 Mg Cap PO 220 mg BID CAMERON Administration <TETO HATCH - Last Filed: 03/14/21 08:07> Assessment and Plan Assessment and plan: I saw and evaluated the patient. Discussed with the nurse practitioner and agree with their findings and plan as documented in this note. Hospitalist Physical - Constitutional Vitals: Temp Pulse Resp BP Pulse Ox 98.1 F 86 22 190/82 93 03/14/21 07:00 03/14/21 07:00 03/14/21 07:00 03/14/21 07:00 03/14/21 07:00 Results - Labs CBC & Chem 7: 03/14/21 06:30 03/14/21 06:30 Labs: Laboratory Last Values WBC 14.8 K/mm3 (4.5-11.0) H 03/14/21 06:30 RBC 4.28 M/mm3 (3.65-5.03) 03/14/21 06:30 Hgb 13.2 gm/dl (10.1-14.3) 03/14/21 06:30 Hct 39.7 % (30.3-42.9) 03/14/21 06:30 MCV 93 fl (79-97) 03/14/21 06:30 MCH 31 pg (28-32) 03/14/21 06:30 MCHC 33 % (30-34) 03/14/21 06:30 RDW 13.5 % (13.2-15.2) 03/14/21 06:30 Plt Count 95 K/mm3 (140-440) L 03/14/21 06:30 Lymph % (Auto) 15.7 % (13.4-35.0) 03/10/21 05:02 [place] % (Auto) 5.2 % (0.0-7.3) 03/10/21 05:02 Eos % (Auto) 0.0 % (0.0-4.3) 03/10/21 05:02 Baso % (Auto) 0.1 % (0.0-1.8) 03/10/21 05:02 Lymph # (Auto) 0.5 K/mm3 (1.2-5.4) L 03/10/21 05:02 [place] # (Auto) 0.2 K/mm3 (0.0-0.8) 03/10/21 05:02 Eos # (Auto) 0.0 K/mm3 (0.0-0.4) 03/10/21 05:02 Baso # (Auto) 0.0 K/mm3 (0.0-0.1) 03/10/21 05:02 Seg Neutrophils % 79.0 % (40.0-70.0) H 03/10/21 05:02 Seg Neutrophils # 2.8 K/mm3 (1.8-7.7) 03/10/21 05:02 PT 13.8 Sec. (12.2-14.9) 03/10/21 05:02 INR 1.01 (0.87-1.13) 03/10/21 05:02 D-Dimer > 23836 ng/mlDDU (0-234) H 03/12/21 16:30 ABG pH 7.389 (7.320-7.450) 03/10/21 13:48 POC ABG pCO2 44.0 mmHg (32.0-48.0) 03/10/21 13:48 POC ABG pO2 43.6 mmHg (83-108) L 03/10/21 13:48 POC ABG HCO3 26.0 03/10/21 13:48 ABG O2 Saturation 77.7 (0-100) 03/10/21 13:48 POC ABG Base Excess 0.7 03/10/21 13:48 ABG Hemoglobin 12.6 (12.0-17.5) 03/10/21 13:48 ABG Oxyhemoglobin 77.3 (94-98) L 03/10/21 13:48 ABG Methemoglobin 0.3 (0.0-1.5) 03/10/21 13:48 ABG Sodium 144.1 mmol/L (136.0-145.0) 03/10/21 13:48 ABG Potassium 3.6 mmol/L (3.40-4.50) 03/10/21 13:48 ABG Chloride 110.0 mmol/L (98-107) H 03/10/21 13:48 ABG Glucose 174 mg/dL (65-95) H 03/10/21 13:48 Carboxyhemoglobin 0.2 (0.5-1.5) L 03/10/21 13:48 FiO2 % 100.0 03/10/21 13:48 Sodium 158 mmol/L (137-145) H 03/14/21 06:30 Potassium 3.7 mmol/L (3.6-5.0) 03/14/21 06:30 Chloride 118.7 mmol/L (98-107) H 03/14/21 06:30 Carbon Dioxide 25 mmol/L (22-30) 03/14/21 06:30 Anion Gap 18 mmol/L 03/14/21 06:30 BUN 56 mg/dL (7-17) H 03/14/21 06:30 Creatinine 1.2 mg/dL (0.6-1.2) 03/14/21 06:30 Estimated GFR 46 ml/min 03/14/21 06:30 BUN/Creatinine Ratio 47 % 03/14/21 06:30 Glucose 185 mg/dL (65-100) H 03/14/21 06:30 POC Glucose 179 mg/dL (70-105) H 03/14/21 05:10 Lactic Acid 1.30 mmol/L (0.7-2.0) 03/10/21 10:19 Calcium 8.2 mg/dL (8.4-10.2) L 03/14/21 06:30 Ferritin 1208.0 ng/mL (10.0-200.0) H 03/12/21 16:30 Total Bilirubin 0.80 mg/dL (0.1-1.2) 03/14/21 06:30 AST 64 units/L (5-40) H 03/14/21 06:30 ALT 28 units/L (7-56) 03/14/21 06:30 Alkaline Phosphatase 271 units/L (35-129) H 03/14/21 06:30 Lactate Dehydrogenase 1242 units/L (91-180) H 03/10/21 18:13 C-Reactive Protein 1.70 mg/dL (0.00-1.30) H 03/13/21 04:17 Total Protein 5.6 g/dL (6.3-8.2) L 03/14/21 06:30 Albumin 3.4 g/dL (3.9-5) L 03/14/21 06:30 Albumin/Globulin Ratio 1.5 % 03/14/21 06:30 Procalcitonin < 0.05 ng/mL (<0.15) 03/10/21 10:19 Arterial Blood Glucose 174 mg/dL (65-95) H 03/10/21 13:48 Arterial Blood Ionized Calcium 4.1 mg/dL (4.6-5.3) L 03/10/21 13:48 Urine Color Cherelle (Yellow) 03/09/21 04:48 Urine Turbidity Clear (Clear) 03/09/21 04:48 Urine pH 5.0 (5.0-7.0) 03/09/21 04:48 Ur Specific [place] 1.020 (1.003-1.030) 03/09/21 04:48 Urine Protein 100 mg/dl mg/dL (Negative) 03/09/21 04:48 Urine Glucose (UA) Neg mg/dL (Negative) 03/09/21 04:48 Urine Ketones Tr mg/dL (Negative) 03/09/21 04:48 Urine Blood Neg (Negative) 03/09/21 04:48 Urine Nitrite Neg (Negative) 03/09/21 04:48 Urine Bilirubin Neg (Negative) 03/09/21 04:48 Urine Urobilinogen 4.0 mg/dL (<2.0) 03/09/21 04:48 Ur Leukocyte Esterase Sm (Negative) 03/09/21 04:48 Urine WBC (Auto) 6.0 /HPF (0.0-6.0) 03/09/21 04:48 Urine RBC (Auto) 5.0 /HPF (0.0-6.0) 03/09/21 04:48 U Epithel Cells (Auto) 2.0 /HPF (0-13.0) 03/09/21 04:48 Urine Bacteria (Auto) 2+ /HPF (Negative) 03/09/21 04:48 Urine Mucus Few /HPF 03/09/21 04:48 Valproic Acid 9.7 ug/mL (50-100) L 03/09/21 00:26 Coronavirus (PCR) Positive (Negative) A 03/09/21 Unknown Microbiology: Microbiology 03/09/21 00:26 Peripheral/Venous Blood Culture - Final NO GROWTH AFTER 5 DAYS 03/09/21 00:20 Peripheral/Venous Blood Culture - Final NO GROWTH AFTER 5 DAYS Thacker/IV: Voiding Method External Female Catheter Active Medications - Current Medications Current Medications: Generic Name Dose Route Start Last Admin Trade Name Freq PRN Reason Stop Dose Admin Acetaminophen 1,000 mg 03/09/21 15:00 Acetaminophen 500 Mg Tab PO Q6HR PRN Pain , Severe (7-10) Albuterol 2.5 mg 03/09/21 02:28 Albuterol 2.5 Mg/3 Ml Nebu IH Q4HRT PRN Shortness Of Breath Alprazolam 1 mg 03/09/21 14:05 Alprazolam 1 Mg Tab PO TID PRN Anxiety Ascorbic Acid 500 mg 03/09/21 22:00 03/13/21 21:37 Ascorbic Acid 500 Mg Tab PO 500 mg BID CAMERON Administration Aspirin 81 mg 03/09/21 15:00 03/13/21 09:54 Aspirin 81 Mg Tab Chew PO 81 mg QDAY CAMERON Administration Atenolol 25 mg 03/09/21 15:00 03/13/21 09:48 Atenolol 25 Mg Tab PO 25 mg DAILY CAMERON Administration Clonidine HCl 0.1 mg 03/11/21 04:56 Clonidine 0.1 Mg Tab PO Q4H PRN systolic bp greater than 160 Dextrose 50 ml 03/10/21 11:29 Dextrose 50% In Water (25gm) 50 Ml Syringe IV Q30MIN PRN Hypoglycemia Protocol Diphenhydramine HCl 25 mg 03/09/21 15:00 Diphenhydramine 25 Mg Cap PO Q6HR PRN Itching Fondaparinux 2.5 mg 03/13/21 22:00 03/13/21 21:36 Fondaparinux 2.5 Mg/0.5 Ml Inj SUB-Q 2.5 mg Q24H CAMERON Administration Hydralazine HCl 10 mg 03/11/21 08:32 03/13/21 18:03 Hydralazine 20 Mg/1 Ml Inj IV 10 mg Q4HR PRN Administration Hypertension Dexmedetomidine HCl 400 mcg/ 104 mls @ 8.46 mls/hr 03/11/21 14:00 03/14/21 0 6:33 Sodium Chloride IV 0.4 mcg/kg/hr TITRATE CAMERON 16.921 mls/hr Administration Protocol 0.2 MCG/KG/HR Valproate Sodium 500 mg/ 105 mls @ 100 mls/hr 03/13/21 22:00 03/13/21 21:35 Sodium Chloride IV 100 mls/hr Q12HR CAMERON Administration Dextrose 1,000 mls @ 110 mls/hr 03/13/21 23:45 03/14/21 06:32 D5w IV 110 mls/hr DIRECT CAMERON Administration Insulin Human Regular 0 units 03/10/21 12:00 03/14/21 00:00 Insulin Regular, Human 100 Units/1 Ml SUB-Q Not Given Q6H [facility] Protocol Labetalol HCl 10 mg 03/11/21 08:32 03/12/21 04:16 Labetalol 20 Mg/4 Ml Inj IV 10 mg Q6HR PRN Administration Hypertension Magnesium Hydroxide 30 ml 03/09/21 02:28 Magnesium Hydroxide (Mom) Oral Liqd Udc PO Q4H PRN Constipation Methylprednisolone Sodium Succinate 110 mg 03/09/21 22:00 03/13/21 21:36 Methylprednisolone Sod Succinate 125 Mg/2 Ml Inj IV 110 mg Q8HR CAMERON Administration Morphine Sulfate 2 mg 03/09/21 02:28 03/13/21 11:14 Morphine 2 Mg/1 Ml Inj IV 2 mg Q4H PRN Administration Pain, Moderate (4-6) Morphine Sulfate 4 mg 03/09/21 02:28 03/12/21 04:15 Morphine 4 Mg/1 Ml Inj IV 4 mg Q4H PRN Administration Pain , Severe (7-10) Nystatin 1 applic 03/09/21 15:00 03/13/21 21:34 Nystatin Oint 15 Gm TP 1 applic BID CAMERON Administration Ondansetron HCl 4 mg 03/09/21 02:28 Ondansetron 4 Mg/2 Ml Inj IV Q8H PRN Nausea And Vomiting Sodium Chloride 10 ml 03/09/21 10:00 03/13/21 21:37 Sodium Chloride 0.9% 10 Ml Flush Syringe IV 10 ml BID CAMERON Administration Sodium Chloride 10 ml 03/09/21 02:28 Sodium Chloride 0.9% 10 Ml Flush Syringe IV PRN PRN LINE FLUSH Zinc Sulfate 220 mg 03/09/21 22:00 03/13/21 21:37 Zinc Sulfate 220 Mg Cap PO 220 mg BID CAMERON Administration
[2021-03-13] MEDS: FONDAPARINUX 2.5 MG/0.5 ML INJ SUB-Q SCH (21:36)
[2021-03-13] MEDS ORDERED: DEXTROSE 50% IN WATER (25GM) 50 ML SYRINGE IV ONE ×2 (23:28→23:38)
[2021-03-14] MEDS: DEXTROSE 5% IN WATER 1,000 ML IV SCH ×3 (06:32→23:57)
[2021-03-14 06:59] LABS: Hematocrit 39.7 % (30.3-42.9); Hemoglobin 13.2 gm/dl (10.1-14.3); Mean Corpuscular HGB Conc 33 % (30-34); Mean Corpuscular Volume 93 fl (79-97); Red Blood Count 4.28 M/mm3 (3.65-5.03); Red Cell Distribution Width 13.5 % (13.2-15.2)
[2021-03-14 07:01] LABS: Platelet Count 95 K/mm3 (140-440)
[2021-03-14 07:29] LABS: Albumin 3.4 g/dL (3.9-5); Calcium 8.2 mg/dL (8.4-10.2)
[2021-03-14] MEDS: methylPREDNISolone Sod Succinate 125 MG/2 ML INJ IV SCH ×3 (09:23→22:15)
[2021-03-14] MEDS: ASCORBIC ACID 500 MG TAB PO SCH ×2 (09:26→22:14)
[2021-03-14] MEDS: atenoloL 25 MG TAB PO SCH (09:26)
[2021-03-14] MEDS: ASPIRIN 81 MG TAB CHEW PO SCH (09:26)
[2021-03-14] MEDS: VALPROATE SODIUM 500 MG in SODIUM CHLORIDE 0.9% 100 ML IV SCH ×2 (09:27→22:12)
[2021-03-14] MEDS: ZINC SULFATE 220 MG CAP PO SCH ×2 (09:27→22:14)
[2021-03-14] MEDS: MORPHINE 2 MG/1 ML INJ IV PRN (09:27)
[2021-03-14] MEDS: INSULIN REGULAR, HUMAN 100 UNITS/1 ML SUB-Q SCH ×4 (09:29→18:23)
[2021-03-14] MEDS: NYSTATIN OINT 15 GM TP SCH ×2 (09:31→22:15)
--- NOTE | 2021-03-14 13:21 | Progress Note ---
Assessment and Plan Acute hypoxemic respiratory failure ARDS COVID-19 infection Pneumonia Morbid obesity COPD HTN Chronic liver disease Seizure disorder Arthritis Leukopenia - platelet count recovering and up to 95K - hold on full anticoagulkation in absence of definitive VTE or other indication for now - follow HIT assay - continue Aritra 2.5 mg SQ daily - left radial A-line pulled re: ? arterial insufficiency - awake proning counseled again - continue attempts to give breaks on vapotherm during the day as tolerated - continue to wean supplemental oxygen for target O2 sat's > 92% acutely - continue care as below otherwise; - continue accuchecks with glycemic control per SSI (While critically ill target blood glucose of 140-180 mg/dL; avoid hypoglycemia) - aspiration precautions - continue bronchodilators with pulmonary hygiene per RT - avoid nephrotoxins, renally dose all medications - Avoid benzodiazepine's, reduce the possibility of delirium - complete AB's per ID rec's - continue AED's for sizure disorder - prn analgesia per pain score - Maintenance of sleep-wake cycle, avoid delirium - G.I. & VTE prophylaxis - PT/OT/ROM exercises - continue mobility protocols for pressure ulcer prophylaxis - Monitor hemodynamics closely - continue other care per attending / other consultants - discharge planning ongoing concurrently COVID SPECIFIC INTERVENTIONS - Remdesivir as per ID/Pulmonary developed protocols (ordered) - continue systemic steroids for severe COVID-19 infection (Solumedrol) - follow repeat COVID tests results - zinc and vitamin C supplementation - Monitor inflammatory markers per facility protocol - ferritin, Ddimer, CRP - therapeutic anticoagulation per system Protocol based on d-dimer and clinical considerations (VTE prophylaxis) - Continue contact and airborne isolation .... Re-evaluate in am & prn CONDITION: CRITICAL PROGNOSIS: GUARDED CODE STATUS: FULL CODE The high probability of a clinically significant, sudden or life-threatening deterioration of the [respiratory, cardiovascular & neurologic] system(s) required my full and direct attention, intervention and personal management. The aggregate critical care time was [32] minutes without overlap. Time includes spent on; [x] Data Review and interpretation [x] Patient assessment and monitoring of vital signs [x] Documentation [x] Medication orders and management Subjective Date of service: 03/14/21 Principal diagnosis: Ac hypoxemic resp failure; COVID-19 infxn; PNA; Morbid obesity; Seizures Interval history: Patient is seen today for: Acute hypoxemic respiratory failure; ARDS; COVID-19 infection; Pneumonia; Morbid obesity; Seizure disorder Seen and examined at bedside; 24hour events reviewed; nursing and respiratory care staff consulted; no adverse overnight events reported to me; resting peacefully in bed; decomppensated on HFNC and back on BIPAP with FiO2 at 100% but some room to wean; denies chest pain and no N/V/F/C Objective Vital Signs - 12hr 03/14/21 03/14/21 03/14/21 02:00 03:00 03:53 Temperature 97.8 F Pulse Rate 71 77 Pulse Rate [ From Monitor] Respiratory 18 27 H Rate Blood Pressure 190/82 190/82 O2 Sat by Pulse 83 L 92 Oximetry 03/14/21 03/14/21 03/14/21 04:00 05:00 06:00 Temperature Pulse Rate 71 65 89 Pulse Rate [ 57 L From Monitor] Respiratory 23 21 32 H Rate Blood Pressure 190/82 190/82 190/82 O2 Sat by Pulse 82 L 85 89 Oximetry 03/14/21 03/14/21 03/14/21 07:00 08:46 09:26 Temperature 98.1 F Pulse Rate 86 84 Pulse Rate [ From Monitor] Respiratory 22 Rate Blood Pressure 190/82 147/91 O2 Sat by Pulse 93 96 Oximetry 03/14/21 03/14/21 03/14/21 09:27 11:45 12:25 Temperature 98.2 F Pulse Rate 79 Pulse Rate [ From Monitor] Respiratory 26 H 32 H Rate Blood Pressure 157/91 O2 Sat by Pulse 98 Oximetry Constitutional: no acute distress, other (middle aged morbidly obese female with mildly increased respiratory effort at rest) Eyes: non-icteric ENT: oropharynx moist Neck: supple, no lymphadenopathy, no JVD, other (large circumference) Effort: mildly labored Ascultation: Bilateral: diminished breath sounds, rhonchi Percussion: Bilateral: not dull Cardiovascular: regular rate and rhythm Gastrointestinal: normoactive bowel sounds, soft, non-tender, non-distended (significantly protuberant) Integumentary: normal Extremities: no cyanosis, no edema, pink and warm, pulses normal Neurologic: normal mental status, non-focal exam, pupils equal and round, motor strength normal and Psychiatric: mood appropriate, affect normal, other (inappropriately flat affect) CBC and BMP: 03/14/21 06:30 03/14/21 06:30 ABG, PT/INR, D-dimer: ABG ABG pH 7.389 (7.320-7.450) 03/10/21 13:48 POC ABG pCO2 44.0 mmHg (32.0-48.0) 03/10/21 13:48 POC ABG pO2 43.6 mmHg (83-108) L 03/10/21 13:48 POC ABG HCO3 26.0 03/10/21 13:48 ABG O2 Saturation 77.7 (0-100) 03/10/21 13:48 PT/INR, D-dimer PT 13.8 Sec. (12.2-14.9) 03/10/21 05:02 INR 1.01 (0.87-1.13) 03/10/21 05:02 D-Dimer > 17723 ng/mlDDU (0-234) H 03/14/21 11:03 Abnormal lab findings: Abnormal Labs 03/09/21 03/09/21 03/09/21 00:26 00:26 00:26 WBC 2.9 L Plt Count [place] % (Auto) 9.5 H Lymph # (Auto) 0.5 L Seg Neutrophils % 74.5 H D-Dimer POC ABG pO2 ABG Oxyhemoglobin ABG Chloride ABG Glucose Carboxyhemoglobin Sodium Potassium Chloride Carbon Dioxide BUN Creatinine Glucose 135 H POC Glucose Calcium 7.3 L Ferritin AST 79 H ALT 62 H Alkaline Phosphatase Lactate Dehydrogenase C-Reactive Protein Total Protein Albumin 3.4 L Arterial Blood Glucose Arterial Blood Ionized Calcium Valproic Acid 9.7 L Coronavirus (PCR) 03/09/21 03/09/21 03/10/21 16:44 Unknown 05:02 WBC 3.5 L Plt Count [place] % (Auto) Lymph # (Auto) 0.5 L Seg Neutrophils % 79.0 H D-Dimer POC ABG pO2 ABG Oxyhemoglobin ABG Chloride ABG Glucose Carboxyhemoglobin Sodium Potassium Chloride Carbon Dioxide BUN Creatinine Glucose 127 H POC Glucose Calcium 7.5 L Ferritin AST 87 H ALT Alkaline Phosphatase Lactate Dehydrogenase C-Reactive Protein Total Protein Albumin 3.2 L Arterial Blood Glucose Arterial Blood Ionized Calcium Valproic Acid Coronavirus (PCR) Positive A 03/10/21 03/10/21 03/10/21 05:02 05:29 08:57 WBC Plt Count [place] % (Auto) Lymph # (Auto) Seg Neutrophils % D-Dimer POC ABG pO2 52.1 L ABG Oxyhemoglobin 84.3 L ABG Chloride 110.0 H ABG Glucose 176 H Carboxyhemoglobin 0.3 L Sodium 146 H Potassium Chloride Carbon Dioxide BUN Creatinine 0.5 L Glucose 170 H POC Glucose 171 H Calcium 7.5 L Ferritin AST 81 H ALT Alkaline Phosphatase Lactate Dehydrogenase C-Reactive Protein Total Protein 5.7 L Albumin 3.3 L Arterial Blood Glucose 176 H Arterial Blood Ionized Calcium 4.0 L Valproic Acid Coronavirus (PCR) 03/10/21 03/10/21 03/10/21 10:19 10:19 10:19 WBC Plt Count [place] % (Auto) Lymph # (Auto) Seg Neutrophils % D-Dimer 451.32 H POC ABG pO2 ABG Oxyhemoglobin ABG Chloride ABG Glucose Carboxyhemoglobin Sodium Potassium Chloride Carbon Dioxide BUN Creatinine Glucose POC Glucose Calcium Ferritin 1795.0 H AST ALT Alkaline Phosphatase Lactate Dehydrogenase 1033 H C-Reactive Protein Total Protein Albumin Arterial Blood Glucose Arterial Blood Ionized Calcium Valproic Acid Coronavirus (PCR) 03/10/21 03/10/21 03/10/21 10:19 11:31 13:48 WBC Plt Count [place] % (Auto) Lymph # (Auto) Seg Neutrophils % D-Dimer POC ABG pO2 43.6 L ABG Oxyhemoglobin 77.3 L ABG Chloride 110.0 H ABG Glucose 174 H Carboxyhemoglobin 0.2 L Sodium Potassium Chloride Carbon Dioxide BUN Creatinine Glucose POC Glucose 163 H Calcium Ferritin AST ALT Alkaline Phosphatase Lactate Dehydrogenase C-Reactive Protein 8.10 H Total Protein Albumin Arterial Blood Glucose 174 H Arterial Blood Ionized Calcium 4.1 L Valproic Acid Coronavirus (PCR) 03/10/21 03/10/21 03/10/21 17:58 18:13 18:13 WBC Plt Count [place] % (Auto) Lymph # (Auto) Seg Neutrophils % D-Dimer 1054.48 H POC ABG pO2 ABG Oxyhemoglobin ABG Chloride ABG Glucose Carboxyhemoglobin Sodium Potassium Chloride Carbon Dioxide BUN Creatinine Glucose POC Glucose 152 H Calcium Ferritin 1717.0 H AST ALT Alkaline Phosphatase Lactate Dehydrogenase C-Reactive Protein Total Protein Albumin Arterial Blood Glucose Arterial Blood Ionized Calcium Valproic Acid Coronavirus (PCR) 08/23/21 08/23/21 08/24/21 18:13 23:15 05:35 WBC Plt Count [place] % (Auto) Lymph # (Auto) Seg Neutrophils % D-Dimer POC ABG pO2 ABG Oxyhemoglobin ABG Chloride ABG Glucose Carboxyhemoglobin Sodium Potassium Chloride Carbon Dioxide BUN Creatinine Glucose POC Glucose 152 H 134 H Calcium Ferritin AST ALT Alkaline Phosphatase Lactate Dehydrogenase 1242 H C-Reactive Protein 8.40 H Total Protein Albumin Arterial Blood Glucose Arterial Blood Ionized Calcium Valproic Acid Coronavirus (PCR) 03/11/21 03/11/21 03/11/21 06:56 11:41 23:24 WBC Plt Count [place] % (Auto) Lymph # (Auto) Seg Neutrophils % D-Dimer POC ABG pO2 ABG Oxyhemoglobin ABG Chloride ABG Glucose Carboxyhemoglobin Sodium 151 H Potassium Chloride 110.7 H Carbon Dioxide BUN 27 H Creatinine Glucose 153 H POC Glucose 115 H 141 H Calcium 7.8 L Ferritin AST 53 H ALT Alkaline Phosphatase Lactate Dehydrogenase C-Reactive Protein 6.60 H Total Protein 6.2 L Albumin 3.5 L Arterial Blood Glucose Arterial Blood Ionized Calcium Valproic Acid Coronavirus (PCR) 03/12/21 03/12/21 03/12/21 04:46 04:46 05:03 WBC Plt Count 31 L [place] % (Auto) Lymph # (Auto) Seg Neutrophils % D-Dimer POC ABG pO2 ABG Oxyhemoglobin ABG Chloride ABG Glucose Carboxyhemoglobin Sodium 147 H Potassium 5.6 H D Chloride 114.3 H Carbon Dioxide 20 L D BUN 33 H Creatinine Glucose 166 H POC Glucose 161 H Calcium 7.9 L Ferritin AST 66 H ALT Alkaline Phosphatase Lactate Dehydrogenase C-Reactive Protein Total Protein 5.8 L Albumin 2.5 L Arterial Blood Glucose Arterial Blood Ionized Calcium Valproic Acid Coronavirus (PCR) 03/12/21 03/12/21 03/12/21 12:10 16:30 16:30 WBC Plt Count [place] % (Auto) Lymph # (Auto) Seg Neutrophils % D-Dimer > 13275 H POC ABG pO2 ABG Oxyhemoglobin ABG Chloride ABG Glucose Carboxyhemoglobin Sodium Potassium Chloride Carbon Dioxide BUN Creatinine Glucose POC Glucose 166 H Calcium Ferritin 1208.0 H AST ALT Alkaline Phosphatase Lactate Dehydrogenase C-Reactive Protein Total Protein Albumin Arterial Blood Glucose Arterial Blood Ionized Calcium Valproic Acid Coronavirus (PCR) 03/12/21 03/12/21 03/13/21 17:28 23:49 04:17 WBC Plt Count [place] % (Auto) Lymph # (Auto) Seg Neutrophils % D-Dimer POC ABG pO2 ABG Oxyhemoglobin ABG Chloride ABG Glucose Carboxyhemoglobin Sodium 157 H D Potassium 3.5 L D Chloride 119.2 H Carbon Dioxide BUN 47 H Creatinine Glucose 183 H POC Glucose 159 H 174 H Calcium 8.3 L Ferritin AST ALT Alkaline Phosphatase Lactate Dehydrogenase C-Reactive Protein 1.70 H Total Protein Albumin Arterial Blood Glucose Arterial Blood Ionized Calcium Valproic Acid Coronavirus (PCR) 03/13/21 03/13/21 03/13/21 04:17 04:17 05:53 WBC Plt Count 56 L [place] % (Auto) Lymph # (Auto) Seg Neutrophils % D-Dimer POC ABG pO2 ABG Oxyhemoglobin ABG Chloride ABG Glucose Carboxyhemoglobin Sodium 158 H Potassium Chloride 120.2 H Carbon Dioxide BUN 47 H Creatinine Glucose 184 H POC Glucose 180 H Calcium 8.2 L Ferritin AST ALT Alkaline Phosphatase 136 H Lactate Dehydrogenase C-Reactive Protein Total Protein 5.3 L Albumin 3.0 L Arterial Blood Glucose Arterial Blood Ionized Calcium Valproic Acid Coronavirus (PCR) 03/13/21 03/13/21 03/13/21 11:39 17:31 23:13 WBC Plt Count [place] % (Auto) Lymph # (Auto) Seg Neutrophils % D-Dimer POC ABG pO2 ABG Oxyhemoglobin ABG Chloride ABG Glucose Carboxyhemoglobin Sodium Potassium Chloride Carbon Dioxide BUN Creatinine Glucose POC Glucose 145 H 171 H 69 L Calcium Ferritin AST ALT Alkaline Phosphatase Lactate Dehydrogenase C-Reactive Protein Total Protein Albumin Arterial Blood Glucose Arterial Blood Ionized Calcium Valproic Acid Coronavirus (PCR) 03/14/21 03/14/21 03/14/21 05:10 06:30 06:30 WBC 14.8 H Plt Count 95 L [place] % (Auto) Lymph # (Auto) Seg Neutrophils % D-Dimer POC ABG pO2 ABG Oxyhemoglobin ABG Chloride ABG Glucose Carboxyhemoglobin Sodium 158 H Potassium Chloride 118.7 H Carbon Dioxide BUN 56 H Creatinine Glucose 185 H POC Glucose 179 H Calcium 8.2 L Ferritin AST 64 H ALT Alkaline Phosphatase 271 H Lactate Dehydrogenase C-Reactive Protein Total Protein 5.6 L Albumin 3.4 L Arterial Blood Glucose Arterial Blood Ionized Calcium Valproic Acid Coronavirus (PCR) 03/14/21 03/14/21 03/14/21 11:03 11:03 11:14 WBC Plt Count [place] % (Auto) Lymph # (Auto) Seg Neutrophils % D-Dimer > 98493 H POC ABG pO2 ABG Oxyhemoglobin ABG Chloride ABG Glucose Carboxyhemoglobin Sodium Potassium Chloride Carbon Dioxide BUN Creatinine Glucose POC Glucose 217 H Calcium Ferritin 1799.0 H AST ALT Alkaline Phosphatase Lactate Dehydrogenase C-Reactive Protein Total Protein Albumin Arterial Blood Glucose Arterial Blood Ionized Calcium Valproic Acid Coronavirus (PCR) Chest x-ray: pending Allied health notes reviewed: nursing
--- NOTE | 2021-03-14 13:27 | Progress Note ---
Assessment and Plan Cultures: SARS CoV2 PCR: Positive 03/09/2021 blood culture: No growth A/P: 60-year-old female with COPD, hypertension, seizure disorder, arthritis: #Bilateral pneumonia: Secondary to COVID-19. Severe disease #Acute hypoxic respiratory failure: Secondary to above. On HFNC/NRB. Was on BIPAP. #Transaminitis: Likely secondary to COVID-19 #Leukopenia: Likely related to viral illness #morbid obesity Recs: -Continue steroids, dosing per pulmonary -Continue remdesivir x 5 days -Status post Actemra 03/10/2021 -Prophylactic anticoagulation based on d-dimer per hospital protocol. D-dimer remains extremely elevated. CRP 0.9 -trend ferritin, d-dimer, CRP every 2-3 days -poor prognosis ID will sign off. Please reconsult if needed. Evonne Montoya MD, FACP [facility] ([facility]) O: [phone] F: [phone] Subjective Date of service: 03/14/21 Principal diagnosis: Ac hypoxemic resp failure; COVID-19 infxn; PNA; Morbid obesity; Seizures Interval history: No fever. On HFNC. D-dimer remains extremely elevated. CRP 0.9 Objective - Exam Narrative Exam: Physical Exam (reviewed in chart to minimize risk of transmission) Constitutional: deferred Head, Ears, Nose: deferred Eyes: deferred Neck: deferred Oral: deferred Cardiovascular: deferred Respiratory: deferred GI: deferred Musculoskeletal: deferred Skin: deferred Hem/Lymphatic: deferred Psych: deferred Neurological: deferred - Constitutional Vitals: Vital Signs Temp Pulse Resp BP Pulse Ox 98.2 F 79 32 H 157/91 98 03/14/21 11:45 03/14/21 12:25 03/14/21 12:25 03/14/21 12:25 03/14/21 12:25 Temperature -Last 24 Hours Temperature 98.2 F Temperature 98.1 F Temperature 97.8 F Temperature 97.5 F Temperature 98.3 F Temperature 97.6 F - Labs CBC & Chem 7: 03/14/21 06:30 03/14/21 06:30 Labs: Abnormal lab results 03/13/21 03/13/21 03/14/21 Range/Units 17:31 23:13 05:10 WBC (4.5-11.0) K/mm3 Plt Count (140-440) K/mm3 D-Dimer (0-234) ng/mlDDU Sodium (137-145) mmol/L Chloride (98-107) mmol/L BUN (7-17) mg/dL Glucose (65-100) mg/dL POC Glucose 171 H 69 L 179 H (70-105) mg/dL Calcium (8.4-10.2) mg/dL Ferritin (10.0-200.0) ng/mL AST (5-40) units/L Alkaline Phosphatase (35-129) units/L Total Protein (6.3-8.2) g/dL Albumin (3.9-5) g/dL 03/14/21 03/14/21 03/14/21 Range/Units 06:30 06:30 11:03 WBC 14.8 H (4.5-11.0) K/mm3 Plt Count 95 L (140-440) K/mm3 D-Dimer > 24135 H (0-234) ng/mlDDU Sodium 158 H (137-145) mmol/L Chloride 118.7 H (98-107) mmol/L BUN 56 H (7-17) mg/dL Glucose 185 H (65-100) mg/dL POC Glucose (70-105) mg/dL Calcium 8.2 L (8.4-10.2) mg/dL Ferritin (10.0-200.0) ng/mL AST 64 H (5-40) units/L Alkaline Phosphatase 271 H (35-129) units/L Total Protein 5.6 L (6.3-8.2) g/dL Albumin 3.4 L (3.9-5) g/dL 03/14/21 03/14/21 Range/Units 11:03 11:14 WBC (4.5-11.0) K/mm3 Plt Count (140-440) K/mm3 D-Dimer (0-234) ng/mlDDU Sodium (137-145) mmol/L Chloride (98-107) mmol/L BUN (7-17) mg/dL Glucose (65-100) mg/dL POC Glucose 217 H (70-105) mg/dL Calcium (8.4-10.2) mg/dL Ferritin 1799.0 H (10.0-200.0) ng/mL AST (5-40) units/L Alkaline Phosphatase (35-129) units/L Total Protein (6.3-8.2) g/dL Albumin (3.9-5) g/dL
--- NOTE | 2021-03-14 17:53 | Progress Note ---
<NIA ESPINOSA - Last Filed: 03/14/21 17:49> Assessment and Plan Assessment and plan: 60-year-old female with seizure disorder, COPD, HTN and TBI admitted for covid 19 pui with acute hypoxic resp failure. Neuro: Seizure disorder, h/x TBI -Last seizure was 20 years ago -Continue Depakote but discontinue Tegretol and IV Keppra per neuro -Depakote reduced to twice a day -Neurology following CV: HTN -Prn IV hydral and labatalol -SB on monitor -BP monitoring via janeen -removed today d/t discolored fingers -May need clonidine patch Resp: Acute respiratory failure with hypoxia, ARDs, COVID PNA, COPD -on continuous bipap->HFNC as tolerated -SPo2 monitoring -Pulm hygenie -Prone as tolerated GI: NPO, MO, Transaminitis -D5 IVF -lifestyle and dietary changes needed on dc -BR; [place] -24 hours +766 -PPI -Trend LFTS : Hypernatremia, hyperchloremia -strict I/O -follow electrolytes -trend cr -MIVF with dextrose Endo: Hyperglycemia -SSI -BG q4 while npo Heme: elevated d-dimer, thrombocytopenia -Arixtra -SCDs to BLE while in bed -BLE Doppler US negative -BLE doppler repeat pending r/t elevated ddimer ID: [id number] pneumonia, leukopenia (resolved) -ID following -Continue steroids, dosing per pulmonary -Continue remdesivir -s/p Actemra 03/10/2021 -trend ferritin, LDH, d-dimer, CRP every 2-3 days for risk stratification and to assess disease progression -droplet/isolation precautions -Prone as tolerated The high probability of a clinically significant, sudden or life threatening deterioration of the [all] system(s) required my full and direct attention, intervention and personal management. The aggregate critical care time was [60] minutes. This time is in addition to time spent performing reported procedures but includes the following: [x] Data Review and interpretation [x] Patient assessment and monitoring of vital signs [x] Documentation [x] Medication orders and management Disposition Plan: icu Total Time Spent with Patient (Minutes): 60 History Interval history: This is 60-year-old female with seizure disorder and TBI brought into the emergency room by EMS for evaluation of shortness of breath ongoing for the past few days. Oxygen saturation was about 50% on room air upon arrival of EMS. She was subsequently placed on nonrebreather with improvement of oxygen saturation to about 88%. She was subsequently placed on BiPAP upon arrival in the emergency room. She was initially confused upon arrival in the emergency room but became more responsive upon placement on BiPAP. Work-up in the emergency room showed labs were significant for elevated liver enzymes with AST of 79 ALT 62. Chest x-ray reveals severe bilateral airspace pneumonia. Patient admitted for covid 19 pui with acute hypoxic resp failure. 03/10/2021 Patient is Covid positive And acute respiratory failure with hypoxia Neurology and it infrastructure consultant consult appreciated ID consult appreciated mainly Seizure medication changed 03-11: no acute events overnight 03/12: unable to gain IV access, IV placed by PICC team was infiltrated today. CVL and janeen placed today 03/13: thrombocytopenia, weaned to optiflow with nrb during the AM and bipap hs. dimer noted at >[id number] however unable to complete full vte workup-will reorder Doppler and changed to arixtra. 03/14: Patient platelets are recovering, HIT assay ordered, left radial A-line removed due to discoloration of the fingers. Patient did not tolerate high flow nasal cannula today Hospitalist Physical - Constitutional Vitals: Temp Pulse Resp BP Pulse Ox 97.4 F L 75 24 143/92 99 03/14/21 16:00 03/14/21 17:06 03/14/21 17:06 03/14/21 17:06 03/14/21 17:06 General appearance: Present: no acute distress, well-nourished - EENT Eyes: Present: PERRL, EOM intact - Neck Neck: Absent: masses or JVD, cervical LAD - Respiratory Respiratory effort: normal Respiratory: bilateral: diminished - Cardiovascular Heart Sounds: Present: S1 & S2 - Extremities Extremities: pulses intact, pulses symmetrical, No edema Extremity abnormal: cold, other (discolored left fingers) Peripheral Pulses: within normal limits - Abdominal General gastrointestinal: soft - Integumentary Integumentary: Present: warm, dry - Psychiatric Psychiatric: other - Neurologic Neurologic: other - Allied Health Allied health notes reviewed: nursing, social work Results - Labs CBC & Chem 7: 03/14/21 06:30 03/14/21 06:30 Labs: Laboratory Last Values WBC 14.8 K/mm3 (4.5-11.0) H 03/14/21 06:30 RBC 4.28 M/mm3 (3.65-5.03) 03/14/21 06:30 Hgb 13.2 gm/dl (10.1-14.3) 03/14/21 06:30 Hct 39.7 % (30.3-42.9) 03/14/21 06:30 MCV 93 fl (79-97) 03/14/21 06:30 MCH 31 pg (28-32) 03/14/21 06:30 MCHC 33 % (30-34) 03/14/21 06:30 RDW 13.5 % (13.2-15.2) 03/14/21 06:30 Plt Count 95 K/mm3 (140-440) L 03/14/21 06:30 Lymph % (Auto) 15.7 % (13.4-35.0) 03/10/21 05:02 Petroleum % (Auto) 5.2 % (0.0-7.3) 03/10/21 05:02 Eos % (Auto) 0.0 % (0.0-4.3) 03/10/21 05:02 Baso % (Auto) 0.1 % (0.0-1.8) 03/10/21 05:02 Lymph # (Auto) 0.5 K/mm3 (1.2-5.4) L 03/10/21 05:02 Petroleum # (Auto) 0.2 K/mm3 (0.0-0.8) 03/10/21 05:02 Eos # (Auto) 0.0 K/mm3 (0.0-0.4) 03/10/21 05:02 Baso # (Auto) 0.0 K/mm3 (0.0-0.1) 03/10/21 05:02 Seg Neutrophils % 79.0 % (40.0-70.0) H 03/10/21 05:02 Seg Neutrophils # 2.8 K/mm3 (1.8-7.7) 03/10/21 05:02 PT 13.8 Sec. (12.2-14.9) 03/10/21 05:02 INR 1.01 (0.87-1.13) 03/10/21 05:02 D-Dimer > 63675 ng/mlDDU (0-234) H 03/14/21 11:03 ABG pH 7.389 (7.320-7.450) 03/10/21 13:48 POC ABG pCO2 44.0 mmHg (32.0-48.0) 03/10/21 13:48 POC ABG pO2 43.6 mmHg (83-108) L 03/10/21 13:48 POC ABG HCO3 26.0 03/10/21 13:48 ABG O2 Saturation 77.7 (0-100) 03/10/21 13:48 POC ABG Base Excess 0.7 03/10/21 13:48 ABG Hemoglobin 12.6 (12.0-17.5) 03/10/21 13:48 ABG Oxyhemoglobin 77.3 (94-98) L 03/10/21 13:48 ABG Methemoglobin 0.3 (0.0-1.5) 03/10/21 13:48 ABG Sodium 144.1 mmol/L (136.0-145.0) 03/10/21 13:48 ABG Potassium 3.6 mmol/L (3.40-4.50) 03/10/21 13:48 ABG Chloride 110.0 mmol/L (98-107) H 03/10/21 13:48 ABG Glucose 174 mg/dL (65-95) H 03/10/21 13:48 Carboxyhemoglobin 0.2 (0.5-1.5) L 03/10/21 13:48 FiO2 % 100.0 03/10/21 13:48 Sodium 158 mmol/L (137-145) H 03/14/21 06:30 Potassium 3.7 mmol/L (3.6-5.0) 03/14/21 06:30 Chloride 118.7 mmol/L (98-107) H 03/14/21 06:30 Carbon Dioxide 25 mmol/L (22-30) 03/14/21 06:30 Anion Gap 18 mmol/L 03/14/21 06:30 BUN 56 mg/dL (7-17) H 03/14/21 06:30 Creatinine 1.2 mg/dL (0.6-1.2) 03/14/21 06:30 Estimated GFR 46 ml/min 03/14/21 06:30 BUN/Creatinine Ratio 47 % 03/14/21 06:30 Glucose 185 mg/dL (65-100) H 03/14/21 06:30 POC Glucose 217 mg/dL (70-105) H 03/14/21 11:14 Lactic Acid 1.30 mmol/L (0.7-2.0) 03/10/21 10:19 Calcium 8.2 mg/dL (8.4-10.2) L 03/14/21 06:30 Ferritin 1799.0 ng/mL (10.0-200.0) H 03/14/21 11:03 Total Bilirubin 0.80 mg/dL (0.1-1.2) 03/14/21 06:30 AST 64 units/L (5-40) H 03/14/21 06:30 ALT 28 units/L (7-56) 03/14/21 06:30 Alkaline Phosphatase 271 units/L (35-129) H 03/14/21 06:30 Lactate Dehydrogenase 1242 units/L (91-180) H 03/10/21 18:13 C-Reactive Protein 0.90 mg/dL (0.00-1.30) 03/14/21 11:03 Total Protein 5.6 g/dL (6.3-8.2) L 03/14/21 06:30 Albumin 3.4 g/dL (3.9-5) L 03/14/21 06:30 Albumin/Globulin Ratio 1.5 % 03/14/21 06:30 Procalcitonin < 0.05 ng/mL (<0.15) 03/10/21 10:19 Arterial Blood Glucose 174 mg/dL (65-95) H 03/10/21 13:48 Arterial Blood Ionized Calcium 4.1 mg/dL (4.6-5.3) L 03/10/21 13:48 Urine Color Cherelle (Yellow) 03/09/21 04:48 Urine Turbidity Clear (Clear) 03/09/21 04:48 Urine pH 5.0 (5.0-7.0) 03/09/21 04:48 Ur Specific [place] 1.020 (1.003-1.030) 03/09/21 04:48 Urine Protein 100 mg/dl mg/dL (Negative) 03/09/21 04:48 Urine Glucose (UA) Neg mg/dL (Negative) 03/09/21 04:48 Urine Ketones Tr mg/dL (Negative) 03/09/21 04:48 Urine Blood Neg (Negative) 03/09/21 04:48 Urine Nitrite Neg (Negative) 03/09/21 04:48 Urine Bilirubin Neg (Negative) 03/09/21 04:48 Urine Urobilinogen 4.0 mg/dL (<2.0) 03/09/21 04:48 Ur Leukocyte Esterase Sm (Negative) 03/09/21 04:48 Urine WBC (Auto) 6.0 /HPF (0.0-6.0) 03/09/21 04:48 Urine RBC (Auto) 5.0 /HPF (0.0-6.0) 03/09/21 04:48 U Epithel Cells (Auto) 2.0 /HPF (0-13.0) 03/09/21 04:48 Urine Bacteria (Auto) 2+ /HPF (Negative) 03/09/21 04:48 Urine Mucus Few /HPF 03/09/21 04:48 Valproic Acid 9.7 ug/mL (50-100) L 03/09/21 00:26 Coronavirus (PCR) Positive (Negative) A 03/09/21 Unknown Microbiology: Microbiology 03/09/21 00:26 Peripheral/Venous Blood Culture - Final NO GROWTH AFTER 5 DAYS 03/09/21 00:20 Peripheral/Venous Blood Culture - Final NO GROWTH AFTER 5 DAYS Thacker/IV: Voiding Method External Female Catheter Active Medications - Current Medications Current Medications: Generic Name Dose Route Start Last Admin Trade Name Freq PRN Reason Stop Dose Admin Acetaminophen 1,000 mg 03/09/21 15:00 Acetaminophen 500 Mg Tab PO Q6HR PRN Pain , Severe (7-10) Albuterol 2.5 mg 03/09/21 02:28 Albuterol 2.5 Mg/3 Ml Nebu IH Q4HRT PRN Shortness Of Breath Alprazolam 1 mg 03/09/21 14:05 Alprazolam 1 Mg Tab PO TID PRN Anxiety Ascorbic Acid 500 mg 03/09/21 22:00 03/14/21 09:26 Ascorbic Acid 500 Mg Tab PO 500 mg BID CAMERON Administration Aspirin 81 mg 03/09/21 15:00 03/14/21 09:26 Aspirin 81 Mg Tab Chew PO 81 mg QDAY CAMERON Administration Atenolol 25 mg 03/09/21 15:00 03/14/21 09:26 Atenolol 25 Mg Tab PO 25 mg DAILY CAMERON Administration Clonidine HCl 0.1 mg 03/11/21 04:56 Clonidine 0.1 Mg Tab PO Q4H PRN systolic bp greater than 160 Dextrose 50 ml 03/10/21 11:29 Dextrose 50% In Water (25gm) 50 Ml Syringe IV Q30MIN PRN Hypoglycemia Protocol Diphenhydramine HCl 25 mg 03/09/21 15:00 Diphenhydramine 25 Mg Cap PO Q6HR PRN Itching Fondaparinux 2.5 mg 03/13/21 22:00 03/13/21 21:36 Fondaparinux 2.5 Mg/0.5 Ml Inj SUB-Q 2.5 mg Q24H CAMERON Administration Hydralazine HCl 10 mg 03/11/21 08:32 03/13/21 18:03 Hydralazine 20 Mg/1 Ml Inj IV 10 mg Q4HR PRN Administration Hypertension Dexmedetomidine HCl 400 mcg/ 104 mls @ 8.46 mls/hr 03/11/21 14:00 03/14/21 12:56 Sodium Chloride IV 0.5 mcg/kg/hr TITRATE CAMERON 21.151 mls/hr Administration Protocol 0.2 MCG/KG/HR Valproate Sodium 500 mg/ 105 mls @ 100 mls/hr 03/13/21 22:00 03/14/21 09:27 Sodium Chloride IV 100 mls/hr Q12HR CAMERON Administration Dextrose 1,000 mls @ 110 mls/hr 03/13/21 23:45 03/14/21 15:33 D5w IV 110 mls/hr DIRECT CAMERON Administration Insulin Human Regular 0 units 03/10/21 12:00 03/14/21 11:43 Insulin Regular, Human 100 Units/1 Ml SUB-Q 2 units Q6H CAMERON Administration Protocol Labetalol HCl 10 mg 03/11/21 08:32 03/12/21 04:16 Labetalol 20 Mg/4 Ml Inj IV 10 mg Q6HR PRN Administration Hypertension Magnesium Hydroxide 30 ml 03/09/21 02:28 Magnesium Hydroxide (Mom) Oral Liqd Udc PO Q4H PRN Constipation Methylprednisolone Sodium Succinate 110 mg 03/09/21 22:00 03/14/21 13:00 Methylprednisolone Sod Succinate 125 Mg/2 Ml Inj IV 110 mg Q8HR CAMERON Administration Morphine Sulfate 2 mg 03/09/21 02:28 03/14/21 09:27 Morphine 2 Mg/1 Ml Inj IV 2 mg Q4H PRN Administration Pain, Moderate (4-6) Morphine Sulfate 4 mg 03/09/21 02:28 03/12/21 04:15 Morphine 4 Mg/1 Ml Inj IV 4 mg Q4H PRN Administration Pain , Severe (7-10) Nystatin 1 applic 03/09/21 15:00 03/14/21 09:31 Nystatin Oint 15 Gm TP 1 applic BID CAMERON Administration Ondansetron HCl 4 mg 03/09/21 02:28 Ondansetron 4 Mg/2 Ml Inj IV Q8H PRN Nausea And Vomiting Sodium Chloride 10 ml 03/09/21 10:00 03/14/21 09:28 Sodium Chloride 0.9% 10 Ml Flush Syringe IV 10 ml BID ACMERON Administration Sodium Chloride 10 ml 03/09/21 02:28 Sodium Chloride 0.9% 10 Ml Flush Syringe IV PRN PRN LINE FLUSH Zinc Sulfate 220 mg 03/09/21 22:00 03/14/21 09:27 Zinc Sulfate 220 Mg Cap PO 220 mg BID CAMERON Administration Nutrition/Malnutrition Assess - Dietary Evaluation Nutrition/Malnutrition Findings: Nutrition Notes Start: 03/14/21 12:17 Freq: Status: Active Protocol: Document 03/14/21 12:17 (Rec: 03/14/21 12:19 [id number]) Nutrition Notes Need for Assessment generated from: LOS Current Diagnosis COPD,Hypertension,Respiratory Failure Other Pertinent Diagnosis COVID, pneu, hx of TBI Current Diet NPO Subjective/Other Information Screen for LOS. Pt NPO since yesterday. 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 Nutrition Intervention Follow-Up By: 03/17/21 Additional Comments F/u: intakes <TETO HATCH - Last Filed: 03/15/21 14:27> Assessment and Plan Assessment and plan: I saw and evaluated the patient. Discussed with the nurse practitioner and agree with their findings and plan as documented in this note. Hospitalist Physical - Constitutional Vitals: Temp Pulse Resp BP Pulse Ox 98 F 88 22 139/103 99 03/15/21 08:00 03/15/21 13:01 03/15/21 13:01 03/15/21 13:01 03/15/21 13:01 Results - Labs CBC & Chem 7: 03/15/21 05:30 03/15/21 05:30 Labs: Laboratory Last Values WBC 19.5 K/mm3 (4.5-11.0) H 03/15/21 05:30 RBC 3.92 M/mm3 (3.65-5.03) 03/15/21 05:30 Hgb 12.0 gm/dl (10.1-14.3) 03/15/21 05:30 Hct 36.4 % (30.3-42.9) 03/15/21 05:30 MCV 93 fl (79-97) 03/15/21 05:30 MCH 31 pg (28-32) 03/15/21 05:30 MCHC 33 % (30-34) 03/15/21 05:30 RDW 13.4 % (13.2-15.2) 03/15/21 05:30 Plt Count 70 K/mm3 (140-440) L 03/15/21 05:30 Lymph % (Auto) 15.7 % (13.4-35.0) 03/10/21 05:02 Petroleum % (Auto) 5.2 % (0.0-7.3) 03/10/21 05:02 Eos % (Auto) 0.0 % (0.0-4.3) 03/10/21 05:02 Baso % (Auto) 0.1 % (0.0-1.8) 03/10/21 05:02 Lymph # (Auto) 0.5 K/mm3 (1.2-5.4) L 03/10/21 05:02 [place] # (Auto) 0.2 K/mm3 (0.0-0.8) 03/10/21 05:02 Eos # (Auto) 0.0 K/mm3 (0.0-0.4) 03/10/21 05:02 Baso # (Auto) 0.0 K/mm3 (0.0-0.1) 03/10/21 05:02 Seg Neutrophils % 79.0 % (40.0-70.0) H 03/10/21 05:02 Seg Neutrophils # 2.8 K/mm3 (1.8-7.7) 03/10/21 05:02 PT 13.8 Sec. (12.2-14.9) 03/10/21 05:02 INR 1.01 (0.87-1.13) 03/10/21 05:02 D-Dimer > 33168 ng/mlDDU (0-234) H 03/14/21 11:03 ABG pH 7.389 (7.320-7.450) 03/10/21 13:48 POC ABG pCO2 44.0 mmHg (32.0-48.0) 03/10/21 13:48 POC ABG pO2 43.6 mmHg (83-108) L 03/10/21 13:48 POC ABG HCO3 26.0 03/10/21 13:48 ABG O2 Saturation 77.7 (0-100) 03/10/21 13:48 POC ABG Base Excess 0.7 03/10/21 13:48 ABG Hemoglobin 12.6 (12.0-17.5) 03/10/21 13:48 ABG Oxyhemoglobin 77.3 (94-98) L 03/10/21 13:48 ABG Methemoglobin 0.3 (0.0-1.5) 03/10/21 13:48 ABG Sodium 144.1 mmol/L (136.0-145.0) 03/10/21 13:48 ABG Potassium 3.6 mmol/L (3.40-4.50) 03/10/21 13:48 ABG Chloride 110.0 mmol/L (98-107) H 03/10/21 13:48 ABG Glucose 174 mg/dL (65-95) H 03/10/21 13:48 Carboxyhemoglobin 0.2 (0.5-1.5) L 03/10/21 13:48 FiO2 % 100.0 03/10/21 13:48 Sodium 150 mmol/L (137-145) H D 03/15/21 05:30 Potassium 3.1 mmol/L (3.6-5.0) L 03/15/21 05:30 Chloride 110.2 mmol/L (98-107) H 03/15/21 05:30 Carbon Dioxide 28 mmol/L (22-30) 03/15/21 05:30 Anion Gap 15 mmol/L 03/15/21 05:30 BUN 56 mg/dL (7-17) H 03/15/21 05:30 Creatinine 1.1 mg/dL (0.6-1.2) 03/15/21 05:30 Estimated GFR 51 ml/min 03/15/21 05:30 BUN/Creatinine Ratio 51 % 03/15/21 05:30 Glucose 364 mg/dL (65-100) H 03/15/21 05:30 POC Glucose 123 mg/dL (70-105) H 03/15/21 12:33 Lactic Acid 1.30 mmol/L (0.7-2.0) 03/10/21 10:19 Calcium 8.0 mg/dL (8.4-10.2) L 03/15/21 05:30 Phosphorus 3.60 mg/dL (2.5-4.5) 03/15/21 05:30 Magnesium 2.50 mg/dL (1.7-2.3) H 03/15/21 05:30 Ferritin 1799.0 ng/mL (10.0-200.0) H 03/14/21 11:03 Total Bilirubin 1.50 mg/dL (0.1-1.2) H 03/15/21 05:30 AST 69 units/L (5-40) H 03/15/21 05:30 ALT 39 units/L (7-56) 03/15/21 05:30 Alkaline Phosphatase 207 units/L (35-129) H 03/15/21 05:30 Lactate Dehydrogenase 1242 units/L (91-180) H 03/10/21 18:13 C-Reactive Protein 0.60 mg/dL (0.00-1.30) 03/15/21 05:30 Total Protein 6.0 g/dL (6.3-8.2) L 03/15/21 05:30 Albumin 3.5 g/dL (3.9-5) L 03/15/21 05:30 Albumin/Globulin Ratio 1.4 % 03/15/21 05:30 Procalcitonin 0.23 ng/mL (<0.15) 03/14/21 11:03 Arterial Blood Glucose 174 mg/dL (65-95) H 03/10/21 13:48 Arterial Blood Ionized Calcium 4.1 mg/dL (4.6-5.3) L 03/10/21 13:48 Urine Color [place] (Yellow) 03/09/21 04:48 Urine Turbidity Clear (Clear) 03/09/21 04:48 Urine pH 5.0 (5.0-7.0) 03/09/21 04:48 Ur Specific [place] 1.020 (1.003-1.030) 03/09/21 04:48 Urine Protein 100 mg/dl mg/dL (Negative) 03/09/21 04:48 Urine Glucose (UA) Neg mg/dL (Negative) 03/09/21 04:48 Urine Ketones Tr mg/dL (Negative) 03/09/21 04:48 Urine Blood Neg (Negative) 03/09/21 04:48 Urine Nitrite Neg (Negative) 03/09/21 04:48 Urine Bilirubin Neg (Negative) 03/09/21 04:48 Urine Urobilinogen 4.0 mg/dL (<2.0) 03/09/21 04:48 Ur Leukocyte Esterase Sm (Negative) 03/09/21 04:48 Urine WBC (Auto) 6.0 /HPF (0.0-6.0) 03/09/21 04:48 Urine RBC (Auto) 5.0 /HPF (0.0-6.0) 03/09/21 04:48 U Epithel Cells (Auto) 2.0 /HPF (0-13.0) 03/09/21 04:48 Urine Bacteria (Auto) 2+ /HPF (Negative) 03/09/21 04:48 Urine Mucus Few /HPF 03/09/21 04:48 Valproic Acid 9.7 ug/mL (50-100) L 03/09/21 00:26 Coronavirus (PCR) Positive (Negative) A 03/09/21 Unknown Thacker/IV: Voiding Method External Female Catheter Active Medications - Current Medications Current Medications: Generic Name Dose Route Start Last Admin Trade Name Freq PRN Reason Stop Dose Admin Acetaminophen 1,000 mg 03/09/21 15:00 Acetaminophen 500 Mg Tab PO Q6HR PRN Pain , Severe (7-10) Albuterol 2.5 mg 03/09/21 02:28 Albuterol 2.5 Mg/3 Ml Nebu IH Q4HRT PRN Shortness Of Breath Alprazolam 1 mg 03/09/21 14:05 Alprazolam 1 Mg Tab PO TID PRN Anxiety Ascorbic Acid 500 mg 03/09/21 22:00 03/14/21 22:14 Ascorbic Acid 500 Mg Tab PO 500 mg BID CAMERON Administration Aspirin 81 mg 03/09/21 15:00 03/14/21 09:26 Aspirin 81 Mg Tab Chew PO 81 mg QDAY CAMERON Administration Atenolol 25 mg 03/09/21 15:00 03/14/21 09:26 Atenolol 25 Mg Tab PO 25 mg DAILY CAMERON Administration Clonidine HCl 0.1 mg 03/11/21 04:56 Clonidine 0.1 Mg Tab PO Q4H PRN systolic bp greater than 160 Clonidine HCl 0.1 mg 03/15/21 10:00 03/15/21 09:20 Clonidine Tts 0.1 Mg/24 Hr Patch TD 0.1 mg QWEEK CAMERON Administration Dextrose 50 ml 03/10/21 11:29 Dextrose 50% In Water (25gm) 50 Ml Syringe IV Q30MIN PRN Hypoglycemia Protocol Diphenhydramine HCl 25 mg 03/09/21 15:00 Diphenhydramine 25 Mg Cap PO Q6HR PRN Itching Fondaparinux 2.5 mg 03/15/21 15:00 Fondaparinux 2.5 Mg/0.5 Ml Inj SUB-Q 03/15/21 15:01 ONCE ONE Fondaparinux 10 mg 03/16/21 10:00 Fondaparinux 7.5 Mg/0.6 Ml Inj SUB-Q QDAY CAMERON Hydralazine HCl 10 mg 03/11/21 08:32 03/15/21 08:14 Hydralazine 20 Mg/1 Ml Inj IV 10 mg Q4HR PRN Administration Hypertension Dexmedetomidine HCl 400 mcg/ 104 mls @ 8.46 mls/hr 03/11/21 14:00 03/15/21 14:22 Sodium Chloride IV 0.8 mcg/kg/hr TITRATE CAMERON 33.842 mls/hr Administration Protocol 0.2 MCG/KG/HR Valproate Sodium 500 mg/ 105 mls @ 100 mls/hr 03/13/21 22:00 03/15/21 10:43 Sodium Chloride IV 100 mls/hr Q12HR CAMERON Administration Dextrose 1,000 mls @ 75 mls/hr 03/15/21 13:00 D5w IV DIRECT CAMERON Insulin Glargine 10 units 03/15/21 22:00 Insulin Glargine 100 Units/Ml SUB-Q QHS [facility] Insulin Human Regular 0 units 03/10/21 12:00 03/15/21 06:35 Insulin Regular, Human 100 Units/1 Ml SUB-Q 2 units Q6H CAMERON Administration Protocol Labetalol HCl 10 mg 03/11/21 08:32 03/15/21 12:07 Labetalol 20 Mg/4 Ml Inj IV 10 mg Q6HR PRN Administration Hypertension Magnesium Hydroxide 30 ml 03/09/21 02:28 Magnesium Hydroxide (Mom) Oral Liqd Udc PO Q4H PRN Constipation Methylprednisolone Sodium Succinate 110 mg 03/09/21 22:00 03/15/21 06:35 Methylprednisolone Sod Succinate 125 Mg/2 Ml Inj IV 110 mg Q8HR CAMERON Administration Morphine Sulfate 2 mg 03/09/21 02:28 03/15/21 08:15 Morphine 2 Mg/1 Ml Inj IV 2 mg Q4H PRN Administration Pain, Moderate (4-6) Morphine Sulfate 4 mg 03/09/21 02:28 03/12/21 04:15 Morphine 4 Mg/1 Ml Inj IV 4 mg Q4H PRN Administration Pain , Severe (7-10) Nifedipine 10 mg 03/15/21 14:00 Nifedipine*For Tocolysis Only* 10 Mg Capsule PO TID CAMERON Nystatin 1 applic 03/09/21 15:00 03/15/21 09:25 Nystatin Oint 15 Gm TP 1 applic BID CAMERON Administration Ondansetron HCl 4 mg 03/09/21 02:28 Ondansetron 4 Mg/2 Ml Inj IV Q8H PRN Nausea And Vomiting Sodium Chloride 10 ml 03/09/21 10:00 03/15/21 10:44 Sodium Chloride 0.9% 10 Ml Flush Syringe IV 10 ml BID CAMERON Administration Sodium Chloride 10 ml 03/09/21 02:28 Sodium Chloride 0.9% 10 Ml Flush Syringe IV PRN PRN LINE FLUSH Zinc Sulfate 220 mg 03/09/21 22:00 03/14/21 22:14 Zinc Sulfate 220 Mg Cap PO 220 mg BID CAMERON Administration Nutrition/Malnutrition Assess - Dietary Evaluation Nutrition/Malnutrition Findings: Nutrition Notes Start: 03/14/21 12:17 Freq: Status: Active Protocol: Document 03/14/21 12:17 [email or web address] (Rec: 03/14/21 12:19 [email or web address] [id number]) Nutrition Notes Need for Assessment generated from: LOS Current Diagnosis COPD,Hypertension,Respiratory Failure Other Pertinent Diagnosis COVID, pneu, hx of TBI Current Diet NPO Subjective/Other Information Screen for LOS. Pt NPO since yesterday. 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 Nutrition Intervention Follow-Up By: 03/17/21 Additional Comments F/u: intakes
[2021-03-14] MEDS: FONDAPARINUX 2.5 MG/0.5 ML INJ SUB-Q SCH (22:14)
[2021-03-15] MEDS: hydrALAZINE 20 MG/1 ML INJ IV PRN ×3 (00:48→18:06)
[2021-03-15] MEDS: INSULIN REGULAR, HUMAN 100 UNITS/1 ML SUB-Q SCH ×4 (00:51→18:02)
--- NOTE | 2021-03-15 03:42 | XRay Report ---
CHEST 1 VIEW 03/15/2021 2:31 AM INDICATION / CLINICAL INFORMATION: hypoxia. COMPARISON: 03/12/2021. FINDINGS: SUPPORT DEVICES: Central catheter unchanged. HEART / MEDIASTINUM: No significant abnormality. LUNGS / PLEURA: Persistent diffuse bilateral opacity with slight worsening. Mild decreased aeration l eft base. No pneumothorax. ADDITIONAL FINDINGS: No significant additional findings. IMPRESSION: Slight interval worsening. Signer Name: Farzad Wright MD Signed: 03/15/2021 3:38 AM Workstation Name: [id number]
[2021-03-15] MEDS: methylPREDNISolone Sod Succinate 125 MG/2 ML INJ IV SCH ×3 (06:35→22:29)
[2021-03-15 07:10] LABS: Hematocrit 36.4 % (30.3-42.9); Mean Corpuscular HGB Conc 33 % (30-34); Mean Corpuscular Volume 93 fl (79-97); Red Blood Count 3.92 M/mm3 (3.65-5.03); Red Cell Distribution Width 13.4 % (13.2-15.2)
[2021-03-15 07:19] LABS: Platelet Count 70 K/mm3 (140-440)
[2021-03-15 07:42] LABS: Albumin 3.5 g/dL (3.9-5)
[2021-03-15] MEDS: MORPHINE 2 MG/1 ML INJ IV PRN (08:15)
[2021-03-15] MEDS: POTASSIUM CHLORIDE 20 MEQ 20 MEQ/100 ML BAG IV SCH ×3 (08:43→12:08)
[2021-03-15] MEDS: DEXTROSE 5% IN WATER 1,000 ML IV SCH ×2 (09:19→21:13)
[2021-03-15] MEDS: NYSTATIN OINT 15 GM TP SCH (09:25)
[2021-03-15] MEDS ORDERED: cloNIDine TTS 0.1 MG/24 HR PATCH TD SCH (10:00)
[2021-03-15] MEDS: VALPROATE SODIUM 500 MG in SODIUM CHLORIDE 0.9% 100 ML IV SCH ×2 (10:43→22:28)
--- NOTE | 2021-03-15 14:39 | Progress Note ---
Assessment and Plan Acute hypoxemic respiratory failure ARDS COVID-19 infection Pneumonia Morbid obesity COPD HTN Chronic liver disease Seizure disorder Arthritis Leukopenia - follow HIT assay - vascular surgery consulted - continue Aritra 7.5 mg SQ daily - heme-onc consult - awake proning counseled again - continue attempts to give breaks on vapotherm during the day as tolerated - continue to wean supplemental oxygen for target O2 sat's > 92% acutely - continue care as below otherwise; - continue accuchecks with glycemic control per SSI (While critically ill target blood glucose of 140-180 mg/dL; avoid hypoglycemia) - aspiration precautions - continue bronchodilators with pulmonary hygiene per RT - avoid nephrotoxins, renally dose all medications - Avoid benzodiazepine's, reduce the possibility of delirium - complete AB's per ID rec's - continue AED's for sizure disorder - prn analgesia per pain score - Maintenance of sleep-wake cycle, avoid delirium - G.I. & VTE prophylaxis - PT/OT/ROM exercises - continue mobility protocols for pressure ulcer prophylaxis - Monitor hemodynamics closely - continue other care per attending / other consultants - discharge planning ongoing concurrently COVID SPECIFIC INTERVENTIONS - Remdesivir as per ID/Pulmonary developed protocols (ordered) - continue systemic steroids for severe COVID-19 infection (Solumedrol) - follow repeat COVID tests results - zinc and vitamin C supplementation - Monitor inflammatory markers per facility protocol - ferritin, Ddimer, CRP - therapeutic anticoagulation per system Protocol based on d-dimer and clinical considerations (VTE prophylaxis) - Continue contact and airborne isolation .... Re-evaluate in am & prn CONDITION: CRITICAL PROGNOSIS: GUARDED CODE STATUS: FULL CODE The high probability of a clinically significant, sudden or life-threatening deterioration of the [respiratory, cardiovascular & neurologic] system(s) required my full and direct attention, intervention and personal management. The aggregate critical care time was [35] minutes without overlap. Time includes spent on; [x] Data Review and interpretation [x] Patient assessment and monitoring of vital signs [x] Documentation [x] Medication orders and management Subjective Date of service: 03/15/21 Principal diagnosis: Ac hypoxemic resp failure; COVID-19 infxn; PNA; Morbid obesity; Seizures Interval history: Patient is seen today for: Acute hypoxemic respiratory failure; ARDS; COVID-19 infection; Pneumonia; Morbid obesity; Seizure disorder Seen and examined at bedside; 24hour events reviewed; nursing and respiratory care staff consulted; no adverse overnight events reported to me; resting peacefully in bed; remains on BIPAP; no emesis ort overt aspiration; increased to full dose anticoagulation with fundoparinux re: cyanotic digits ? HIT; no gross bleeding Objective Vital Signs - 12hr 03/15/21 03/15/21 03/15/21 03:01 03:35 04:00 Temperature 98.8 F Pulse Rate 89 101 H Pulse Rate [ 72 From Monitor] Respiratory 18 27 H Rate Blood Pressure 173/119 O2 Sat by Pulse 100 97 Oximetry 03/15/21 03/15/21 03/15/21 04:01 04:13 05:01 Temperature Pulse Rate 89 94 H 83 Pulse Rate [ From Monitor] Respiratory 25 H 28 H 22 Rate Blood Pressure 164/81 173/119 173/119 O2 Sat by Pulse 100 99 100 Oximetry 03/15/21 03/15/21 03/15/21 06:01 07:01 08:00 Temperature 98 F Pulse Rate 97 H 111 H 87 Pulse Rate [ 87 From Monitor] Respiratory 22 25 H 25 H Rate Blood Pressure 192/156 160/124 O2 Sat by Pulse 99 97 92 Oximetry 03/15/21 03/15/21 03/15/21 08:01 08:14 08:34 Temperature Pulse Rate 111 H 79 79 Pulse Rate [ From Monitor] Respiratory 19 26 H Rate Blood Pressure 205/172 205/111 205/111 O2 Sat by Pulse 91 99 Oximetry 03/15/21 03/15/21 03/15/21 09:01 09:20 10:00 Temperature Pulse Rate 105 H 95 H 103 H Pulse Rate [ From Monitor] Respiratory 23 29 H Rate Blood Pressure 170/90 136/84 182/106 O2 Sat by Pulse 100 100 Oximetry 03/15/21 03/15/21 03/15/21 11:01 12:01 12:07 Temperature Pulse Rate 125 H 120 H 103 H Pulse Rate [ From Monitor] Respiratory 24 26 H Rate Blood Pressure 190/109 164/110 164/110 O2 Sat by Pulse 99 99 Oximetry 03/15/21 13:01 Temperature Pulse Rate 88 Pulse Rate [ From Monitor] Respiratory 22 Rate Blood Pressure 139/103 O2 Sat by Pulse 99 Oximetry Constitutional: appears uncomfortable, other (middle aged morbidly obese female with mildly increased respiratory effort at rest on NIV) Eyes: non-icteric ENT: oropharynx moist Neck: supple, no lymphadenopathy, no JVD, other (large circumference) Effort: mildly labored Ascultation: Bilateral: diminished breath sounds, rhonchi Percussion: Bilateral: not dull Cardiovascular: regular rate and rhythm Gastrointestinal: normoactive bowel sounds, soft, non-tender, non-distended (significantly protuberant) Integumentary: normal Extremities: no cyanosis, no edema, pink and warm, pulses normal Neurologic: normal mental status, non-focal exam, pupils equal and round, motor strength normal and Psychiatric: mood appropriate, affect normal, other (inappropriately flat affect) CBC and BMP: 03/16/21 07:50 03/16/21 07:50 ABG, PT/INR, D-dimer: ABG ABG pH 7.389 (7.320-7.450) 03/10/21 13:48 POC ABG pCO2 44.0 mmHg (32.0-48.0) 03/10/21 13:48 POC ABG pO2 43.6 mmHg (83-108) L 03/10/21 13:48 POC ABG HCO3 26.0 03/10/21 13:48 ABG O2 Saturation 77.7 (0-100) 03/10/21 13:48 PT/INR, D-dimer PT 13.8 Sec. (12.2-14.9) 03/10/21 05:02 INR 1.01 (0.87-1.13) 03/10/21 05:02 D-Dimer > 63290 ng/mlDDU (0-234) H 03/14/21 11:03 Abnormal lab findings: Abnormal Labs 03/09/21 03/09/21 03/09/21 00:26 00:26 00:26 WBC 2.9 L Plt Count [place] % (Auto) 9.5 H Lymph # (Auto) 0.5 L Seg Neutrophils % 74.5 H D-Dimer POC ABG pO2 ABG Oxyhemoglobin ABG Chloride ABG Glucose Carboxyhemoglobin Sodium Potassium Chloride Carbon Dioxide BUN Creatinine Glucose 135 H POC Glucose Calcium 7.3 L Magnesium Ferritin Total Bilirubin AST 79 H ALT 62 H Alkaline Phosphatase Lactate Dehydrogenase C-Reactive Protein Total Protein Albumin 3.4 L Arterial Blood Glucose Arterial Blood Ionized Calcium Valproic Acid 9.7 L Coronavirus (PCR) 08/03/09/21 03/10/21 16:44 Unknown 05:02 WBC 3.5 L Plt Count [place] % (Auto) Lymph # (Auto) 0.5 L Seg Neutrophils % 79.0 H D-Dimer POC ABG pO2 ABG Oxyhemoglobin ABG Chloride ABG Glucose Carboxyhemoglobin Sodium Potassium Chloride Carbon Dioxide BUN Creatinine Glucose 127 H POC Glucose Calcium 7.5 L Magnesium Ferritin Total Bilirubin AST 87 H ALT Alkaline Phosphatase Lactate Dehydrogenase C-Reactive Protein Total Protein Albumin 3.2 L Arterial Blood Glucose Arterial Blood Ionized Calcium Valproic Acid Coronavirus (PCR) Positive A 03/10/21 03/10/21 03/10/21 05:02 05:29 08:57 WBC Plt Count [place] % (Auto) Lymph # (Auto) Seg Neutrophils % D-Dimer POC ABG pO2 52.1 L ABG Oxyhemoglobin 84.3 L ABG Chloride 110.0 H ABG Glucose 176 H Carboxyhemoglobin 0.3 L Sodium 146 H Potassium Chloride Carbon Dioxide BUN Creatinine 0.5 L Glucose 170 H POC Glucose 171 H Calcium 7.5 L Magnesium Ferritin Total Bilirubin AST 81 H ALT Alkaline Phosphatase Lactate Dehydrogenase C-Reactive Protein Total Protein 5.7 L Albumin 3.3 L Arterial Blood Glucose 176 H Arterial Blood Ionized Calcium 4.0 L Valproic Acid Coronavirus (PCR) 03/10/21 03/10/21 03/10/21 10:19 10:19 10:19 WBC Plt Count [place] % (Auto) Lymph # (Auto) Seg Neutrophils % D-Dimer 451.32 H POC ABG pO2 ABG Oxyhemoglobin ABG Chloride ABG Glucose Carboxyhemoglobin Sodium Potassium Chloride Carbon Dioxide BUN Creatinine Glucose POC Glucose Calcium Magnesium Ferritin 1795.0 H Total Bilirubin AST ALT Alkaline Phosphatase Lactate Dehydrogenase 1033 H C-Reactive Protein Total Protein Albumin Arterial Blood Glucose Arterial Blood Ionized Calcium Valproic Acid Coronavirus (PCR) 03/10/21 03/10/21 03/10/21 10:19 11:31 13:48 WBC Plt Count [place] % (Auto) Lymph # (Auto) Seg Neutrophils % D-Dimer POC ABG pO2 43.6 L ABG Oxyhemoglobin 77.3 L ABG Chloride 110.0 H ABG Glucose 174 H Carboxyhemoglobin 0.2 L Sodium Potassium Chloride Carbon Dioxide BUN Creatinine Glucose POC Glucose 163 H Calcium Magnesium Ferritin Total Bilirubin AST ALT Alkaline Phosphatase Lactate Dehydrogenase C-Reactive Protein 8.10 H Total Protein Albumin Arterial Blood Glucose 174 H Arterial Blood Ionized Calcium 4.1 L Valproic Acid Coronavirus (PCR) 03/10/21 03/10/21 03/10/21 17:58 18:13 18:13 WBC Plt Count [place] % (Auto) Lymph # (Auto) Seg Neutrophils % D-Dimer 1054.48 H POC ABG pO2 ABG Oxyhemoglobin ABG Chloride ABG Glucose Carboxyhemoglobin Sodium Potassium Chloride Carbon Dioxide BUN Creatinine Glucose POC Glucose 152 H Calcium Magnesium Ferritin 1717.0 H Total Bilirubin AST ALT Alkaline Phosphatase Lactate Dehydrogenase C-Reactive Protein Total Protein Albumin Arterial Blood Glucose Arterial Blood Ionized Calcium Valproic Acid Coronavirus (PCR) 03/10/21 03/10/21 03/11/21 18:13 23:15 05:35 WBC Plt Count [place] % (Auto) Lymph # (Auto) Seg Neutrophils % D-Dimer POC ABG pO2 ABG Oxyhemoglobin ABG Chloride ABG Glucose Carboxyhemoglobin Sodium Potassium Chloride Carbon Dioxide BUN Creatinine Glucose POC Glucose 152 H 134 H Calcium Magnesium Ferritin Total Bilirubin AST ALT Alkaline Phosphatase Lactate Dehydrogenase 1242 H C-Reactive Protein 8.40 H Total Protein Albumin Arterial Blood Glucose Arterial Blood Ionized Calcium Valproic Acid Coronavirus (PCR) 03/11/21 03/11/21 03/11/21 06:56 11:41 23:24 WBC Plt Count [place] % (Auto) Lymph # (Auto) Seg Neutrophils % D-Dimer POC ABG pO2 ABG Oxyhemoglobin ABG Chloride ABG Glucose Carboxyhemoglobin Sodium 151 H Potassium Chloride 110.7 H Carbon Dioxide BUN 27 H Creatinine Glucose 153 H POC Glucose 115 H 141 H Calcium 7.8 L Magnesium Ferritin Total Bilirubin AST 53 H ALT Alkaline Phosphatase Lactate Dehydrogenase C-Reactive Protein 6.60 H Total Protein 6.2 L Albumin 3.5 L Arterial Blood Glucose Arterial Blood Ionized Calcium Valproic Acid Coronavirus (PCR) 03/12/21 03/12/21 03/12/21 04:46 04:46 05:03 WBC Plt Count 31 L [place] % (Auto) Lymph # (Auto) Seg Neutrophils % D-Dimer POC ABG pO2 ABG Oxyhemoglobin ABG Chloride ABG Glucose Carboxyhemoglobin Sodium 147 H Potassium 5.6 H D Chloride 114.3 H Carbon Dioxide 20 L D BUN 33 H Creatinine Glucose 166 H POC Glucose 161 H Calcium 7.9 L Magnesium Ferritin Total Bilirubin AST 66 H ALT Alkaline Phosphatase Lactate Dehydrogenase C-Reactive Protein Total Protein 5.8 L Albumin 2.5 L Arterial Blood Glucose Arterial Blood Ionized Calcium Valproic Acid Coronavirus (PCR) 03/12/21 03/12/21 03/12/21 12:10 16:30 16:30 WBC Plt Count [place] % (Auto) Lymph # (Auto) Seg Neutrophils % D-Dimer > 31201 H POC ABG pO2 ABG Oxyhemoglobin ABG Chloride ABG Glucose Carboxyhemoglobin Sodium Potassium Chloride Carbon Dioxide BUN Creatinine Glucose POC Glucose 166 H Calcium Magnesium Ferritin 1208.0 H Total Bilirubin AST ALT Alkaline Phosphatase Lactate Dehydrogenase C-Reactive Protein Total Protein Albumin Arterial Blood Glucose Arterial Blood Ionized Calcium Valproic Acid Coronavirus (PCR) 03/12/21 03/12/21 03/13/21 17:28 23:49 04:17 WBC Plt Count [place] % (Auto) Lymph # (Auto) Seg Neutrophils % D-Dimer POC ABG pO2 ABG Oxyhemoglobin ABG Chloride ABG Glucose Carboxyhemoglobin Sodium 157 H D Potassium 3.5 L D Chloride 119.2 H Carbon Dioxide BUN 47 H Creatinine Glucose 183 H POC Glucose 159 H 174 H Calcium 8.3 L Magnesium Ferritin Total Bilirubin AST ALT Alkaline Phosphatase Lactate Dehydrogenase C-Reactive Protein 1.70 H Total Protein Albumin Arterial Blood Glucose Arterial Blood Ionized Calcium Valproic Acid Coronavirus (PCR) 03/13/21 03/13/21 03/13/21 04:17 04:17 05:53 WBC Plt Count 56 L [place] % (Auto) Lymph # (Auto) Seg Neutrophils % D-Dimer POC ABG pO2 ABG Oxyhemoglobin ABG Chloride ABG Glucose Carboxyhemoglobin Sodium 158 H Potassium Chloride 120.2 H Carbon Dioxide BUN 47 H Creatinine Glucose 184 H POC Glucose 180 H Calcium 8.2 L Magnesium Ferritin Total Bilirubin AST ALT Alkaline Phosphatase 136 H Lactate Dehydrogenase C-Reactive Protein Total Protein 5.3 L Albumin 3.0 L Arterial Blood Glucose Arterial Blood Ionized Calcium Valproic Acid Coronavirus (PCR) 03/13/21 03/13/21 03/13/21 11:39 17:31 23:13 WBC Plt Count [place] % (Auto) Lymph # (Auto) Seg Neutrophils % D-Dimer POC ABG pO2 ABG Oxyhemoglobin ABG Chloride ABG Glucose Carboxyhemoglobin Sodium Potassium Chloride Carbon Dioxide BUN Creatinine Glucose POC Glucose 145 H 171 H 69 L Calcium Magnesium Ferritin Total Bilirubin AST ALT Alkaline Phosphatase Lactate Dehydrogenase C-Reactive Protein Total Protein Albumin Arterial Blood Glucose Arterial Blood Ionized Calcium Valproic Acid Coronavirus (PCR) 03/14/21 03/14/21 03/14/21 05:10 06:30 06:30 WBC 14.8 H Plt Count 95 L [place] % (Auto) Lymph # (Auto) Seg Neutrophils % D-Dimer POC ABG pO2 ABG Oxyhemoglobin ABG Chloride ABG Glucose Carboxyhemoglobin Sodium 158 H Potassium Chloride 118.7 H Carbon Dioxide BUN 56 H Creatinine Glucose 185 H POC Glucose 179 H Calcium 8.2 L Magnesium Ferritin Total Bilirubin AST 64 H ALT Alkaline Phosphatase 271 H Lactate Dehydrogenase C-Reactive Protein Total Protein 5.6 L Albumin 3.4 L Arterial Blood Glucose Arterial Blood Ionized Calcium Valproic Acid Coronavirus (PCR) 03/14/21 03/14/21 03/14/21 11:03 11:03 11:14 WBC Plt Count [place] % (Auto) Lymph # (Auto) Seg Neutrophils % D-Dimer > 67454 H POC ABG pO2 ABG Oxyhemoglobin ABG Chloride ABG Glucose Carboxyhemoglobin Sodium Potassium Chloride Carbon Dioxide BUN Creatinine Glucose POC Glucose 217 H Calcium Magnesium Ferritin 1799.0 H Total Bilirubin AST ALT Alkaline Phosphatase Lactate Dehydrogenase C-Reactive Protein Total Protein Albumin Arterial Blood Glucose Arterial Blood Ionized Calcium Valproic Acid Coronavirus (PCR) 03/14/21 03/14/21 03/15/21 17:57 23:28 04:51 WBC Plt Count [place] % (Auto) Lymph # (Auto) Seg Neutrophils % D-Dimer POC ABG pO2 ABG Oxyhemoglobin ABG Chloride ABG Glucose Carboxyhemoglobin Sodium Potassium Chloride Carbon Dioxide BUN Creatinine Glucose POC Glucose 220 H 234 H 206 H Calcium Magnesium Ferritin Total Bilirubin AST ALT Alkaline Phosphatase Lactate Dehydrogenase C-Reactive Protein Total Protein Albumin Arterial Blood Glucose Arterial Blood Ionized Calcium Valproic Acid Coronavirus (PCR) 03/15/21 03/15/21 03/15/21 05:30 05:30 12:33 WBC 19.5 H Plt Count 70 L [place] % (Auto) Lymph # (Auto) Seg Neutrophils % D-Dimer POC ABG pO2 ABG Oxyhemoglobin ABG Chloride ABG Glucose Carboxyhemoglobin Sodium 150 H D Potassium 3.1 L Chloride 110.2 H Carbon Dioxide BUN 56 H Creatinine Glucose 364 H POC Glucose 123 H Calcium 8.0 L Magnesium 2.50 H Ferritin Total Bilirubin 1.50 H AST 69 H ALT Alkaline Phosphatase 207 H Lactate Dehydrogenase C-Reactive Protein Total Protein 6.0 L Albumin 3.5 L Arterial Blood Glucose Arterial Blood Ionized Calcium Valproic Acid Coronavirus (PCR) Chest x-ray: image reviewed (persistent bilateral infiltrates) Allied health notes reviewed: nursing
[2021-03-15] MEDS ORDERED: FONDAPARINUX 2.5 MG/0.5 ML INJ SUB-Q ONE (15:00)
[2021-03-15] MEDS ORDERED: FONDAPARINUX 7.5 MG/0.6 ML INJ SUB-Q SCH ×2 (15:02→15:50)
[2021-03-15] MEDS: NIFEdipine*For Tocolysis only* 10 MG CAPSULE PO SCH ×2 (15:23→22:36)
--- NOTE | 2021-03-15 15:28 | Progress Note ---
<NIA ESPINOSA - Last Filed: 03/15/21 16:16> Assessment and Plan Assessment and plan: 60-year-old female with seizure disorder, COPD, HTN and TBI admitted for covid 19 pui with acute hypoxic resp failure. Neuro: Seizure disorder, h/x TBI -Last seizure was 20 years ago -Continue Depakote but discontinue Tegretol and IV Keppra per neuro -Depakote reduced to twice a day -Neurology following CV: HTN -Prn IV hydral and labatalol -SR on monitor -PO nifedipine, BB -BP monitoring per monitoring -clonidine patch Resp: Acute respiratory failure with hypoxia, ARDs, COVID PNA, COPD -on continuous bipap->HFNC as tolerated -SPo2 monitoring -Pulm hygenie -Prone as tolerated GI: NPO, MO, Transaminitis -D5 IVF -lifestyle and dietary changes needed on dc -BR; [place] -24 hours +1940 -PPI -Trend LFTS : Hypernatremia, hyperchloremia, hypokalemia -strict I/O -follow electrolytes -repleate k -trend cr -MIVF with dextrose Endo: Hyperglycemia -SSI -BG q4 while npo Heme: elevated d-dimer, thrombocytopenia -Arixtra increased to full dose per weight today -SCDs to BLE while in bed -BLE Doppler US negative -BLE doppler repeat negative for DVT -HIT pending -BUE dopplars ordered -discolored fingers and toes with no palpable/Doppler pulse on left hand -Vascular surgery and hem/onc consulted ID: [id number] pneumonia, leukopenia (resolved) -ID following -Continue steroids, dosing per pulmonary -Continue remdesivir -s/p Actemra 03/10/2021 -trend ferritin, LDH, d-dimer, CRP every 2-3 days for risk stratification and to assess disease progression -droplet/isolation precautions -Prone as tolerated The high probability of a clinically significant, sudden or life threatening deterioration of the [all] system(s) required my full and direct attention, intervention and personal management. The aggregate critical care time was [90] minutes. This time is in addition to time spent performing reported procedures but includes the following: [x] Data Review and interpretation [x] Patient assessment and monitoring of vital signs [x] Documentation [x] Medication orders and management Disposition Plan: icu Total Time Spent with Patient (Minutes): 90 History Interval history: This is 60-year-old female with seizure disorder and TBI brought into the emergency room by EMS for evaluation of shortness of breath ongoing for the past few days. Oxygen saturation was about 50% on room air upon arrival of EMS. She was subsequently placed on nonrebreather with improvement of oxygen saturation to about 88%. She was subsequently placed on BiPAP upon arrival in the emergency room. She was initially confused upon arrival in the emergency room but became more responsive upon placement on BiPAP. Work-up in the emergenc y room showed labs were significant for elevated liver enzymes with AST of 79 ALT 62. Chest x-ray reveals severe bilateral airspace pneumonia. Patient admitted for covid 19 pui with acute hypoxic resp failure. 03/10/2021 Patient is Covid positive And acute respiratory failure with hypoxia Neurology and principal web developer consult appreciated ID consult appreciated mainly Seizure medication changed 03-11: no acute events overnight 03/12: unable to gain IV access, IV placed by PICC team was infiltrated today. CVL and janeen placed today 03/13: thrombocytopenia, weaned to optiflow with nrb during the AM and bipap hs. dimer noted at >[id number] however unable to complete full vte workup-will reorder Doppler and changed to arixtra. 03/14: Patient platelets are recovering, HIT assay ordered, left radial A-line removed due to discoloration of the fingers. Patient did not tolerate high flow nasal cannula today 03/15: noted ot have increased discoloration and coolness to bilateral hands and feet. thrombocytopenia improving, heme/onc consulted. Axtrixa increased Hospitalist Physical - Constitutional Vitals: Temp Pulse Resp BP Pulse Ox 98 F 74 25 H 139/87 99 03/15/21 08:00 03/15/21 14:00 03/15/21 14:00 03/15/21 14:00 03/15/21 14:00 General appearance: Present: no acute distress, well-nourished - EENT Eyes: Present: PERRL, EOM intact ENT: poor dentition - Neck Neck: Present: normal ROM - Respiratory Respiratory effort: normal Respiratory: bilateral: diminished - Cardiovascular Rhythm: regular Heart Sounds: Present: S1 & S2. Absent: systolic murmur, diastolic murmur - Extremities Extremity abnormal: cyanosis, deformity, cold, pulses diminished Peripheral Pulses: within normal limits - Abdominal General gastrointestinal: soft, non-tender, non-distended, hypoactive bowel sounds - Integumentary Integumentary: Present: dry - Psychiatric Psychiatric: other (sedated) - Neurologic Neurologic: other (sedated) - Allied Health Allied health notes reviewed: nursing, RT, social work Results - Labs CBC & Chem 7: 03/15/21 05:30 03/15/21 05:30 Labs: Laboratory Last Values WBC 19.5 K/mm3 (4.5-11.0) H 03/15/21 05:30 RBC 3.92 M/mm3 (3.65-5.03) 03/15/21 05:30 Hgb 12.0 gm/dl (10.1-14.3) 03/15/21 05:30 Hct 36.4 % (30.3-42.9) 03/15/21 05:30 MCV 93 fl (79-97) 03/15/21 05:30 MCH 31 pg (28-32) 03/15/21 05:30 MCHC 33 % (30-34) 03/15/21 05:30 RDW 13.4 % (13.2-15.2) 03/15/21 05:30 Plt Count 70 K/mm3 (140-440) L 03/15/21 05:30 Lymph % (Auto) 15.7 % (13.4-35.0) 03/10/21 05:02 [place] % (Auto) 5.2 % (0.0-7.3) 03/10/21 05:02 Eos % (Auto) 0.0 % (0.0-4.3) 03/10/21 05:02 Baso % (Auto) 0.1 % (0.0-1.8) 03/10/21 05:02 Lymph # (Auto) 0.5 K/mm3 (1.2-5.4) L 03/10/21 05:02 [place] # (Auto) 0.2 K/mm3 (0.0-0.8) 03/10/21 05:02 Eos # (Auto) 0.0 K/mm3 (0.0-0.4) 03/10/21 05:02 Baso # (Auto) 0.0 K/mm3 (0.0-0.1) 03/10/21 05:02 Seg Neutrophils % 79.0 % (40.0-70.0) H 03/10/21 05:02 Seg Neutrophils # 2.8 K/mm3 (1.8-7.7) 03/10/21 05:02 PT 13.8 Sec. (12.2-14.9) 03/10/21 05:02 INR 1.01 (0.87-1.13) 03/10/21 05:02 D-Dimer > 65799 ng/mlDDU (0-234) H 03/14/21 11:03 ABG pH 7.389 (7.320-7.450) 03/10/21 13:48 POC ABG pCO2 44.0 mmHg (32.0-48.0) 03/10/21 13:48 POC ABG pO2 43.6 mmHg (83-108) L 03/10/21 13:48 POC ABG HCO3 26.0 03/10/21 13:48 ABG O2 Saturation 77.7 (0-100) 03/10/21 13:48 POC ABG Base Excess 0.7 03/10/21 13:48 ABG Hemoglobin 12.6 (12.0-17.5) 03/10/21 13:48 ABG Oxyhemoglobin 77.3 (94-98) L 03/10/21 13:48 ABG Methemoglobin 0.3 (0.0-1.5) 03/10/21 13:48 ABG Sodium 144.1 mmol/L (136.0-145.0) 03/10/21 13:48 ABG Potassium 3.6 mmol/L (3.40-4.50) 03/10/21 13:48 ABG Chloride 110.0 mmol/L (98-107) H 03/10/21 13:48 ABG Glucose 174 mg/dL (65-95) H 03/10/21 13:48 Carboxyhemoglobin 0.2 (0.5-1.5) L 03/10/21 13:48 FiO2 % 100.0 03/10/21 13:48 Sodium 150 mmol/L (137-145) H D 03/15/21 05:30 Potassium 3.1 mmol/L (3.6-5.0) L 03/15/21 05:30 Chloride 110.2 mmol/L (98-107) H 03/15/21 05:30 Carbon Dioxide 28 mmol/L (22-30) 03/15/21 05:30 Anion Gap 15 mmol/L 03/15/21 05:30 BUN 56 mg/dL (7-17) H 03/15/21 05:30 Creatinine 1.1 mg/dL (0.6-1.2) 03/15/21 05:30 Estimated GFR 51 ml/min 03/15/21 05:30 BUN/Creatinine Ratio 51 % 03/15/21 05:30 Glucose 364 mg/dL (65-100) H 03/15/21 05:30 POC Glucose 123 mg/dL (70-105) H 03/15/21 12:33 Lactic Acid 1.30 mmol/L (0.7-2.0) 03/10/21 10:19 Calcium 8.0 mg/dL (8.4-10.2) L 03/15/21 05:30 Phosphorus 3.60 mg/dL (2.5-4.5) 03/15/21 05:30 Magnesium 2.50 mg/dL (1.7-2.3) H 03/15/21 05:30 Ferritin 1799.0 ng/mL (10.0-200.0) H 03/14/21 11:03 Total Bilirubin 1.50 mg/dL (0.1-1.2) H 03/15/21 05:30 AST 69 units/L (5-40) H 03/15/21 05:30 ALT 39 units/L (7-56) 03/15/21 05:30 Alkaline Phosphatase 207 units/L (35-129) H 03/15/21 05:30 Lactate Dehydrogenase 1242 units/L (91-180) H 03/10/21 18:13 C-Reactive Protein 0.60 mg/dL (0.00-1.30) 03/15/21 05:30 Total Protein 6.0 g/dL (6.3-8.2) L 03/15/21 05:30 Albumin 3.5 g/dL (3.9-5) L 03/15/21 05:30 Albumin/Globulin Ratio 1.4 % 03/15/21 05:30 Procalcitonin 0.23 ng/mL (<0.15) 03/14/21 11:03 Arterial Blood Glucose 174 mg/dL (65-95) H 03/10/21 13:48 Arterial Blood Ionized Calcium 4.1 mg/dL (4.6-5.3) L 03/10/21 13:48 Urine Color Cherelle (Yellow) 03/09/21 04:48 Urine Turbidity Clear (Clear) 03/09/21 04:48 Urine pH 5.0 (5.0-7.0) 03/09/21 04:48 Ur Specific [place] 1.020 (1.003-1.030) 03/09/21 04:48 Urine Protein 100 mg/dl mg/dL (Negative) 03/09/21 04:48 Urine Glucose (UA) Neg mg/dL (Negative) 03/09/21 04:48 Urine Ketones Tr mg/dL (Negative) 03/09/21 04:48 Urine Blood Neg (Negative) 03/09/21 04:48 Urine Nitrite Neg (Negative) 03/09/21 04:48 Urine Bilirubin Neg (Negative) 03/09/21 04:48 Urine Urobilinogen 4.0 mg/dL (<2.0) 03/09/21 04:48 Ur Leukocyte Esterase Sm (Negative) 03/09/21 04:48 Urine WBC (Auto) 6.0 /HPF (0.0-6.0) 03/09/21 04:48 Urine RBC (Auto) 5.0 /HPF (0.0-6.0) 03/09/21 04:48 U Epithel Cells (Auto) 2.0 /HPF (0-13.0) 03/09/21 04:48 Urine Bacteria (Auto) 2+ /HPF (Negative) 03/09/21 04:48 Urine Mucus Few /HPF 03/09/21 04:48 Valproic Acid 9.7 ug/mL (50-100) L 03/09/21 00:26 Coronavirus (PCR) Positive (Negative) A 03/09/21 Unknown Thacker/IV: Voiding Method External Female Catheter Active Medications - Current Medications Current Medications: Generic Name Dose Route Start Last Admin Trade Name Freq PRN Reason Stop Dose Admin Acetaminophen 1,000 mg 03/09/21 15:00 Acetaminophen 500 Mg Tab PO Q6HR PRN Pain , Severe (7-10) Albuterol 2.5 mg 08/22/21 02:28 Albuterol 2.5 Mg/3 Ml Nebu IH Q4HRT PRN Shortness Of Breath Alprazolam 1 mg 03/09/21 14:05 Alprazolam 1 Mg Tab PO TID PRN Anxiety Ascorbic Acid 500 mg 03/09/21 22:00 03/14/21 22:14 Ascorbic Acid 500 Mg Tab PO 500 mg BID CAMERON Administration Aspirin 81 mg 03/09/21 15:00 03/14/21 09:26 Aspirin 81 Mg Tab Chew PO 81 mg QDAY CAMERON Administration Atenolol 25 mg 03/09/21 15:00 03/14/21 09:26 Atenolol 25 Mg Tab PO 25 mg DAILY CAMERON Administration Clonidine HCl 0.1 mg 03/11/21 04:56 Clonidine 0.1 Mg Tab PO Q4H PRN systolic bp greater than 160 Clonidine HCl 0.1 mg 03/15/21 10:00 03/15/21 09:20 Clonidine Tts 0.1 Mg/24 Hr Patch TD 0.1 mg QWEEK CAMERON Administration Dextrose 50 ml 03/10/21 11:29 Dextrose 50% In Water (25gm) 50 Ml Syringe IV Q30MIN PRN Hypoglycemia Protocol Diphenhydramine HCl 25 mg 03/09/21 15:00 Diphenhydramine 25 Mg Cap PO Q6HR PRN Itching Fondaparinux 10 mg 03/15/21 15:02 Fondaparinux 7.5 Mg/0.6 Ml Inj SUB-Q QDAY CAMERON Hydralazine HCl 10 mg 03/11/21 08:32 03/15/21 08:14 Hydralazine 20 Mg/1 Ml Inj IV 10 mg Q4HR PRN Administration Hypertension Dexmedetomidine HCl 400 mcg/ 104 mls @ 8.46 mls/hr 03/11/21 14:00 03/15/21 14:22 Sodium Chloride IV 0.8 mcg/kg/hr TITRATE CAMERON 33.842 mls/hr Administration Protocol 0.2 MCG/KG/HR Valproate Sodium 500 mg/ 105 mls @ 100 mls/hr 03/13/21 22:00 03/15/21 10:43 Sodium Chloride IV 100 mls/hr Q12HR CAMERON Administration Dextrose 1,000 mls @ 75 mls/hr 03/15/21 13:00 D5w IV DIRECT CAMERON Insulin Glargine 10 units 03/15/21 22:00 Insulin Glargine 100 Units/Ml SUB-Q QHS CAMERON Insulin Human Regular 0 units 03/10/21 12:00 03/15/21 06:35 Insulin Regular, Human 100 Units/1 Ml SUB-Q 2 units Q6H CAMERON Administration Protocol Labetalol HCl 10 mg 03/11/21 08:32 03/15/21 12:07 Labetalol 20 Mg/4 Ml Inj IV 10 mg Q6HR PRN Administration Hypertension Magnesium Hydroxide 30 ml 03/09/21 02:28 Magnesium Hydroxide (Mom) Oral Liqd Udc PO Q4H PRN Constipation Methylprednisolone Sodium Succinate 110 mg 03/09/21 22:00 03/15/21 06:35 Methylprednisolone Sod Succinate 125 Mg/2 Ml Inj IV 110 mg Q8HR CAMERON Administration Morphine Sulfate 2 mg 03/09/21 02:28 03/15/21 08:15 Morphine 2 Mg/1 Ml Inj IV 2 mg Q4H PRN Administration Pain, Moderate (4-6) Morphine Sulfate 4 mg 03/09/21 02:28 03/12/21 04:15 Morphine 4 Mg/1 Ml Inj IV 4 mg Q4H PRN Administration Pain , Severe (7-10) Nifedipine 10 mg 03/15/21 14:00 Nifedipine*For Tocolysis Only* 10 Mg Capsule PO TID CAMERON Nystatin 1 applic 03/09/21 15:00 03/15/21 09:25 Nystatin Oint 15 Gm TP 1 applic BID CAMERON Administration Ondansetron HCl 4 mg 03/09/21 02:28 Ondansetron 4 Mg/2 Ml Inj IV Q8H PRN Nausea And Vomiting Sodium Chloride 10 ml 03/09/21 10:00 03/15/21 10:44 Sodium Chloride 0.9% 10 Ml Flush Syringe IV 10 ml BID CAMERON Administration Sodium Chloride 10 ml 03/09/21 02:28 Sodium Chloride 0.9% 10 Ml Flush Syringe IV PRN PRN LINE FLUSH Zinc Sulfate 220 mg 03/09/21 22:00 03/14/21 22:14 Zinc Sulfate 220 Mg Cap PO 220 mg BID CAMERON Administration Nutrition/Malnutrition Assess - Dietary Evaluation Nutrition/Malnutrition Findings: Nutrition Notes Start: 03/14/21 12:17 Freq: Status: Active Protocol: Document 03/14/21 12:17 DIMITRY (Rec: 03/14/21 12:19 MK [id number]) Nutrition Notes Need for Assessment generated from: LOS Current Diagnosis COPD,Hypertension,Respiratory Failure Other Pertinent Diagnosis COVID, pneu, hx of TBI Current Diet NPO Subjective/Other Information Screen for LOS. Pt NPO since yesterday. Unable to contact pt squeegeer and former. No intakes in chart. Nutrition Intervention Follow-Up By: 03/17/21 Additional Comments F/u: intakes <TETO HATCH - Last Filed: 03/16/21 13:20> History Interval history: I saw and evaluated the patient. Discussed with the nurse practitioner and agree with their findings and plan as documented in this note. Hospitalist Physical - Constitutional Vitals: Temp Pulse Resp BP Pulse Ox 97.8 F 116 H 34 H 144/63 91 03/16/21 08:00 03/16/21 12:01 03/16/21 12:01 03/16/21 12:01 03/16/21 12:01 Results - Labs CBC & Chem 7: 03/16/21 07:50 03/16/21 07:50 Labs: Laboratory Last Values WBC 18.0 K/mm3 (4.5-11.0) H 03/16/21 07:50 RBC 3.01 M/mm3 (3.65-5.03) L 03/16/21 07:50 Hgb 9.2 gm/dl (10.1-14.3) L 03/16/21 07:50 Hct 27.7 % (30.3-42.9) L D 03/16/21 07:50 MCV 92 fl (79-97) 03/16/21 07:50 MCH 31 pg (28-32) 03/16/21 07:50 MCHC 33 % (30-34) 03/16/21 07:50 RDW 13.5 % (13.2-15.2) 03/16/21 07:50 Plt Count 55 K/mm3 (140-440) L 03/16/21 07:50 Lymph % (Auto) 15.7 % (13.4-35.0) 03/10/21 05:02 [place] % (Auto) 5.2 % (0.0-7.3) 03/10/21 05:02 Eos % (Auto) 0.0 % (0.0-4.3) 03/10/21 05:02 Baso % (Auto) 0.1 % (0.0-1.8) 03/10/21 05:02 Lymph # (Auto) 0.5 K/mm3 (1.2-5.4) L 03/10/21 05:02 [place] # (Auto) 0.2 K/mm3 (0.0-0.8) 03/10/21 05:02 Eos # (Auto) 0.0 K/mm3 (0.0-0.4) 03/10/21 05:02 Baso # (Auto) 0.0 K/mm3 (0.0-0.1) 03/10/21 05:02 Seg Neutrophils % 79.0 % (40.0-70.0) H 03/10/21 05:02 Seg Neutrophils # 2.8 K/mm3 (1.8-7.7) 03/10/21 05:02 PT 13.8 Sec. (12.2-14.9) 03/10/21 05:02 INR 1.01 (0.87-1.13) 03/10/21 05:02 APTT 36.7 Sec. (24.2-36.6) H 03/16/21 07:50 D-Dimer 5532.44 ng/mlDDU (0-234) H 03/16/21 07:50 ABG pH 7.453 (7.320-7.450) H 03/15/21 15:21 POC ABG pCO2 35.3 mmHg (32.0-48.0) 03/15/21 15:21 POC ABG pO2 57.1 mmHg (83-108) L 03/15/21 15:21 POC ABG HCO3 24.1 03/15/21 15:21 ABG O2 Saturation 89.5 (0-100) 03/15/21 15:21 POC ABG Base Excess 0.5 03/15/21 15:21 ABG Hemoglobin 11.4 (12.0-17.5) L 03/15/21 15:21 ABG Oxyhemoglobin 88.1 (94-98) L 03/15/21 15:21 ABG Methemoglobin 0.3 (0.0-1.5) 03/15/21 15:21 ABG Sodium 147.1 mmol/L (136.0-145.0) H 03/15/21 15:21 ABG Potassium 3.9 mmol/L (3.40-4.50) 03/15/21 15:21 ABG Chloride 114.0 mmol/L (98-107) H 03/15/21 15:21 ABG Glucose 348 mg/dL (65-95) H 03/15/21 15:21 Carboxyhemoglobin 1.3 (0.5-1.5) 03/15/21 15:21 FiO2 % 100.0 03/15/21 15:21 Sodium 150 mmol/L (137-145) H 03/16/21 07:50 Potassium 3.6 mmol/L (3.6-5.0) 03/16/21 07:50 Chloride 112.6 mmol/L (98-107) H 03/16/21 07:50 Carbon Dioxide 29 mmol/L (22-30) 03/16/21 07:50 Anion Gap 12 mmol/L 03/16/21 07:50 BUN 48 mg/dL (7-17) H 03/16/21 07:50 Creatinine 1.0 mg/dL (0.6-1.2) 03/16/21 07:50 Estimated GFR 57 ml/min 03/16/21 07:50 BUN/Creatinine Ratio 48 % 03/16/21 07:50 Glucose 349 mg/dL (65-100) H 03/16/21 07:50 POC Glucose 273 mg/dL (70-105) H 03/16/21 12:42 Lactic Acid 1.30 mmol/L (0.7-2.0) 03/10/21 10:19 Calcium 7.9 mg/dL (8.4-10.2) L 03/16/21 07:50 Phosphorus 2.80 mg/dL (2.5-4.5) D 03/16/21 07:50 Magnesium 2.40 mg/dL (1.7-2.3) H 03/16/21 07:50 Ferritin 1559.0 ng/mL (10.0-200.0) H 03/16/21 07:50 Total Bilirubin 1.50 mg/dL (0.1-1.2) H 03/15/21 05:30 AST 69 units/L (5-40) H 03/15/21 05:30 ALT 39 units/L (7-56) 03/15/21 05:30 Alkaline Phosphatase 207 units/L (35-129) H 03/15/21 05:30 Lactate Dehydrogenase 1898 units/L (91-180) H 03/16/21 07:50 C-Reactive Protein 0.60 mg/dL (0.00-1.30) 03/15/21 05:30 Total Protein 6.0 g/dL (6.3-8.2) L 03/15/21 05:30 Albumin 3.5 g/dL (3.9-5) L 03/15/21 05:30 Albumin/Globulin Ratio 1.4 % 03/15/21 05:30 Procalcitonin 0.23 ng/mL (<0.15) 03/14/21 11:03 Arterial Blood Glucose 348 mg/dL (65-95) H 03/15/21 15:21 Arterial Blood Ionized Calcium 4.2 mg/dL (4.6-5.3) L 03/15/21 15:21 Urine Color [place] (Yellow) 03/09/21 04:48 Urine Turbidity Clear (Clear) 03/09/21 04:48 Urine pH 5.0 (5.0-7.0) 03/09/21 04:48 Ur Specific [place] 1.020 (1.003-1.030) 03/09/21 04:48 Urine Protein 100 mg/dl mg/dL (Negative) 03/09/21 04:48 Urine Glucose (UA) Neg mg/dL (Negative) 03/09/21 04:48 Urine Ketones Tr mg/dL (Negative) 03/09/21 04:48 Urine Blood Neg (Negative) 03/09/21 04:48 Urine Nitrite Neg (Negative) 03/09/21 04:48 Urine Bilirubin Neg (Negative) 03/09/21 04:48 Urine Urobilinogen 4.0 mg/dL (<2.0) 03/09/21 04:48 Ur Leukocyte Esterase Sm (Negative) 03/09/21 04:48 Urine WBC (Auto) 6.0 /HPF (0.0-6.0) 03/09/21 04:48 Urine RBC (Auto) 5.0 /HPF (0.0-6.0) 03/09/21 04:48 U Epithel Cells (Auto) 2.0 /HPF (0-13.0) 03/09/21 04:48 Urine Bacteria (Auto) 2+ /HPF (Negative) 03/09/21 04:48 Urine Mucus Few /HPF 03/09/21 04:48 Valproic Acid 9.7 ug/mL (50-100) L 03/09/21 00:26 Coronavirus (PCR) Positive (Negative) A 03/09/21 Unknown Thacker/IV: Voiding Method External Female Catheter Active Medications - Current Medications Current Medications: Generic Name Dose Route Start Last Admin Trade Name Freq PRN Reason Stop Dose Admin Acetaminophen 1,000 mg 03/09/21 15:00 Acetaminophen 500 Mg Tab PO Q6HR PRN Pain , Severe (7-10) Albuterol 2.5 mg 03/09/21 02:28 Albuterol 2.5 Mg/3 Ml Nebu IH Q4HRT PRN Shortness Of Breath Alprazolam 1 mg 03/09/21 14:05 Alprazolam 1 Mg Tab PO TID PRN Anxiety Amlodipine Besylate 5 mg 03/17/21 16:00 Amlodipine 5 Mg Tab PO QDAY [facility] Ascorbic Acid 500 mg 03/09/21 22:00 03/15/21 18:01 Ascorbic Acid 500 Mg Tab PO Not Given BID CAMERON Aspirin 81 mg 03/09/21 15:00 03/15/21 18:00 Aspirin 81 Mg Tab Chew PO Not Given QDAY [facility] Atenolol 25 mg 03/09/21 15:00 03/15/21 18:00 Atenolol 25 Mg Tab PO Not Given DAILY [facility] Clonidine HCl 0.1 mg 03/11/21 04:56 Clonidine 0.1 Mg Tab PO Q4H PRN systolic bp greater than 160 Clonidine HCl 0.1 mg 03/15/21 10:00 03/15/21 09:20 Clonidine Tts 0.1 Mg/24 Hr Patch TD 0.1 mg QWEEK CAMERON Administration Dextrose 50 ml 03/10/21 11:29 Dextrose 50% In Water (25gm) 50 Ml Syringe IV Q30MIN PRN Hypoglycemia Protocol Diphenhydramine HCl 25 mg 03/09/21 15:00 Diphenhydramine 25 Mg Cap PO Q6HR PRN Itching Hydralazine HCl 10 mg 03/11/21 08:32 03/16/21 03:56 Hydralazine 20 Mg/1 Ml Inj IV 10 mg Q4HR PRN Administration Hypertension Dexmedetomidine HCl 400 mcg/ 104 mls @ 8.46 mls/hr 03/11/21 14:00 03/16/21 07:52 Sodium Chloride IV 0.6 mcg/kg/hr TITRATE CAMERON 25.381 mls/hr Administration Protocol 0.2 MCG/KG/HR Valproate Sodium 500 mg/ 105 mls @ 100 mls/hr 03/13/21 22:00 03/15/21 22:28 Sodium Chloride IV 100 mls/hr Q12HR CAMERON Administration Dextrose 1,000 mls @ 75 mls/hr 03/15/21 13:00 03/15/21 21:13 D5w IV 75 mls/hr DIRECT CAMERON Administration Argatroban 250 mg/ Sodium 250 mls @ 9.804 mls/hr 03/16/21 16:00 Chloride IV TITR CAMERON Protocol 1 MCG/KG/MIN Insulin Glargine 10 units 03/15/21 22:00 03/15/21 22:30 Insulin Glargine 100 Units/Ml SUB-Q 10 units QHS CAMERON Administration Insulin Human Regular 0 units 03/10/21 12:00 03/16/21 08:40 Insulin Regular, Human 100 Units/1 Ml SUB-Q 1 units Q6H CAMERON Administration Protocol Labetalol HCl 10 mg 03/11/21 08:32 03/16/21 02:00 Labetalol 20 Mg/4 Ml Inj IV 10 mg Q6HR PRN Administration Hypertension Magnesium Hydroxide 30 ml 03/09/21 02:28 Magnesium Hydroxide (Mom) Oral Liqd Udc PO Q4H PRN Constipation Methylprednisolone Sodium Succinate 110 mg 03/09/21 22:00 03/16/21 07:51 Methylprednisolone Sod Succinate 125 Mg/2 Ml Inj IV 110 mg Q8HR CAMERON Administration Morphine Sulfate 2 mg 03/09/21 02:28 03/15/21 08:15 Morphine 2 Mg/1 Ml Inj IV 2 mg Q4H PRN Administration Pain, Moderate (4-6) Morphine Sulfate 4 mg 03/09/21 02:28 03/12/21 04:15 Morphine 4 Mg/1 Ml Inj IV 4 mg Q4H PRN Administration Pain , Severe (7-10) Nystatin 1 applic 03/09/21 15:00 03/15/21 09:25 Nystatin Oint 15 Gm TP 1 applic BID CAMERON Administration Ondansetron HCl 4 mg 03/09/21 02:28 Ondansetron 4 Mg/2 Ml Inj IV Q8H PRN Nausea And Vomiting Sodium Chloride 10 ml 03/09/21 10:00 03/15/21 10:44 Sodium Chloride 0.9% 10 Ml Flush Syringe IV 10 ml BID CAMERON Administration Sodium Chloride 10 ml 03/09/21 02:28 Sodium Chloride 0.9% 10 Ml Flush Syringe IV PRN PRN LINE FLUSH Zinc Sulfate 220 mg 03/09/21 22:00 03/15/21 18:01 Zinc Sulfate 220 Mg Cap PO Not Given BID CAMERON Nutrition/Malnutrition Assess - Dietary Evaluation Nutrition/Malnutrition Findings: Nutrition Notes Start: 03/14/21 12:17 Freq: Status: Active Protocol: Document 03/14/21 12:17 (Rec: 03/14/21 12:19 DIMITRY [id number]) Nutrition Notes Need for Assessment generated from: LOS Current Diagnosis COPD,Hypertension,Respiratory Failure Other Pertinent Diagnosis COVID, pneu, hx of TBI Current Diet NPO Subjective/Other Information Screen for LOS. Pt NPO since yesterday. Unable to contact pt squeegeer and former. No intakes in chart. Nutrition Intervention Follow-Up By: 03/17/21 Additional Comments F/u: intakes
--- NOTE | 2021-03-15 15:46 | Consultation ---
History of Present Illness - Reason for Consult Consult date: 03/15/21 Left hand ischemia Requesting physician: TETO HATCH - History of Present Illness 60-year-old female brought into the emergency room by EMS for evaluation of shortness of breath. Symptoms were said to have been ongoing for the past few days. Oxygen saturation was about 50% on room air upon arrival of EMS. She was subsequently placed on nonrebreather with improvement of oxygen saturation to ab out 88%. She was subsequently placed on BiPAP upon arrival in the emergency room. She was initially confused upon arrival in the emergency room but became more responsive upon placement on BiPAP. During hospitalization, found to have Covid pneumonia and currently on BiPAP. Had left radial line placed, but this was removed once dusky fingers noted on the left side. She had significant decreased platelet count and is now being anticoagulated for possible HIT. Vascular consulted for dusky fingers of the left side. Patient has nonpalpable radial and ulnar pulses bilaterally. The left first and second digit has ischemia with deep tissue injury and decreased capillary refill. The third digit has ischemia without deep tissue injury and borderline capillary refill at 2 to 3 seconds. Left fourth and fifth digit have normal capillary refill without ischemia. Patient has slight duskiness of the toes. She has palpable dorsalis pedis pulses. Patient has slight duskiness of the right fingers with normal capillary refill without palpable radial or ulnar pulse. Past History Past Medical History: arthritis, COPD, hypertension, liver disease, seizures, other (TBI 1985, obesity, drug abuse) Past Surgical History: Other (left knee and left wrist surgery; brain 1985) Social history: no significant social history Family history: no significant family history Medications and Allergies Allergies Allergy/AdvReac Type Severity Reaction Status Date / Time No Known Allergies Allergy Verified 11/01/15 11:59 Home Medications Medication Instructions Recorded Confirmed Last Taken Type ALPRAZolam [Xanax TAB] 1 mg PO TID PRN 10/22/15 04/15/18 04/02/18 History Aspirin [Aspirin BABY CHEW TAB] 81 mg PO QDAY 10/22/15 04/15/18 04/02/18 History Divalproex ER [Depakote ER] 500 mg PO TID 10/22/15 03/09/21 04/02/18 History atenoloL [Tenormin] 25 mg PO DAILY 10/22/15 04/15/18 04/02/18 History carBAMazepine [TEGretol] 200 mg PO QAM 10/22/15 03/09/21 04/02/18 History traMADoL [Ultram 50 MG tab] 50 mg PO Q6HR PRN #10 tablet 04/09/17 04/15/18 04/02/18 Rx Nystatin Cream [Mycostatin Cream] 1 applic TP BID #1 tube 04/08/18 04/15/18 Unknown Rx Nystatin Oint [Mycostatin Oint] 1 applicatio TP BID #1 tube 04/12/18 Unknown Rx Bumetanide [Bumex 1 mg tab] 1 mg PO DAILY 04/15/18 04/15/18 Unknown History Zolpidem (Nf) [Ambien] 10 mg PO QHS 04/15/18 04/15/18 Unknown History Meloxicam 15 mg PO DAILY #7 tablet 05/03/18 Unknown Rx Acetaminophen [Acetaminophen TAB] 1,000 mg PO Q6HR PRN #30 tablet 03/06/19 Unknown Rx Ketoconazole [Xolegel 2%] 1 applicatio TP TID #1 tube 03/06/19 Unknown Rx diphenhydrAMINE [Benadryl CAP] 25 mg PO Q6HR PRN #30 capsule 03/06/19 Unknown R x Active Meds: Active Medications Acetaminophen (Acetaminophen 500 Mg Tab) 1,000 mg PO Q6HR PRN PRN Reason: Pain , Severe (7-10) Albuterol (Albuterol 2.5 Mg/3 Ml Nebu) 2.5 mg IH Q4HRT PRN PRN Reason: Shortness Of Breath Alprazolam (Alprazolam 1 Mg Tab) 1 mg PO TID PRN PRN Reason: Anxiety Ascorbic Acid (Ascorbic Acid 500 Mg Tab) 500 mg PO BID [facility] Last Admin: 03/14/21 22:14 Dose: 500 mg Documented by: Aspirin (Aspirin 81 Mg Tab Chew) 81 mg PO QDAY [facility] Last Admin: 03/14/21 09:26 Dose: 81 mg Documented by: Atenolol (Atenolol 25 Mg Tab) 25 mg PO DAILY [facility] Last Admin: 03/14/21 09:26 Dose: 25 mg Documented by: Clonidine HCl (Clonidine 0.1 Mg Tab) 0.1 mg PO Q4H PRN PRN Reason: systolic bp greater than 160 Clonidine HCl (Clonidine Tts 0.1 Mg/24 Hr Patch) 0.1 mg TD QWEEK [facility] Last Admin: 03/15/21 09:20 Dose: 0.1 mg Documented by: Dextrose (Dextrose 50% In Water (25gm) 50 Ml Syringe) 50 ml IV Q30MIN PRN; Protocol PRN Reason: Hypoglycemia Diphenhydramine HCl (Diphenhydramine 25 Mg Cap) 25 mg PO Q6HR PRN PRN Reason: Itching Fondaparinux (Fondaparinux 7.5 Mg/0.6 Ml Inj) 10 mg SUB-Q QDAY [facility] Hydralazine HCl (Hydralazine 20 Mg/1 Ml Inj) 10 mg IV Q4HR PRN PRN Reason: Hypertension Last Admin: 03/15/21 08:14 Dose: 10 mg Documented by: Dexmedetomidine HCl 400 mcg/ (Sodium Chloride) 104 mls @ 8.46 mls/hr IV TITRATE [facility]; Protocol Last Admin: 03/15/21 14:22 Dose: 0.8 mcg/kg/hr, 33.842 mls/hr Documented by: Valproate Sodium 500 mg/ (Sodium Chloride) 105 mls @ 100 mls/hr IV Q12HR [facility] Last Admin: 03/15/21 10:43 Dose: 100 mls/hr Documented by: Dextrose (D5w) 1,000 mls @ 75 mls/hr IV DIRECT [facility] Insulin Glargine (Insulin Glargine 100 Units/Ml) 10 units SUB-Q QHS [facility] Insulin Human Regular (Insulin Regular, Human 100 Units/1 Ml) 0 units SUB-Q Q6H [facility]; Protocol Last Admin: 03/15/21 06:35 Dose: 2 units Documented by: Labetalol HCl (Labetalol 20 Mg/4 Ml Inj) 10 mg IV Q6HR PRN PRN Reason: Hypertension Last Admin: 03/15/21 12:07 Dose: 10 mg Documented by: Magnesium Hydroxide (Magnesium Hydroxide (Mom) Oral Liqd Udc) 30 ml PO Q4H PRN PRN Reason: Constipation Methylprednisolone Sodium Succinate (Methylprednisolone Sod Succinate 125 Mg/2 Ml Inj) 110 mg IV Q8HR [facility] Last Admin: 03/15/21 15:22 Dose: 110 mg Documented by: Morphine Sulfate (Morphine 2 Mg/1 Ml Inj) 2 mg IV Q4H PRN PRN Reason: Pain, Moderate (4-6) Last Admin: 03/15/21 08:15 Dose: 2 mg Documented by: Morphine Sulfate (Morphine 4 Mg/1 Ml Inj) 4 mg IV Q4H PRN PRN Reason: Pain , Severe (7-10) Last Admin: 03/12/21 04:15 Dose: 4 mg Documented by: Nifedipine (Nifedipine*For Tocolysis Only* 10 Mg Capsule) 10 mg PO TID [facility] Last Admin: 03/15/21 15:23 Dose: 10 mg Documented by: Nystatin (Nystatin Oint 15 Gm) 1 applic TP BID [facility] Last Admin: 03/15/21 09:25 Dose: 1 applic Documented by: Ondansetron HCl (Ondansetron 4 Mg/2 Ml Inj) 4 mg IV Q8H PRN PRN Reason: Nausea And Vomiting Sodium Chloride (Sodium Chloride 0.9% 10 Ml Flush Syringe) 10 ml IV BID [facility] Last Admin: 03/15/21 10:44 Dose: 10 ml Documented by: Sodium Chloride (Sodium Chloride 0.9% 10 Ml Flush Syringe) 10 ml IV PRN PRN PRN Reason: LINE FLUSH Zinc Sulfate (Zinc Sulfate 220 Mg Cap) 220 mg PO BID [facility] Last Admin: 03/14/21 22:14 Dose: 220 mg Documented by: Review of Systems ROS unobtainable: due to mental status (On BiPAP) Exam - Constitutional Vitals: Temp Pulse Resp BP Pulse Ox 98 F 74 25 H 139/87 99 03/15/21 08:00 03/15/21 15:34 03/15/21 15:34 03/15/21 15:34 03/15/21 15:34 General appearance: Present: severe distress (On BiPAP) - EENT Eyes: Present: EOM intact ENT: hearing intact - Respiratory Respiratory effort: labored, other (On BiPAP) - Extremities Extremities: abnormal (see HPI) Peripheral Pulses: abnormal (see HPI) - Psychiatric Psychiatric: other (On BiPAP, not able to cooperate meaningfully) Results - Labs CBC & Chem 7: 03/15/21 05:30 03/15/21 05:30 Labs: Abnormal lab results 03/14/21 03/14/21 03/15/21 Range/Units 17:57 23:28 04:51 WBC (4.5-11.0) K/mm3 Plt Count (140-440) K/mm3 ABG pH (7.320-7.450) POC ABG pO2 (83-108) mmHg ABG Hemoglobin (12.0-17.5) ABG Oxyhemoglobin (94-98) ABG Sodium (136.0-145.0) mmol/L ABG Chloride (98-107) mmol/L ABG Glucose (65-95) mg/dL Sodium (137-145) mmol/L Potassium (3.6-5.0) mmol/L Chloride (98-107) mmol/L BUN (7-17) mg/dL Glucose (65-100) mg/dL POC Glucose 220 H 234 H 206 H (70-105) mg/dL Calcium (8.4-10.2) mg/dL Magnesium (1.7-2.3) mg/dL Total Bilirubin (0.1-1.2) mg/dL AST (5-40) units/L Alkaline Phosphatase (35-129) units/L Total Protein (6.3-8.2) g/dL Albumin (3.9-5) g/dL Arterial Blood Glucose (65-95) mg/dL Arterial Blood Ionized Calcium (4.6-5.3) mg/dL 03/15/21 03/15/21 03/15/21 Range/Units 05:30 05:30 12:33 WBC 19.5 H (4.5-11.0) K/mm3 Plt Count 70 L (140-440) K/mm3 ABG pH (7.320-7.450) POC ABG pO2 (83-108) mmHg ABG Hemoglobin (12.0-17.5) ABG Oxyhemoglobin (94-98) ABG Sodium (136.0-145.0) mmol/L ABG Chloride (98-107) mmol/L ABG Glucose (65-95) mg/dL Sodium 150 H D (137-145) mmol/L Potassium 3.1 L (3.6-5.0) mmol/L Chloride 110.2 H (98-107) mmol/L BUN 56 H (7-17) mg/dL Glucose 364 H (65-100) mg/dL POC Glucose 123 H (70-105) mg/dL Calcium 8.0 L (8.4-10.2) mg/dL Magnesium 2.50 H (1.7-2.3) mg/dL Total Bilirubin 1.50 H (0.1-1.2) mg/dL AST 69 H (5-40) units/L Alkaline Phosphatase 207 H (35-129) units/L Total Protein 6.0 L (6.3-8.2) g/dL Albumin 3.5 L (3.9-5) g/dL Arterial Blood Glucose (65-95) mg/dL Arterial Blood Ionized Calcium (4.6-5.3) mg/dL 03/15/21 Range/Units 15:21 WBC (4.5-11.0) K/mm3 Plt Count (140-440) K/mm3 ABG pH 7.453 H (7.320-7.450) POC ABG pO2 57.1 L (83-108) mmHg ABG Hemoglobin 11.4 L (12.0-17.5) ABG Oxyhemoglobin 88.1 L (94-98) ABG Sodium 147.1 H (136.0-145.0) mmol/L ABG Chloride 114.0 H (98-107) mmol/L ABG Glucose 348 H (65-95) mg/dL Sodium (137-145) mmol/L Potassium (3.6-5.0) mmol/L Chloride (98-107) mmol/L BUN (7-17) mg/dL Glucose (65-100) mg/dL POC Glucose (70-105) mg/dL Calcium (8.4-10.2) mg/dL Magnesium (1.7-2.3) mg/dL Total Bilirubin (0.1-1.2) mg/dL AST (5-40) units/L Alkaline Phosphatase (35-129) units/L Total Protein (6.3-8.2) g/dL Albumin (3.9-5) g/dL Arterial Blood Glucose 348 H (65-95) mg/dL Arterial Blood Ionized Calcium 4.2 L (4.6-5.3) mg/dL Assessment and Plan 60-year-old female with severe Covid pneumonia being ruled out for HIT with duskiness of the extremities. Patient has palpable dorsalis pedis pulses and some duskiness of the toes. She also has duskiness of the right fingers without a palpable pulse and ischemia of the left first through 3 digits with deep tissue injury of the first and second distal tip with previous left arterial line in the radial artery which was removed. Unfortunately, patient is critically ill which precludes significant interventions. Recommend arterial ultrasound of the upper extremities bilaterally. Recommend anticoagulation. Left first through third digit could represent embolic phenomenon. Consider hematology consult for argatroban drip if HIT is being excluded. Avoid vasopressors if possible.
[2021-03-15] MEDS ORDERED: FONDAPARINUX 2.5 MG/0.5 ML INJ SUB-Q SCH (15:50)
[2021-03-15] MEDS: atenoloL 25 MG TAB PO SCH (18:00)
[2021-03-15] MEDS: ASPIRIN 81 MG TAB CHEW PO SCH (18:00)
[2021-03-15] MEDS: ASCORBIC ACID 500 MG TAB PO SCH (18:01)
[2021-03-15] MEDS: ZINC SULFATE 220 MG CAP PO SCH (18:01)
[2021-03-15] MEDS ORDERED: INSULIN GLARGINE 100 UNITS/ML SUB-Q SCH (22:00)
[2021-03-16] MEDS: INSULIN REGULAR, HUMAN 100 UNITS/1 ML SUB-Q SCH ×4 (02:04→18:12)
[2021-03-16] MEDS: hydrALAZINE 20 MG/1 ML INJ IV PRN (03:56)
[2021-03-16] MEDS: methylPREDNISolone Sod Succinate 125 MG/2 ML INJ IV SCH ×3 (07:51→21:09)
--- NOTE | 2021-03-16 08:24 | Hem/Onc Consultation ---
History of Present Illness - History of Present Illness heme consult CPT 66990 video televisit not possible case d/w nurse dx thrombocytopenia heparin-induced thrombocytopenia 60yo obese AA woman (360 lbs) with covid pneumonia has been in ICU on bipap for a few days received Tocilizumab, has been receiving steroid pulse found ot have low plt counts-->started arixtra 2.5mg daily, requested HIT testing now wound to have digital ischemia hands-->increased arixtra to 10mg daily Chest x-ray revealed severe bilateral airspace pneumonia. d/w nurse--> has had persistent bilateral hand and foot ischemia DATA REVIEWED BELOW IMP: low plt count and digital ischemia presumably due to covid infection r/o HIT PLAN: await HIT testing change to argatroban EXAM per notes L hand fingertips ischemia R hand duskiness bilateral toes duskiness Active Medications Fondaparinux (Fondaparinux 2.5 Mg/0.5 Ml Inj) 2.5 mg SUB-Q DAILY [facility] Last Admin: 03/15/21 16:31 Dose: 2.5 mg Documented by: Fondaparinux (Fondaparinux 7.5 Mg/0.6 Ml Inj) 7.5 mg SUB-Q DAILY [facility] Last Admin: 03/15/21 16:32 Dose: 7.5 mg Documented by: Hydralazine HCl (Hydralazine 20 Mg/1 Ml Inj) 10 mg IV Q4HR PRN Methylprednisolone Sodium Succinate (Methylprednisolone Sod Succinate 125 Mg/2 Ml Inj) 110 mg IV Q8HR [facility] Last Admin: 03/16/21 07:51 Dose: 110 mg Documented by: Morphine Sulfate (Morphine 2 Mg/1 Ml Inj) 2 mg IV Q4H PRN PRN Reason: Pain, Moderate (4-6) Last Admin: 03/15/21 08:15 Dose: 2 mg Documented by: Laboratory Last Values WBC 19.5 K/mm3 (4.5-11.0) H 03/15/21 05:30 Hgb 12.0 gm/dl (10.1-14.3) 03/15/21 05:30 Hct 36.4 % (30.3-42.9) 03/15/21 05:30 Plt Count 70 K/mm3 (140-440) L 03/15/21 05:30 PT 13.8 Sec. (12.2-14.9) 03/10/21 05:02 INR 1.01 (0.87-1.13) 03/10/21 05:02 D-Dimer > 19750 ng/mlDDU (0-234) H 03/14/21 11:03 Creatinine 1.1 mg/dL (0.6-1.2) 03/15/21 05:30 Ferritin 1799.0 ng/mL (10.0-200.0) H 03/14/21 11:03 Total Bilirubin 1.50 mg/dL (0.1-1.2) H 03/15/21 05:30 AST 69 units/L (5-40) H 03/15/21 05:30 ALT 39 units/L (7-56) 03/15/21 05:30 Alkaline Phosphatase 207 units/L (35-129) H 03/15/21 05:30 Lactate Dehydrogenase 1242 units/L (91-180) H 03/10/21 18:13 Coronavirus (PCR) Positive (Negative) A 03/09/21 Unknown Past History Past Medical History: arthritis, COPD, hypertension, liver disease, seizures, other (TBI 1985, obesity, drug abuse) Past Surgical History: Other (left knee and left wrist surgery; brain 1985) Social history: no significant social history Family history: no significant family history Medications and Allergies Allergies Allergy/AdvReac Type Severity Reaction Status Date / Time No Known Allergies Allergy Verified 11/01/15 11:59 Home Medications Medication Instructions Recorded Confirmed Last Taken Type ALPRAZolam [Xanax TAB] 1 mg PO TID PRN 10/22/15 04/15/18 04/02/18 History Aspirin [Aspirin BABY CHEW TAB] 81 mg PO QDAY 10/22/15 04/15/18 04/02/18 History Divalproex ER [Depakote ER] 500 mg PO TID 10/22/15 03/09/21 04/02/18 History atenoloL [Tenormin] 25 mg PO DAILY 10/22/15 04/15/18 04/02/18 History carBAMazepine [TEGretol] 200 mg PO QAM 10/22/15 03/09/21 04/02/18 History traMADoL [Ultram 50 MG tab] 50 mg PO Q6HR PRN #10 tablet 04/09/17 04/15/1804/02/18 Rx Nystatin Cream [Mycostatin Cream] 1 applic TP BID #1 tube 04/08/18 04/15/18 Unknown Rx Nystatin Oint [Mycostatin Oint] 1 applicatio TP BID #1 tube 04/12/18 Unknown Rx Bumetanide [Bumex 1 mg tab] 1 mg PO DAILY 04/15/18 04/15/18 Unknown History Zolpidem (Nf) [Ambien] 10 mg PO QHS 04/15/18 04/15/18 Unknown History Meloxicam 15 mg PO DAILY #7 tablet 05/03/18 Unknown Rx Acetaminophen [Acetaminophen TAB] 1,000 mg PO Q6HR PRN #30 tablet 03/06/19 Unknown Rx Ketoconazole [Xolegel 2%] 1 applicatio TP TID #1 tube 03/06/19 Unknown Rx diphenhydrAMINE [Benadryl CAP] 25 mg PO Q6HR PRN #30 capsule 03/06/19 Unknown Rx Active Meds: Active Medications Acetaminophen (Acetaminophen 500 Mg Tab) 1,000 mg PO Q6HR PRN PRN Reason: Pain , Severe (7-10) Albuterol (Albuterol 2.5 Mg/3 Ml Nebu) 2.5 mg IH Q4HRT PRN PRN Reason: Shortness Of Breath Alprazolam (Alprazolam 1 Mg Tab) 1 mg PO TID PRN PRN Reason: Anxiety Ascorbic Acid (Ascorbic Acid 500 Mg Tab) 500 mg PO BID [facility] Last Admin: 03/15/21 18:01 Dose: Not Given Documented by: Aspirin (Aspirin 81 Mg Tab Chew) 81 mg PO QDAY [facility] Last Admin: 03/15/21 18:00 Dose: Not Given Documented by: Atenolol (Atenolol 25 Mg Tab) 25 mg PO DAILY [facility] Last Admin: 03/15/21 18:00 Dose: Not Given Documented by: Clonidine HCl (Clonidine 0.1 Mg Tab) 0.1 mg PO Q4H PRN PRN Reason: systolic bp greater than 160 Clonidine HCl (Clonidine Tts 0.1 Mg/24 Hr Patch) 0.1 mg TD QWEEK [facility] Last Admin: 03/15/21 09:20 Dose: 0.1 mg Documented by: Dextrose (Dextrose 50% In Water (25gm) 50 Ml Syringe) 50 ml IV Q30MIN PRN; Protocol PRN Reason: Hypoglycemia Diphenhydramine HCl (Diphenhydramine 25 Mg Cap) 25 mg PO Q6HR PRN PRN Reason: Itching Fondaparinux (Fondaparinux 2.5 Mg/0.5 Ml Inj) 2.5 mg SUB-Q DAILY [facility] Last Admin: 03/15/21 16:31 Dose: 2.5 mg Documented by: Fondaparinux (Fondaparinux 7.5 Mg/0.6 Ml Inj) 7.5 mg SUB-Q DAILY [facility] Last Admin: 03/15/21 16:32 Dose: 7.5 mg Documented by: Hydralazine HCl (Hydralazine 20 Mg/1 Ml Inj) 10 mg IV Q4HR PRN PRN Reason: Hypertension Last Admin: 03/16/21 03:56 Dose: 10 mg Documented by: Dexmedetomidine HCl 400 mcg/ (Sodium Chloride) 104 mls @ 8.46 mls/hr IV TITRATE [facility]; Protocol Last Admin: 03/16/21 07:52 Dose: 0.6 mcg/kg/hr, 25.381 mls/hr Documented by: Valproate Sodium 500 mg/ (Sodium Chloride) 105 mls @ 100 mls/hr IV Q12HR [facility] Last Admin: 03/15/21 22:28 Dose: 100 mls/hr Documented by: Dextrose (D5w) 1,000 mls @ 75 mls/hr IV DIRECT [facility] Last Admin: 03/15/21 21:13 Dose: 75 mls/hr Documented by: Insulin Glargine (Insulin Glargine 100 Units/Ml) 10 units SUB-Q QHS [facility] Last Admin: 03/15/21 22:30 Dose: 10 units Documented by: Insulin Human Regular (Insulin Regular, Human 100 Units/1 Ml) 0 units SUB-Q Q6H [facility]; Protocol Last Admin: 03/16/21 02:04 Dose: 6 units Documented by: Labetalol HCl (Labetalol 20 Mg/4 Ml Inj) 10 mg IV Q6HR PRN PRN Reason: Hypertension Last Admin: 03/16/21 02:00 Dose: 10 mg Documented by: Magnesium Hydroxide (Magnesium Hydroxide (Mom) Oral Liqd Udc) 30 ml PO Q4H PRN PRN Reason: Constipation Methylprednisolone Sodium Succinate (Methylprednisolone Sod Succinate 125 Mg/2 Ml Inj) 110 mg IV Q8HR [facility] Last Admin: 03/16/21 07:51 Dose: 110 mg Documented by: Morphine Sulfate (Morphine 2 Mg/1 Ml Inj) 2 mg IV Q4H PRN PRN Reason: Pain, Moderate (4-6) Last Admin: 03/15/21 08:15 Dose: 2 mg Documented by: Morphine Sulfate (Morphine 4 Mg/1 Ml Inj) 4 mg IV Q4H PRN PRN Reason: Pain , Severe (7-10) Last Admin: 03/12/21 04:15 Dose: 4 mg Documented by: Nifedipine (Nifedipine*For Tocolysis Only* 10 Mg Capsule) 10 mg PO TID [facility] Last Admin: 03/15/21 22:36 Dose: 10 mg Documented by: Nystatin (Nystatin Oint 15 Gm) 1 applic TP BID [facility] Last Admin: 03/15/21 09:25 Dose: 1 applic Documented by: Ondansetron HCl (Ondansetron 4 Mg/2 Ml Inj) 4 mg IV Q8H PRN PRN Reason: Nausea And Vomiting Sodium Chloride (Sodium Chloride 0.9% 10 Ml Flush Syringe) 10 ml IV BID [facility] Last Admin: 03/15/21 10:44 Dose: 10 ml Documented by: Sodium Chloride (Sodium Chloride 0.9% 10 Ml Flush Syringe) 10 ml IV PRN PRN PRN Reason: LINE FLUSH Zinc Sulfate (Zinc Sulfate 220 Mg Cap) 220 mg PO BID [facility] Last Admin: 03/15/21 18:01 Dose: Not Given Documented by: Exam - Constitutional Vitals: Last Vital Signs Temp 98.1 F 03/16/21 03:07 Pulse 125 H 03/16/21 05:12 Resp 31 H 03/16/21 05:12 BP 179/105 03/16/21 05:12 Pulse Ox 100 03/16/21 05:12 Results - Labs lab Results: Laboratory Results - last 24 hr 03/10/21 03/14/21 03/15/21 18:13 11:03 12:33 ABG pH POC ABG pCO2 POC ABG pO2 POC ABG HCO3 ABG O2 Saturation POC ABG Base Excess ABG Hemoglobin ABG Oxyhemoglobin ABG Methemoglobin ABG Sodium ABG Potassium ABG Chloride ABG Glucose Carboxyhemoglobin FiO2 % POC Glucose 123 H Procalcitonin < 0.05 0.23 Arterial Blood Glucose Arterial Blood Ionized Calcium 03/15/21 03/15/21 03/15/21 15:21 17:56 22:35 ABG pH 7.453 H POC ABG pCO2 35.3 POC ABG pO2 57.1 L POC ABG HCO3 24.1 ABG O2 Saturation 89.5 POC ABG Base Excess 0.5 ABG Hemoglobin 11.4 L ABG Oxyhemoglobin 88.1 L ABG Methemoglobin 0.3 ABG Sodium 147.1 H ABG Potassium 3.9 ABG Chloride 114.0 H ABG Glucose 348 H Carboxyhemoglobin 1.3 FiO2 % 100.0 POC Glucose 250 H 296 H Procalcitonin Arterial Blood Glucose 348 H Arterial Blood Ionized Calcium 4.2 L 03/15/21 03/16/21 23:46 05:11 ABG pH POC ABG pCO2 POC ABG pO2 POC ABG HCO3 ABG O2 Saturation POC ABG Base Excess ABG Hemoglobin ABG Oxyhemoglobin ABG Methemoglobin ABG Sodium ABG Potassium ABG Chloride ABG Glucose Carboxyhemoglobin FiO2 % POC Glucose 301 H 292 H Procalcitonin Arterial Blood Glucose Arterial Blood Ionized Calcium
[2021-03-16 08:25] LABS: Hematocrit 27.7 % (30.3-42.9); Hemoglobin 9.2 gm/dl (10.1-14.3); Mean Corpuscular HGB Conc 33 % (30-34); Mean Corpuscular Volume 92 fl (79-97); Red Blood Count 3.01 M/mm3 (3.65-5.03); Red Cell Distribution Width 13.5 % (13.2-15.2)
[2021-03-16 08:26] LABS: Platelet Count 55 K/mm3 (140-440)
[2021-03-16] MEDS: NIFEdipine*For Tocolysis only* 10 MG CAPSULE PO SCH (08:44)
[2021-03-16 09:00] LABS: Calcium 7.9 mg/dL (8.4-10.2)
[2021-03-16] MEDS ORDERED: FONDAPARINUX 7.5 MG/0.6 ML INJ SUB-Q SCH ×2 (10:00)
[2021-03-16] MEDS: ASPIRIN 81 MG TAB CHEW PO SCH (13:33)
[2021-03-16] MEDS: ZINC SULFATE 220 MG CAP PO SCH ×3 (13:33→21:30)
[2021-03-16] MEDS: atenoloL 25 MG TAB PO SCH (13:33)
[2021-03-16] MEDS: ASCORBIC ACID 500 MG TAB PO SCH ×3 (13:33→21:30)
[2021-03-16] MEDS: NYSTATIN OINT 15 GM TP SCH ×3 (13:35→21:29)
[2021-03-16] MEDS ORDERED: diphenhydrAMINE 25 MG CAP PO PRN (14:00)
[2021-03-16] MEDS ORDERED: hydrALAZINE 20 MG/1 ML INJ IV PRN (14:00)
[2021-03-16] MEDS ORDERED: ARGATROBAN 250 MG in SODIUM CHLORIDE 0.9% 250ML 247.5 ML IV SCH (16:00)
--- NOTE | 2021-03-16 16:15 | Progress Note ---
Assessment and Plan Acute hypoxemic respiratory failure ARDS COVID-19 infection Pneumonia Morbid obesity COPD HTN Chronic liver disease Seizure disorder Arthritis Leukopenia - follow HIT assay - heme / onc evaluation noted and started on argatroban - get cardiology consult for A-fib with RVR - continue attempts to give breaks on vapotherm during the day as tolerated - continue to wean supplemental oxygen for target O2 sat's > 92% acutely - continue care as below otherwise; - continue accuchecks with glycemic control per SSI (While critically ill target blood glucose of 140-180 mg/dL; avoid hypoglycemia) - aspiration precautions - continue bronchodilators with pulmonary hygiene per RT - avoid nephrotoxins, renally dose all medications - Avoid benzodiazepine's, reduce the possibility of delirium - complete AB's per ID rec's - continue AED's for sizure disorder - prn analgesia per pain score - Maintenance of sleep-wake cycle, avoid delirium - G.I. & VTE prophylaxis - PT/OT/ROM exercises - continue mobility protocols for pressure ulcer prophylaxis - Monitor hemodynamics closely - continue other care per attending / other consultants - discharge planning ongoing concurrently COVID SPECIFIC INTERVENTIONS - Remdesivir as per ID/Pulmonary developed protocols (ordered) - continue systemic steroids for severe COVID-19 infection (Solumedrol) - follow repeat COVID tests results - zinc and vitamin C supplementation - Monitor inflammatory markers per facility protocol - ferritin, Ddimer, CRP - therapeutic anticoagulation per system Protocol based on d-dimer and clinical considerations (VTE prophylaxis) - Continue contact and airborne isolation .... Re-evaluate in am & prn CONDITION: CRITICAL PROGNOSIS: GUARDED CODE STATUS: FULL CODE The high probability of a clinically significant, sudden or life-threatening deterioration of the [respiratory, cardiovascular & neurologic] system(s) required my full and direct attention, intervention and personal management. The aggregate critical care time was [32] minutes without overlap. Time includes spent on; [x] Data Review and interpretation [x] Patient assessment and monitoring of vital signs [x] Documentation [x] Medication orders and management Subjective Date of service: 03/16/21 Principal diagnosis: Ac hypoxemic resp failure; COVID-19 infxn; PNA; Morbid obesity; Seizures Interval history: Patient is seen today for: Acute hypoxemic respiratory failure; ARDS; COVID-19 infection; Pneumonia; Morbid obesity; Seizure disorder Seen and examined at bedside; 24hour events reviewed; nursing and respiratory care staff consulted; no adverse overnight events reported to me; resting peacefully in bed; remains on BIPAP; no emesis or overt aspiration; no gross bleeding; some digits still; cyanotic and arterial dopplers pending; also developed a run of A-fib with RVR Objective Vital Signs - 12hr 03/16/21 03/16/21 03/16/21 05:00 05:12 06:00 Temperature Pulse Rate 109 H 125 H 115 H Pulse Rate [ From Monitor] Respiratory 32 H 31 H 30 H Rate Blood Pressure 140/85 179/105 131/88 O2 Sat by Pulse 98 100 97 Oximetry 03/16/21 03/16/21 03/16/21 07:00 08:00 08:01 Temperature 97.8 F Pulse Rate 98 H 122 H 86 Pulse Rate [ 86 From Monitor] Respiratory 31 H 37 H 30 H Rate Blood Pressure 157/94 134/68 O2 Sat by Pulse 99 96 97 Oximetry 03/16/21 03/16/21 03/16/21 09:01 10:01 11:01 Temperature Pulse Rate 115 H 95 H 106 H Pulse Rate [ From Monitor] Respiratory 23 29 H 34 H Rate Blood Pressure 129/84 120/80 162/81 O2 Sat by Pulse 94 90 88 Oximetry 03/16/21 03/16/21 03/16/21 12:01 13:01 14:01 Temperature Pulse Rate 120 H 116 H 117 H Pulse Rate [ 116 H From Monitor] Respiratory 34 H 35 H 38 H Rate Blood Pressure 144/63 135/69 144/63 O2 Sat by Pulse 91 89 84 Oximetry 03/16/21 15:00 Temperature Pulse Rate 130 H Pulse Rate [ From Monitor] Respiratory 38 H Rate Blood Pressure 140/78 O2 Sat by Pulse 94 Oximetry Constitutional: no acute distress, other (middle aged morbidly obese female with mildly increased respiratory effort at rest on NIV) Eyes: non-icteric ENT: oropharynx moist Neck: supple, no lymphadenopathy, no JVD, other (large circumference) Effort: mildly labored Ascultation: Bilateral: diminished breath sounds, rhonchi Percussion: Bilateral: not dull Cardiovascular: regular rate and rhythm Gastrointestinal: normoactive bowel sounds, soft, non-tender, non-distended (significantly protuberant) Integumentary: normal Extremities: no cyanosis, no edema, pink and warm, pulses normal Neurologic: normal mental status, non-focal exam, pupils equal and round, motor strength normal and Psychiatric: mood appropriate, affect normal, other (inappropriately flat affect) CBC and BMP: 03/17/21 04:40 03/17/21 04:40 ABG, PT/INR, D-dimer: ABG ABG pH 7.453 (7.320-7.450) H 03/15/21 15:21 POC ABG pCO2 35.3 mmHg (32.0-48.0) 03/15/21 15: POC ABG pO2 57.1 mmHg (83-108) L 03/15/21 15: POC ABG HCO3 24.1 03/15/21 15: ABG O2 Saturation 89.5 (0-100) 03/15/21 15: PT/INR, D-dimer PT 13.8 Sec. (12.2-14.9) 03/10/21 05:02 INR 1.01 (0.87-1.13) 03/10/21 05:02 D-Dimer 5532.44 ng/mlDDU (0-234) H 03/16/21 07:50 Abnormal lab findings: Abnormal Labs 03/09/21 03/09/21 03/09/21 00:26 00:26 00:26 WBC 2.9 L RBC Hgb Hct Plt Count [place] % (Auto) 9.5 H Lymph # (Auto) 0.5 L Seg Neutrophils % 74.5 H APTT D-Dimer ABG pH POC ABG pO2 ABG Hemoglobin ABG Oxyhemoglobin ABG Sodium ABG Chloride ABG Glucose Carboxyhemoglobin Sodium Potassium Chloride Carbon Dioxide BUN Creatinine Glucose 135 H POC Glucose Calcium 7.3 L Magnesium Ferritin Total Bilirubin AST 79 H ALT 62 H Alkaline Phosphatase Lactate Dehydrogenase C-Reactive Protein Total Protein Albumin 3.4 L Arterial Blood Glucose Arterial Blood Ionized Calcium Valproic Acid 9.7 L Coronavirus (PCR) 03/09/21 03/09/21 03/10/21 16:44 Unknown 05:02 WBC 3.5 L RBC Hgb Hct Plt Count [place] % (Auto) Lymph # (Auto) 0.5 L Seg Neutrophils % 79.0 H APTT D-Dimer ABG pH POC ABG pO2 ABG Hemoglobin ABG Oxyhemoglobin ABG Sodium ABG Chloride ABG Glucose Carboxyhemoglobin Sodium Potassium Chloride Carbon Dioxide BUN Creatinine Glucose 127 H POC Glucose Calcium 7.5 L Magnesium Ferritin Total Bilirubin AST 87 H ALT Alkaline Phosphatase Lactate Dehydrogenase C-Reactive Protein Total Protein Albumin 3.2 L Arterial Blood Glucose Arterial Blood Ionized Calcium Valproic Acid Coronavirus (PCR) Positive A 03/10/21 03/10/21 03/10/21 05:02 05:29 08:57 WBC RBC Hgb Hct Plt Count [place] % (Auto) Lymph # (Auto) Seg Neutrophils % APTT D-Dimer ABG pH POC ABG pO2 52.1 L ABG Hemoglobin ABG Oxyhemoglobin 84.3 L ABG Sodium ABG Chloride 110.0 H ABG Glucose 176 H Carboxyhemoglobin 0.3 L Sodium 146 H Potassium Chloride Carbon Dioxide BUN Creatinine 0.5 L Glucose 170 H POC Glucose 171 H Calcium 7.5 L Magnesium Ferritin Total Bilirubin AST 81 H ALT Alkaline Phosphatase Lactate Dehydrogenase C-Reactive Protein Total Protein 5.7 L Albumin 3.3 L Arterial Blood Glucose 176 H Arterial Blood Ionized Calcium 4.0 L Valproic Acid Coronavirus (PCR) 03/10/21 03/10/21 03/10/21 10:19 10:19 10:19 WBC RBC Hgb Hct Plt Count [place] % (Auto) Lymph # (Auto) Seg Neutrophils % APTT D-Dimer 451.32 H ABG pH POC ABG pO2 ABG Hemoglobin ABG Oxyhemoglobin ABG Sodium ABG Chloride ABG Glucose Carboxyhemoglobin Sodium Potassium Chloride Carbon Dioxide BUN Creatinine Glucose POC Glucose Calcium Magnesium Ferritin 1795.0 H Total Bilirubin AST ALT Alkaline Phosphatase Lactate Dehydrogenase 1033 H C-Reactive Protein Total Protein Albumin Arterial Blood Glucose Arterial Blood Ionized Calcium Valproic Acid Coronavirus (PCR) 03/10/21 03/10/21 03/10/21 10:19 11:31 13:48 WBC RBC Hgb Hct Plt Count [place] % (Auto) Lymph # (Auto) Seg Neutrophils % APTT D-Dimer ABG pH POC ABG pO2 43.6 L ABG Hemoglobin ABG Oxyhemoglobin 77.3 L ABG Sodium ABG Chloride 110.0 H ABG Glucose 174 H Carboxyhemoglobin 0.2 L Sodium Potassium Chloride Carbon Dioxide BUN Creatinine Glucose POC Glucose 163 H Calcium Magnesium Ferritin Total Bilirubin AST ALT Alkaline Phosphatase Lactate Dehydrogenase C-Reactive Protein 8.10 H Total Protein Albumin Arterial Blood Glucose 174 H Arterial Blood Ionized Calcium 4.1 L Valproic Acid Coronavirus (PCR) 03/10/21 03/10/21 03/10/21 17:58 18:13 18:13 WBC RBC Hgb Hct Plt Count [place] % (Auto) Lymph # (Auto) Seg Neutrophils % APTT D-Dimer 1054.48 H ABG pH POC ABG pO2 ABG Hemoglobin ABG Oxyhemoglobin ABG Sodium ABG Chloride ABG Glucose Carboxyhemoglobin Sodium Potassium Chloride Carbon Dioxide BUN Creatinine Glucose POC Glucose 152 H Calcium Magnesium Ferritin 1717.0 H Total Bilirubin AST ALT Alkaline Phosphatase Lactate Dehydrogenase C-Reactive Protein Total Protein Albumin Arterial Blood Glucose Arterial Blood Ionized Calcium Valproic Acid Coronavirus (PCR) 03/10/21 03/10/21 03/11/21 18:13 23:15 05:35 WBC RBC Hgb Hct Plt Count [place] % (Auto) Lymph # (Auto) Seg Neutrophils % APTT D-Dimer ABG pH POC ABG pO2 ABG Hemoglobin ABG Oxyhemoglobin ABG Sodium ABG Chloride ABG Glucose Carboxyhemoglobin Sodium Potassium Chloride Carbon Dioxide BUN Creatinine Glucose POC Glucose 152 H 134 H Calcium Magnesium Ferritin Total Bilirubin AST ALT Alkaline Phosphatase Lactate Dehydrogenase 1242 H C-Reactive Protein 8.40 H Total Protein Albumin Arterial Blood Glucose Arterial Blood Ionized Calcium Valproic Acid Coronavirus (PCR) 03/11/21 03/11/21 03/11/21 06:56 11:41 23:24 WBC RBC Hgb Hct Plt Count [place] % (Auto) Lymph # (Auto) Seg Neutrophils % APTT D-Dimer ABG pH POC ABG pO2 ABG Hemoglobin ABG Oxyhemoglobin ABG Sodium ABG Chloride ABG Glucose Carboxyhemoglobin Sodium 151 H Potassium Chloride 110.7 H Carbon Dioxide BUN 27 H Creatinine Glucose 153 H POC Glucose 115 H 141 H Calcium 7.8 L Magnesium Ferritin Total Bilirubin AST 53 H ALT Alkaline Phosphatase Lactate Dehydrogenase C-Reactive Protein 6.60 H Total Protein 6.2 L Albumin 3.5 L Arterial Blood Glucose Arterial Blood Ionized Calcium Valproic Acid Coronavirus (PCR) 03/12/21 03/12/21 03/12/21 04:46 04:46 05:03 WBC RBC Hgb Hct Plt Count 31 L [place] % (Auto) Lymph # (Auto) Seg Neutrophils % APTT D-Dimer ABG pH POC ABG pO2 ABG Hemoglobin ABG Oxyhemoglobin ABG Sodium ABG Chloride ABG Glucose Carboxyhemoglobin Sodium 147 H Potassium 5.6 H D Chloride 114.3 H Carbon Dioxide 20 L D BUN 33 H Creatinine Glucose 166 H POC Glucose 161 H Calcium 7.9 L Magnesium Ferritin Total Bilirubin AST 66 H ALT Alkaline Phosphatase Lactate Dehydrogenase C-Reactive Protein Total Protein 5.8 L Albumin 2.5 L Arterial Blood Glucose Arterial Blood Ionized Calcium Valproic Acid Coronavirus (PCR) 03/12/21 03/12/21 03/12/21 12:10 16:30 16:30 WBC RBC Hgb Hct Plt Count [place] % (Auto) Lymph # (Auto) Seg Neutrophils % APTT D-Dimer > 36330 H ABG pH POC ABG pO2 ABG Hemoglobin ABG Oxyhemoglobin ABG Sodium ABG Chloride ABG Glucose Carboxyhemoglobin Sodium Potassium Chloride Carbon Dioxide BUN Creatinine Glucose POC Glucose 166 H Calcium Magnesium Ferritin 1208.0 H Total Bilirubin AST ALT Alkaline Phosphatase Lactate Dehydrogenase C-Reactive Protein Total Protein Albumin Arterial Blood Glucose Arterial Blood Ionized Calcium Valproic Acid Coronavirus (PCR) 03/12/21 03/12/21 03/13/21 17:28 23:49 04:17 WBC RBC Hgb Hct Plt Count [place] % (Auto) Lymph # (Auto) Seg Neutrophils % APTT D-Dimer ABG pH POC ABG pO2 ABG Hemoglobin ABG Oxyhemoglobin ABG Sodium ABG Chloride ABG Glucose Carboxyhemoglobin Sodium 157 H D Potassium 3.5 L D Chloride 119.2 H Carbon Dioxide BUN 47 H Creatinine Glucose 183 H POC Glucose 159 H 174 H Calcium 8.3 L Magnesium Ferritin Total Bilirubin AST ALT Alkaline Phosphatase Lactate Dehydrogenase C-Reactive Protein 1.70 H Total Protein Albumin Arterial Blood Glucose Arterial Blood Ionized Calcium Valproic Acid Coronavirus (PCR) 03/13/21 03/13/21 03/13/21 04:17 04:17 05:53 WBC RBC Hgb Hct Plt Count 56 L [place] % (Auto) Lymph # (Auto) Seg Neutrophils % APTT D-Dimer ABG pH POC ABG pO2 ABG Hemoglobin ABG Oxyhemoglobin ABG Sodium ABG Chloride ABG Glucose Carboxyhemoglobin Sodium 158 H Potassium Chloride 120.2 H Carbon Dioxide BUN 47 H Creatinine Glucose 184 H POC Glucose 180 H Calcium 8.2 L Magnesium Ferritin Total Bilirubin AST ALT Alkaline Phosphatase 136 H Lactate Dehydrogenase C-Reactive Protein Total Protein 5.3 L Albumin 3.0 L Arterial Blood Glucose Arterial Blood Ionized Calcium Valproic Acid Coronavirus (PCR) 03/13/21 03/13/2121 11:39 17:31 23:13 WBC RBC Hgb Hct Plt Count [place] % (Auto) Lymph # (Auto) Seg Neutrophils % APTT D-Dimer ABG pH POC ABG pO2 ABG Hemoglobin ABG Oxyhemoglobin ABG Sodium ABG Chloride ABG Glucose Carboxyhemoglobin Sodium Potassium Chloride Carbon Dioxide BUN Creatinine Glucose POC Glucose 145 H 171 H 69 L Calcium Magnesium Ferritin Total Bilirubin AST ALT Alkaline Phosphatase Lactate Dehydrogenase C-Reactive Protein Total Protein Albumin Arterial Blood Glucose Arterial Blood Ionized Calcium Valproic Acid Coronavirus (PCR) 03/14/21 03/14/21 03/14/21 05:10 06:30 06:30 WBC 14.8 H RBC Hgb Hct Plt Count 95 L [place] % (Auto) Lymph # (Auto) Seg Neutrophils % APTT D-Dimer ABG pH POC ABG pO2 ABG Hemoglobin ABG Oxyhemoglobin ABG Sodium ABG Chloride ABG Glucose Carboxyhemoglobin Sodium 158 H Potassium Chloride 118.7 H Carbon Dioxide BUN 56 H Creatinine Glucose 185 H POC Glucose 179 H Calcium 8.2 L Magnesium Ferritin Total Bilirubin AST 64 H ALT Alkaline Phosphatase 271 H Lactate Dehydrogenase C-Reactive Protein Total Protein 5.6 L Albumin 3.4 L Arterial Blood Glucose Arterial Blood Ionized Calcium Valproic Acid Coronavirus (PCR) 03/14/21 03/14/21 03/14/21 11:03 11:03 11:14 WBC RBC Hgb Hct Plt Count [place] % (Auto) Lymph # (Auto) Seg Neutrophils % APTT D-Dimer > 64812 H ABG pH POC ABG pO2 ABG Hemoglobin ABG Oxyhemoglobin ABG Sodium ABG Chloride ABG Glucose Carboxyhemoglobin Sodium Potassium Chloride Carbon Dioxide BUN Creatinine Glucose POC Glucose 217 H Calcium Magnesium Ferritin 1799.0 H Total Bilirubin AST ALT Alkaline Phosphatase Lactate Dehydrogenase C-Reactive Protein Total Protein Albumin Arterial Blood Glucose Arterial Blood Ionized Calcium Valproic Acid Coronavirus (PCR) 03/14/21 03/14/21 03/15/21 17:57 23:28 04:51 WBC RBC Hgb Hct Plt Count [place] % (Auto) Lymph # (Auto) Seg Neutrophils % APTT D-Dimer ABG pH POC ABG pO2 ABG Hemoglobin ABG Oxyhemoglobin ABG Sodium ABG Chloride ABG Glucose Carboxyhemoglobin Sodium Potassium Chloride Carbon Dioxide BUN Creatinine Glucose POC Glucose 220 H 234 H 206 H Calcium Magnesium Ferritin Total Bilirubin AST ALT Alkaline Phosphatase Lactate Dehydrogenase C-Reactive Protein Total Protein Albumin Arterial Blood Glucose Arterial Blood Ionized Calcium Valproic Acid Coronavirus (PCR) 03/15/21 03/15/21 03/15/21 05:30 05:30 12:33 WBC 19.5 H RBC Hgb Hct Plt Count 70 L [place] % (Auto) Lymph # (Auto) Seg Neutrophils % APTT D-Dimer ABG pH POC ABG pO2 ABG Hemoglobin ABG Oxyhemoglobin ABG Sodium ABG Chloride ABG Glucose Carboxyhemoglobin Sodium 150 H D Potassium 3.1 L Chloride 110.2 H Carbon Dioxide BUN 56 H Creatinine Glucose 364 H POC Glucose 123 H Calcium 8.0 L Magnesium 2.50 H Ferritin Total Bilirubin 1.50 H AST 69 H ALT Alkaline Phosphatase 207 H Lactate Dehydrogenase C-Reactive Protein Total Protein 6.0 L Albumin 3.5 L Arterial Blood Glucose Arterial Blood Ionized Calcium Valproic Acid Coronavirus (PCR) 03/15/21 03/15/21 03/15/21 15:21 17:56 22:35 WBC RBC Hgb Hct Plt Count [place] % (Auto) Lymph # (Auto) Seg Neutrophils % APTT D-Dimer ABG pH 7.453 H POC ABG pO2 57.1 L ABG Hemoglobin 11.4 L ABG Oxyhemoglobin 88.1 L ABG Sodium 147.1 H ABG Chloride 114.0 H ABG Glucose 348 H Carboxyhemoglobin Sodium Potassium Chloride Carbon Dioxide BUN Creatinine Glucose POC Glucose 250 H 296 H Calcium Magnesium Ferritin Total Bilirubin AST ALT Alkaline Phosphatase Lactate Dehydrogenase C-Reactive Protein Total Protein Albumin Arterial Blood Glucose 348 H Arterial Blood Ionized Calcium 4.2 L Valproic Acid Coronavirus (PCR) 03/15/21 03/16/21 03/16/21 23:46 05:11 07:50 WBC RBC Hgb Hct Plt Count [place] % (Auto) Lymph # (Auto) Seg Neutrophils % APTT D-Dimer 5532.44 H ABG pH POC ABG pO2 ABG Hemoglobin ABG Oxyhemoglobin ABG Sodium ABG Chloride ABG Glucose Carboxyhemoglobin Sodium Potassium Chloride Carbon Dioxide BUN Creatinine Glucose POC Glucose 301 H 292 H Calcium Magnesium Ferritin Total Bilirubin AST ALT Alkaline Phosphatase Lactate Dehydrogenase C-Reactive Protein Total Protein Albumin Arterial Blood Glucose Arterial Blood Ionized Calcium Valproic Acid Coronavirus (PCR) 03/16/21 03/16/21 03/16/21 07:50 07:50 07:50 WBC 18.0 H RBC 3.01 L Hgb 9.2 L Hct 27.7 L D Plt Count 55 L [place] % (Auto) Lymph # (Auto) Seg Neutrophils % APTT D-Dimer ABG pH POC ABG pO2 ABG Hemoglobin ABG Oxyhemoglobin ABG Sodium ABG Chloride ABG Glucose Carboxyhemoglobin Sodium 150 H Potassium Chloride 112.6 H Carbon Dioxide BUN 48 H Creatinine Glucose 349 H POC Glucose Calcium 7.9 L Magnesium 2.40 H Ferritin 1559.0 H Total Bilirubin AST ALT Alkaline Phosphatase Lactate Dehydrogenase 1898 H C-Reactive Protein Total Protein Albumin Arterial Blood Glucose Arterial Blood Ionized Calcium Valproic Acid Coronavirus (PCR) 03/16/21 03/16/21 07:50 12:42 WBC RBC Hgb Hct Plt Count [place] % (Auto) Lymph # (Auto) Seg Neutrophils % APTT 36.7 H D-Dimer ABG pH POC ABG pO2 ABG Hemoglobin ABG Oxyhemoglobin ABG Sodium ABG Chloride ABG Glucose Carboxyhemoglobin Sodium Potassium Chloride Carbon Dioxide BUN Creatinine Glucose POC Glucose 273 H Calcium Magnesium Ferritin Total Bilirubin AST ALT Alkaline Phosphatase Lactate Dehydrogenase C-Reactive Protein Total Protein Albumin Arterial Blood Glucose Arterial Blood Ionized Calcium Valproic Acid Coronavirus (PCR) Allied health notes reviewed: nursing
[2021-03-16] MEDS ORDERED: METOPROLOL TARTRATE 5 MG/5 ML INJ IV ONE (17:00)
[2021-03-16] MEDS: VALPROATE SODIUM 500 MG in SODIUM CHLORIDE 0.9% 100 ML IV SCH ×2 (17:17→21:09)
--- NOTE | 2021-03-16 18:06 | Progress Note ---
<NIA ESPINOSA - Last Filed: 03/16/21 18:16> Assessment and Plan Assessment and plan: 60-year-old female with seizure disorder, COPD, HTN and TBI admitted for covid 19 pui with acute hypoxic resp failure. Neuro: Seizure disorder, h/x TBI -Last seizure was 20 years ago -Continue Depakote but discontinue Tegretol and IV Keppra per neuro -Depakote reduced to twice a day -Neurology following CV: HTN, afib -Prn IV hydral and labatalol -afib on monitor -PO nifedipine, BB -BP monitoring per monitoring -clonidine patch Resp: Acute respiratory failure with hypoxia, ARDs, COVID PNA, COPD -on continuous bipap->HFNC as tolerated -SPo2 monitoring -Pulm hygiene -Prone as tolerated GI: NPO, MO, Transaminitis -D5 IVF -lifestyle and dietary changes needed on dc -BR; [place] -24 hours +127 -PPI -Trend LFTS : Hypernatremia, hyperchloremia -strict I/O -follow electrolytes -repleate k -trend cr -MIVF with dextrose Endo: Hyperglycemia -SSI -BG q4 while npo Heme: elevated d-dimer, thrombocytopenia (improving), anemia -Arixtra stopped/argatroban gtt started -SCDs to BLE while in bed -BLE Doppler US negative -BLE doppler repeat negative for DVT -HIT pending -BUE dopplars pending -discolored fingers and toes with no palpable pulse on left hand -Vascular surgery and hem/onc consulted ID: [id number] pneumonia, leukopenia (resolved) -ID following -Continue steroids, dosing per pulmonary -s/p remdesivir -s/p Actemra 03/10/2021 -trend ferritin, LDH, d-dimer, CRP every 2-3 days for risk stratification and to assess disease progression -droplet/isolation precautions -Prone as tolerated The high probability of a clinically significant, sudden or life threatening deterioration of the [all] system(s) required my full and direct attention, intervention and personal management. The aggregate critical care time was [60] minutes. This time is in addition to time spent performing reported procedures but includes the following: [x] Data Review and interpretation [x] Patient assessment and monitoring of vital signs [x] Documentation [x] Medication orders and management Disposition Plan: icu Total Time Spent with Patient (Minutes): 60 History Interval history: This is 60-year-old female with seizure disorder and TBI brought into the emergency room by EMS for evaluation of shortness of breath ongoing for the past few days. Oxygen saturation was about 50% on room air upon arrival of EMS. She was subsequently placed on nonrebreather with improvement of oxygen saturation to about 88%. She was subsequently placed on BiPAP upon arrival in the emergency room. She was initially confused upon arrival in the emergency room but became more responsive upon placement on BiPAP. Work-up in the emergency room showed labs were significant for elevated liver enzymes with AST of 79 ALT 62. Chest x-ray reveals severe bilateral airspace pneumonia. Patient admitted for covid 19 pui with acute hypoxic resp failure. 03/10/2021 Patient is Covid positive And acute respiratory failure with hypoxia Neurology and target worker consult appreciated ID consult appreciated mainly Seizure medication changed 03-11: no acute events overnight 03/12: unable to gain IV access, IV placed by PICC team was infiltrated today. CVL and janeen placed today 03/13: thrombocytopenia, weaned to optiflow with nrb during the AM and bipap hs. dimer noted at >[id number] however unable to complete full vte workup-will reorder Doppler and changed to arixtra. 03/14: Patient platelets are recovering, HIT assay ordered, left radial A-line re moved due to discoloration of the fingers. Patient did not tolerate high flow nasal cannula today 03/15: noted to have increased discoloration and coolness to bilateral hands and feet. thrombocytopenia improving, heme/onc consulted. Arixtra increased 03/16: hem/onc started argatroban. remains on bipap. Hospitalist Physical - Constitutional Vitals: Temp Pulse Resp BP Pulse Ox 97.8 F 118 H 34 H 155/100 99 03/16/21 08:00 03/16/21 17:00 03/16/21 17:00 03/16/21 17:00 03/16/21 17:00 General appearance: Present: no acute distress, well-nourished - EENT Eyes: Present: PERRL ENT: dentition normal - Neck Neck: Present: normal ROM - Respiratory Respiratory effort: normal Respiratory: bilateral: diminished - Cardiovascular Rhythm: regular Heart Sounds: Present: S1 & S2. Absent: systolic murmur, diastolic murmur - Extremities Extremities: pulses intact, pulses symmetrical Extremity abnormal: erythema, cold, pulses diminished Peripheral Pulses: abnormal - Peripheral pulses radial pulse Pulse Strength: Absent (left radial) dorsalis pedis Pulse Strength: 1+ (Doppler) - Abdominal General gastrointestinal: soft, non-tender, non-distended, normal bowel sounds - Integumentary Integumentary: Present: pale - Psychiatric Psychiatric: agitated - Neurologic Neurologic: moves all extremities - Allied Health Allied health notes reviewed: nursing, RT, social work Results - Labs CBC & Chem 7: 03/16/21 07:50 03/16/21 07:50 Labs: Laboratory Last Values WBC 18.0 K/mm3 (4.5-11.0) H 03/16/21 07:50 RBC 3.01 M/mm3 (3.65-5.03) L 03/16/21 07:50 Hgb 9.2 gm/dl (10.1-14.3) L 03/16/21 07:50 Hct 27.7 % (30.3-42.9) L D 03/16/21 07:50 MCV 92 fl (79-97) 03/16/21 07:50 MCH 31 pg (28-32) 03/16/21 07:50 MCHC 33 % (30-34) 03/16/21 07:50 RDW 13.5 % (13.2-15.2) 03/16/21 07:50 Plt Count 55 K/mm3 (140-440) L 03/16/21 07:50 Lymph % (Auto) 15.7 % (13.4-35.0) 03/10/21 05:02 [place] % (Auto) 5.2 % (0.0-7.3) 03/10/21 05:02 Eos % (Auto) 0.0 % (0.0-4.3) 03/10/21 05:02 Baso % (Auto) 0.1 % (0.0-1.8) 03/10/21 05:02 Lymph # (Auto) 0.5 K/mm3 (1.2-5.4) L 03/10/21 05:02 [place] # (Auto) 0.2 K/mm3 (0.0-0.8) 03/10/21 05:02 Eos # (Auto) 0.0 K/mm3 (0.0-0.4) 03/10/21 05:02 Baso # (Auto) 0.0 K/mm3 (0.0-0.1) 03/10/21 05:02 Seg Neutrophils % 79.0 % (40.0-70.0) H 03/10/21 05:02 Seg Neutrophils # 2.8 K/mm3 (1.8-7.7) 03/10/21 05:02 PT 13.8 Sec. (12.2-14.9) 03/10/21 05:02 INR 1.01 (0.87-1.13) 03/10/21 05:02 APTT 36.7 Sec. (24.2-36.6) H 03/16/21 07:50 D-Dimer 5532.44 ng/mlDDU (0-234) H 03/16/21 07:50 ABG pH 7.453 (7.320-7.450) H 03/15/21 15:21 POC ABG pCO2 35.3 mmHg (32.0-48.0) 03/15/21 15:21 POC ABG pO2 57.1 mmHg (83-108) L 03/15/21 15:21 POC ABG HCO3 24.1 03/15/21 15:21 ABG O2 Saturation 89.5 (0-100) 03/15/21 15:21 POC ABG Base Excess 0.5 03/15/21 15:21 ABG Hemoglobin 11.4 (12.0-17.5) L 03/15/21 15:21 ABG Oxyhemoglobin 88.1 (94-98) L 03/15/21 15:21 ABG Methemoglobin 0.3 (0.0-1.5) 03/15/21 15:21 ABG Sodium 147.1 mmol/L (136.0-145.0) H 03/15/21 15:21 ABG Potassium 3.9 mmol/L (3.40-4.50) 03/15/21 15:21 ABG Chloride 114.0 mmol/L (98-107) H 03/15/21 15:21 ABG Glucose 348 mg/dL (65-95) H 03/15/21 15:21 Carboxyhemoglobin 1.3 (0.5-1.5) 03/15/21 15:21 FiO2 % 100.0 03/15/21 15:21 Sodium 150 mmol/L (137-145) H 03/16/21 07:50 Potassium 3.6 mmol/L (3.6-5.0) 03/16/21 07:50 Chloride 112.6 mmol/L (98-107) H 03/16/21 07:50 Carbon Dioxide 29 mmol/L (22-30) 03/16/21 07:50 Anion Gap 12 mmol/L 03/16/21 07:50 BUN 48 mg/dL (7-17) H 03/16/21 07:50 Creatinine 1.0 mg/dL (0.6-1.2) 03/16/21 07:50 Estimated GFR 57 ml/min 03/16/21 07:50 BUN/Creatinine Ratio 48 % 03/16/21 07:50 Glucose 349 mg/dL (65-100) H 03/16/21 07:50 POC Glucose 318 mg/dL (70-105) H 03/16/21 17:04 Lactic Acid 1.30 mmol/L (0.7-2.0) 03/10/21 10:19 Calcium 7.9 mg/dL (8.4-10.2) L 03/16/21 07:50 Phosphorus 2.80 mg/dL (2.5-4.5) D 03/16/21 07:50 Magnesium 2.40 mg/dL (1.7-2.3) H 03/16/21 07:50 Ferritin 1559.0 ng/mL (10.0-200.0) H 03/16/21 07:50 Total Bilirubin 1.50 mg/dL (0.1-1.2) H 03/15/21 05:30 AST 69 units/L (5-40) H 03/15/21 05:30 ALT 39 units/L (7-56) 03/15/21 05:30 Alkaline Phosphatase 207 units/L (35-129) H 03/15/21 05:30 Lactate Dehydrogenase 1898 units/L (91-180) H 03/16/21 07:50 C-Reactive Protein 0.60 mg/dL (0.00-1.30) 03/15/21 05:30 Total Protein 6.0 g/dL (6.3-8.2) L 03/15/21 05:30 Albumin 3.5 g/dL (3.9-5) L 03/15/21 05:30 Albumin/Globulin Ratio 1.4 % 03/15/21 05:30 Procalcitonin 0.23 ng/mL (<0.15) 03/14/21 11:03 Arterial Blood Glucose 348 mg/dL (65-95) H 03/15/21 15:21 Arterial Blood Ionized Calcium 4.2 mg/dL (4.6-5.3) L 03/15/21 15:21 Urine Color Cherelle (Yellow) 03/09/21 04:48 Urine Turbidity Clear (Clear) 03/09/21 04:48 Urine pH 5.0 (5.0-7.0) 03/09/21 04:48 Ur Specific [place] 1.020 (1.003-1.030) 03/09/21 04:48 Urine Protein 100 mg/dl mg/dL (Negative) 03/09/21 04:48 Urine Glucose (UA) Neg mg/dL (Negative) 03/09/21 04:48 Urine Ketones Tr mg/dL (Negative) 03/09/21 04:48 Urine Blood Neg (Negative) 03/09/21 04:48 Urine Nitrite Neg (Negative) 03/09/21 04:48 Urine Bilirubin Neg (Negative) 03/09/21 04:48 Urine Urobilinogen 4.0 mg/dL (<2.0) 03/09/21 04:48 Ur Leukocyte Esterase Sm (Negative) 03/09/21 04:48 Urine WBC (Auto) 6.0 /HPF (0.0-6.0) 03/09/21 04:48 Urine RBC (Auto) 5.0 /HPF (0.0-6.0) 03/09/21 04:48 U Epithel Cells (Auto) 2.0 /HPF (0-13.0) 03/09/21 04:48 Urine Bacteria (Auto) 2+ /HPF (Negative) 03/09/21 04:48 Urine Mucus Few /HPF 03/09/21 04:48 Valproic Acid 9.7 ug/mL (50-100) L 03/09/21 00:26 Coronavirus (PCR) Positive (Negative) A 03/09/21 Unknown Thacker/IV: Voiding Method External Female Catheter Active Medications - Current Medications Current Medications: Generic Name Dose Route Start Last Admin Trade Name Freq PRN Reason Stop Dose Admin Acetaminophen 1,000 mg 03/09/21 15:00 Acetaminophen 500 Mg Tab PO Q6HR PRN Pain , Severe (7-10) Albuterol 2.5 mg 03/09/21 02:28 Albuterol 2.5 Mg/3 Ml Nebu IH Q4HRT PRN Shortness Of Breath Alprazolam 1 mg 03/09/21 14:05 Alprazolam 1 Mg Tab PO TID PRN Anxiety Amlodipine Besylate 5 mg 03/17/21 16:00 Amlodipine 5 Mg Tab PO QDAY CAMERON Ascorbic Acid 500 mg 03/09/21 22:00 03/16/21 13:33 Ascorbic Acid 500 Mg Tab PO Not Given BID CAMERON Aspirin 81 mg 03/09/21 15:00 03/16/21 13:33 Aspirin 81 Mg Tab Chew PO Not Given QDAY CAMERON Atenolol 25 mg 03/09/21 15:00 03/16/21 13:33 Atenolol 25 Mg Tab PO Not Given DAILY CAMERON Clonidine HCl 0.1 mg 03/11/21 04:56 Clonidine 0.1 Mg Tab PO Q4H PRN systolic bp greater than 160 Clonidine HCl 0.1 mg 03/15/21 10:00 03/15/21 09:20 Clonidine Tts 0.1 Mg/24 Hr Patch TD 0.1 mg QWEEK CAMERON Administration Dextrose 50 ml 03/10/21 11:29 Dextrose 50% In Water (25gm) 50 Ml Syringe IV Q30MIN PRN Hypoglycemia Protocol Diphenhydramine HCl 25 mg 03/16/21 14:00 Diphenhydramine 25 Mg Cap PO Q6H PRN Itching Hydralazine HCl 10 mg 03/16/21 14:00 Hydralazine 20 Mg/1 Ml Inj IV Q4H PRN Hypertension Dexmedetomidine HCl 400 mcg/ 104 mls @ 8.46 mls/hr 03/11/21 14:00 03/16/21 16:45 Sodium Chloride IV 0.6 mcg/kg/hr TITRATE CAMERON 25.381 mls/hr Administration Protocol 0.2 MCG/KG/HR Valproate Sodium 500 mg/ 105 mls @ 100 mls/hr 03/13/21 22:00 03/16/21 17:17 Sodium Chloride IV Not Given Q12HR CAMERON Dextrose 1,000 mls @ 75 mls/hr 03/15/21 13:00 03/15/21 21:13 D5w IV 75 mls/hr DIRECT CAMERON Administration Argatroban 250 mg/ Sodium 250 mls @ 9.804 mls/hr 03/16/21 16:00 03/16/21 16:46 Chloride IV 1 mcg/kg/min TITR CAMERON 9.804 mls/hr Administration Protocol 1 MCG/KG/MIN Insulin Glargine 10 units 03/15/21 22:00 03/15/21 22:30 Insulin Glargine 100 Units/Ml SUB-Q 10 units QHS CAMERON Administration Insulin Human Regular 0 units 03/10/21 12:00 03/16/21 13:32 Insulin Regular, Human 100 Units/1 Ml SUB-Q 4 units Q6H CAMERON Administration Protocol Labetalol HCl 10 mg 03/16/21 14:00 Labetalol 20 Mg/4 Ml Inj IV Q6H PRN Hypertension Magnesium Hydroxide 30 ml 03/09/21 02:28 Magnesium Hydroxide (Mom) Oral Liqd Udc PO Q4H PRN Constipation Methylprednisolone Sodium Succinate 110 mg 03/09/21 22:00 03/16/21 13:27 Methylprednisolone Sod Succinate 125 Mg/2 Ml Inj IV 110 mg Q8HR CAMERON Administration Morphine Sulfate 2 mg 03/09/21 02:28 03/15/21 08:15 Morphine 2 Mg/1 Ml Inj IV 2 mg Q4H PRN Administration Pain, Moderate (4-6) Morphine Sulfate 4 mg 03/09/21 02:28 03/12/21 04:15 Morphine 4 Mg/1 Ml Inj IV 4 mg Q4H PRN Administration Pain , Severe (7-10) Nystatin 1 applic 03/09/21 15:00 03/16/21 13:35 Nystatin Oint 15 Gm TP 1 applic BID CAMERON Administration Ondansetron HCl 4 mg 03/09/21 02:28 Ondansetron 4 Mg/2 Ml Inj IV Q8H PRN Nausea And Vomiting Sodium Chloride 10 ml 03/09/21 10:00 03/16/21 13:34 Sodium Chloride 0.9% 10 Ml Flush Syringe IV 10 ml BID CAMERON Administration Sodium Chloride 10 ml 03/09/21 02:28 Sodium Chloride 0.9% 10 Ml Flush Syringe IV PRN PRN LINE FLUSH Zinc Sulfate 220 mg 03/09/21 22:00 03/16/21 13:33 Zinc Sulfate 220 Mg Cap PO Not Given BID CAMERON Nutrition/Malnutrition Assess - Dietary Evaluation Nutrition/Malnutrition Findings: Nutrition Notes Start: 03/14/21 12:17 Freq: Status: Active Protocol: Document 03/14/21 12:17 (Rec: 03/14/21 12:19 [id number]) Nutrition Notes Need for Assessment generated from: LOS Current Diagnosis COPD,Hypertension,Respiratory Failure Other Pertinent Diagnosis COVID, pneu, hx of TBI Current Diet NPO Subjective/Other Information Screen for LOS. Pt NPO since yesterday. 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 No intakes in chart. Nutrition Intervention Follow-Up By: 03/17/21 Additional Comments F/u: intakes <TETO HATCH - Last Filed: 03/17/21 17:39> History Interval history: I saw and evaluated the patient. Discussed with the nurse practitioner and agree with their findings and plan as documented in this note. Hospitalist Physical - Constitutional Vitals: Temp Pulse Resp BP Pulse Ox 97.5 F L 148 H 36 H 110/72 100 03/17/21 12:00 03/17/21 16:55 03/17/21 16:00 03/17/21 16:55 03/17/21 16:00 Results - Labs CBC & Chem 7: 03/17/21 04:40 03/17/21 04:40 Labs: Laboratory Last Values WBC 26.9 K/mm3 (4.5-11.0) H 03/17/21 04:40 RBC 2.99 M/mm3 (3.65-5.03) L 03/17/21 04:40 Hgb 9.1 gm/dl (10.1-14.3) L 03/17/21 04:40 Hct 28.1 % (30.3-42.9) L 03/17/21 04:40 MCV 94 fl (79-97) 03/17/21 04:40 MCH 31 pg (28-32) 03/17/21 04:40 MCHC 33 % (30-34) 03/17/21 04:40 RDW 13.8 % (13.2-15.2) 03/17/21 04:40 Plt Count 59 K/mm3 (140-440) L 03/17/21 04:40 Lymph % (Auto) 15.7 % (13.4-35.0) 03/10/21 05:02 [place] % (Auto) 5.2 % (0.0-7.3) 03/10/21 05:02 Eos % (Auto) 0.0 % (0.0-4.3) 03/10/21 05:02 Baso % (Auto) 0.1 % (0.0-1.8) 03/10/21 05:02 Lymph # (Auto) 0.5 K/mm3 (1.2-5.4) L 03/10/21 05:02 [place] # (Auto) 0.2 K/mm3 (0.0-0.8) 03/10/21 05:02 Eos # (Auto) 0.0 K/mm3 (0.0-0.4) 03/10/21 05:02 Baso # (Auto) 0.0 K/mm3 (0.0-0.1) 03/10/21 05:02 Seg Neutrophils % 79.0 % (40.0-70.0) H 03/10/21 05:02 Seg Neutrophils # 2.8 K/mm3 (1.8-7.7) 03/10/21 05:02 PT 13.8 Sec. (12.2-14.9) 03/10/21 05:02 INR 1.01 (0.87-1.13) 03/10/21 05:02 APTT 93.0 Sec. (24.2-36.6) H* 03/17/21 04:40 D-Dimer 5532.44 ng/mlDDU (0-234) H 03/16/21 07:50 Heparin Anti-Xa, Unfract Negative (Negative) 03/14/21 11:03 ABG pH 7.362 pH Units (7.350-7.450) 03/17/21 12:28 POC ABG pCO2 35.3 mmHg (32.0-48.0) 03/15/21 15:21 ABG pCO2 44.6 mm Hg 03/17/21 12:28 POC ABG pO2 57.1 mmHg (83-108) L 03/15/21 15:21 ABG pO2 74.1 mm Hg (80.0-90.0) L 03/17/21 12: POC ABG HCO3 24.1 03/15/21 15: ABG HCO3 24.8 mmol/L (20.0-26.0) 03/17/21 12: ABG O2 Saturation 95.0 % (95.0-99.0) 03/17/21 12: ABG O2 Content 11.1 (0.0-44) 03/17/21 12: POC ABG Base Excess 0.5 03/15/21 15: ABG Base Excess -0.7 mmol/L (-2.0-3.0) 03/17/21 12: ABG Hemoglobin 8.5 gm/dl (12.0-16.0) L 03/17/21 12: ABG Oxyhemoglobin 88.1 (94-98) L 03/15/21 15: ABG Carboxyhemoglobin 2.7 % (0.0-5.0) 03/17/21 12: ABG Methemoglobin 0.5 % (0.0-1.5) 03/17/21 12: ABG Sodium 147.1 mmol/L (136.0-145.0) H 03/15/21 15: ABG Potassium 3.9 mmol/L (3.40-4.50) 03/15/21 15: ABG Chloride 114.0 mmol/L (98-107) H 03/15/21 15: ABG Glucose 348 mg/dL (65-95) H 03/15/21 15: Oxyhemoglobin 91.9 % (95.0-99.0) L 03/17/21 12: Carboxyhemoglobin 1.3 (0.5-1.5) 03/15/21 15: FiO2 60 % 03/17/21 12: FiO2 % 100.0 03/15/21 15: Sodium 151 mmol/L (137-145) H 03/17/21 04:40 Potassium 3.8 mmol/L (3.6-5.0) 03/17/21 04:40 Chloride 113.8 mmol/L (98-107) H 03/17/21 04:40 Carbon Dioxide 25 mmol/L (22-30) 03/17/21 04:40 Anion Gap 16 mmol/L 03/17/21 04:40 BUN 52 mg/dL (7-17) H 03/17/21 04:40 Creatinine 1.1 mg/dL (0.6-1.2) 03/17/21 04:40 Estimated GFR 51 ml/min 03/17/21 04:40 BUN/Creatinine Ratio 47 % 03/17/21 04:40 Glucose 243 mg/dL (65-100) H 03/17/21 04:40 POC Glucose 192 mg/dL (70-105) H 03/17/21 12:49 Lactic Acid 1.30 mmol/L (0.7-2.0) 03/10/21 10:19 Calcium 8.0 mg/dL (8.4-10.2) L 03/17/21 04:40 Phosphorus 3.30 mg/dL (2.5-4.5) 03/17/21 04:40 Magnesium 2.40 mg/dL (1.7-2.3) H 03/17/21 04:40 Ferritin 1559.0 ng/mL (10.0-200.0) H 03/16/21 07:50 Total Bilirubin 1.50 mg/dL (0.1-1.2) H 03/15/21 05:30 AST 69 units/L (5-40) H 03/15/21 05:30 ALT 39 units/L (7-56) 03/15/21 05:30 Alkaline Phosphatase 207 units/L (35-129) H 03/15/21 05:30 Lactate Dehydrogenase 1898 units/L (91-180) H 03/16/21 07:50 C-Reactive Protein 0.60 mg/dL (0.00-1.30) 03/15/21 05:30 Total Protein 6.0 g/dL (6.3-8.2) L 03/15/21 05:30 Albumin 3.5 g/dL (3.9-5) L 03/15/21 05:30 Albumin/Globulin Ratio 1.4 % 03/15/21 05:30 Procalcitonin 0.23 ng/mL (<0.15) 03/14/21 11:03 Arterial Blood Glucose 348 mg/dL (65-95) H 03/15/21 15:21 Arterial Blood Ionized Calcium 4.2 mg/dL (4.6-5.3) L 03/15/21 15:21 Urine Color Cherelle (Yellow) 03/09/21 04:48 Urine Turbidity Clear (Clear) 03/09/21 04:48 Urine pH 5.0 (5.0-7.0) 03/09/21 04:48 Ur Specific [place] 1.020 (1.003-1.030) 03/09/21 04:48 Urine Protein 100 mg/dl mg/dL (Negative) 03/09/21 04:48 Urine Glucose (UA) Neg mg/dL (Negative) 03/09/21 04:48 Urine Ketones Tr mg/dL (Negative) 03/09/21 04:48 Urine Blood Neg (Negative) 03/09/21 04:48 Urine Nitrite Neg (Negative) 03/09/21 04:48 Urine Bilirubin Neg (Negative) 03/09/21 04:48 Urine Urobilinogen 4.0 mg/dL (<2.0) 03/09/21 04:48 Ur Leukocyte Esterase Sm (Negative) 03/09/21 04:48 Urine WBC (Auto) 6.0 /HPF (0.0-6.0) 03/09/21 04:48 Urine RBC (Auto) 5.0 /HPF (0.0-6.0) 03/09/21 04:48 U Epithel Cells (Auto) 2.0 /HPF (0-13.0) 03/09/21 04:48 Urine Bacteria (Auto) 2+ /HPF (Negative) 03/09/21 04:48 Urine Mucus Few /HPF 03/09/21 04:48 Valproic Acid 47.8 ug/mL (50-100) L 03/17/21 14:59 Heparin-induced Plt Ab Negative (Negative) 03/14/21 11:03 UF Heparin High Dose 0 % Release 03/14/21 11:03 ROSINA UFH Low Dose 0.1 0 % Release 03/14/21 11:03 ROSINA UFH Low Dose 0.5 1 % Release 03/14/21 11:03 Coronavirus (PCR) Positive (Negative) A 03/09/21 Unknown Thacker/IV: Voiding Method External Female Catheter Active Medications - Current Medications Current Medications: Generic Name Dose Route Start Last Admin Trade Name Freq PRN Reason Stop Dose Admin Acetaminophen 1,000 mg 03/09/21 15:00 Acetaminophen 500 Mg Tab PO Q6HR PRN Pain , Severe (7-10) Albuterol 2.5 mg 03/09/21 02:28 Albuterol 2.5 Mg/3 Ml Nebu IH Q4HRT PRN Shortness Of Breath Amlodipine Besylate 5 mg 03/17/21 16:00 03/17/21 16:55 Amlodipine 5 Mg Tab PO 5 mg QDAY CAMERON Administration Lipase/Protease/Amylase 1 each 03/17/21 15:31 Lipase 10,500/Protease 25,000/Amylase 43,750 (Units) Dr [place] FEEDTUBE PRN PRN For Clogged Feeding Tube Ascorbic Acid 500 mg 03/09/21 22:00 03/17/21 13:44 Ascorbic Acid 500 Mg Tab PO Not Given BID CAMERON Aspirin 81 mg 03/09/21 15:00 03/17/21 13:43 Aspirin 81 Mg Tab Chew PO Not Given QDAY CAMERON Atenolol 25 mg 03/09/21 15:00 03/17/21 13:44 Atenolol 25 Mg Tab PO Not Given DAILY CAMERON Clonidine HCl 0.1 mg 03/11/21 04:56 Clonidine 0.1 Mg Tab PO Q4H PRN systolic bp greater than 160 Clonidine HCl 0.1 mg 03/22/21 09:00 Clonidine Tts 0.1 Mg/24 Hr Patch TD Sa CAMERON Dextrose 50 ml 03/10/21 11:29 Dextrose 50% In Water (25gm) 50 Ml Syringe IV Q30MIN PRN Hypoglycemia Protocol Fentanyl 50 mcg 03/17/21 14:19 Fentanyl 100 Mcg/2 Ml Inj IV Q10MIN PRN ANALGESIA Hydralazine HCl 10 mg 03/16/21 14:00 Hydralazine 20 Mg/1 Ml Inj IV Q4H PRN Hypertension Dexmedetomidine HCl 400 mcg/ 104 mls @ 8.46 mls/hr 03/11/21 14:00 03/17/21 10:20 Sodium Chloride IV 0 mcg/kg/hr TITRATE CAMERON 0 mls/hr Titration Protocol 0.2 MCG/KG/HR Valproate Sodium 500 mg/ 105 mls @ 100 mls/hr 03/13/21 22:00 03/17/21 09:33 Sodium Chloride IV 100 mls/hr Q12HR CAMERON Administration Dextrose 1,000 mls @ 75 mls/hr 03/15/21 13:00 03/17/21 16:55 D5w IV 75 mls/hr DIRECT CAMERON Administration Norepinephrine 4 mg in 250 mls @ 7.5 mls/hr 03/16/21 19:00 03/16/21 18:59 Levophed Drip 4 Mg/Ns 250 Ml IV 0 mcg/min TITR CAMERON 0 mls/hr Titration Protocol 2 MCG/MIN Fentanyl Citrate 2,000 mcg in 100 mls @ 8.17 mls/hr 03/17/21 15:00 03/17/21 15:01 Fentanyl Drip Premix IV 2 mcg/kg/hr TITR CAMERON 16.34 mls/hr Titration Protocol 1 MCG/KG/HR Amiodarone HCl 900 mg/ 500 mls @ 33.333 mls/hr 03/17/21 17:30 Dextrose IV DIRECT CAMERON Protocol 1 MG/MIN Insulin Glargine 20 units 03/17/21 22:00 Insulin Glargine 100 Units/Ml SUB-Q QHS CAMERON Insulin Human Regular 0 units 03/10/21 12:00 03/17/21 14:05 Insulin Regular, Human 100 Units/1 Ml SUB-Q 2 units Q6H CAMERON Administration Protocol Labetalol HCl 10 mg 03/16/21 14:00 Labetalol 20 Mg/4 Ml Inj IV Q6H PRN Hypertension Magnesium Hydroxide 30 ml 03/09/21 02:28 Magnesium Hydroxide (Mom) Oral Liqd Udc PO Q4H PRN Constipation Methylprednisolone Sodium Succinate 40 mg 03/17/21 22:00 Methylprednisolone Sod Succinate 40 Mg/1 Ml Inj IV Q12HR [facility] Nystatin 1 applic 03/09/21 15:00 03/16/21 21:29 Nystatin Oint 15 Gm TP Not Given BID [facility] Simple Syrup 15 ml 03/17/21 15:31 Simple Syrup 15 Ml FEEDTUBE PRN PRN Hypoglycemia Simple Syrup 30 ml 03/17/21 15:31 Simple Syrup 15 Ml FEEDTUBE PRN PRN Hypoglycemia Sodium Bicarbonate 325 mg 03/17/21 15:31 Sodium Bicarbonate 325 Mg Tab FEEDTUBE PRN PRN For Clogged Feeding Tube Sodium Chloride 10 ml 03/09/21 10:00 03/17/21 09:33 Sodium Chloride 0.9% 10 Ml Flush Syringe IV 10 ml BID [facility] Administration Sodium Chloride 10 ml 03/09/21 02:28 Sodium Chloride 0.9% 10 Ml Flush Syringe IV PRN PRN LINE FLUSH Zinc Sulfate 220 mg 03/09/21 22:00 03/17/21 13:44 Zinc Sulfate 220 Mg Cap PO Not Given BID [facility] Nutrition/Malnutrition Assess - Dietary Evaluation Nutrition/Malnutrition Findings: Nutrition Notes Start: 03/14/21 12:17 Freq: Status: Active Protocol: Document 03/17/21 10:56 (Rec: 03/17/21 11:03 [id number]) Nutrition Notes Initial or Follow up Assessment Current Diagnosis COPD,Hypertension,Respiratory Failure Other Pertinent Diagnosis COVID, pneu, hx of TBI Current Diet NPO Labs/Tests Na 151 BG 433 Mg 2.4 Pertinent Medications Solu Medrol Height 5 ft 8 in Weight 163.4 kg Usual Body Weight 167.466 kg [place] Body Weight (kg) 63.63 BMI 54.8 Weight change and time frame 2% wt loss in 1 week Weight Status Morbidly Obese Subjective/Other Information Pt remains NPO. Now day 5 days NPO. Pt on bipap. Pt needs TF or PPN if unable to advance diet. Burn Absent Trauma Absent Current % PO Negligible Minimum of two criteria Yes Energy Intake (severe) < or equal to 50% Estimated Energy Requirement > or equal to 5 days Interpretation of Weight Loss (non- 1-2% in 1 week severe) #1 Nutrition Diagnosis Malnutrition Etiology ARF, COIVD-19 As Evidenced by Signs and Symptoms <50% of EER in >5 days, 2% wt loss in 1 week Is patient on ventilator? No Is Patient Ambulatory and/or Out of Bed No REE-([facility]-confined to bed) [phone] Kcal/Kg value to use for calculation 12 Approximate Energy Requirements Using 1961 kcal/Kg Calculation Used for Recommendations Kcal/kg Additional Notes Protein: (1.2-1.5g/kg AdjBW: 114kg) 137-171g Fluid: 1 ml/kcal or per MD Nutrition Intervention Change Diet Order: advance as able Nutrition Support: Recommend: PPN or TF if unable to advance diet Goal #1 Diet advancement or start nutrition support Follow-Up By: 03/19/21 Additional Comments F/u: plan of care
[2021-03-16] MEDS: MORPHINE 4 MG/1 ML INJ IV PRN (18:53)
[2021-03-16] MEDS ORDERED: NORepinephrine/NS 4 MG-250 ML 4 MG/250 ML BAG IV SCH (19:00)
[2021-03-16] MEDS ORDERED: INSULIN GLARGINE 100 UNITS/ML SUB-Q SCH (22:00)
[2021-03-16] MEDS ORDERED: FUROSEMIDE 40 MG/4 ML INJ IV ONE (22:36)
[2021-03-17] MEDS: INSULIN REGULAR, HUMAN 100 UNITS/1 ML SUB-Q SCH ×4 (04:19→19:10)
[2021-03-17 05:42] LABS: Hematocrit 28.1 % (30.3-42.9); Hemoglobin 9.1 gm/dl (10.1-14.3); Mean Corpuscular HGB Conc 33 % (30-34); Mean Corpuscular Volume 94 fl (79-97); Red Blood Count 2.99 M/mm3 (3.65-5.03); Red Cell Distribution Width 13.8 % (13.2-15.2)
[2021-03-17 05:44] LABS: Platelet Count 59 K/mm3 (140-440)
--- NOTE | 2021-03-17 08:02 | Progress Note ---
Assessment and Plan Assessment and Plan # Encephalopathic -Hx of seizure ,COVID-10 Positive -was on precedex -EEG is pending -MRI brain is pending -Morbid obesity ? If MRI is possible #COVID 19 PNA Acute hypoxic respiratory failure -Patient currently on Bipap. #Bilateral Radial artery occlusion Possible DRAKE -Heme/Onc consulted -Anticoagulated On argatroban #AFib new onset - EKG 03/09/2021 shows Aflutter 136 -Patient unable to tolerate PO meds currently. Initiated amio IV. 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 The aggregate critical care time was [60] minutes. This time is in addition to time spent performing reported procedures but includes the following: [x] Data Review and interpretation [x] Patient assessment and monitoring of vital signs [x] Documentation [x] Medication orders and management Disposition Plan: icu Total Time Spent with Patient (Minutes): 30 PLAN 1- Stop sedation 2- EEG 3- Consider MRI brain if possible ?CVA 4- valproic acid level will follow Subjective Date of service: 03/17/21 Principal diagnosis: Ac hypoxemic resp failure; COVID-19 infxn; PNA; Morbid obesity; Seizures Interval history: Altered Mental Status History of present illness: 60-year-old female brought into the emergency room by EMS for evaluation of shortness of breath. Symptoms were said to have been ongoing for the past few days. Oxygen saturation was about 50% on room air upon arrival of EMS. She was subsequently placed on nonrebreather with improvement of oxygen saturation to about 88%. She was subsequently placed on BiPAP upon arrival in the emergency room. She was initially confused upon arrival in the emergency room but became more responsive upon placement on BiPAP. Work-up in the emergency room today, labs were significant for elevated liver enzymes with AST of 79 ALT 62. Chest x-ray reveals severe bilateral airspace pneumonia. for some reason ? elevated LVT pt. depakote been stopped and she is placed on Keppra !!!! according to pt. she is with hx of seizure but her last seizure been > 20 ys ago she sees her neurologist take tegretol 200 mg Qd and depakote 500 mg bid In ER her WBCS is 2.9 Past History Past Medical History: arthritis, COPD, hypertension, liver disease, seizures, o ther (TBI 1985, obesity, drug abuse) Past Surgical History: Other (left knee and left wrist surgery; brain 1985) Social history: no significant social history Family history: no significant family history she is recently diagnosed with AF was initially on Heparine IV discontinued due to HIT currently on Argatroban treated for underlying COVID-19 she is currently on C-pap was on precedex prn for agitation currently off sedation due to change in mentation No witnessed seizure since admission last Valproic acid level is # 9.7 in 03/09 Objective - Vital Sign Vital Signs - 12hr 03/16/21 03/16/21 03/16/21 21:00 21:50 22:00 Temperature Pulse Rate 111 H 81 98 H Respiratory 39 H 35 H 37 H Rate Blood Pressure 114/72 127/71 127/71 O2 Sat by Pulse 97 98 97 Oximetry 03/16/21 03/16/21 03/17/21 22:23 23:00 00:00 Temperature 97.8 F Pulse Rate 86 81 73 Respiratory 34 H 32 H 30 H Rate Blood Pressure 145/79 130/75 88/55 O2 Sat by Pulse 97 98 97 Oximetry 03/17/21 03/17/21 03/17/21 01:00 02:00 02:16 Temperature Pulse Rate 89 89 87 Respiratory 35 H 33 H 34 H Rate Blood Pressure 115/78 98/65 114/79 O2 Sat by Pulse 94 97 99 Oximetry 03/17/21 03/17/21 03/17/21 03:00 03:13 04:00 Temperature 98.8 F Pulse Rate 83 105 H Respiratory 34 H 36 H Rate Blood Pressure 107/69 114/73 O2 Sat by Pulse 100 97 Oximetry 03/17/21 03/17/21 03/17/21 04:51 05:00 06:00 Temperature Pulse Rate 105 H 94 H 89 Respiratory 35 H 35 H 34 H Rate Blood Pressure 114/73 108/62 108/62 O2 Sat by Pulse 94 97 98 Oximetry 03/17/21 07:00 Temperature Pulse Rate 97 H Respiratory 35 H Rate Blood Pressure 121/100 O2 Sat by Pulse Oximetry - General Apperance Constitutional: comfortable - EENT EENT: PERRL, mucous membranes moist - Respiratory Respiratory: chest non-tender, rales, rhonchi - Cardiovascular Cardiovascular: other (AF) Extremities: no peripheral edema bilat - Gastrointestinal Gastrointestinal: normoactive bowel sounds - Integumentary Integumentary: normal - Neurologic Cranial nerve examination: PERRL, EOMI, other (pupils reactive sluggish , eyes deviated to left , no corneal reflexes) Detailed motor examination: other (no movment to stimuli) - Laboratory Findings CBC and BMP: 03/17/21 04:40 03/17/21 04:40 Abnormal Lab Findings: Abnormal Labs 03/09/21 03/09/21 03/09/21 00:26 00:26 00:26 WBC 2.9 L RBC Hgb Hct Plt Count [place] % (Auto) 9.5 H Lymph # (Auto) 0.5 L Seg Neutrophils % 74.5 H APTT D-Dimer ABG pH POC ABG pO2 ABG Hemoglobin ABG Oxyhemoglobin ABG Sodium ABG Chloride ABG Glucose Carboxyhemoglobin Sodium Potassium Chloride Carbon Dioxide BUN Creatinine Glucose 135 H POC Glucose Calcium 7.3 L Magnesium Ferritin Total Bilirubin AST 79 H ALT 62 H Alkaline Phosphatase Lactate Dehydrogenase C-Reactive Protein Total Protein Albumin 3.4 L Arterial Blood Glucose Arterial Blood Ionized Calcium Valproic Acid 9.7 L Coronavirus (PCR) 03/09/21 03/09/21 03/10/21 16:44 Unknown 05:02 WBC 3.5 L RBC Hgb Hct Plt Count [place] % (Auto) Lymph # (Auto) 0.5 L Seg Neutrophils % 79.0 H APTT D-Dimer ABG pH POC ABG pO2 ABG Hemoglobin ABG Oxyhemoglobin ABG Sodium ABG Chloride ABG Glucose Carboxyhemoglobin Sodium Potassium Chloride Carbon Dioxide BUN Creatinine Glucose 127 H POC Glucose Calcium 7.5 L Magnesium Ferritin Total Bilirubin AST 87 H ALT Alkaline Phosphatase Lactate Dehydrogenase C-Reactive Protein Total Protein Albumin 3.2 L Arterial Blood Glucose Arterial Blood Ionized Calcium Valproic Acid Coronavirus (PCR) Positive A 03/10/21 03/10/21 03/10/21 05:02 05:29 08:57 WBC RBC Hgb Hct Plt Count [place] % (Auto) Lymph # (Auto) Seg Neutrophils % APTT D-Dimer ABG pH POC ABG pO2 52.1 L ABG Hemoglobin ABG Oxyhemoglobin 84.3 L ABG Sodium ABG Chloride 110.0 H ABG Glucose 176 H Carboxyhemoglobin 0.3 L Sodium 146 H Potassium Chloride Carbon Dioxide BUN Creatinine 0.5 L Glucose 170 H POC Glucose 171 H Calcium 7.5 L Magnesium Ferritin Total Bilirubin AST 81 H ALT Alkaline Phosphatase Lactate Dehydrogenase C-Reactive Protein Total Protein 5.7 L Albumin 3.3 L Arterial Blood Glucose 176 H Arterial Blood Ionized Calcium 4.0 L Valproic Acid Coronavirus (PCR) 03/10/21 03/10/21 03/10/21 10:19 10:19 10:19 WBC RBC Hgb Hct Plt Count [place] % (Auto) Lymph # (Auto) Seg Neutrophils % APTT D-Dimer 451.32 H ABG pH POC ABG pO2 ABG Hemoglobin ABG Oxyhemoglobin ABG Sodium ABG Chloride ABG Glucose Carboxyhemoglobin Sodium Potassium Chloride Carbon Dioxide BUN Creatinine Glucose POC Glucose Calcium Magnesium Ferritin 1795.0 H Total Bilirubin AST ALT Alkaline Phosphatase Lactate Dehydrogenase 1033 H C-Reactive Protein Total Protein Albumin Arterial Blood Glucose Arterial Blood Ionized Calcium Valproic Acid Coronavirus (PCR) 03/10/21 03/10/21 03/10/21 10:19 11:31 13:48 WBC RBC Hgb Hct Plt Count [place] % (Auto) Lymph # (Auto) Seg Neutrophils % APTT D-Dimer ABG pH POC ABG pO2 43.6 L ABG Hemoglobin ABG Oxyhemoglobin 77.3 L ABG Sodium ABG Chloride 110.0 H ABG Glucose 174 H Carboxyhemoglobin 0.2 L Sodium Potassium Chloride Carbon Dioxide BUN Creatinine Glucose POC Glucose 163 H Calcium Magnesium Ferritin Total Bilirubin AST ALT Alkaline Phosphatase Lactate Dehydrogenase C-Reactive Protein 8.10 H Total Protein Albumin Arterial Blood Glucose 174 H Arterial Blood Ionized Calcium 4.1 L Valproic Acid Coronavirus (PCR) 03/10/21 03/10/21 03/10/21 17:58 18:13 18:13 WBC RBC Hgb Hct Plt Count [place] % (Auto) Lymph # (Auto) Seg Neutrophils % APTT D-Dimer 1054.48 H ABG pH POC ABG pO2 ABG Hemoglobin ABG Oxyhemoglobin ABG Sodium ABG Chloride ABG Glucose Carboxyhemoglobin Sodium Potassium Chloride Carbon Dioxide BUN Creatinine Glucose POC Glucose 152 H Calcium Magnesium Ferritin 1717.0 H Total Bilirubin AST ALT Alkaline Phosphatase Lactate Dehydrogenase C-Reactive Protein Total Protein Albumin Arterial Blood Glucose Arterial Blood Ionized Calcium Valproic Acid Coronavirus (PCR) 03/10/21 03/10/21 03/11/21 18:13 23:15 05:35 WBC RBC Hgb Hct Plt Count [place] % (Auto) Lymph # (Auto) Seg Neutrophils % APTT D-Dimer ABG pH POC ABG pO2 ABG Hemoglobin ABG Oxyhemoglobin ABG Sodium ABG Chloride ABG Glucose Carboxyhemoglobin Sodium Potassium Chloride Carbon Dioxide BUN Creatinine Glucose POC Glucose 152 H 134 H Calcium Magnesium Ferritin Total Bilirubin AST ALT Alkaline Phosphatase Lactate Dehydrogenase 1242 H C-Reactive Protein 8.40 H Total Protein Albumin Arterial Blood Glucose Arterial Blood Ionized Calcium Valproic Acid Coronavirus (PCR) 03/11/21 03/11/21 03/11/21 06:56 11:41 23:24 WBC RBC Hgb Hct Plt Count [place] % (Auto) Lymph # (Auto) Seg Neutrophils % APTT D-Dimer ABG pH POC ABG pO2 ABG Hemoglobin ABG Oxyhemoglobin ABG Sodium ABG Chloride ABG Glucose Carboxyhemoglobin Sodium 151 H Potassium Chloride 110.7 H Carbon Dioxide BUN 27 H Creatinine Glucose 153 H POC Glucose 115 H 141 H Calcium 7.8 L Magnesium Ferritin Total Bilirubin AST 53 H ALT Alkaline Phosphatase Lactate Dehydrogenase C-Reactive Protein 6.60 H Total Protein 6.2 L Albumin 3.5 L Arterial Blood Glucose Arterial Blood Ionized Calcium Valproic Acid Coronavirus (PCR) 03/12/21 03/12/21 03/12/21 04:46 04:46 05:03 WBC RBC Hgb Hct Plt Count 31 L [place] % (Auto) Lymph # (Auto) Seg Neutrophils % APTT D-Dimer ABG pH POC ABG pO2 ABG Hemoglobin ABG Oxyhemoglobin ABG Sodium ABG Chloride ABG Glucose Carboxyhemoglobin Sodium 147 H Potassium 5.6 H D Chloride 114.3 H Carbon Dioxide 20 L D BUN 33 H Creatinine Glucose 166 H POC Glucose 161 H Calcium 7.9 L Magnesium Ferritin Total Bilirubin AST 66 H ALT Alkaline Phosphatase Lactate Dehydrogenase C-Reactive Protein Total Protein 5.8 L Albumin 2.5 L Arterial Blood Glucose Arterial Blood Ionized Calcium Valproic Acid Coronavirus (PCR) 03/12/21 03/12/21 03/12/21 12:10 16:30 16:30 WBC RBC Hgb Hct Plt Count [place] % (Auto) Lymph # (Auto) Seg Neutrophils % APTT D-Dimer > 05877 H ABG pH POC ABG pO2 ABG Hemoglobin ABG Oxyhemoglobin ABG Sodium ABG Chloride ABG Glucose Carboxyhemoglobin Sodium Potassium Chloride Carbon Dioxide BUN Creatinine Glucose POC Glucose 166 H Calcium Magnesium Ferritin 1208.0 H Total Bilirubin AST ALT Alkaline Phosphatase Lactate Dehydrogenase C-Reactive Protein Total Protein Albumin Arterial Blood Glucose Arterial Blood Ionized Calcium Valproic Acid Coronavirus (PCR) 03/12/21 03/12/21 03/13/21 17:28 23:49 04:17 WBC RBC Hgb Hct Plt Count [place] % (Auto) Lymph # (Auto) Seg Neutrophils % APTT D-Dimer ABG pH POC ABG pO2 ABG Hemoglobin ABG Oxyhemoglobin ABG Sodium ABG Chloride ABG Glucose Carboxyhemoglobin Sodium 157 H D Potassium 3.5 L D Chloride 119.2 H Carbon Dioxide BUN 47 H Creatinine Glucose 183 H POC Glucose 159 H 174 H Calcium 8.3 L Magnesium Ferritin Total Bilirubin AST ALT Alkaline Phosphatase Lactate Dehydrogenase C-Reactive Protein 1.70 H Total Protein Albumin Arterial Blood Glucose Arterial Blood Ionized Calcium Valproic Acid Coronavirus (PCR) 03/13/21 03/13/21 03/13/21 04:17 04:17 05:53 WBC RBC Hgb Hct Plt Count 56 L [place] % (Auto) Lymph # (Auto) Seg Neutrophils % APTT D-Dimer ABG pH POC ABG pO2 ABG Hemoglobin ABG Oxyhemoglobin ABG Sodium ABG Chloride ABG Glucose Carboxyhemoglobin Sodium 158 H Potassium Chloride 120.2 H Carbon Dioxide BUN 47 H Creatinine Glucose 184 H POC Glucose 180 H Calcium 8.2 L Magnesium Ferritin Total Bilirubin AST ALT Alkaline Phosphatase 136 H Lactate Dehydrogenase C-Reactive Protein Total Protein 5.3 L Albumin 3.0 L Arterial Blood Glucose Arterial Blood Ionized Calcium Valproic Acid Coronavirus (PCR) 03/13/21 03/13/21 03/13/21 11:39 17:31 23:13 WBC RBC Hgb Hct Plt Count [place] % (Auto) Lymph # (Auto) Seg Neutrophils % APTT D-Dimer ABG pH POC ABG pO2 ABG Hemoglobin ABG Oxyhemoglobin ABG Sodium ABG Chloride ABG Glucose Carboxyhemoglobin Sodium Potassium Chloride Carbon Dioxide BUN Creatinine Glucose POC Glucose 145 H 171 H 69 L Calcium Magnesium Ferritin Total Bilirubin AST ALT Alkaline Phosphatase Lactate Dehydrogenase C-Reactive Protein Total Protein Albumin Arterial Blood Glucose Arterial Blood Ionized Calcium Valproic Acid Coronavirus (PCR) 03/14/21 03/14/21 03/14/21 05:10 06:30 06:30 WBC 14.8 H RBC Hgb Hct Plt Count 95 L [place] % (Auto) Lymph # (Auto) Seg Neutrophils % APTT D-Dimer ABG pH POC ABG pO2 ABG Hemoglobin ABG Oxyhemoglobin ABG Sodium ABG Chloride ABG Glucose Carboxyhemoglobin Sodium 158 H Potassium Chloride 118.7 H Carbon Dioxide BUN 56 H Creatinine Glucose 185 H POC Glucose 179 H Calcium 8.2 L Magnesium Ferritin Total Bilirubin AST 64 H ALT Alkaline Phosphatase 271 H Lactate Dehydrogenase C-Reactive Protein Total Protein 5.6 L Albumin 3.4 L Arterial Blood Glucose Arterial Blood Ionized Calcium Valproic Acid Coronavirus (PCR) 03/14/21 03/14/21 03/14/21 11:03 11:03 11:14 WBC RBC Hgb Hct Plt Count [place] % (Auto) Lymph # (Auto) Seg Neutrophils % APTT D-Dimer > 87304 H ABG pH POC ABG pO2 ABG Hemoglobin ABG Oxyhemoglobin ABG Sodium ABG Chloride ABG Glucose Carboxyhemoglobin Sodium Potassium Chloride Carbon Dioxide BUN Creatinine Glucose POC Glucose 217 H Calcium Magnesium Ferritin 1799.0 H Total Bilirubin AST ALT Alkaline Phosphatase Lactate Dehydrogenase C-Reactive Protein Total Protein Albumin Arterial Blood Glucose Arterial Blood Ionized Calcium Valproic Acid Coronavirus (PCR) 03/14/21 03/14/21 03/15/21 17:57 23:28 04:51 WBC RBC Hgb Hct Plt Count [place] % (Auto) Lymph # (Auto) Seg Neutrophils % APTT D-Dimer ABG pH POC ABG pO2 ABG Hemoglobin ABG Oxyhemoglobin ABG Sodium ABG Chloride ABG Glucose Carboxyhemoglobin Sodium Potassium Chloride Carbon Dioxide BUN Creatinine Glucose POC Glucose 220 H 234 H 206 H Calcium Magnesium Ferritin Total Bilirubin AST ALT Alkaline Phosphatase Lactate Dehydrogenase C-Reactive Protein Total Protein Albumin Arterial Blood Glucose Arterial Blood Ionized Calcium Valproic Acid Coronavirus (PCR) 03/15/21 03/15/21 03/15/21 05:30 05:30 12:33 WBC 19.5 H RBC Hgb Hct Plt Count 70 L [place] % (Auto) Lymph # (Auto) Seg Neutrophils % APTT D-Dimer ABG pH POC ABG pO2 ABG Hemoglobin ABG Oxyhemoglobin ABG Sodium ABG Chloride ABG Glucose Carboxyhemoglobin Sodium 150 H D Potassium 3.1 L Chloride 110.2 H Carbon Dioxide BUN 56 H Creatinine Glucose 364 H POC Glucose 123 H Calcium 8.0 L Magnesium 2.50 H Ferritin Total Bilirubin 1.50 H AST 69 H ALT Alkaline Phosphatase 207 H Lactate Dehydrogenase C-Reactive Protein Total Protein 6.0 L Albumin 3.5 L Arterial Blood Glucose Arterial Blood Ionized Calcium Valproic Acid Coronavirus (PCR) 03/15/21 03/15/21 03/15/21 15:21 17:56 22:35 WBC RBC Hgb Hct Plt Count [place] % (Auto) Lymph # (Auto) Seg Neutrophils % APTT D-Dimer ABG pH 7.453 H POC ABG pO2 57.1 L ABG Hemoglobin 11.4 L ABG Oxyhemoglobin 88.1 L ABG Sodium 147.1 H ABG Chloride 114.0 H ABG Glucose 348 H Carboxyhemoglobin Sodium Potassium Chloride Carbon Dioxide BUN Creatinine Glucose POC Glucose 250 H 296 H Calcium Magnesium Ferritin Total Bilirubin AST ALT Alkaline Phosphatase Lactate Dehydrogenase C-Reactive Protein Total Protein Albumin Arterial Blood Glucose 348 H Arterial Blood Ionized Calcium 4.2 L Valproic Acid Coronavirus (PCR) 03/15/21 03/16/21 03/16/21 23:46 05:11 07:50 WBC RBC Hgb Hct Plt Count [place] % (Auto) Lymph # (Auto) Seg Neutrophils % APTT D-Dimer 5532.44 H ABG pH POC ABG pO2 ABG Hemoglobin ABG Oxyhemoglobin ABG Sodium ABG Chloride ABG Glucose Carboxyhemoglobin Sodium Potassium Chloride Carbon Dioxide BUN Creatinine Glucose POC Glucose 301 H 292 H Calcium Magnesium Ferritin Total Bilirubin AST ALT Alkaline Phosphatase Lactate Dehydrogenase C-Reactive Protein Total Protein Albumin Arterial Blood Glucose Arterial Blood Ionized Calcium Valproic Acid Coronavirus (PCR) 03/16/21 03/16/21 03/16/21 07:50 07:50 07:50 WBC 18.0 H RBC 3.01 L Hgb 9.2 L Hct 27.7 L D Plt Count 55 L [place] % (Auto) Lymph # (Auto) Seg Neutrophils % APTT D-Dimer ABG pH POC ABG pO2 ABG Hemoglobin ABG Oxyhemoglobin ABG Sodium ABG Chloride ABG Glucose Carboxyhemoglobin Sodium 150 H Potassium Chloride 112.6 H Carbon Dioxide BUN 48 H Creatinine Glucose 349 H POC Glucose Calcium 7.9 L Magnesium 2.40 H Ferritin 1559.0 H Total Bilirubin AST ALT Alkaline Phosphatase Lactate Dehydrogenase 1898 H C-Reactive Protein Total Protein Albumin Arterial Blood Glucose Arterial Blood Ionized Calcium Valproic Acid Coronavirus (PCR) 03/16/21 03/16/21 03/16/21 07:50 12:42 17:04 WBC RBC Hgb Hct Plt Count [place] % (Auto) Lymph # (Auto) Seg Neutrophils % APTT 36.7 H D-Dimer ABG pH POC ABG pO2 ABG Hemoglobin ABG Oxyhemoglobin ABG Sodium ABG Chloride ABG Glucose Carboxyhemoglobin Sodium Potassium Chloride Carbon Dioxide BUN Creatinine Glucose POC Glucose 273 H 318 H Calcium Magnesium Ferritin Total Bilirubin AST ALT Alkaline Phosphatase Lactate Dehydrogenase C-Reactive Protein Total Protein Albumin Arterial Blood Glucose Arterial Blood Ionized Calcium Valproic Acid Coronavirus (PCR) 03/16/21 03/16/21 03/17/21 19:56 23:52 01:40 WBC RBC Hgb Hct Plt Count [place] % (Auto) Lymph # (Auto) Seg Neutrophils % APTT 113.4 H* 93.8 H* D-Dimer ABG pH POC ABG pO2 ABG Hemoglobin ABG Oxyhemoglobin ABG Sodium ABG Chloride ABG Glucose Carboxyhemoglobin Sodium Potassium Chloride Carbon Dioxide BUN Creatinine Glucose POC Glucose 251 H Calcium Magnesium Ferritin Total Bilirubin AST ALT Alkaline Phosphatase Lactate Dehydrogenase C-Reactive Protein Total Protein Albumin Arterial Blood Glucose Arterial Blood Ionized Calcium Valproic Acid Coronavirus (PCR) 03/17/21 03/17/21 03/17/21 04:40 04:40 04:40 WBC 26.9 H RBC 2.99 L Hgb 9.1 L Hct 28.1 L Plt Count 59 L [place] % (Auto) Lymph # (Auto) Seg Neutrophils % APTT 93.0 H* D-Dimer ABG pH POC ABG pO2 ABG Hemoglobin ABG Oxyhemoglobin ABG Sodium ABG Chloride ABG Glucose Carboxyhemoglobin Sodium 151 H Potassium Chloride 113.8 H Carbon Dioxide BUN 52 H Creatinine Glucose 243 H POC Glucose Calcium 8.0 L Magnesium 2.40 H Ferritin Total Bilirubin AST ALT Alkaline Phosphatase Lactate Dehydrogenase C-Reactive Protein Total Protein Albumin Arterial Blood Glucose Arterial Blood Ionized Calcium Valproic Acid Coronavirus (PCR) 03/17/21 04:55 WBC RBC Hgb Hct Plt Count [place] % (Auto) Lymph # (Auto) Seg Neutrophils % APTT D-Dimer ABG pH POC ABG pO2 ABG Hemoglobin ABG Oxyhemoglobin ABG Sodium ABG Chloride ABG Glucose Carboxyhemoglobin Sodium Potassium Chloride Carbon Dioxide BUN Creatinine Glucose POC Glucose 218 H Calcium Magnesium Ferritin Total Bilirubin AST ALT Alkaline Phosphatase Lactate Dehydrogenase C-Reactive Protein Total Protein Albumin Arterial Blood Glucose Arterial Blood Ionized Calcium Valproic Acid Coronavirus (PCR)
[2021-03-17] MEDS: methylPREDNISolone Sod Succinate 125 MG/2 ML INJ IV SCH (09:33)
[2021-03-17] MEDS: VALPROATE SODIUM 500 MG in SODIUM CHLORIDE 0.9% 100 ML IV SCH (09:33)
[2021-03-17] MEDS: NYSTATIN OINT 15 GM TP SCH (09:55)
[2021-03-17] MEDS ORDERED: AMIODARONE 150 MG in DEXTROSE 5% IN WATER 100 ML IV ONE (10:15)
--- NOTE | 2021-03-17 10:59 | Progress Note ---
<CORY MARTINEZ Cheko - Last Filed: 03/17/21 15:34> Assessment and Plan Assessment and plan: 60-year-old female with seizure disorder, COPD, HTN and TBI admitted for covid 19 pui with acute hypoxic resp failure. Neuro: Seizure disorder, h/x TBI; AMS -Last seizure was 20 years ago -Continue Depakote per neuro -Depakote reduced to twice a day -Neurology following -EEG pending -overbreathing vent; no movement noted even with noxious stimuli -for head CT today CV: HTN, afib -Prn IV hydral and labatalol -afib on monitor- rate 100-120 cards following -amio bolus x 1 per cards ass per cards -PO nifedipine, BB -BP monitoring per monitoring -clonidine patch -MAP goal > 65 -no pressors Resp: Acute respiratory failure with hypoxia, ARDs, COVID PNA, COPD -on continuous bipap -intubated this afternoon -7.5 ETT 24 lips -bloody secretions concerning for DAH on argatroban paused this afternoon labs pending -SPo2 monitoring -Pulm hygiene -CTA chest today GI: Transaminitis; protein jackson malnutrition -D5 IVF until TF are started -PPI -BR; sennakot -nutrition consult -has not had nutrition since 03-08 -start TF -aspiration precautions -LFT's ordered for AM : volume overload; hyperna -strict I/O -follow electrolytes and replace as needed -trend cr -harris placed -continue D5 for hyperNa consider d/c when TF are started -AM labs ordered Endo: Hyperglycemia; obese -SSI -avoid hypoglycemia Heme: elevated d-dimer, thrombocytopenia (improving), anemia; coagulopathic on argatroban; digit ischemia -Arixtra stopped/argatroban gtt started -SCDs to BLE while in bed -BLE Doppler US negative -BLE doppler repeat negative for DVT -HIT pending -BUE dopplars pending -discolored fingers and toes with no palpable pulse on left hand -Vascular surgery and hem/onc consulted due to malperfused hands and feet no DP and no radial pulses -trend coags and hgb -has had a lot of bloody ENT and trachial secretions ID: [id number] pneumonia -ID following -Continue steroids, dosing per pulmonary -s/p remdesivir -s/p Actemra 03/10/2021 -trend ferritin, LDH, d-dimer, CRP every 2-3 days for risk stratification and to assess disease progression -droplet/isolation precautions -solumedrol to 40 BID today -continue to trend temp and WBC curve -follow culture data The high probability of a clinically significant, sudden or life threatening deterioration of the [all] system(s) required my full and direct attention, intervention and personal management. The aggregate critical care time was [90] minutes. This time is in addition to time spent performing reported procedures but includes the following: [x] Data Review and interpretation [x] Patient assessment and monitoring of vital signs [x] Documentation [x] Medication orders and management Disposition Plan: icu Total Time Spent with Patient (Minutes): 90 History Interval history: This is 60-year-old female with seizure disorder and TBI brought into the emergency room by EMS for evaluation of shortness of breath ongoing for the past few days. Oxygen saturation was about 50% on room air upon arrival of EMS. She was subsequently placed on nonrebreather with improvement of oxygen saturation to about 88%. She was subsequently placed on BiPAP upon arrival in the emergency room. She was initially confused upon arrival in the emergency room but became more responsive upon placement on BiPAP. Work-up in the emergency room showed labs were significant for elevated liver enzymes with AST of 79 ALT 62. Chest x-ray reveals severe bilateral airspace pneumonia. Patient admitted for covid 19 pui with acute hypoxic resp failure. 03/10/2021 Patient is Covid positive And acute respiratory failure with hypoxia Neurology and automotive teacher consult appreciated ID consult appreciated mainly Seizure medication changed 03-11: no acute events overnight 03/12: unable to gain IV access, IV placed by PICC team was infiltrated today. CVL and janeen placed today 03/13: thrombocytopenia, weaned to optiflow with nrb during the AM and bipap hs. dimer noted at >[id number] however unable to complete full vte workup-will reorder Doppler and changed to arixtra. 03/14: Patient platelets are recovering, HIT assay ordered, left radial A-line removed due to discoloration of the fingers. Patient did not tolerate high flow nasal cannula today 03/15: noted to have increased discoloration and coolness to bilateral hands and feet. thrombocytopenia improving, heme/onc consulted. Arixtra increased 03/16: hem/onc started argatroban. remains on bipap. 03-17 intubated today; was over breathing vent; on argatroban- bleeding from nose and into ETT; for CT today Disposition Plan: icu Total Time Spent with Patient (Minutes): 90 History Interval history: no acute events overnight Hospitalist Physical - Constitutional Vitals: Temp Pulse Resp BP Pulse Ox 97.6 F 97 H 35 H 121/100 98 03/17/21 08:00 03/17/21 07:00 03/17/21 07:00 03/17/21 07:00 03/17/21 06:00 General appearance: Present: no acute distress, well-nourished - Neck Neck: Present: supple - Cardiovascular Rhythm: regular Heart Sounds: Present: S1 & S2 - Extremities Extremities: abnormal Extremity abnormal: edema Peripheral Pulses: abnormal - Abdominal General gastrointestinal: soft - Integumentary Integumentary: Present: clear, warm, dry - Psychiatric Psychiatric: other - Neurologic Neurologic: other - Allied Health Allied health notes reviewed: nursing, RT, social work, case management Results - Labs CBC & Chem 7: 03/17/21 04:40 03/17/21 04:40 Labs: Laboratory Last Values WBC 26.9 K/mm3 (4.5-11.0) H 03/17/21 04:40 RBC 2.99 M/mm3 (3.65-5.03) L 03/17/21 04:40 Hgb 9.1 gm/dl (10.1-14.3) L 03/17/21 04:40 Hct 28.1 % (30.3-42.9) L 03/17/21 04:40 MCV 94 fl (79-97) 03/17/21 04:40 MCH 31 pg (28-32) 03/17/21 04:40 MCHC 33 % (30-34) 03/17/21 04:40 RDW 13.8 % (13.2-15.2) 03/17/21 04:40 Plt Count 59 K/mm3 (140-440) L 03/17/21 04:40 Lymph % (Auto) 15.7 % (13.4-35.0) 03/10/21 05:02 Buchanan % (Auto) 5.2 % (0.0-7.3) 03/10/21 05:02 Eos % (Auto) 0.0 % (0.0-4.3) 03/10/21 05:02 Baso % (Auto) 0.1 % (0.0-1.8) 03/10/21 05:02 Lymph # (Auto) 0.5 K/mm3 (1.2-5.4) L 03/10/21 05:02 Buchanan # (Auto) 0.2 K/mm3 (0.0-0.8) 03/10/21 05:02 Eos # (Auto) 0.0 K/mm3 (0.0-0.4) 03/10/21 05:02 Baso # (Auto) 0.0 K/mm3 (0.0-0.1) 03/10/21 05:02 Seg Neutrophils % 79.0 % (40.0-70.0) H 03/10/21 05:02 Seg Neutrophils # 2.8 K/mm3 (1.8-7.7) 03/10/21 05:02 PT 13.8 Sec. (12.2-14.9) 03/10/21 05:02 INR 1.01 (0.87-1.13) 03/10/21 05:02 APTT 93.0 Sec. (24.2-36.6) H* 03/17/21 04:40 D-Dimer 5532.44 ng/mlDDU (0-234) H 03/16/21 07:50 ABG pH 7.453 (7.320-7.450) H 03/15/21 15:21 POC ABG pCO2 35.3 mmHg (32.0-48.0) 03/15/21 15:21 POC ABG pO2 57.1 mmHg (83-108) L 03/15/21 15:21 POC ABG HCO3 24.1 03/15/21 15:21 ABG O2 Saturation 89.5 (0-100) 03/15/21 15:21 POC ABG Base Excess 0.5 03/15/21 15:21 ABG Hemoglobin 11.4 (12.0-17.5) L 03/15/21 15:21 ABG Oxyhemoglobin 88.1 (94-98) L 03/15/21 15:21 ABG Methemoglobin 0.3 (0.0-1.5) 03/15/21 15:21 ABG Sodium 147.1 mmol/L (136.0-145.0) H 03/15/21 15:21 ABG Potassium 3.9 mmol/L (3.40-4.50) 03/15/21 15:21 ABG Chloride 114.0 mmol/L (98-107) H 03/15/21 15:21 ABG Glucose 348 mg/dL (65-95) H 03/15/21 15:21 Carboxyhemoglobin 1.3 (0.5-1.5) 03/15/21 15:21 FiO2 % 100.0 03/15/21 15:21 Sodium 151 mmol/L (137-145) H 03/17/21 04:40 Potassium 3.8 mmol/L (3.6-5.0) 03/17/21 04:40 Chloride 113.8 mmol/L (98-107) H 03/17/21 04:40 Carbon Dioxide 25 mmol/L (22-30) 03/17/21 04:40 Anion Gap 16 mmol/L 03/17/21 04:40 BUN 52 mg/dL (7-17) H 03/17/21 04:40 Creatinine 1.1 mg/dL (0.6-1.2) 03/17/21 04:40 Estimated GFR 51 ml/min 03/17/21 04:40 BUN/Creatinine Ratio 47 % 03/17/21 04:40 Glucose 243 mg/dL (65-100) H 03/17/21 04:40 POC Glucose 218 mg/dL (70-105) H 03/17/21 04:55 Lactic Acid 1.30 mmol/L (0.7-2.0) 03/10/21 10:19 Calcium 8.0 mg/dL (8.4-10.2) L 03/17/21 04:40 Phosphorus 3.30 mg/dL (2.5-4.5) 03/17/21 04:40 Magnesium 2.40 mg/dL (1.7-2.3) H 03/17/21 04:40 Ferritin 1559.0 ng/mL (10.0-200.0) H 03/16/21 07:50 Total Bilirubin 1.50 mg/dL (0.1-1.2) H 03/15/21 05:30 AST 69 units/L (5-40) H 03/15/21 05:30 ALT 39 units/L (7-56) 03/15/21 05:30 Alkaline Phosphatase 207 units/L (35-129) H 03/15/21 05:30 Lactate Dehydrogenase 1898 units/L (91-180) H 03/16/21 07:50 C-Reactive Protein 0.60 mg/dL (0.00-1.30) 03/15/21 05:30 Total Protein 6.0 g/dL (6.3-8.2) L 03/15/21 05:30 Albumin 3.5 g/dL (3.9-5) L 03/15/21 05:30 Albumin/Globulin Ratio 1.4 % 03/15/21 05:30 Procalcitonin 0.23 ng/mL (<0.15) 03/14/21 11:03 Arterial Blood Glucose 348 mg/dL (65-95) H 03/15/21 15:21 Arterial Blood Ionized Calcium 4.2 mg/dL (4.6-5.3) L 03/15/21 15:21 Urine Color Cherelle (Yellow) 03/09/21 04:48 Urine Turbidity Clear (Clear) 03/09/21 04:48 Urine pH 5.0 (5.0-7.0) 03/09/21 04:48 Ur Specific Bridger 1.020 (1.003-1.030) 03/09/21 04:48 Urine Protein 100 mg/dl mg/dL (Negative) 03/09/21 04:48 Urine Glucose (UA) Neg mg/dL (Negative) 03/09/21 04:48 Urine Ketones Tr mg/dL (Negative) 03/09/21 04:48 Urine Blood Neg (Negative) 03/09/21 04:48 Urine Nitrite Neg (Negative) 03/09/21 04:48 Urine Bilirubin Neg (Negative) 03/09/21 04:48 Urine Urobilinogen 4.0 mg/dL (<2.0) 03/09/21 04:48 Ur Leukocyte Esterase Sm (Negative) 03/09/21 04:48 Urine WBC (Auto) 6.0 /HPF (0.0-6.0) 03/09/21 04:48 Urine RBC (Auto) 5.0 /HPF (0.0-6.0) 03/09/21 04:48 U Epithel Cells (Auto) 2.0 /HPF (0-13.0) 03/09/21 04:48 Urine Bacteria (Auto) 2+ /HPF (Negative) 03/09/21 04:48 Urine Mucus Few /HPF 03/09/21 04:48 Valproic Acid 9.7 ug/mL (50-100) L 03/09/21 00:26 Coronavirus (PCR) Positive (Negative) A 03/09/21 Unknown Harris/IV: Voiding Method External Female Catheter Active Medications - Current Medications Current Medications: Generic Name Dose Route Start Last Admin Trade Name Freq PRN Reason Stop Dose Admin Acetaminophen 1,000 mg 03/09/21 15:00 Acetaminophen 500 Mg Tab PO Q6HR PRN Pain , Severe (7-10) Albuterol 2.5 mg 03/09/21 02:28 Albuterol 2.5 Mg/3 Ml Nebu IH Q4HRT PRN Shortness Of Breath Alprazolam 1 mg 03/09/21 14:05 Alprazolam 1 Mg Tab PO TID PRN Anxiety Amlodipine Besylate 5 mg 03/17/21 16:00 Amlodipine 5 Mg Tab PO QDAY CAMERON Ascorbic Acid 500 mg 03/09/21 22:00 03/16/21 21:30 Ascorbic Acid 500 Mg Tab PO Not Given BID CAMERON Aspirin 81 mg 03/09/21 15:00 03/16/21 13:33 Aspirin 81 Mg Tab Chew PO Not Given QDAY CAMERON Atenolol 25 mg 03/09/21 15:00 03/16/21 13:33 Atenolol 25 Mg Tab PO Not Given DAILY CAMERON Clonidine HCl 0.1 mg 03/11/21 04:56 Clonidine 0.1 Mg Tab PO Q4H PRN systolic bp greater than 160 Clonidine HCl 0.1 mg 03/22/21 09:00 Clonidine Tts 0.1 Mg/24 Hr Patch TD Sa CAMERON Dextrose 50 ml 03/10/21 11:29 Dextrose 50% In Water (25gm) 50 Ml Syringe IV Q30MIN PRN Hypoglycemia Protocol Diphenhydramine HCl 25 mg 03/16/21 14:00 Diphenhydramine 25 Mg Cap PO Q6H PRN Itching Hydralazine HCl 10 mg 03/16/21 14:00 Hydralazine 20 Mg/1 Ml Inj IV Q4H PRN Hypertension Dexmedetomidine HCl 400 mcg/ 104 mls @ 8.46 mls/hr 03/11/21 14:00 03/17/21 10:14 Sodium Chloride IV 1 mcg/kg/hr TITRATE CAMERON 42.302 mls/hr Titration Protocol 0.2 MCG/KG/HR Valproate Sodium 500 mg/ 105 mls @ 100 mls/hr 03/13/21 22:00 03/17/21 09:33 Sodium Chloride IV 100 mls/hr Q12HR CAMERON Administration Dextrose 1,000 mls @ 75 mls/hr 03/15/21 13:00 03/15/21 21:13 D5w IV 75 mls/hr DIRECT CAMERON Administration Argatroban 250 mg/ Sodium 250 mls @ 9.804 mls/hr 03/16/21 16:00 03/16/21 21:12 Chloride IV 0.5 mcg/kg/min TITR CAMERON 4.902 mls/hr Titration Protocol 1 MCG/KG/MIN Norepinephrine 4 mg in 250 mls @ 7.5 mls/hr 03/16/21 19:00 03/16/21 18:59 Levophed Drip 4 Mg/Ns 250 Ml IV 0 mcg/min TITR CAMERON 0 mls/hr Titration Protocol 2 MCG/MIN Insulin Glargine 20 units 03/17/21 22:00 Insulin Glargine 100 Units/Ml SUB-Q QHS CAMERON Insulin Human Regular 0 units 03/10/21 12:00 03/17/21 09:33 Insulin Regular, Human 100 Units/1 Ml SUB-Q 3 units Q6H CAMERON Administration Protocol Labetalol HCl 10 mg 03/16/21 14:00 Labetalol 20 Mg/4 Ml Inj IV Q6H PRN Hypertension Magnesium Hydroxide 30 ml 03/09/21 02:28 Magnesium Hydroxide (Mom) Oral Liqd Udc PO Q4H PRN Constipation Methylprednisolone Sodium Succinate 110 mg 03/09/21 22:00 03/17/21 09:33 Methylprednisolone Sod Succinate 125 Mg/2 Ml Inj IV 110 mg Q8HR CAMERON Administration Morphine Sulfate 2 mg 03/09/21 02:28 03/15/21 08:15 Morphine 2 Mg/1 Ml Inj IV 2 mg Q4H PRN Administration Pain, Moderate (4-6) Morphine Sulfate 4 mg 03/09/21 02:28 03/16/21 18:53 Morphine 4 Mg/1 Ml Inj IV 4 mg Q4H PRN Administration Pain , Severe (7-10) Nystatin 1 applic 03/09/21 15:00 03/16/21 21:29 Nystatin Oint 15 Gm TP Not Given BID CAMERON Ondansetron HCl 4 mg 03/09/21 02:28 Ondansetron 4 Mg/2 Ml Inj IV Q8H PRN Nausea And Vomiting Sodium Chloride 10 ml 03/09/21 10:00 03/17/21 09:33 Sodium Chloride 0.9% 10 Ml Flush Syringe IV 10 ml BID CAMERON Administration Sodium Chloride 10 ml 03/09/21 02:28 Sodium Chloride 0.9% 10 Ml Flush Syringe IV PRN PRN LINE FLUSH Zinc Sulfate 220 mg 03/09/21 22:00 03/16/21 21:30 Zinc Sulfate 220 Mg Cap PO Not Given BID CAMERON Nutrition/Malnutrition Assess - Dietary Evaluation Nutrition/Malnutrition Findings: Nutrition Notes Start: 03/14/21 12:17 Freq: Status: Active Protocol: Document 03/14/21 12:17 (Rec: 03/14/21 12:19 [email or web address]) Nutrition Notes Need for Assessment generated from: LOS Current Diagnosis COPD,Hypertension,Respiratory Failure Other Pertinent Diagnosis COVID, pneu, hx of TBI Current Diet NPO Subjective/Other Information Screen for LOS. Pt NPO since yesterday. Unable to contact pt colorectal surgeon. No intakes in chart. Nutrition Intervention Follow-Up By: 03/17/21 Additional Comments F/u: intakes - Attestation Statement I have reviewed and agreed w/ Malnutrition eval & tx plan: Yes <TETO HATCH - Last Filed: 03/17/21 17:31> History Interval history: I saw and evaluated the patient. Discussed with the nurse practitioner and agree with their findings and plan as documented in this note. Hospitalist Physical - Constitutional Vitals: Temp Pulse Resp BP Pulse Ox 97.5 F L 148 H 36 H 110/72 100 03/17/21 12:00 03/17/21 16:55 03/17/21 16:00 03/17/21 16:55 03/17/21 16:00 Results - Labs CBC & Chem 7: 03/17/21 04:40 03/17/21 04:40 Labs: Laboratory Last Values WBC 26.9 K/mm3 (4.5-11.0) H 03/17/21 04:40 RBC 2.99 M/mm3 (3.65-5.03) L 03/17/21 04:40 Hgb 9.1 gm/dl (10.1-14.3) L 03/17/21 04:40 Hct 28.1 % (30.3-42.9) L 03/17/21 04:40 MCV 94 fl (79-97) 03/17/21 04:40 MCH 31 pg (28-32) 03/17/21 04:40 MCHC 33 % (30-34) 03/17/21 04:40 RDW 13.8 % (13.2-15.2) 03/17/21 04:40 Plt Count 59 K/mm3 (140-440) L 03/17/21 04:40 Lymph % (Auto) 15.7 % (13.4-35.0) 03/10/21 05:02 Buchanan % (Auto) 5.2 % (0.0-7.3) 03/10/21 05:02 Eos % (Auto) 0.0 % (0.0-4.3) 03/10/21 05:02 Baso % (Auto) 0.1 % (0.0-1.8) 03/10/21 05:02 Lymph # (Auto) 0.5 K/mm3 (1.2-5.4) L 03/10/21 05:02 Buchanan # (Auto) 0.2 K/mm3 (0.0-0.8) 03/10/21 05:02 Eos # (Auto) 0.0 K/mm3 (0.0-0.4) 03/10/21 05:02 Baso # (Auto) 0.0 K/mm3 (0.0-0.1) 03/10/21 05:02 Seg Neutrophils % 79.0 % (40.0-70.0) H 03/10/21 05:02 Seg Neutrophils # 2.8 K/mm3 (1.8-7.7) 03/10/21 05:02 PT 13.8 Sec. (12.2-14.9) 03/10/21 05:02 INR 1.01 (0.87-1.13) 03/10/21 05:02 APTT 93.0 Sec. (24.2-36.6) H* 03/17/21 04:40 D-Dimer 5532.44 ng/mlDDU (0-234) H 03/16/21 07:50 Heparin Anti-Xa, Unfract Negative (Negative) 03/14/21 11:03 ABG pH 7.362 pH Units (7.350-7.450) 03/17/21 12:28 POC ABG pCO2 35.3 mmHg (32.0-48.0) 03/15/21 15: ABG pCO2 44.6 mm Hg 03/17/21 12:28 POC ABG pO2 57.1 mmHg (83-108) L 03/15/21 15: ABG pO2 74.1 mm Hg (80.0-90.0) L 03/17/21 12:28 POC ABG HCO3 24.1 03/15/21 15: ABG HCO3 24.8 mmol/L (20.0-26.0) 03/17/21 12:28 ABG O2 Saturation 95.0 % (95.0-99.0) 03/17/21 12:28 ABG O2 Content 11.1 (0.0-44) 03/17/21 12:28 POC ABG Base Excess 0.5 03/15/21 15: ABG Base Excess -0.7 mmol/L (-2.0-3.0) 03/17/21 12:28 ABG Hemoglobin 8.5 gm/dl (12.0-16.0) L 03/17/21 12:28 ABG Oxyhemoglobin 88.1 (94-98) L 03/15/21 15: ABG Carboxyhemoglobin 2.7 % (0.0-5.0) 03/17/21 12:28 ABG Methemoglobin 0.5 % (0.0-1.5) 03/17/21 12:28 ABG Sodium 147.1 mmol/L (136.0-145.0) H 03/15/21 15: ABG Potassium 3.9 mmol/L (3.40-4.50) 03/15/21 15: ABG Chloride 114.0 mmol/L (98-107) H 03/15/21 15:21 ABG Glucose 348 mg/dL (65-95) H 03/15/21 15:21 Oxyhemoglobin 91.9 % (95.0-99.0) L 03/17/21 12:28 Carboxyhemoglobin 1.3 (0.5-1.5) 03/15/21 15:21 FiO2 60 % 03/17/21 12:28 FiO2 % 100.0 03/15/21 15:21 Sodium 151 mmol/L (137-145) H 03/17/21 04:40 Potassium 3.8 mmol/L (3.6-5.0) 03/17/21 04:40 Chloride 113.8 mmol/L (98-107) H 03/17/21 04:40 Carbon Dioxide 25 mmol/L (22-30) 03/17/21 04:40 Anion Gap 16 mmol/L 03/17/21 04:40 BUN 52 mg/dL (7-17) H 03/17/21 04:40 Creatinine 1.1 mg/dL (0.6-1.2) 03/17/21 04:40 Estimated GFR 51 ml/min 03/17/21 04:40 BUN/Creatinine Ratio 47 % 03/17/21 04:40 Glucose 243 mg/dL (65-100) H 03/17/21 04:40 POC Glucose 192 mg/dL (70-105) H 03/17/21 12:49 Lactic Acid 1.30 mmol/L (0.7-2.0) 03/10/21 10:19 Calcium 8.0 mg/dL (8.4-10.2) L 03/17/21 04:40 Phosphorus 3.30 mg/dL (2.5-4.5) 03/17/21 04:40 Magnesium 2.40 mg/dL (1.7-2.3) H 03/17/21 04:40 Ferritin 1559.0 ng/mL (10.0-200.0) H 03/16/21 07:50 Total Bilirubin 1.50 mg/dL (0.1-1.2) H 03/15/21 05:30 AST 69 units/L (5-40) H 03/15/21 05:30 ALT 39 units/L (7-56) 03/15/21 05:30 Alkaline Phosphatase 207 units/L (35-129) H 03/15/21 05:30 Lactate Dehydrogenase 1898 units/L (91-180) H 03/16/21 07:50 C-Reactive Protein 0.60 mg/dL (0.00-1.30) 03/15/21 05:30 Total Protein 6.0 g/dL (6.3-8.2) L 03/15/21 05:30 Albumin 3.5 g/dL (3.9-5) L 03/15/21 05:30 Albumin/Globulin Ratio 1.4 % 03/15/21 05:30 Procalcitonin 0.23 ng/mL (<0.15) 03/14/21 11:03 Arterial Blood Glucose 348 mg/dL (65-95) H 03/15/21 15:21 Arterial Blood Ionized Calcium 4.2 mg/dL (4.6-5.3) L 03/15/21 15:21 Urine Color Cherelle (Yellow) 03/09/21 04:48 Urine Turbidity Clear (Clear) 03/09/21 04:48 Urine pH 5.0 (5.0-7.0) 03/09/21 04:48 Ur Specific Bridger 1.020 (1.003-1.030) 03/09/21 04:48 Urine Protein 100 mg/dl mg/dL (Negative) 03/09/21 04:48 Urine Glucose (UA) Neg mg/dL (Negative) 03/09/21 04:48 Urine Ketones Tr mg/dL (Negative) 03/09/21 04:48 Urine Blood Neg (Negative) 03/09/21 04:48 Urine Nitrite Neg (Negative) 03/09/21 04:48 Urine Bilirubin Neg (Negative) 03/09/21 04:48 Urine Urobilinogen 4.0 mg/dL (<2.0) 03/09/21 04:48 Ur Leukocyte Esterase Sm (Negative) 03/09/21 04:48 Urine WBC (Auto) 6.0 /HPF (0.0-6.0) 03/09/21 04:48 Urine RBC (Auto) 5.0 /HPF (0.0-6.0) 03/09/21 04:48 U Epithel Cells (Auto) 2.0 /HPF (0-13.0) 03/09/21 04:48 Urine Bacteria (Auto) 2+ /HPF (Negative) 03/09/21 04:48 Urine Mucus Few /HPF 03/09/21 04:48 Valproic Acid 47.8 ug/mL (50-100) L 03/17/21 14:59 Heparin-induced Plt Ab Negative (Negative) 03/14/21 11:03 UF Heparin High Dose 0 % Release 03/14/21 11:03 ROSINA UFH Low Dose 0.1 0 % Release 03/14/21 11:03 ROSINA UFH Low Dose 0.5 1 % Release 03/14/21 11:03 Coronavirus (PCR) Positive (Negative) A 03/09/21 Unknown Harris/IV: Voiding Method External Female Catheter Active Medications - Current Medications Current Medications: Generic Name Dose Route Start Last Admin Trade Name Freq PRN Reason Stop Dose Admin Acetaminophen 1,000 mg 03/09/21 15:00 Acetaminophen 500 Mg Tab PO Q6HR PRN Pain , Severe (7-10) Albuterol 2.5 mg 03/09/21 02:28 Albuterol 2.5 Mg/3 Ml Nebu IH Q4HRT PRN Shortness Of Breath Amlodipine Besylate 5 mg 03/17/21 16:00 03/17/21 16:55 Amlodipine 5 Mg Tab PO 5 mg QDAY CAMERON Administration Lipase/Protease/Amylase 1 each 03/17/21 15:31 Lipase 10,500/Protease 25,000/Amylase 43,750 (Units) Dr [place] FEEDTUBE PRN PRN For Clogged Feeding Tube Ascorbic Acid 500 mg 03/09/21 22:00 03/17/21 13:44 Ascorbic Acid 500 Mg Tab PO Not Given BID CAMERON Aspirin 81 mg 03/09/21 15:00 03/17/21 13:43 Aspirin 81 Mg Tab Chew PO Not Given QDAY CAMERON Atenolol 25 mg 03/09/21 15:00 03/17/21 13:44 Atenolol 25 Mg Tab PO Not Given DAILY CAMERON Clonidine HCl 0.1 mg 03/11/21 04:56 Clonidine 0.1 Mg Tab PO Q4H PRN systolic bp greater than 160 Clonidine HCl 0.1 mg 03/22/21 09:00 Clonidine Tts 0.1 Mg/24 Hr Patch TD Sa CAMERON Dextrose 50 ml 03/10/21 11:29 Dextrose 50% In Water (25gm) 50 Ml Syringe IV Q30MIN PRN Hypoglycemia Protocol Fentanyl 50 mcg 03/17/21 14:19 Fentanyl 100 Mcg/2 Ml Inj IV Q10MIN PRN ANALGESIA Hydralazine HCl 10 mg 03/16/21 14:00 Hydralazine 20 Mg/1 Ml Inj IV Q4H PRN Hypertension Dexmedetomidine HCl 400 mcg/ 104 mls @ 8.46 mls/hr 03/11/21 14:00 03/17/21 10:20 Sodium Chloride IV 0 mcg/kg/hr TITRATE CAMERON 0 mls/hr Titration Protocol 0.2 MCG/KG/HR Valproate Sodium 500 mg/ 105 mls @ 100 mls/hr 03/13/21 22:00 03/17/21 09:33 Sodium Chloride IV 100 mls/hr Q12HR CAMERON Administration Dextrose 1,000 mls @ 75 mls/hr 03/15/21 13:00 03/17/21 16:55 D5w IV 75 mls/hr DIRECT CAMERON Administration Norepinephrine 4 mg in 250 mls @ 7.5 mls/hr 03/16/21 19:00 03/16/21 18:59 Levophed Drip 4 Mg/Ns 250 Ml IV 0 mcg/min TITR CAMERON 0 mls/hr Titration Protocol 2 MCG/MIN Fentanyl Citrate 2,000 mcg in 100 mls @ 8.17 mls/hr 03/17/21 15:00 03/17/21 15:01 Fentanyl Drip Premix IV 2 mcg/kg/hr TITR CAMERON 16.34 mls/hr Titration Protocol 1 MCG/KG/HR Amiodarone HCl 150 mg/ 100 mls @ 600 mls/hr 03/17/21 17:30 03/17/21 17:21 Dextrose IV 03/17/21 17:39 600 mls/hr ONCE ONE Administration Amiodarone HCl 900 mg/ 500 mls @ 33.333 mls/hr 03/17/21 17:30 Dextrose IV DIRECT CAMERON Protocol 1 MG/MIN Insulin Glargine 20 units 03/17/21 22:00 Insulin Glargine 100 Units/Ml SUB-Q QHS CAMERON Insulin Human Regular 0 units 03/10/21 12:00 03/17/21 14:05 Insulin Regular, Human 100 Units/1 Ml SUB-Q 2 units Q6H CAMERON Administration Protocol Labetalol HCl 10 mg 03/16/21 14:00 Labetalol 20 Mg/4 Ml Inj IV Q6H PRN Hypertension Magnesium Hydroxide 30 ml 03/09/21 02:28 Magnesium Hydroxide (Mom) Oral Liqd Udc PO Q4H PRN Constipation Methylprednisolone Sodium Succinate 40 mg 03/17/21 22:00 Methylprednisolone Sod Succinate 40 Mg/1 Ml Inj IV Q12HR CAMERON Nystatin 1 applic 03/09/21 15:00 03/16/21 21:29 Nystatin Oint 15 Gm TP Not Given BID CAMERON Simple Syrup 15 ml 03/17/21 15:31 Simple Syrup 15 Ml FEEDTUBE PRN PRN Hypoglycemia Simple Syrup 30 ml 03/17/21 15:31 Simple Syrup 15 Ml FEEDTUBE PRN PRN Hypoglycemia Sodium Bicarbonate 325 mg 03/17/21 15:31 Sodium Bicarbonate 325 Mg Tab FEEDTUBE PRN PRN For Clogged Feeding Tube Sodium Chloride 10 ml 03/09/21 10:00 03/17/21 09:33 Sodium Chloride 0.9% 10 Ml Flush Syringe IV 10 ml BID CAMERON Administration Sodium Chloride 10 ml 03/09/21 02:28 Sodium Chloride 0.9% 10 Ml Flush Syringe IV PRN PRN LINE FLUSH Zinc Sulfate 220 mg 03/09/21 22:00 03/17/21 13:44 Zinc Sulfate 220 Mg Cap PO Not Given BID CAMERON Nutrition/Malnutrition Assess - Dietary Evaluation Nutrition/Malnutrition Findings: Nutrition Notes Start: 03/14/21 12:17 Freq: Status: Active Protocol: Document 03/17/21 10:56 (Rec: 03/17/21 11:03 [id number]) Nutrition Notes Initial or Follow up Assessment Current Diagnosis COPD,Hypertension,Respiratory Failure Other Pertinent Diagnosis COVID, pneu, hx of TBI Current Diet NPO Labs/Tests Na 151 BG 433 Mg 2.4 Pertinent Medications Solu Medrol Height 5 ft 8 in Weight 163.4 kg Usual Body Weight 167.466 kg Asher Body Weight (kg) 63.63 BMI 54.8 Weight change and time frame 2% wt loss in 1 week Weight Status Morbidly Obese Subjective/Other Information Pt remains NPO. Now day 5 days NPO. Pt on bipap. Pt needs TF or PPN if unable to advance diet. Burn Absent Trauma Absent Current % PO Negligible Minimum of two criteria Yes Energy Intake (severe) < or equal to 50% Estimated Energy Requirement > or equal to 5 days Interpretation of Weight Loss (non- 1-2% in 1 week severe) #1 Nutrition Diagnosis Malnutrition Etiology ARF, COIVD-19 As Evidenced by Signs and Symptoms <50% of EER in >5 days, 2% wt loss in 1 week Is patient on ventilator? No Is Patient Ambulatory and/or Out of Bed No REE-([facility]-confined to bed) [phone] Kcal/Kg value to use for calculation 12 Approximate Energy Requirements Using 1961 kcal/Kg Calculation Used for Recommendations Kcal/kg Additional Notes Protein: (1.2-1.5g/kg AdjBW: 114kg) 137-171g Fluid: 1 ml/kcal or per MD Nutrition Intervention Change Diet Order: advance as able Nutrition Support: Recommend: PPN or TF if unable to advance diet Goal #1 Diet advancement or start nutrition support Follow-Up By: 03/19/21 Additional Comments F/u: plan of care
--- NOTE | 2021-03-17 11:21 | Consultation ---
History of Present Illness Consult date: 03/17/21 Consult reason: atrial fibrillation History of present illness: Patient is 60 y/o female with pmhx of seizure disorder and TBI who has been in the hospital for several days and originally brought in for SOB. History obtained per documentation due to patient being on bipap and SOB. Patient was found o have O2 sats were about 50% patient was placed on nonrebreatherby with improvement of O2 sats to around 88%. She was then placed on bipap in the ED. Patient has since tested positive for COVID-19. Patient is previously unknown to our practice. Cardiology is consulted for afib Past History Past Medical History: arthritis, COPD, hypertension, liver disease, seizures, other (TBI 1985, obesity, drug abuse) Past Surgical History: Other (left knee and left wrist surgery; brain 1985) Social history: no significant social history Family history: no significant family history Medications and Allergies Allergies Allergy/AdvReac Type Severity Reaction Status Date / Time No Known Allergies Allergy Verified 11/01/15 11:59 Home Medications Medication Instructions Recorded Confirmed Last Taken Type ALPRAZolam [Xanax TAB] 1 mg PO TID PRN 10/22/15 04/15/18 04/02/18 History Aspirin [Aspirin BABY CHEW TAB] 81 mg PO QDAY 10/22/15 04/15/18 04/02/18 History Divalproex ER [Depakote ER] 500 mg PO TID 10/22/15 03/09/21 04/02/18 History atenoloL [Tenormin] 25 mg PO DAILY 10/22/15 04/15/18 04/02/18 History carBAMazepine [TEGretol] 200 mg PO QAM 10/22/15 03/09/21 04/02/18 History traMADoL [Ultram 50 MG tab] 50 mg PO Q6HR PRN #10 tablet 04/09/17 04/15/18 04/02/18 Rx Nystatin Cream [Mycostatin Cream] 1 applic TP BID #1 tube 04/08/18 04/15/18 Unknown Rx Nystatin Oint [Mycostatin Oint] 1 applicatio TP BID #1 tube 04/12/18 Unknown Rx Bumetanide [Bumex 1 mg tab] 1 mg PO DAILY 04/15/18 04/15/18 Unknown History Zolpidem (Nf) [Ambien] 10 mg PO QHS 04/15/18 04/15/18 Unknown History Meloxicam 15 mg PO DAILY #7 tablet 05/03/18 Unknown Rx Acetaminophen [Acetaminophen TAB] 1,000 mg PO Q6HR PRN #30 tablet 03/06/19 Unknown Rx Ketoconazole [Xolegel 2%] 1 applicatio TP TID #1 tube 03/06/19 Unknown Rx diphenhydrAMINE [Benadryl CAP] 25 mg PO Q6HR PRN #30 capsule 03/06/19 Unknown Rx Active Meds: Active Medications Acetaminophen (Acetaminophen 500 Mg Tab) 1,000 mg PO Q6HR PRN PRN Reason: Pain , Severe (7-10) Albuterol (Albuterol 2.5 Mg/3 Ml Nebu) 2.5 mg IH Q4HRT PRN PRN Reason: Shortness Of Breath Alprazolam (Alprazolam 1 Mg Tab) 1 mg PO TID PRN PRN Reason: Anxiety Amlodipine Besylate (Amlodipine 5 Mg Tab) 5 mg PO QDAY [facility] Ascorbic Acid (Ascorbic Acid 500 Mg Tab) 500 mg PO BID [facility] Last Admin: 03/16/21 21:30 Dose: Not Given Documented by: Aspirin (Aspirin 81 Mg Tab Chew) 81 mg PO QDAY [facility] Last Admin: 03/16/21 13:33 Dose: Not Given Documented by: Atenolol (Atenolol 25 Mg Tab) 25 mg PO DAILY [facility] Last Admin: 03/16/21 13:33 Dose: Not Given Documented by: Clonidine HCl (Clonidine 0.1 Mg Tab) 0.1 mg PO Q4H PRN PRN Reason: systolic bp greater than 160 Clonidine HCl (Clonidine Tts 0.1 Mg/24 Hr Patch) 0.1 mg TD Sa [facility] Dextrose (Dextrose 50% In Water (25gm) 50 Ml Syringe) 50 ml IV Q30MIN PRN; Protocol PRN Reason: Hypoglycemia Diphenhydramine HCl (Diphenhydramine 25 Mg Cap) 25 mg PO Q6H PRN PRN Reason: Itching Hydralazine HCl (Hydralazine 20 Mg/1 Ml Inj) 10 mg IV Q4H PRN PRN Reason: Hypertension Dexmedetomidine HCl 400 mcg/ (Sodium Chloride) 104 mls @ 8.46 mls/hr IV TITRATE [facility]; Protocol Last Titration: 03/17/21 10:14 Dose: 1 mcg/kg/hr, 42.302 mls/hr Documented by: Valproate Sodium 500 mg/ (Sodium Chloride) 105 mls @ 100 mls/hr IV Q12HR [facility] Last Admin: 03/17/21 09:33 Dose: 100 mls/hr Documented by: Dextrose (D5w) 1,000 mls @ 75 mls/hr IV DIRECT [facility] Last Admin: 03/15/21 21:13 Dose: 75 mls/hr Documented by: Argatroban 250 mg/ Sodium (Chloride) 250 mls @ 9.804 mls/hr IV TITR [facility]; Protocol Last Titration: 03/16/21 21:12 Dose: 0.5 mcg/kg/min, 4.902 mls/hr Documented by: Norepinephrine (Levophed Drip 4 Mg/Ns 250 Ml) 4 mg in 250 mls @ 7.5 mls/hr IV TITR [facility]; Protocol Last Titration: 03/16/21 18:59 Dose: 0 mcg/min, 0 mls/hr Documented by: Insulin Glargine (Insulin Glargine 100 Units/Ml) 20 units SUB-Q QHS [facility] Insulin Human Regular (Insulin Regular, Human 100 Units/1 Ml) 0 units SUB-Q Q6H [facility]; Protocol Last Admin: 03/17/21 09:33 Dose: 3 units Documented by: Labetalol HCl (Labetalol 20 Mg/4 Ml Inj) 10 mg IV Q6H PRN PRN Reason: Hypertension Magnesium Hydroxide (Magnesium Hydroxide (Mom) Oral Liqd Udc) 30 ml PO Q4H PRN PRN Reason: Constipation Methylprednisolone Sodium Succinate (Methylprednisolone Sod Succinate 125 Mg/2 Ml Inj) 110 mg IV Q8HR [facility] Last Admin: 03/17/21 09:33 Dose: 110 mg Documented by: Morphine Sulfate (Morphine 2 Mg/1 Ml Inj) 2 mg IV Q4H PRN PRN Reason: Pain, Moderate (4-6) Last Admin: 03/15/21 08:15 Dose: 2 mg Documented by: Morphine Sulfate (Morphine 4 Mg/1 Ml Inj) 4 mg IV Q4H PRN PRN Reason: Pain , Severe (7-10) Last Admin: 03/16/21 18:53 Dose: 4 mg Documented by: Nystatin (Nystatin Oint 15 Gm) 1 applic TP BID [facility] Last Admin: 03/16/21 21:29 Dose: Not Given Documented by: Ondansetron HCl (Ondansetron 4 Mg/2 Ml Inj) 4 mg IV Q8H PRN PRN Reason: Nausea And Vomiting Sodium Chloride (Sodium Chloride 0.9% 10 Ml Flush Syringe) 10 ml IV BID [facility] Last Admin: 03/17/21 09:33 Dose: 10 ml Documented by: Sodium Chloride (Sodium Chloride 0.9% 10 Ml Flush Syringe) 10 ml IV PRN PRN PRN Reason: LINE FLUSH Zinc Sulfate (Zinc Sulfate 220 Mg Cap) 220 mg PO BID [facility] Last Admin: 03/16/21 21:30 Dose: Not Given Documented by: Review of Systems ROS unobtainable: due to mental status Physical Examination Last Vital Signs Temp 97.6 F 03/17/21 08:00 Pulse 97 H 03/17/21 07:00 Resp 35 H 03/17/21 07:00 BP 121/100 03/17/21 07:00 Pulse Ox 98 03/17/21 06:00 General appearance: other (Bipap) Neck: Positive: trachea midline Cardiac: Positive: irregularly irregular Lungs: Positive: Decreased Breath Sounds Neuro: Positive: Other (Bipap) Abdomen: Positive: Soft Skin: Negative: Rash Extremities: Present: lower extr. pulses, edema, Cold. Absent: upper extr. pulses Results 03/17/21 04:40 03/17/21 04:40 Coagulation 03/16/21 03/17/21 03/17/21 Range/Units 19:56 01:40 04:40 APTT 113.4 H* 93.8 H* 93.0 H* (24.2-36.6) Sec. CBC 03/17/21 Range/Units 04:40 WBC 26.9 H (4.5-11.0) K/mm3 RBC 2.99 L (3.65-5.03) M/mm3 Hgb 9.1 L (10.1-14.3) gm/dl Hct 28.1 L (30.3-42.9) % Plt Count 59 L (140-440) K/mm3 Comprehensive Metabolic Panel 03/17/21 Range/Units 04:40 Sodium 151 H (137-145) mmol/L Potassium 3.8 (3.6-5.0) mmol/L Chloride 113.8 H (98-107) mmol/L Carbon Dioxide 25 (22-30) mmol/L BUN 52 H (7-17) mg/dL Creatinine 1.1 (0.6-1.2) mg/dL Glucose 243 H (65-100) mg/dL Calcium 8.0 L (8.4-10.2) mg/dL - Imaging and Cardiology Echo: pending EKG: image reviewed EKG interpretations - Telemetry EKG Rhythm: Atrial Flutter - EKG Supraventricular dysrhythmia: atrial flutter Assessment and Plan COVID 19 PNA Acute hypoxic respiratory failure * -ID was consulted, Pulm following * -Patient currently on Bipap. Bilateral Radial artery occlusion Possible DRAKE * Heme/Onc consulted * Anticoagulated On argatroban AFib * EKG 03/09/2021 shows Aflutter 136 * Patient currently afib on monitor 90-100s * Patient unable to tolerate PO meds currently. Initiated amio IV. Will consider PO meds for rate control when patient able to tolerate * Echo pending Patient seen in conjunction with Dr. 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
--- NOTE | 2021-03-17 11:34 | Vascular Lab Report ---
DUPLEX DOPPLER UPPER EXTREMITY ARTERIAL, BILATERAL INDICATION / CLINICAL INFORMATION: Arterial occlusion. History of COVID19. TECHNIQUE: Arterial duplex examination of both upper extremities performed using B-mode, color flow and spectral Doppler assessment. FINDINGS: The radial arteries are occluded bilaterally. The remaining arteries along each upper extremity are otherwise patent with multiphasic waveforms and expected peak systolic velocities. No significant abnormality is visualized along the included surrounding soft tissues. IMPRESSION: Occlusion of the radial arteries. Dr. Guan was notified of these findings by Jackson Arriaza, [place], by telephone at 09:10 EST on 021. Signer Name: Lester Wilson MD Signed: 03/17/2021 11:30 AM Workstation Name: [id number]
[2021-03-17 12:44] LABS: ABG Base Excess -0.7 mmol/L (-2.0-3.0); ABG HCO3 24.8 mmol/L (20.0-26.0); ABG Methemoglobin 0.5 % (0.0-1.5); ABG PCO2 44.6 mm Hg; ABG PH 7.362 pH Units (7.350-7.450); ABG PO2 74.1 mm Hg (80.0-90.0)
[2021-03-17] MEDS: ASPIRIN 81 MG TAB CHEW PO SCH (13:43)
[2021-03-17] MEDS: atenoloL 25 MG TAB PO SCH (13:44)
[2021-03-17] MEDS: ASCORBIC ACID 500 MG TAB PO SCH (13:44)
[2021-03-17] MEDS: ZINC SULFATE 220 MG CAP PO SCH (13:44)
[2021-03-17] MEDS ORDERED: propofoL 200 MG/20 ML VIAL IV ONE ×2 (13:49→14:00)
[2021-03-17] MEDS ORDERED: SODIUM CHLORIDE 0.9% 1000 ML 1,000 ML ONE (13:52)
--- NOTE | 2021-03-17 14:02 | Progress Note ---
Assessment and Plan Acute hypoxemic respiratory failure ARDS COVID-19 infection Pneumonia Morbid obesity COPD HTN Chronic liver disease Seizure disorder Arthritis Leukopenia - intubated RSI - advance ETT 2 cm after review of post intubation CXR - get stat CT keyla - CTA chest afterwards re: gross bleeding in ETT - amiodarone bolus given for A-fib RVR - cardiology input appreciated - reduced Solumedrol to 40 mg IV bid - follow HIT assay - continue on argatroban for now - continue to wean supplemental oxygen for target O2 sat's > 92% acutely - continue care as below otherwise; - continue accuchecks with glycemic control per SSI (While critically ill target blood glucose of 140-180 mg/dL; avoid hypoglycemia) - aspiration precautions - continue bronchodilators with pulmonary hygiene per RT - avoid nephrotoxins, renally dose all medications - Avoid benzodiazepine's, reduce the possibility of delirium - complete AB's per ID rec's - continue AED's for sizure disorder - prn analgesia per pain score - Maintenance of sleep-wake cycle, avoid delirium - G.I. & VTE prophylaxis - PT/OT/ROM exercises - continue mobility protocols for pressure ulcer prophylaxis - Monitor hemodynamics closely - continue other care per attending / other consultants - discharge planning ongoing concurrently COVID SPECIFIC INTERVENTIONS - Remdesivir as per ID/Pulmonary developed protocols (ordered) - continue systemic steroids for severe COVID-19 infection (Solumedrol) - follow repeat COVID tests results - zinc and vitamin C supplementation - Monitor inflammatory markers per facility protocol - ferritin, Ddimer, CRP - therapeutic anticoagulation per system Protocol based on d-dimer and clinical considerations (VTE prophylaxis) - Continue contact and airborne isolation .... Re-evaluate in am & prn CONDITION: CRITICAL PROGNOSIS: GUARDED CODE STATUS: FULL CODE The high probability of a clinically significant, sudden or life-threatening deterioration of the [respiratory, cardiovascular & neurologic] system(s) requir ed my full and direct attention, intervention and personal management. The aggregate critical care time was [40] minutes without overlap. Time includes spent on; [x] Data Review and interpretation [x] Patient assessment and monitoring of vital signs [x] Documentation [x] Medication orders and management Subjective Date of service: 03/17/21 Principal diagnosis: Ac hypoxemic resp failure; COVID-19 infxn; PNA; Morbid obesity; Seizures Interval history: Patient is seen today for: Acute hypoxemic respiratory failure; ARDS; COVID-19 infection; Pneumonia; Morbid obesity; Seizure disorder Seen and examined at bedside; 24hour events reviewed; nursing and respiratory care staff consulted; no adverse overnight events reported to me; resting peacefully in bed; remains on BIPAP; mental status altered significantly today and no response to deep sternal rub; also pupils dilated to about 6 mm and sluggishly reactive; no emesis or overt aspiration reported; still with digital cyanosis Objective Vital Signs - 12hr 03/17/21 03/17/21 03/17/21 02:16 03:00 03:13 Temperature 98.8 F Pulse Rate 87 83 Respiratory 34 H 34 H Rate Blood Pressure 114/79 107/69 O2 Sat by Pulse 99 100 Oximetry 03/17/21 03/17/21 03/17/21 04:00 04:51 05:00 Temperature Pulse Rate 105 H 105 H 94 H Respiratory 36 H 35 H 35 H Rate Blood Pressure 114/73 114/73 108/62 O2 Sat by Pulse 97 94 97 Oximetry 03/17/21 03/17/21 03/17/21 06:00 07:00 08:00 Temperature 97.6 F Pulse Rate 89 97 H 78 Respiratory 34 H 35 H 31 H Rate Blood Pressure 108/62 121/100 105/70 O2 Sat by Pulse 98 Oximetry 03/17/21 03/17/21 03/17/21 09:00 10:00 11:00 Temperature Pulse Rate 95 H 98 H 90 Respiratory 36 H 35 H 29 H Rate Blood Pressure 88/58 120/80 111/68 O2 Sat by Pulse 98 99 Oximetry 03/17/21 03/17/21 12:00 13:00 Temperature Pulse Rate 91 H 101 H Respiratory 24 12 Rate Blood Pressure 120/64 99/64 O2 Sat by Pulse 99 99 Oximetry Constitutional: appears uncomfortable, other (middle aged morbidly obese female without increased respiratory effort at rest) Eyes: non-icteric ENT: oropharynx dry Neck: supple, no lymphadenopathy, no JVD, other (large circumference) Effort: mildly labored Ascultation: Bilateral: diminished breath sounds, rhonchi Percussion: Bilateral: not dull Cardiovascular: regular rate and rhythm Gastrointestinal: normoactive bowel sounds, soft, non-tender, non-distended (significantly protuberant) Integumentary: normal Extremities: no cyanosis, no edema, pink and warm, pulses normal, other (+ d igital cyanosis to fingers and toes) Neurologic: normal mental status, non-focal exam, pupils equal and round, motor strength normal and Psychiatric: mood appropriate, affect normal, other (inappropriately flat affect) CBC and BMP: 03/17/21 04:40 03/17/21 04:40 ABG, PT/INR, D-dimer: ABG ABG pH 7.362 pH Units (7.350-7.450) 03/17/21 12:28 POC ABG pCO2 35.3 mmHg (32.0-48.0) 03/15/21 15: ABG pCO2 44.6 mm Hg 03/17/21 12:28 POC ABG pO2 57.1 mmHg (83-108) L 03/15/21 15: ABG pO2 74.1 mm Hg (80.0-90.0) L 03/17/21 12:28 POC ABG HCO3 24.1 03/15/21 15: ABG O2 Saturation 95.0 % (95.0-99.0) 03/17/21 12:28 PT/INR, D-dimer PT 13.8 Sec. (12.2-14.9) 03/10/21 05:02 INR 1.01 (0.87-1.13) 03/10/21 05:02 D-Dimer 5532.44 ng/mlDDU (0-234) H 03/16/21 07:50 Abnormal lab findings: Abnormal Labs 03/09/21 03/09/21 03/09/21 00:26 00:26 00:26 WBC 2.9 L RBC Hgb Hct Plt Count [place] % (Auto) 9.5 H Lymph # (Auto) 0.5 L Seg Neutrophils % 74.5 H APTT D-Dimer ABG pH POC ABG pO2 ABG pO2 ABG Hemoglobin ABG Oxyhemoglobin ABG Sodium ABG Chloride ABG Glucose Oxyhemoglobin Carboxyhemoglobin Sodium Potassium Chloride Carbon Dioxide BUN Creatinine Glucose 135 H POC Glucose Calcium 7.3 L Magnesium Ferritin Total Bilirubin AST 79 H ALT 62 H Alkaline Phosphatase Lactate Dehydrogenase C-Reactive Protein Total Protein Albumin 3.4 L Arterial Blood Glucose Arterial Blood Ionized Calcium Valproic Acid 9.7 L Coronavirus (PCR) 0803/09/21 03/10/21 16:44 Unknown 05:02 WBC 3.5 L RBC Hgb Hct Plt Count [place] % (Auto) Lymph # (Auto) 0.5 L Seg Neutrophils % 79.0 H APTT D-Dimer ABG pH POC ABG pO2 ABG pO2 ABG Hemoglobin ABG Oxyhemoglobin ABG Sodium ABG Chloride ABG Glucose Oxyhemoglobin Carboxyhemoglobin Sodium Potassium Chloride Carbon Dioxide BUN Creatinine Glucose 127 H POC Glucose Calcium 7.5 L Magnesium Ferritin Total Bilirubin AST 87 H ALT Alkaline Phosphatase Lactate Dehydrogenase C-Reactive Protein Total Protein Albumin 3.2 L Arterial Blood Glucose Arterial Blood Ionized Calcium Valproic Acid Coronavirus (PCR) Positive A 03/10/21 03/10/21 03/10/21 05:02 05:29 08:57 WBC RBC Hgb Hct Plt Count [place] % (Auto) Lymph # (Auto) Seg Neutrophils % APTT D-Dimer ABG pH POC ABG pO2 52.1 L ABG pO2 ABG Hemoglobin ABG Oxyhemoglobin 84.3 L ABG Sodium ABG Chloride 110.0 H ABG Glucose 176 H Oxyhemoglobin Carboxyhemoglobin 0.3 L Sodium 146 H Potassium Chloride Carbon Dioxide BUN Creatinine 0.5 L Glucose 170 H POC Glucose 171 H Calcium 7.5 L Magnesium Ferritin Total Bilirubin AST 81 H ALT Alkaline Phosphatase Lactate Dehydrogenase C-Reactive Protein Total Protein 5.7 L Albumin 3.3 L Arterial Blood Glucose 176 H Arterial Blood Ionized Calcium 4.0 L Valproic Acid Coronavirus (PCR) 03/10/21 03/10/21 03/10/21 10:19 10:19 10:19 WBC RBC Hgb Hct Plt Count [place] % (Auto) Lymph # (Auto) Seg Neutrophils % APTT D-Dimer 451.32 H ABG pH POC ABG pO2 ABG pO2 ABG Hemoglobin ABG Oxyhemoglobin ABG Sodium ABG Chloride ABG Glucose Oxyhemoglobin Carboxyhemoglobin Sodium Potassium Chloride Carbon Dioxide BUN Creatinine Glucose POC Glucose Calcium Magnesium Ferritin 1795.0 H Total Bilirubin AST ALT Alkaline Phosphatase Lactate Dehydrogenase 1033 H C-Reactive Protein Total Protein Albumin Arterial Blood Glucose Arterial Blood Ionized Calcium Valproic Acid Coronavirus (PCR) 03/10/21 03/10/21 03/10/21 10:19 11:31 13:48 WBC RBC Hgb Hct Plt Count [place] % (Auto) Lymph # (Auto) Seg Neutrophils % APTT D-Dimer ABG pH POC ABG pO2 43.6 L ABG pO2 ABG Hemoglobin ABG Oxyhemoglobin 77.3 L ABG Sodium ABG Chloride 110.0 H ABG Glucose 174 H Oxyhemoglobin Carboxyhemoglobin 0.2 L Sodium Potassium Chloride Carbon Dioxide BUN Creatinine Glucose POC Glucose 163 H Calcium Magnesium Ferritin Total Bilirubin AST ALT Alkaline Phosphatase Lactate Dehydrogenase C-Reactive Protein 8.10 H Total Protein Albumin Arterial Blood Glucose 174 H Arterial Blood Ionized Calcium 4.1 L Valproic Acid Coronavirus (PCR) 03/10/21 03/10/21 03/10/21 17:58 18:13 18:13 WBC RBC Hgb Hct Plt Count [place] % (Auto) Lymph # (Auto) Seg Neutrophils % APTT D-Dimer 1054.48 H ABG pH POC ABG pO2 ABG pO2 ABG Hemoglobin ABG Oxyhemoglobin ABG Sodium ABG Chloride ABG Glucose Oxyhemoglobin Carboxyhemoglobin Sodium Potassium Chloride Carbon Dioxide BUN Creatinine Glucose POC Glucose 152 H Calcium Magnesium Ferritin 1717.0 H Total Bilirubin AST ALT Alkaline Phosphatase Lactate Dehydrogenase C-Reactive Protein Total Protein Albumin Arterial Blood Glucose Arterial Blood Ionized Calcium Valproic Acid Coronavirus (PCR) 03/10/21 03/10/21 03/11/21 18:13 23:15 05:35 WBC RBC Hgb Hct Plt Count [place] % (Auto) Lymph # (Auto) Seg Neutrophils % APTT D-Dimer ABG pH POC ABG pO2 ABG pO2 ABG Hemoglobin ABG Oxyhemoglobin ABG Sodium ABG Chloride ABG Glucose Oxyhemoglobin Carboxyhemoglobin Sodium Potassium Chloride Carbon Dioxide BUN Creatinine Glucose POC Glucose 152 H 134 H Calcium Magnesium Ferritin Total Bilirubin AST ALT Alkaline Phosphatase Lactate Dehydrogenase 1242 H C-Reactive Protein 8.40 H Total Protein Albumin Arterial Blood Glucose Arterial Blood Ionized Calcium Valproic Acid Coronavirus (PCR) 03/11/21 03/11/21 03/11/21 06:56 11:41 23:24 WBC RBC Hgb Hct Plt Count [place] % (Auto) Lymph # (Auto) Seg Neutrophils % APTT D-Dimer ABG pH POC ABG pO2 ABG pO2 ABG Hemoglobin ABG Oxyhemoglobin ABG Sodium ABG Chloride ABG Glucose Oxyhemoglobin Carboxyhemoglobin Sodium 151 H Potassium Chloride 110.7 H Carbon Dioxide BUN 27 H Creatinine Glucose 153 H POC Glucose 115 H 141 H Calcium 7.8 L Magnesium Ferritin Total Bilirubin AST 53 H ALT Alkaline Phosphatase Lactate Dehydrogenase C-Reactive Protein 6.60 H Total Protein 6.2 L Albumin 3.5 L Arterial Blood Glucose Arterial Blood Ionized Calcium Valproic Acid Coronavirus (PCR) 03/12/21 03/12/21 03/12/21 04:46 04:46 05:03 WBC RBC Hgb Hct Plt Count 31 L [place] % (Auto) Lymph # (Auto) Seg Neutrophils % APTT D-Dimer ABG pH POC ABG pO2 ABG pO2 ABG Hemoglobin ABG Oxyhemoglobin ABG Sodium ABG Chloride ABG Glucose Oxyhemoglobin Carboxyhemoglobin Sodium 147 H Potassium 5.6 H D Chloride 114.3 H Carbon Dioxide 20 L D BUN 33 H Creatinine Glucose 166 H POC Glucose 161 H Calcium 7.9 L Magnesium Ferritin Total Bilirubin AST 66 H ALT Alkaline Phosphatase Lactate Dehydrogenase C-Reactive Protein Total Protein 5.8 L Albumin 2.5 L Arterial Blood Glucose Arterial Blood Ionized Calcium Valproic Acid Coronavirus (PCR) 03/12/21 03/12/21 03/12/21 12:10 16:30 16:30 WBC RBC Hgb Hct Plt Count [place] % (Auto) Lymph # (Auto) Seg Neutrophils % APTT D-Dimer > 22537 H ABG pH POC ABG pO2 ABG pO2 ABG Hemoglobin ABG Oxyhemoglobin ABG Sodium ABG Chloride ABG Glucose Oxyhemoglobin Carboxyhemoglobin Sodium Potassium Chloride Carbon Dioxide BUN Creatinine Glucose POC Glucose 166 H Calcium Magnesium Ferritin 1208.0 H Total Bilirubin AST ALT Alkaline Phosphatase Lactate Dehydrogenase C-Reactive Protein Total Protein Albumin Arterial Blood Glucose Arterial Blood Ionized Calcium Valproic Acid Coronavirus (PCR) 03/12/21 03/12/21 03/13/21 17:28 23:49 04:17 WBC RBC Hgb Hct Plt Count [place] % (Auto) Lymph # (Auto) Seg Neutrophils % APTT D-Dimer ABG pH POC ABG pO2 ABG pO2 ABG Hemoglobin ABG Oxyhemoglobin ABG Sodium ABG Chloride ABG Glucose Oxyhemoglobin Carboxyhemoglobin Sodium 157 H D Potassium 3.5 L D Chloride 119.2 H Carbon Dioxide BUN 47 H Creatinine Glucose 183 H POC Glucose 159 H 174 H Calcium 8.3 L Magnesium Ferritin Total Bilirubin AST ALT Alkaline Phosphatase Lactate Dehydrogenase C-Reactive Protein 1.70 H Total Protein Albumin Arterial Blood Glucose Arterial Blood Ionized Calcium Valproic Acid Coronavirus (PCR) 03/13/21 03/13/21 03/13/21 04:17 04:17 05:53 WBC RBC Hgb Hct Plt Count 56 L [place] % (Auto) Lymph # (Auto) Seg Neutrophils % APTT D-Dimer ABG pH POC ABG pO2 ABG pO2 ABG Hemoglobin ABG Oxyhemoglobin ABG Sodium ABG Chloride ABG Glucose Oxyhemoglobin Carboxyhemoglobin Sodium 158 H Potassium Chloride 120.2 H Carbon Dioxide BUN 47 H Creatinine Glucose 184 H POC Glucose 180 H Calcium 8.2 L Magnesium Ferritin Total Bilirubin AST ALT Alkaline Phosphatase 136 H Lactate Dehydrogenase C-Reactive Protein Total Protein 5.3 L Albumin 3.0 L Arterial Blood Glucose Arterial Blood Ionized Calcium Valproic Acid Coronavirus (PCR) 03/13/21 03/13/21 03/13/21 11:39 17:31 23:13 WBC RBC Hgb Hct Plt Count [place] % (Auto) Lymph # (Auto) Seg Neutrophils % APTT D-Dimer ABG pH POC ABG pO2 ABG pO2 ABG Hemoglobin ABG Oxyhemoglobin ABG Sodium ABG Chloride ABG Glucose Oxyhemoglobin Carboxyhemoglobin Sodium Potassium Chloride Carbon Dioxide BUN Creatinine Glucose POC Glucose 145 H 171 H 69 L Calcium Magnesium Ferritin Total Bilirubin AST ALT Alkaline Phosphatase Lactate Dehydrogenase C-Reactive Protein Total Protein Albumin Arterial Blood Glucose Arterial Blood Ionized Calcium Valproic Acid Coronavirus (PCR) 03/14/21 03/14/21 03/14/21 05:10 06:30 06:30 WBC 14.8 H RBC Hgb Hct Plt Count 95 L [place] % (Auto) Lymph # (Auto) Seg Neutrophils % APTT D-Dimer ABG pH POC ABG pO2 ABG pO2 ABG Hemoglobin ABG Oxyhemoglobin ABG Sodium ABG Chloride ABG Glucose Oxyhemoglobin Carboxyhemoglobin Sodium 158 H Potassium Chloride 118.7 H Carbon Dioxide BUN 56 H Creatinine Glucose 185 H POC Glucose 179 H Calcium 8.2 L Magnesium Ferritin Total Bilirubin AST 64 H ALT Alkaline Phosphatase 271 H Lactate Dehydrogenase C-Reactive Protein Total Protein 5.6 L Albumin 3.4 L Arterial Blood Glucose Arterial Blood Ionized Calcium Valproic Acid Coronavirus (PCR) 03/14/21 03/14/21 03/14/21 11:03 11:03 11:14 WBC RBC Hgb Hct Plt Count [place] % (Auto) Lymph # (Auto) Seg Neutrophils % APTT D-Dimer > 60492 H ABG pH POC ABG pO2 ABG pO2 ABG Hemoglobin ABG Oxyhemoglobin ABG Sodium ABG Chloride ABG Glucose Oxyhemoglobin Carboxyhemoglobin Sodium Potassium Chloride Carbon Dioxide BUN Creatinine Glucose POC Glucose 217 H Calcium Magnesium Ferritin 1799.0 H Total Bilirubin AST ALT Alkaline Phosphatase Lactate Dehydrogenase C-Reactive Protein Total Protein Albumin Arterial Blood Glucose Arterial Blood Ionized Calcium Valproic Acid Coronavirus (PCR) 03/14/21 03/14/21 03/15/21 17:57 23:28 04:51 WBC RBC Hgb Hct Plt Count [place] % (Auto) Lymph # (Auto) Seg Neutrophils % APTT D-Dimer ABG pH POC ABG pO2 ABG pO2 ABG Hemoglobin ABG Oxyhemoglobin ABG Sodium ABG Chloride ABG Glucose Oxyhemoglobin Carboxyhemoglobin Sodium Potassium Chloride Carbon Dioxide BUN Creatinine Glucose POC Glucose 220 H 234 H 206 H Calcium Magnesium Ferritin Total Bilirubin AST ALT Alkaline Phosphatase Lactate Dehydrogenase C-Reactive Protein Total Protein Albumin Arterial Blood Glucose Arterial Blood Ionized Calcium Valproic Acid Coronavirus (PCR) 03/15/21 03/15/21 03/15/21 05:30 05:30 12:33 WBC 19.5 H RBC Hgb Hct Plt Count 70 L [place] % (Auto) Lymph # (Auto) Seg Neutrophils % APTT D-Dimer ABG pH POC ABG pO2 ABG pO2 ABG Hemoglobin ABG Oxyhemoglobin ABG Sodium ABG Chloride ABG Glucose Oxyhemoglobin Carboxyhemoglobin Sodium 150 H D Potassium 3.1 L Chloride 110.2 H Carbon Dioxide BUN 56 H Creatinine Glucose 364 H POC Glucose 123 H Calcium 8.0 L Magnesium 2.50 H Ferritin Total Bilirubin 1.50 H AST 69 H ALT Alkaline Phosphatase 207 H Lactate Dehydrogenase C-Reactive Protein Total Protein 6.0 L Albumin 3.5 L Arterial Blood Glucose Arterial Blood Ionized Calcium Valproic Acid Coronavirus (PCR) 03/15/21 03/15/21 03/15/21 15:21 17:56 22:35 WBC RBC Hgb Hct Plt Count [place] % (Auto) Lymph # (Auto) Seg Neutrophils % APTT D-Dimer ABG pH 7.453 H POC ABG pO2 57.1 L ABG pO2 ABG Hemoglobin 11.4 L ABG Oxyhemoglobin 88.1 L ABG Sodium 147.1 H ABG Chloride 114.0 H ABG Glucose 348 H Oxyhemoglobin Carboxyhemoglobin Sodium Potassium Chloride Carbon Dioxide BUN Creatinine Glucose POC Glucose 250 H 296 H Calcium Magnesium Ferritin Total Bilirubin AST ALT Alkaline Phosphatase Lactate Dehydrogenase C-Reactive Protein Total Protein Albumin Arterial Blood Glucose 348 H Arterial Blood Ionized Calcium 4.2 L Valproic Acid Coronavirus (PCR) 03/15/21 03/16/21 03/16/21 23:46 05:11 07:50 WBC RBC Hgb Hct Plt Count [place] % (Auto) Lymph # (Auto) Seg Neutrophils % APTT D-Dimer 5532.44 H ABG pH POC ABG pO2 ABG pO2 ABG Hemoglobin ABG Oxyhemoglobin ABG Sodium ABG Chloride ABG Glucose Oxyhemoglobin Carboxyhemoglobin Sodium Potassium Chloride Carbon Dioxide BUN Creatinine Glucose POC Glucose 301 H 292 H Calcium Magnesium Ferritin Total Bilirubin AST ALT Alkaline Phosphatase Lactate Dehydrogenase C-Reactive Protein Total Protein Albumin Arterial Blood Glucose Arterial Blood Ionized Calcium Valproic Acid Coronavirus (PCR) 03/16/21 03/16/21 03/16/21 07:50 07:50 07:50 WBC 18.0 H RBC 3.01 L Hgb 9.2 L Hct 27.7 L D Plt Count 55 L [place] % (Auto) Lymph # (Auto) Seg Neutrophils % APTT D-Dimer ABG pH POC ABG pO2 ABG pO2 ABG Hemoglobin ABG Oxyhemoglobin ABG Sodium ABG Chloride ABG Glucose Oxyhemoglobin Carboxyhemoglobin Sodium 150 H Potassium Chloride 112.6 H Carbon Dioxide BUN 48 H Creatinine Glucose 349 H POC Glucose Calcium 7.9 L Magnesium 2.40 H Ferritin 1559.0 H Total Bilirubin AST ALT Alkaline Phosphatase Lactate Dehydrogenase 1898 H C-Reactive Protein Total Protein Albumin Arterial Blood Glucose Arterial Blood Ionized Calcium Valproic Acid Coronavirus (PCR) 03/16/21 03/16/21 03/16/21 07:50 12:42 17:04 WBC RBC Hgb Hct Plt Count [place] % (Auto) Lymph # (Auto) Seg Neutrophils % APTT 36.7 H D-Dimer ABG pH POC ABG pO2 ABG pO2 ABG Hemoglobin ABG Oxyhemoglobin ABG Sodium ABG Chloride ABG Glucose Oxyhemoglobin Carboxyhemoglobin Sodium Potassium Chloride Carbon Dioxide BUN Creatinine Glucose POC Glucose 273 H 318 H Calcium Magnesium Ferritin Total Bilirubin AST ALT Alkaline Phosphatase Lactate Dehydrogenase C-Reactive Protein Total Protein Albumin Arterial Blood Glucose Arterial Blood Ionized Calcium Valproic Acid Coronavirus (PCR) 03/16/21 03/16/21 03/17/21 19:56 23:52 01:40 WBC RBC Hgb Hct Plt Count [place] % (Auto) Lymph # (Auto) Seg Neutrophils % APTT 113.4 H* 93.8 H* D-Dimer ABG pH POC ABG pO2 ABG pO2 ABG Hemoglobin ABG Oxyhemoglobin ABG Sodium ABG Chloride ABG Glucose Oxyhemoglobin Carboxyhemoglobin Sodium Potassium Chloride Carbon Dioxide BUN Creatinine Glucose POC Glucose 251 H Calcium Magnesium Ferritin Total Bilirubin AST ALT Alkaline Phosphatase Lactate Dehydrogenase C-Reactive Protein Total Protein Albumin Arterial Blood Glucose Arterial Blood Ionized Calcium Valproic Acid Coronavirus (PCR) 03/17/21 03/17/21 03/17/21 04:40 04:40 04:40 WBC 26.9 H RBC 2.99 L Hgb 9.1 L Hct 28.1 L Plt Count 59 L [place] % (Auto) Lymph # (Auto) Seg Neutrophils % APTT 93.0 H* D-Dimer ABG pH POC ABG pO2 ABG pO2 ABG Hemoglobin ABG Oxyhemoglobin ABG Sodium ABG Chloride ABG Glucose Oxyhemoglobin Carboxyhemoglobin Sodium 151 H Potassium Chloride 113.8 H Carbon Dioxide BUN 52 H Creatinine Glucose 243 H POC Glucose Calcium 8.0 L Magnesium 2.40 H Ferritin Total Bilirubin AST ALT Alkaline Phosphatase Lactate Dehydrogenase C-Reactive Protein Total Protein Albumin Arterial Blood Glucose Arterial Blood Ionized Calcium Valproic Acid Coronavirus (PCR) 03/17/21 03/17/21 03/17/21 04:55 12:28 12:49 WBC RBC Hgb Hct Plt Count [place] % (Auto) Lymph # (Auto) Seg Neutrophils % APTT D-Dimer ABG pH POC ABG pO2 ABG pO2 74.1 L ABG Hemoglobin 8.5 L ABG Oxyhemoglobin ABG Sodium ABG Chloride ABG Glucose Oxyhemoglobin 91.9 L Carboxyhemoglobin Sodium Potassium Chloride Carbon Dioxide BUN Creatinine Glucose POC Glucose 218 H 192 H Calcium Magnesium Ferritin Total Bilirubin AST ALT Alkaline Phosphatase Lactate Dehydrogenase C-Reactive Protein Total Protein Albumin Arterial Blood Glucose Arterial Blood Ionized Calcium Valproic Acid Coronavirus (PCR) Chest x-ray: pending Allied health notes reviewed: nursing
[2021-03-17] MEDS ORDERED: fentaNYL DRIP Premix 2,000 MCG/100 ML BAG IV ONE (14:18)
[2021-03-17] MEDS ORDERED: fentaNYL 100 MCG/2 ML INJ IV PRN (14:19)
[2021-03-17] MEDS: fentaNYL DRIP Premix 2,000 MCG/100 ML BAG IV SCH ×2 (14:22→19:54)
--- NOTE | 2021-03-17 14:30 | Progress Note ---
Assessment and Plan 60-year-old female with severe Covid pneumonia being ruled out for HIT with duskiness of the extremities. The digits of all extremities are starting to become affected. There are occlusions of the bilateral radial arteries and left posterior tibial artery.. Unfortunately, patient is critically ill which precludes significant interventions. Recommend anticoagulation. On argatroban drip. Avoid vasopressors if possible. Poor prognosis overall. Subjective Date of service: 03/17/21 Principal diagnosis: Ac hypoxemic resp failure; COVID-19 infxn; PNA; Morbid obesity; Seizures Interval history: Intubated. On argatroban. Awaiting HIT panel. Distal radial artery is occluded bilaterally. Left posterior tibial artery occluded. Right first and second digit has some mild mottling, with mild duskiness the tips of the fingers. Third through fifth digit has some mild duskiness of the tip of the fingers. Nonpalpable radial pulse as noted previously. Left first and second digit has some deep tissue injury with ischemia with ischemia of the third digit with some deep tissue injury. Fourth and fifth digit has some mild duskiness. Nonpalpable radial pulse. Right toes have mild duskiness. Nonpalpable dorsalis pedis pulse. Left first and fourth digit has evidence of deep tissue injury and there is evidence of mottling of the plantar aspect of the foot. Nonpalpable dorsalis pedis pulse. Objective - Constitutional Vitals: Vital Signs - 12hr 03/17/21 03/17/21 03/17/21 03:00 03:13 04:00 Temperature 98.8 F Pulse Rate 83 105 H Respiratory 34 H 36 H Rate Blood Pressure 107/69 114/73 O2 Sat by Pulse 100 97 Oximetry 03/17/21 03/17/21 03/17/21 04:51 05:00 06:00 Temperature Pulse Rate 105 H 94 H 89 Respiratory 35 H 35 H 34 H Rate Blood Pressure 114/73 108/62 108/62 O2 Sat by Pulse 94 97 98 Oximetry 03/17/21 03/17/21 03/17/21 07:00 08:00 09:00 Temperature 97.6 F Pulse Rate 97 H 78 95 H Respiratory 35 H 31 H 36 H Rate Blood Pressure 121/100 105/70 88/58 O2 Sat by Pulse 98 Oximetry 03/17/21 03/17/21 03/17/21 10:00 11:00 12:00 Temperature Pulse Rate 98 H 90 91 H Respiratory 35 H 29 H 24 Rate Blood Pressure 120/80 111/68 120/64 O2 Sat by Pulse 99 99 Oximetry 03/17/21 13:00 Temperature Pulse Rate 101 H Respiratory 12 Rate Blood Pressure 99/64 O2 Sat by Pulse 99 Oximetry General appearance: Present: other (On BiPAP) - EENT ENT: other (On BiPAP) - Respiratory Respiratory effort: other (On BiPAP) Extremities: abnormal (See subjective) Extremity abnormal: other (See subjective) - Gastrointestinal General gastrointestinal: Present: other (Obese) - Psychiatric Psychiatric: other (On BiPAP, altered) - Labs CBC & Chem 7: 03/17/21 04:40 03/17/21 04:40 Labs: Abnormal lab results 03/16/21 03/16/21 03/16/21 Range/Units 17:04 19:56 23:52 WBC (4.5-11.0) K/mm3 RBC (3.65-5.03) M/mm3 Hgb (10.1-14.3) gm/dl Hct (30.3-42.9) % Plt Count (140-440) K/mm3 APTT 113.4 H* (24.2-36.6) Sec. ABG pO2 (80.0-90.0) mm Hg ABG Hemoglobin (12.0-16.0) gm/dl Oxyhemoglobin (95.0-99.0) % Sodium (137-145) mmol/L Chloride (98-107) mmol/L BUN (7-17) mg/dL Glucose (65-100) mg/dL POC Glucose 318 H 251 H (70-105) mg/dL Calcium (8.4-10.2) mg/dL Magnesium (1.7-2.3) mg/dL 03/17/21 03/17/21 03/17/21 Range/Units 01:40 04:40 04:40 WBC 26.9 H (4.5-11.0) K/mm3 RBC 2.99 L (3.65-5.03) M/mm3 Hgb 9.1 L (10.1-14.3) gm/dl Hct 28.1 L (30.3-42.9) % Plt Count 59 L (140-440) K/mm3 APTT 93.8 H* 93.0 H* (24.2-36.6) Sec. ABG pO2 (80.0-90.0) mm Hg ABG Hemoglobin (12.0-16.0) gm/dl Oxyhemoglobin (95.0-99.0) % Sodium (137-145) mmol/L Chloride (98-107) mmol/L BUN (7-17) mg/dL Glucose (65-100) mg/dL POC Glucose (70-105) mg/dL Calcium (8.4-10.2) mg/dL Magnesium (1.7-2.3) mg/dL 03/17/21 03/17/21 03/17/21 Range/Units 04:40 04:55 12:28 WBC (4.5-11.0) K/mm3 RBC (3.65-5.03) M/mm3 Hgb (10.1-14.3) gm/dl Hct (30.3-42.9) % Plt Count (140-440) K/mm3 APTT (24.2-36.6) Sec. ABG pO2 74.1 L (80.0-90.0) mm Hg ABG Hemoglobin 8.5 L (12.0-16.0) gm/dl Oxyhemoglobin 91.9 L (95.0-99.0) % Sodium 151 H (137-145) mmol/L Chloride 113.8 H (98-107) mmol/L BUN 52 H (7-17) mg/dL Glucose 243 H (65-100) mg/dL POC Glucose 218 H (70-105) mg/dL Calcium 8.0 L (8.4-10.2) mg/dL Magnesium 2.40 H (1.7-2.3) mg/dL 03/17/21 Range/Units 12:49 WBC (4.5-11.0) K/mm3 RBC (3.65-5.03) M/mm3 Hgb (10.1-14.3) gm/dl Hct (30.3-42.9) % Plt Count (140-440) K/mm3 APTT (24.2-36.6) Sec. ABG pO2 (80.0-90.0) mm Hg ABG Hemoglobin (12.0-16.0) gm/dl Oxyhemoglobin (95.0-99.0) % Sodium (137-145) mmol/L Chloride (98-107) mmol/L BUN (7-17) mg/dL Glucose (65-100) mg/dL POC Glucose 192 H (70-105) mg/dL Calcium (8.4-10.2) mg/dL Magnesium (1.7-2.3) mg/dL Medications & Allergies - Medications Allergies/Adverse Reactions: Allergies No Known Allergies Allergy (Verified 11/01/15 11:59) Home Medications: Home Medications Medication Instructions Recorded Confirmed Last Taken Type ALPRAZolam [Xanax TAB] 1 mg PO TID PRN 10/22/15 04/15/18 04/02/18 History Aspirin [Aspirin BABY CHEW TAB] 81 mg PO QDAY 10/22/15 04/15/18 04/02/18 History Divalproex ER [Depakote ER] 500 mg PO TID 10/22/15 03/09/21 04/02/18 History atenoloL [Tenormin] 25 mg PO DAILY 10/22/15 04/15/18 04/02/18 History carBAMazepine [TEGretol] 200 mg PO QAM 10/22/15 03/09/21 04/02/18 History traMADoL [Ultram 50 MG tab] 50 mg PO Q6HR PRN #10 tablet 04/09/17 04/15/18 04/02/18 Rx Nystatin Cream [Mycostatin Cream] 1 applic TP BID #1 tube 04/08/18 04/15/18 Unknown Rx Nystatin Oint [Mycostatin Oint] 1 applicatio TP BID #1 tube 04/12/18 Unknown Rx Bumetanide [Bumex 1 mg tab] 1 mg PO DAILY 04/15/18 04/15/18 Unknown History Zolpidem (Nf) [Ambien] 10 mg PO QHS 04/15/18 04/15/18 Unknown History Meloxicam 15 mg PO DAILY #7 tablet 05/03/18 Unknown Rx Acetaminophen [Acetaminophen TAB] 1,000 mg PO Q6HR PRN #30 tablet 03/06/19 Unknown Rx Ketoconazole [Xolegel 2%] 1 applicatio TP TID #1 tube 03/06/19 Unknown Rx diphenhydrAMINE [Benadryl CAP] 25 mg PO Q6HR PRN #30 capsule 03/06/19 Unknown Rx Active Medications: Generic Name Dose Route Start Last Admin Trade Name Freq PRN Reason Stop Dose Admin Acetaminophen 1,000 mg 03/09/21 15:00 Acetaminophen 500 Mg Tab PO Q6HR PRN Pain , Severe (7-10) Albuterol 2.5 mg 03/09/21 02:28 Albuterol 2.5 Mg/3 Ml Nebu IH Q4HRT PRN Shortness Of Breath Alprazolam 1 mg 03/09/21 14:05 Alprazolam 1 Mg Tab PO TID PRN Anxiety Amlodipine Besylate 5 mg 03/17/21 16:00 Amlodipine 5 Mg Tab PO QDAY CAM[facility] Ascorbic Acid 500 mg 03/09/21 22:00 03/17/21 13:44 Ascorbic Acid 500 Mg Tab PO Not Given BID CAM[facility] Aspirin 81 mg 03/09/21 15:00 03/17/21 13:43 Aspirin 81 Mg Tab Chew PO Not Given QDAY [facility] Atenolol 25 mg 03/09/21 15:00 03/17/21 13:44 Atenolol 25 Mg Tab PO Not Given DAILY [facility] Clonidine HCl 0.1 mg 03/11/21 04:56 Clonidine 0.1 Mg Tab PO Q4H PRN systolic bp greater than 160 Clonidine HCl 0.1 mg 03/22/21 09:00 Clonidine Tts 0.1 Mg/24 Hr Patch TD Sa CAMERON Dextrose 50 ml 03/10/21 11:29 Dextrose 50% In Water (25gm) 50 Ml Syringe IV Q30MIN PRN Hypoglycemia Protocol Diphenhydramine HCl 25 mg 03/16/21 14:00 Diphenhydramine 25 Mg Cap PO Q6H PRN Itching Fentanyl 50 mcg 03/17/21 14:19 Fentanyl 100 Mcg/2 Ml Inj IV Q10MIN PRN ANALGESIA Hydralazine HCl 10 mg 03/16/21 14:00 Hydralazine 20 Mg/1 Ml Inj IV Q4H PRN Hypertension Dexmedetomidine HCl 400 mcg/ 104 mls @ 8.46 mls/hr 03/11/21 14:00 03/17/21 10:20 Sodium Chloride IV 0 mcg/kg/hr TITRATE CAMERON 0 mls/hr Titration Protocol 0.2 MCG/KG/HR Valproate Sodium 500 mg/ 105 mls @ 100 mls/hr 03/13/21 22:00 03/17/21 09:33 Sodium Chloride IV 100 mls/hr Q12HR [facility] Administration Dextrose 1,000 mls @ 75 mls/hr 03/15/21 13:00 03/15/21 21:13 D5w IV 75 mls/hr DIRECT CAMERON Administration Argatroban 250 mg/ Sodium 250 mls @ 9.804 mls/hr 03/16/21 16:00 03/16/21 21:12 Chloride IV 0.5 mcg/kg/min TITR CAM[facility] 4.902 mls/hr Titration Protocol 1 MCG/KG/MIN Norepinephrine 4 mg in 250 mls @ 7.5 mls/hr 03/16/21 19:00 03/16/21 18:59 Levophed Drip 4 Mg/Ns 250 Ml IV 0 mcg/min TITR CAMERON 0 mls/hr Titration Protocol 2 MCG/MIN Fentanyl Citrate 2,000 mcg in 100 mls @ 8.17 mls/hr 03/17/21 15:00 Fentanyl Drip Premix IV TITR CAMER[facility] Protocol 1 MCG/KG/HR Insulin Glargine 20 units 03/17/21 22:00 Insulin Glargine 100 Units/Ml SUB-Q QHS [facility] Insulin Human Regular 0 units 03/10/21 12:00 03/17/21 09:33 Insulin Regular, Human 100 Units/1 Ml SUB-Q 3 units Q6H [facility] Administration Protocol Labetalol HCl 10 mg 03/16/21 14:00 Labetalol 20 Mg/4 Ml Inj IV Q6H PRN Hypertension Magnesium Hydroxide 30 ml 03/09/21 02:28 Magnesium Hydroxide (Mom) Oral Liqd Udc PO Q4H PRN Constipation Methylprednisolone Sodium Succinate 40 mg 03/17/21 22:00 Methylprednisolone Sod Succinate 40 Mg/1 Ml Inj IV Q12HR [facility] Morphine Sulfate 2 mg 03/09/21 02:28 03/15/21 08:15 Morphine 2 Mg/1 Ml Inj IV 2 mg Q4H PRN Administration Pain, Moderate (4-6) Morphine Sulfate 4 mg 03/09/21 02:28 03/16/21 18:53 Morphine 4 Mg/1 Ml Inj IV 4 mg Q4H PRN Administration Pain , Severe (7-10) Nystatin 1 applic 03/09/21 15:00 03/16/21 21:29 Nystatin Oint 15 Gm TP Not Given BID CAMERON Ondansetron HCl 4 mg 03/09/21 02:28 Ondansetron 4 Mg/2 Ml Inj IV Q8H PRN Nausea And Vomiting Sodium Chloride 10 ml 03/09/21 10:00 03/17/21 09:33 Sodium Chloride 0.9% 10 Ml Flush Syringe IV 10 ml BID CAMERON Administration Sodium Chloride 10 ml 03/09/21 02:28 Sodium Chloride 0.9% 10 Ml Flush Syringe IV PRN PRN LINE FLUSH Zinc Sulfate 220 mg 03/09/21 22:00 03/17/21 13:44 Zinc Sulfate 220 Mg Cap PO Not Given BID CAMERON
--- NOTE | 2021-03-17 15:21 | XRay Report ---
CHEST 1 VIEW 03/17/2021 2:21 PM INDICATION / CLINICAL INFORMATION: chest pain. COMPARISON: 03/15/2021 FINDINGS: SUPPORT DEVICES: None. HEART / MEDIASTINUM: No significant abnormality. LUNGS / PLEURA: Diffuse bilateral pulmonary opacities most significant in the lower lungs with the lo wer lung opacities appear slightly increased. No pneumothorax. Signer Name: Yuniel Jimenez MD Signed: 03/17/2021 3:17 PM Workstation Name: [id number]
--- NOTE | 2021-03-17 15:22 | XRay Report ---
ABDOMEN 1 VIEW(S) INDICATION / CLINICAL INFORMATION: NG TUBE PLACEMENT. COMPARISON: Chest x-ray from 2 days prior FINDINGS: TUBES / LINES: New NG tube curled in the mid stomach. The tip of the tube is in addition in the proxi mal stomach. The stomach is relatively decompressed. BOWEL GAS PATTERN: No significant abnormality. FREE AIR / EXTRALUMINAL GAS: None seen. ADDITIONAL FINDINGS: No significant additional findings. IMPRESSION: 1. NG tube as above. Signer Name: Scott Gonsalves MD Signed: 03/17/2021 3:17 PM Workstation Name: [id number]
[2021-03-17] MEDS ORDERED: SIMPLE SYRUP 15 ML FEEDTUBE PRN ×2 (15:31)
[2021-03-17] MEDS ORDERED: LIPASE 10,500/PROTEASE 25,000/AMYLASE 43,750 (UNITS) DR CAP FEEDTUBE PRN (15:31)
[2021-03-17] MEDS ORDERED: SODIUM BICARBONATE 325 MG TAB FEEDTUBE PRN (15:31)
--- NOTE | 2021-03-17 16:01 | Procedure Note ---
Date of procedure: 03/17/21 Pre-op diagnosis: AHRF Post-op diagnosis: same Procedure: Rapid Sequence Intubation (Full dictation # [id number]) Please see dictated notes for full details
[2021-03-17] MEDS: DEXTROSE 5% IN WATER 1,000 ML IV SCH (16:55)
[2021-03-17] MEDS: amLODIPine 5 MG TAB PO SCH ×2 (16:55→18:45)
[2021-03-17 17:01] LABS: Heparin-Induced Platelet Antib Negative (Negative); Unfractionated Heparin Negative (Negative)
[2021-03-17 17:27] LABS: Mean Corpuscular HGB Conc 29 % (30-34); Mean Corpuscular Volume 107 fl (79-97); Red Blood Count 3.13 M/mm3 (3.65-5.03); Red Cell Distribution Width 17.9 % (13.2-15.2)
[2021-03-17] MEDS ORDERED: AMIODARONE 150 MG in DEXTROSE 5% IN WATER 97 ML IV ONE (17:30)
[2021-03-17] MEDS ORDERED: AMIODARONE 900 MG in DEXTROSE 5% IN WATER 482 ML IV SCH (17:30)
[2021-03-17 17:40] LABS: Hematocrit 33.4 % (30.3-42.9); Hemoglobin 9.6 gm/dl (10.1-14.3); Platelet Count 56 K/mm3 (140-440)
[2021-03-17 17:45] LABS: ABG Base Excess -2.7 mmol/L (-2.0-3.0); ABG HCO3 25.2 mmol/L (20.0-26.0); ABG Methemoglobin 0.6 % (0.0-1.5); ABG Oxygen Saturation 98.5 % (95.0-99.0); ABG PCO2 62.8 mm Hg; ABG PH 7.222 pH Units (7.350-7.450); ABG PO2 147.9 mm Hg (80.0-90.0)
[2021-03-17] MEDS ORDERED: VASOPRESSIN 20 UNIT in SODIUM CHLORIDE 0.9% 100 ML IV SCH (19:00)
[2021-03-17 19:16] LABS: INR > 17.67 (0.87-1.13); Partial Thromboplastin Time 193.7 Sec. (24.2-36.6)
--- NOTE | 2021-03-17 19:19 | Operative Report ---
DATE OF SURGERY: 03/17/2021 PULMONARY PROCEDURE NOTE PROCEDURE: Rapid sequence intubation. INDICATIONS: Altered mental status and acute hypoxemic respiratory failure. CONSENT: This was an emergent procedure. Nonetheless, I informed the patient's daughter over the phone about the need to intubate her mother and she agreed. I spoke to Kate Hopson at [phone]. COMPLICATIONS: No immediate procedural complications. DESCRIPTION OF PROCEDURE: The patient was placed supine and the head of the bed was placed appropriately to ensure the best view of vocal cord. So, upon intubation, she was already altered really with minimal respiratory effort or resistance. She ultimately received a total of 100 mg of propofol in 2 divided doses to help establish significant sedation, the was used to locate the vocal cords. There was a lot of old clotted blood in the oropharynx and I tried my best to clear this out of the way. It was too thick to be suctioned. There were some blood clots also at the vocal cords themselves. I was able to position the tip of the ET tube the entrance of the vocal cords and while the stylet was then retracted, I advanced the ET tube through the vocal cords under direct visualization into the airway. Balloon was inflated. It was secured in place at around 22 cm at the lips. Positioning was confirmed with capnography as well as auscultation. Post-procedure chest x-ray showed the ET tube tip in the trachea and needing advancement about a couple of centimeters, which has been done. No procedural complications otherwise. The patient tolerated the procedure well and sedation and analgesia has been ordered. TID: [id number] RECEIPT: [id number] JAYSON/ALBERTO/RENETTA
--- NOTE | 2021-03-17 20:21 | Cat Scan Report ---
CT BRAIN: 03/17/2021 INDICATION / CLINICAL INFORMATION: AMS. COMPARISON: CT brain 04/12/2018 FINDINGS: BRAIN/INTRACRANIAL STRUCTURES: Unenhanced CT images of the brain were obtained. There is a large left sided hemorrhage, which appears to be filling the prominent area of postoperati ve encephalomalacia in the left parietal lobe, which was present at the time the prior CT from 2018. This appears to be both within the brain parenchyma and in the encephalomalacic space. There is exten randy or involvement of subarachnoid space diffusely over the high parietal convexities bilaterally. I ntraventricular hemorrhage is present. There also appears to be subarachnoid hemorrhage which has extended into the posterior fossa, involvi ng both CSF spaces over the cerebral hemispheres, surrounding the brainstem, and extending into the f oramen magnum. There is mass effect on the left hemisphere. Obscuration of sulci is present. There is compression of the left lateral ventricle, and associated midline shift of approximately 9 mm. IMPRESSION: Large left-sided hemorrhage as described above, with extensive subarachnoid extension. Mass effect a nd midline shift as detailed above.. Unable to obtain pt location info immediately. Unable to contact by phone at 2015 hours. Will comple te report and continue attempts. All CT scans at this location are performed using dose reduction to ALARA by means of automated expos ure control. Signer Name: Johnathan Cunningham MD Signed: 03/17/2021 8:17 PM Workstation Name: [id number]
[2021-03-17] MEDS ORDERED: PHENYLEPHRINE 100 MG in SODIUM CHLORIDE 0.9% 90 ML IV SCH (21:45)
[2021-03-17] MEDS ORDERED: methylPREDNISolone Sod Succinate 40 MG/1 ML INJ IV SCH (22:00)
[2021-03-17] MEDS ORDERED: INSULIN GLARGINE 100 UNITS/ML SUB-Q SCH (22:00)
[2021-03-17] MEDS ORDERED: NORepinephrine/NS 8 MG-250 ML 8 MG/250 ML INFUS..BTL IV SCH (22:00)
[2021-03-17] MEDS ORDERED: EPINEPHrine 1 MG/1 ML 8 MG in SODIUM CHLORIDE 0.9% 250ML 242 ML IV SCH (23:45)
--- NOTE | 2021-03-18 03:25 | Hem/Onc Progress Note ---
Subjective Interval history: heme f/u CPT 28858 video televisit not possible case d/w nurse dx thrombocytopenia heparin-induced thrombocytopenia 60yo obese AA woman (360 lbs) with covid pneumonia has been in ICU on bipap for a few days received Tocilizumab, has been receiving steroid pulse found ot have low plt counts-->started arixtra 2.5mg daily, requested HIT testing now wound to have digital ischemia hands-->increased arixtra to 10mg daily Chest x-ray revealed severe bilateral airspace pneumonia. d/w nurse--> has had persistent bilateral hand and foot ischemia had oral bleeding while receiving argatroban->had to discontinue DATA REVIEWED BELOW IMP: low plt count and digital ischemia presumably due to covid infection HIT is unlikely PLAN: consider low dose lovenox 40mg daily, starting tomorrow, if no visible bleeding Active Medications Methylprednisolone Sodium Succinate (Methylprednisolone Sod Succinate 40 Mg/1 Ml Inj) 40 mg IV Q12HR CAM[facility]ON ] Laboratory Last Values WBC 32.8 K/mm3 (4.5-11.0) H 03/17/21 17:01 Hgb 9.6 gm/dl (10.1-14.3) L 03/17/21 17:01 Hct 33.4 % (30.3-42.9) 03/17/21 17:01 Plt Count 56 K/mm3 (140-440) L 03/17/21 17:01 PT > 120.0 Sec. (12.2-14.9) H 03/17/21 17:01 INR > 17.67 (0.87-1.13) H* 03/17/21 17:01 APTT 193.7 Sec. (24.2-36.6) H* 03/17/21 17:01 D-Dimer 5532.44 ng/mlDDU (0-234) H 03/16/21 07:50 Creatinine 1.1 mg/dL (0.6-1.2) 03/17/21 04:40 \ Heparin-induced Plt Ab Negative (Negative) 03/14/21 11:03 UF Heparin High Dose 0 % Release 03/14/21 11:03 ROSINA UFH Low Dose 0.1 0 % Release 03/14/21 11:03 ROSINA UFH Low Dose 0.5 1 % Release 03/14/21 11:03 Coronavirus (PCR) Positive (Negative) A 03/09/21 Unknown Blood Type A POSITIVE 03/17/21 17:08 Antibody Screen Negative 03/17/21 17:08 Objective - Constitutional Vitals: Last Vital Signs Temp 98.1 F 03/17/21 20:00 Pulse 90 03/17/21 21:24 Resp 16 03/17/21 18:00 BP 87/42 03/17/21 21:24 Pulse Ox 0 L 03/18/21 01:48 - Labs Lab Results: Laboratory Results - last 24 hr 03/14/21 03/17/21 03/17/21 11:03 01:40 04:40 WBC RBC Hgb Hct MCV MCH MCHC RDW Plt Count PT INR APTT 93.8 H* 93.0 H* Heparin Anti-Xa, Unfract Negative ABG pH ABG pCO2 ABG pO2 ABG HCO3 ABG O2 Saturation ABG O2 Content ABG Base Excess ABG Hemoglobin ABG Carboxyhemoglobin ABG Methemoglobin Oxyhemoglobin FiO2 Sodium Potassium Chloride Carbon Dioxide Anion Gap BUN Creatinine Estimated GFR BUN/Creatinine Ratio Glucose POC Glucose Calcium Phosphorus Magnesium Valproic Acid Heparin-induced Plt Ab Negative UF Heparin High Dose 0 ROSINA UFH Low Dose 0.1 0 ROSINA UFH Low Dose 0.5 1 Blood Type Antibody Screen 03/17/21 03/17/21 03/17/21 04:40 04:40 04:55 WBC 26.9 H RBC 2.99 L Hgb 9.1 L Hct 28.1 L MCV 94 MCH 31 MCHC 33 RDW 13.8 Plt Count 59 L PT INR APTT Heparin Anti-Xa, Unfract ABG pH ABG pCO2 ABG pO2 ABG HCO3 ABG O2 Saturation ABG O2 Content ABG Base Excess ABG Hemoglobin ABG Carboxyhemoglobin ABG Methemoglobin Oxyhemoglobin FiO2 Sodium 151 H Potassium 3.8 Chloride 113.8 H Carbon Dioxide 25 Anion Gap 16 BUN 52 H Creatinine 1.1 Estimated GFR 51 BUN/Creatinine Ratio 47 Glucose 243 H POC Glucose 218 H Calcium 8.0 L Phosphorus 3.30 Magnesium 2.40 H Valproic Acid Heparin-induced Plt Ab UF Heparin High Dose ROSINA UFH Low Dose 0.1 ROSINA UFH Low Dose 0.5 Blood Type Antibody Screen 03/17/21 03/17/21 03/17/21 12:28 12:49 14:59 WBC RBC Hgb Hct MCV MCH MCHC RDW Plt Count PT INR APTT Heparin Anti-Xa, Unfract ABG pH 7.362 ABG pCO2 44.6 ABG pO2 74.1 L ABG HCO3 24.8 ABG O2 Saturation 95.0 ABG O2 Content 11.1 ABG Base Excess -0.7 ABG Hemoglobin 8.5 L ABG Carboxyhemoglobin 2.7 ABG Methemoglobin 0.5 Oxyhemoglobin 91.9 L FiO2 60 Sodium Potassium Chloride Carbon Dioxide Anion Gap BUN Creatinine Estimated GFR BUN/Creatinine Ratio Glucose POC Glucose 192 H Calcium Phosphorus Magnesium Valproic Acid 47.8 L Heparin-induced Plt Ab UF Heparin High Dose ROSINA UFH Low Dose 0.1 ROSINA UFH Low Dose 0.5 Blood Type Antibody Screen 03/17/21 03/17/21 03/17/21 17:01 17:01 17:08 WBC 32.8 H RBC 3.13 L Hgb 9.6 L Hct 33.4 MCV 107 H MCH 31 MCHC 29 L RDW 17.9 H Plt Count 56 L PT > 120.0 H INR > 17.67 H* APTT 193.7 H* Heparin Anti-Xa, Unfract ABG pH ABG pCO2 ABG pO2 ABG HCO3 ABG O2 Saturation ABG O2 Content ABG Base Excess ABG Hemoglobin ABG Carboxyhemoglobin ABG Methemoglobin Oxyhemoglobin FiO2 Sodium Potassium Chloride Carbon Dioxide Anion Gap BUN Creatinine Estimated GFR BUN/Creatinine Ratio Glucose POC Glucose Calcium Phosphorus Magnesium Valproic Acid Heparin-induced Plt Ab UF Heparin High Dose ROSINA UFH Low Dose 0.1 ROSINA UFH Low Dose 0.5 Blood Type A POSITIVE Antibody Screen Negative 03/17/21 03/17/21 17:24 18:01 WBC RBC Hgb Hct MCV MCH MCHC RDW Plt Count PT INR APTT Heparin Anti-Xa, Unfract ABG pH 7.222 L ABG pCO2 62.8 ABG pO2 147.9 H ABG HCO3 25.2 ABG O2 Saturation 98.5 ABG O2 Content 11.8 ABG Base Excess -2.7 L ABG Hemoglobin 8.6 L ABG Carboxyhemoglobin 2.2 ABG Methemoglobin 0.6 Oxyhemoglobin 95.7 FiO2 100 Sodium Potassium Chloride Carbon Dioxide Anion Gap BUN Creatinine Estimated GFR BUN/Creatinine Ratio Glucose POC Glucose 265 H Calcium Phosphorus Magnesium Valproic Acid Heparin-induced Plt Ab UF Heparin High Dose ROSINA UFH Low Dose 0.1 ROSINA UFH Low Dose 0.5 Blood Type Antibody Screen Medications & Allergies - Medications Allergies/Adverse Reactions: Allergies No Known Allergies Allergy (Verified 11/01/15 11:59) Home Medications: Home Medications Medication Instructions Recorded Confirmed Last Taken Type ALPRAZolam [Xanax TAB] 1 mg PO TID PRN 10/22/15 04/15/18 04/02/18 History Aspirin [Aspirin BABY CHEW TAB] 81 mg PO QDAY 10/22/15 04/15/18 04/02/18 History Divalproex ER [Depakote ER] 500 mg PO TID 10/22/15 03/09/21 04/02/18 History atenoloL [Tenormin] 25 mg PO DAILY 10/22/15 04/15/18 04/02/18 History carBAMazepine [TEGretol] 200 mg PO QAM 10/22/15 03/09/21 04/02/18 History traMADoL [Ultram 50 MG tab] 50 mg PO Q6HR PRN #10 tablet 04/09/17 04/15/18 04/02/18 Rx Nystatin Cream [Mycostatin Cream] 1 applic TP BID #1 tube 04/08/18 04/15/18 Unknown Rx Nystatin Oint [Mycostatin Oint] 1 applicatio TP BID #1 tube 04/12/18 Unknown Rx Bumetanide [Bumex 1 mg tab] 1 mg PO DAILY 04/15/18 04/15/18 Unknown History Zolpidem (Nf) [Ambien] 10 mg PO QHS 04/15/18 04/15/18 Unknown History Meloxicam 15 mg PO DAILY #7 tablet 05/03/18 Unknown Rx Acetaminophen [Acetaminophen TAB] 1,000 mg PO Q6HR PRN #30 tablet 03/06/19 Unknown Rx Ketoconazole [Xolegel 2%] 1 applicatio TP TID #1 tube 03/06/19 Unknown Rx diphenhydrAMINE [Benadryl CAP] 25 mg PO Q6HR PRN #30 capsule 03/06/19 Unknown Rx Active Medications: Generic Name Dose Route Start Last Admin Trade Name Freq PRN Reason Stop Dose Admin Acetaminophen 1,000 mg 03/09/21 15:00 Acetaminophen 500 Mg Tab PO Q6HR PRN Pain , Severe (7-10) Albuterol 2.5 mg 03/09/21 02:28 Albuterol 2.5 Mg/3 Ml Nebu IH Q4HRT PRN Shortness Of Breath Amlodipine Besylate 5 mg 03/17/21 16:00 03/17/21 18:45 Amlodipine 5 Mg Tab PO Not Given QDAY CAM[facility] Lipase/Protease/Amylase 1 each 03/17/21 15:31 Lipase 10,500/Protease 25,000/Amylase 43,750 (Units) Dr [place] FEEDTUBE PRN PRN For Clogged Feeding Tube Ascorbic Acid 500 mg 03/09/21 22:00 03/17/21 13:44 Ascorbic Acid 500 Mg Tab PO Not Given BID [facility] Aspirin 81 mg 03/09/21 15:00 03/17/21 13:43 Aspirin 81 Mg Tab Chew PO Not Given QDAY [facility] Atenolol 25 mg 03/09/21 15:00 03/17/21 13:44 Atenolol 25 Mg Tab PO Not Given DAILY [facility] Clonidine HCl 0.1 mg 03/11/21 04:56 Clonidine 0.1 Mg Tab PO Q4H PRN systolic bp greater than 160 Clonidine HCl 0.1 mg 03/22/21 09:00 Clonidine Tts 0.1 Mg/24 Hr Patch TD Sa [facility] Dextrose 50 ml 03/10/21 11:29 Dextrose 50% In Water (25gm) 50 Ml Syringe IV Q30MIN PRN Hypoglycemia Protocol Fentanyl 50 mcg 03/17/21 14:19 Fentanyl 100 Mcg/2 Ml Inj IV Q10MIN PRN ANALGESIA Hydralazine HCl 10 mg 03/16/21 14:00 Hydralazine 20 Mg/1 Ml Inj IV Q4H PRN Hypertension Dexmedetomidine HCl 400 mcg/ 104 mls @ 8.46 mls/hr 03/11/21 14:00 03/17/21 10 :20 Sodium Chloride IV 0 mcg/kg/hr TITRATE [facility] 0 mls/hr Titration Protocol 0.2 MCG/KG/HR Valproate Sodium 500 mg/ 105 mls @ 100 mls/hr 03/13/21 22:00 03/17/21 19:24 Sodium Chloride IV Infused Q12HR [facility] Infusion Dextrose 1,000 mls @ 75 mls/hr 03/15/21 13:00 03/17/21 16:55 D5w IV 75 mls/hr DIRECT [facility] Administration Fentanyl Citrate 2,000 mcg in 100 mls @ 8.17 mls/hr 03/17/21 15:00 03/17/21 19:54 Fentanyl Drip Premix IV 2 mcg/kg/hr TITR [facility] 16.34 mls/hr Administration Protocol 1 MCG/KG/HR Amiodarone HCl 900 mg/ 500 mls @ 33.333 mls/hr 03/17/21 17:30 03/17/21 17:51 Dextrose IV 1 mg/min DIRECT [facility] 33.333 mls/hr Administration Protocol 1 MG/MIN Vasopressin 20 unit/ Sodium 101 mls @ 9.09 mls/hr 03/17/21 19:00 03/17/21 18:59 Chloride IV 0.03 units/min TITR [facility] 9.09 mls/hr Administration Protocol 0.03 UNITS/MIN NORepinephrine/NS 8 MG-250 ML 8 mg in 250 mls @ 3.75 mls/hr 03/17/21 22:00 03/17/21 22:07 Norepinephrine/Ns 8 Mg-250 Ml (Double Conc) IV 30 mcg/min TITRATE [facility] 56.25 mls/hr Administration Protocol 2 MCG/MIN Phenylephrine HCl 100 mg/ 100 mls @ 3 mls/hr 03/17/21 21:45 03/17/21 23:07 Sodium Chloride IV 400 mcg/min TITR [facility] 24 mls/hr Administration Protocol 50 MCG/MIN Epinephrine 8 mg/ Sodium 250 mls @ 3.75 mls/hr 03/17/21 23:45 Chloride IV TITR [facility] Protocol 2 MCG/MIN Insulin Glargine 20 units 03/17/21 22:00 Insulin Glargine 100 Units/Ml SUB-Q QHS [facility] Insulin Human Regular 0 units 03/10/21 12:00 03/17/21 19:10 Insulin Regular, Human 100 Units/1 Ml SUB-Q 4 units Q6H [facility] Administration Protocol Labetalol HCl 10 mg 03/16/21 14:00 Labetalol 20 Mg/4 Ml Inj IV Q6H PRN Hypertension Magnesium Hydroxide 30 ml 03/09/21 02:28 Magnesium Hydroxide (Mom) Oral Liqd Udc PO Q4H PRN Constipation Methylprednisolone Sodium Succinate 40 mg 03/17/21 22:00 Methylprednisolone Sod Succinate 40 Mg/1 Ml Inj IV Q12HR [facility] Nystatin 1 applic 03/09/21 15:00 03/17/21 09:55 Nystatin Oint 15 Gm TP 1 applic BID [facility] Administration Simple Syrup 15 ml 03/17/21 15:31 Simple Syrup 15 Ml FEEDTUBE PRN PRN Hypoglycemia Simple Syrup 30 ml 03/17/21 15:31 Simple Syrup 15 Ml FEEDTUBE PRN PRN Hypoglycemia Sodium Bicarbonate 325 mg 03/17/21 15:31 Sodium Bicarbonate 325 Mg Tab FEEDTUBE PRN PRN For Clogged Feeding Tube Sodium Chloride 10 ml 03/09/21 10:00 03/17/21 09:33 Sodium Chloride 0.9% 10 Ml Flush Syringe IV 10 ml BID CAM[facility] Administration Sodium Chloride 10 ml 03/09/21 02:28 Sodium Chloride 0.9% 10 Ml Flush Syringe IV PRN PRN LINE FLUSH Zinc Sulfate 220 mg 03/09/21 22:00 03/17/21 13:44 Zinc Sulfate 220 Mg Cap PO Not Given BID CAMER[facility]
[2021-03-18] MEDS ORDERED: CALCIUM CHLORIDE 1,000 MG/10 ML SYRINGE IV ONE ×2 (04:05→04:06)
[2021-03-18] MEDS ORDERED: ATROPINE 0.1% (1 MG/10 ML) CARDIAC SYRINGE ONE ×2 (04:05→04:06)
[2021-03-18] MEDS ORDERED: SODIUM BICARB 8.4% 50 MEQ/50 ML SYRINGE IV ONE ×2 (04:05→04:06)
[2021-03-18] MEDS ORDERED: EPINEPHrine 1 MG/10 ML SYRINGE ONE ×2 (04:05→04:06)
[2021-03-18] MEDS ORDERED: MAGNESIUM SULFATE 1 GM/2ML (4 MEQ/1ML) INJ ONE (04:06)
--- NOTE | 2021-03-18 05:32 | Death Note ---
Note Date of : 03/18/21 Time of : 00:05 Time Pronounced: 00:05 - Preliminary Cause of (problem) (1) Cardiac arrest Preliminary cause of Patient coded multiple times within the past 3 hours. After multiple attempts of ACLS resuscitation we were unable to achieve ROSC. No heart sounds noted, no pulse, pupils are fixed and dilated, no response to tactile stimulus. Time of 0005. Family is present at bedside (2) Bilateral pneumonia Preliminary cause of (3) COVID-19 Preliminary cause of
--- NOTE | 2021-03-18 05:50 | Event Note ---
Date: 03/17/21 CODE BLUE 2210: Asystole arrest. ACLS protocol initiated. Patient received total of epi x3, sodium bicarb x1, 1 g calcium chloride x1, magnesium sulfate 2 g x 1,, 1 sodium bicarb, 1 calcium chloride, shocked with 300 J for V. fib x2, with Rosc achieved. Family notified and expressed that they would like everything done. The following facilities were called for possible transfer for cerebral hemorrhage and subarachnoid hemorrhage 1. [facility] [place] beds available 2. [place] no beds available 3. Justin spoke with neurosurgeon and neuro-exchange clerk who determined patient was not stable for transfer, we should follow-up once patient is stabilized for transfer 2246: Pt went into asystole cardiac arrest. ACLS protocol initiated. Patient received total of epi x3, sodium bicarb x1, 1 g calcium chloride x1, with ROSC achieved 2330: Pt went into asystole cardiac arrest. ACLS protocol initiated. Patient received total of epi x4, sodium bicarb x2, with Rosc achieved. 2359: Pt went into asystole cardiac arrest. ACLS protocol initiated. Patient received total of epi x2 unable to achieve ROSC. Time of 0005
[2021-03-18 07:20] VITALS: BP 70/29
--- NOTE | 2021-03-18 08:40 | Death Summary ---
Summary - Providers Consults: 03/09/21 02:28 Consult to Physician [CONS] Routine Comment: Consulting Provider: BETH FRANCOIS Physician Instructions: Reason For Exam: [place]. PNEUMONIA, HYPOXIA, PUI 03/09/21 14:13 Consult to Physician [CONS] Routine Comment: Consulting Provider: RODY CURRIE Physician Instructions: Reason For Exam: Seizure disorder and medication changes 03/10/21 09:24 Consult to Physician [CONS] Routine Comment: Consulting Provider: YOAV KRAUS Physician Instructions: Reason For Exam: covid (+) 03/11/21 05:10 PICC Line Placement [Consult to PICC Line RN] [CONS] Urgent Reason For Exam: icu. no iv access. needs multiple lumens. covid Type Line:: PICC 03/15/21 12:01 Consult to Physician [CONS] Routine Comment: Consulting Provider: MICAH MARKHAM Physician Instructions: Reason For Exam: art insuficiency to UE and LE, concern for emboli 03/15/21 15:02 Consult to Physician [CONS] Routine Comment: Consulting Provider: DAVI COOK Physician Instructions: Reason For Exam: possible hit 03/16/21 19:03 Consult to Cardiology [CONS] Routine Consulting Provider: KRYSTIN GIL Reason For Exam: afib 03/17/21 15:31 Consult to Dietitian/Nutrition [CONS] Routine Physician Instructions: Assess nutrtn needs, initiate, modify, manage TF Reason For Exam: Reason for Consult: Write/Manage Tube Feeding Reason for Consult: Write/Manage Tube Feeding Attending: TETO HATCH MD - summary Date of admission: 03/09/21 01:30 Date of : 03/18/21 Reason for admission: respiratory failure Disposition: History Interval history: This is 60-year-old female with seizure disorder and TBI brought into the emergency room by EMS for evaluation of shortness of breath ongoing for the past few days. Oxygen saturation was about 50% on room air upon arrival of EMS. She was subsequently placed on nonrebreather with improvement of oxygen satura tion to about 88%. She was subsequently placed on BiPAP upon arrival in the emergency room. She was initially confused upon arrival in the emergency room but became more responsive upon placement on BiPAP. Work-up in the emergency room showed labs were significant for elevated liver enzymes with AST of 79 ALT 62. Chest x-ray reveals severe bilateral airspace pneumonia. Patient admitted for covid 19 pui with acute hypoxic resp failure. 03/10/2021 Patient is Covid positive And acute respiratory failure with hypoxia Neurology and nursing service director consult appreciated ID consult appreciated mainly Seizure medication changed 03-11: no acute events overnight 03/12: unable to gain IV access, IV placed by PICC team was infiltrated today. CVL and janeen placed today 03/13: thrombocytopenia, weaned to optiflow with nrb during the AM and bipap hs. dimer noted at >19668 however unable to complete full vte workup-will reorder Doppler and changed to arixtra. 03/14: Patient platelets are recovering, HIT assay ordered, left radial A-line removed due to discoloration of the fingers. Patient did not tolerate high flow nasal cannula today 03/15: noted to have increased discoloration and coolness to bilateral hands and feet. thrombocytopenia improving, heme/onc consulted. Arixtra increased 03/16: hem/onc started argatroban. remains on bipap. 03-17 intubated today; was over breathing vent; on argatroban- bleeding from nose and into ETT;CT completed demonstrated large left sided intracerebral hemorrhage (please refer to official rads report) CODE BLUE 2210: Asystole arrest. ACLS protocol initiated. Patient received total of epi x3, sodium bicarb x1, 1 g calcium chloride x1, magnesium sulfate 2 g x 1,, 1 sodium bicarb, 1 calcium chloride, shocked with 300 J for V. fib x2, with Rosc achieved. Family notified and expressed that they would like everything done. The following facilities were called for possible transfer for cerebral hemorrhage and subarachnoid hemorrhage 1. [facility] [place] 2. [place] no beds available 3. [place] spoke with neurosurgeon and neuro-nursing service director who determined patient was not stable for transfer, we should follow-up once patient is stabilized for transfer 2246: Pt went into asystole cardiac arrest. ACLS protocol initiated. Patient received total of epi x3, sodium bicarb x1, 1 g calcium chloride x1, with ROSC achieved 2330: Pt went into asystole cardiac arrest. ACLS protocol initiated. Patient received total of epi x4, sodium bicarb x2, with Rosc achieved. 2359: Pt went into asystole cardiac arrest. ACLS protocol initiated. Patient received total of epi x2 unable to achieve ROSC. Time of 0005 - Preliminary Cause of (problem) (1) Cardiac arrest Preliminary cause of Patient coded multiple times within the past 3 hours. After multiple attempts of ACLS resuscitation we were unable to achieve ROSC. No heart sounds noted, no pulse, pupils are fixed and dilated, no response to tactile stimulus. Time of 0005. 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
--- NOTE | 2021-03-18 08:55 | Electrocardiograph Report ---
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
--- NOTE | 2021-03-18 11:02 | Vascular Lab Report ---
DUPLEX DOPPLER LOWER EXTREMITY ARTERIAL, BILATERAL INDICATION / CLINICAL INFORMATION: art insufficiency, poss emboli. TECHNIQUE: Arterial duplex examination of both lower extremities performed using B-mode, color flow and spectral Doppler assessment. FINDINGS: RIGHT: - Atherosclerotic Plaque: No significant atherosclerotic plaque. - Elevated Velocity (>200 cm/s): None. - Abnormal Waveform: None. LEFT: - Atherosclerotic Plaque: No significant atherosclerotic plaque. - Elevated Velocity (>200 cm/s): None. 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 Other arteries are widely patent w ith normal waveforms. ADDITIONAL FINDINGS: None. IMPRESSION: 1. 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 2. Otherwise, no significant stenosis or occlusion. Findings were reported to ROSE MARIE Richards by the animal husbandry teacher following image acquisition. Signer Name: Olivier Mullen MD Signed: 03/18/2021 10:58 AM Workstation Name: [id number]
[2021-03-18] MEDS ORDERED: SODIUM CHLORIDE 0.9% IRR 1,000 ML BOTTLE IR ONE (15:48)
[2021-03-22] MEDS ORDERED: cloNIDine TTS 0.1 MG/24 HR PATCH TD SCH (09:00)
== END 2021-03-18 02:00 | DRG 208 ==
LOC: ED 23:48 → 3A 03-09 01:30 → CC1 03-09 02:46
PROVIDERS: ADMIT Internal Medicine Geriatric Medicine; ATTEND Internal Medicine
PROC: XW033E5 Introduction of Remdesivir Anti-infective into Peripheral Vein, Percutaneous Approach, New Technology Group 5 (ICD-10-PCS; 2021-03-09)
PROC: XW033E5 Introduction of Remdesivir Anti-infective into Peripheral Vein, Percutaneous Approach, New Technology Group 5 (ICD-10-PCS; 2021-03-09)
PROC: 5A09557 Assistance with Respiratory Ventilation, Greater than 96 Consecutive Hours, Continuous Positive Airway Pressure (ICD-10-PCS; 2021-03-09)
PROC: XW033H5 Introduction of Tocilizumab into Peripheral Vein, Percutaneous Approach, New Technology Group 5 (ICD-10-PCS; 2021-03-10)
PROC: 4A033R1 Measurement of Arterial Saturation, Peripheral, Percutaneous Approach (ICD-10-PCS; 2021-03-10)
PROC: 03HY32Z Insertion of Monitoring Device into Upper Artery, Percutaneous Approach (ICD-10-PCS; 2021-03-12)
PROC: 05HY33Z Insertion of Infusion Device into Upper Vein, Percutaneous Approach (ICD-10-PCS; 2021-03-12)
PROC: 5A1935Z Respiratory Ventilation, Less than 24 Consecutive Hours (ICD-10-PCS; principal; 2021-03-17)
PROC: 0BH17EZ Insertion of Endotracheal Airway into Trachea, Via Natural or Artificial Opening (ICD-10-PCS; 2021-03-17)
DX: U07.1 COVID-19 (principal); J12.82 Pneumonia due to coronavirus disease 2019; J96.01 Acute respiratory failure with hypoxia; I61.9 Nontraumatic intracerebral hemorrhage, unspecified; Z68.43 Body mass index [BMI] 50.0-59.9, adult; E87.0 Hyperosmolality and hypernatremia; I74.2 Embolism and thrombosis of arteries of the upper extremities; J44.1 Chronic obstructive pulmonary disease with (acute) exacerbation; E46 Unspecified protein-calorie malnutrition; I46.9 Cardiac arrest, cause unspecified; R74.01 Elevation of levels of liver transaminase levels; E66.01 Morbid (severe) obesity due to excess calories; Z71.3 Dietary counseling and surveillance; I10 Essential (primary) hypertension; M13.80 Other specified arthritis, unspecified site; E87.5 Hyperkalemia; I48.91 Unspecified atrial fibrillation; E87.8 Other disorders of electrolyte and fluid balance, not elsewhere classified; D75.82 Heparin induced thrombocytopenia (HIT); K74.60 Unspecified cirrhosis of liver; Z79.82 Long term (current) use of aspirin; G40.909 Epilepsy, unspecified, not intractable, without status epilepticus; R73.9 Hyperglycemia, unspecified; T45.515A Adverse effect of anticoagulants, initial encounter; Y92.89 Other specified places as the place of occurrence of the external cause; I70.208 Unspecified atherosclerosis of native arteries of extremities, other extremity
CPT/HCPCS: 36415; 36600; 70450; 71045; 74018; 80048; 80053; 80164; 81001; 82140; 82728; 82803; 82805; 82962; 83615; 83735; 84100; 84145; 85025; 85027; 85379; 85610; 85730; 86022; 86140; 86850; 86900; 86901; 87040; 93005; 93306; 93925; 93930; 93970; 94002; 94003; 94640; 94660; 94760; G0378; J0171; J0282; J0360; J0456; J0461; J0610; J0696; J0883; J1100; J1650; J1652; J1815; J1940; J2060; J2270; J2370; J2704; J2930; J3010; J3475; J3480; J3490; J7030; J7050; J7060; J7070; U0003